=== PATIENT | female | born 1980 | race Caucasian/White ===

== ENCOUNTER 2017-11-11 03:28 | Emergency (ER) | payer OTHER, SELFPAY ==
[2017-11-11 03:35] VITALS: BP 121/94; PULSE 126; RESP 16; TEMP 36.5; O2SAT 95
[2017-11-11 03:40] VITALS: RESP 16
[2017-11-11 03:52] LABS: Bilirubin Negative (Negative); Blood Negative (Negative); Clarity Clear; Glucose Negative (Negative); Ketones Negative (Negative); Leukocyte Esterase Negative (Negative); Nitrite Negative (Negative); Specific Gravity <= 1.005 (1.005-1.025); Urobilinogen 0.2 EU/dL (Up TO 0.2); pH 5.5 (5-8)
[2017-11-11 04:04] LABS: *AMPHETAMINES SCREEN URINE Negative (Negative); *BARBITURATES SCREEN URINE Negative (Negative); *BENZODIAZEPINES SCREEN URINE Negative (Negative); Cannabinoids THC Negative (Negative); Cocaine Screen,Urine Negative (Negative); METHADONE URINE SCREEN Negative (Negative); OPIATES URINE SCREEN Negative (Negative)
[2017-11-11 04:14] LABS: Tricyclic Antidepressants Negative (Negative)
[2017-11-11 04:26] LABS: HCT 45.5 % (36.0-46.0); HGB 15.7 g/dL (12.0-15.5); Mean Corp. HGB Concentration 34.5 g/dL (32.0-36.0); Mean Corpuscular Hemoglobin 31.9 pg (27.0-33.0); Mean Corpuscular Volume 92.5 fL (80-95); Mean Platelet Volume 9.5 fL (8.0-11.0); Platelet Count 271 x1000/uL (130-400); RBC 4.92 m/cumm (4.00-5.20); RBC Distribution Width 13.2 % (11.7-14.6); White Blood Cell Count 11.48 k/cumm (4.4-10.8)
[2017-11-11 04:37] LABS: BUN 4 mg/dL (7-18); CREATININE 0.77 mg/dL (0.55-1.02); Calcium 8.4 mg/dL (8.5-10.1); Chloride 102 mmol/L (98-107); ETHANOL BLOOD 280.8 mg/dL (<3); Glucose 93 mg/dL (70-100); Potassium 3.5 mmol/L (3.5-5.1); Sodium 142 mmol/L (136-145)
--- NOTE | 2017-11-11 04:56 | ED.GENADUL ---
Disposition Clinical Impression: Alcohol intoxication, Anxiety Disposition: [facility] Condition: Good Instructions: Alcohol Intoxication (ED), Anxiety (ED) Additional Instructions: You are still in protective custody until you are sober. However you are medically cleared and released into protective custody to go to the correctional facility to sober up. Referrals: [facility] [Provider Group] Luis Alberto Luu [Primary Care Provider] - Medical Decision Making - Lab Data Laboratory Tests 11/11/17 11/11/17 11/11/17 03:47 03:47 04:15 WBC RBC Hgb Hct MCV MCH MCHC RDW Plt Count MPV Sodium 142 Potassium 3.5 Chloride 102 Carbon Dioxide 26.0 Anion Gap 14.0 H BUN 4 L Creatinine 0.77 Estimated GFR/1.73 m2 >= 60.00 Glucose 93 Calcium 8.4 L Urine Color Straw Urine Clarity Clear Urine pH 5.5 Ur Specific [place] <= 1.005 Urine Protein Negative Urine Ketones Negative Urine Blood Negative Urine Nitrite Negative Urine Bilirubin Negative Urine Urobilinogen 0.2 Ur Leukocyte Esterase Negative Urine Glucose Negative Urine Opiates Screen Negative Urine Methadone Screen Negative Ur Barbiturates Screen Negative Ur Tricyclics Screen Negative Ur Amphetamines Screen Negative U Benzodiazepines Scrn Negative Urine Cocaine Screen Negative Ur THC Screen Negative Ethyl Alcohol 280.8 11/11/17 04:15 WBC 11.48 H RBC 4.92 Hgb 15.7 H Hct 45.5 MCV 92.5 MCH 31.9 MCHC 34.5 RDW 13.2 Plt Count 271 MPV 9.5 Sodium Potassium Chloride Carbon Dioxide Anion Gap BUN Creatinine Estimated GFR/1.73 m2 Glucose Calcium Urine Color Urine Clarity Urine pH Ur Specific [place] Urine Protein Urine Ketones Urine Blood Urine Nitrite Urine Bilirubin Urine Urobilinogen Ur Leukocyte Esterase Urine Glucose Urine Opiates Screen Urine Methadone Screen Ur Barbiturates Screen Ur Tricyclics Screen Ur Amphetamines Screen U Benzodiazepines Scrn Urine Cocaine Screen Ur THC Screen Ethyl Alcohol Results reviewed for labs ordered during visit: Yes - EKG Data -: EKG Interpreted by Me Interpretation: no acute changes, nonspecific ST-T wave changes - Medical Decision Making Patient brought in for medical clearance with alcohol intoxication. She admits to anxiety but denies being suicidal or homicidal. She denies any drug use. She is tachycardic but reports this occurs when she gets anxious. However, with heart rate of 125 at triage, I have elected to place an IV and get a EKG, check basic labs and give fluids prior to clearing. Patient's EKG is sinus tach at 110. There is nonspecific ST changes but nothing acute. CBC and chemistry unremarkable. Alcohol level 281. Urine drug screen negative. Urine test negative. Heart rate down to normal after less than a liter of fluid. Patient ambulatory with relatively clear speech. She can be released into protective custody and taken to the retirement to sober up. History of Present Illness - General Chief complaint: GenMedical Stated complaint: MEDICAL CLEARANCE Time Seen by Provider: 11/11/17 03:56 Source: patient, police Mode of arrival: ambulatory Limitations: no limitations - History of Present Illness Initial comments: Patient is brought in by police for evaluation of intoxication. Patient had been seen staggering down the road. Patient is known to be a binge drinker at times. She was screened by mental health and referred to us because her blood alcohol level was too high. Patient ambulated in on her own. His speech is relatively clear. She is able to provide history including her medications. She denies being suicidal or homicidal. She does admit to anxiety which is why she drinks. She has no physical complaints of other than some palpitations and shortness of breath related to anxiety. - Related Data Citalopram [CeleXA] 40 mg PO DAILY tab-cap 11/20/13 ALPRAZolam [Xanax] 0.5 mg PO PRN PRN 10/01/17 Gabapentin 800 mg PO BID 11/11/17 Allergies Allergy/AdvReac Type Severity Reaction Status Date / Time No Known Allergies Allergy Unverified 11/11/17 03:42 Review of Systems Constitutional: denies: fever Eyes: denies: vision change ENT: denies: congestion Respiratory: shortness of breath. denies: cough Cardiovascular: palpitations. denies: chest pain Gastrointestinal: denies: abdominal pain, nausea, vomiting Musculoskeletal: denies: back pain Neurological: denies: headache, weakness, numbness Psychiatric: anxiety. denies: depression, homicidal thoughts, suicidal thoughts Past Medical History - Past Medical History Medical history: no medical history Surgical history: non-contributory Psychiatric history: anxiety - Social History Smoking status: current everyday smoker Alcohol use: heavy, recent Drug use: none General Exam - General Limitations: no limitations General appearance: alert, in no apparent distress - Head Head exam: Present: atraumatic, normocephalic - Eye Eye exam: Present: PERRL. Absent: scleral icterus - Neck Neck exam: Present: normal inspection - Respiratory Respiratory exam: Present: normal lung sounds bilaterally - Cardiovascular Cardiovascular Exam: Present: normal rhythm, tachycardia, normal heart sounds - Extremities Exam Extremities exam: Present: normal inspection, full ROM - Neurological Exam Neurological exam: Present: alert, oriented X3, CN II-XII intact, normal gait. Absent: motor sensory deficit - Psychiatric Psychiatric exam: Present: anxious. Absent: depressed, homicidal ideation, suicidal ideation - Skin Skin exam: Present: warm, dry, intact Course Vital Signs - 24 hr 11/11/17 11/11/17 03:35 03:40 Temperature 97.7 F Pulse 126 H Respiratory 16 16 Rate Blood Pressure 121/94 Pulse Oximetry 95
[2017-11-11] MEDS: Lactated Ringers 1,000 ML 1000 ML IV (05:09)
[2017-11-11] MEDS: Nicotine 21 MG/24 HR PATCH TD (05:12)
[2017-11-11 05:51] VITALS: PULSE 98; RESP 15; O2SAT 98
== END 2017-11-11 05:54 | disposition home or self-care (01) ==
PROVIDERS: Emergency Provider Emergency Medicine; PCP Specialist/Technologist Athletic Trainer
DX: F10.129 Alcohol abuse with intoxication, unspecified (principal); Y90.8 Blood alcohol level of 240 mg/100 ml or more; F41.9 Anxiety disorder, unspecified; R00.0 Tachycardia, unspecified
CPT/HCPCS: 36415; 80048; 80307; 81025; 85027; 93005; 96360; 99285; 80320; 81003; 93010

== ENCOUNTER 2018-05-04 17:05 | Outpatient (REF) | payer OTHER, SELFPAY ==
[2018-05-04 21:23] LABS: ALT 63 U/L (12-78); AST 34 U/L (15-37); Alkaline Phosphatase 123 U/L (46-116); Anion Gap 11.4 mmol/L (3-11); BUN 8 mg/dL (7-18); Bilirubin, Total 0.3 mg/dL (0.2-1.0); CO2 26.6 mmol/L (21.0-32.0); CREATININE 0.97 mg/dL (0.55-1.02); Calcium 9.4 mg/dL (8.5-10.1); Chloride 101 mmol/L (98-107); Cholesterol 253 mg/dL (50-200); Glucose 93 mg/dL (70-100); HDL Cholesterol 77 mg/dL (40-60); LDL CHOLESTEROL 145 mg/dL (<100); Potassium 4.2 mmol/L (3.5-5.1); Sodium 139 mmol/L (136-145); Triglyceride 99 mg/dL (30-150)
== END 2018-05-04 17:25 ==
LOC: NCHCN 17:05
PROVIDERS: PCP Specialist/Technologist Athletic Trainer; Visit Provider Specialist/Technologist Athletic Trainer
DX: Z00.00 Encounter for general adult medical examination without abnormal findings (principal); Z13.220 Encounter for screening for lipoid disorders; Z13.228 Encounter for screening for other metabolic disorders
CPT/HCPCS: 80053; 80061; 83721

== ENCOUNTER 2018-05-19 00:21 | Outpatient (CLI) | payer OTHER, SELFPAY ==
--- NOTE | 2018-05-19 13:55 | DI.RAD_ITS ---
SYMPTOMS/DIAGNOSIS: CHEST PAIN, R07.9 PA AND LATERAL CHEST: The heart is normal in size. The lungs are clear. The mediastinal structures and pleura appear intact. CONCLUSION: Normal chest.
== END 2018-05-19 00:41 ==
PROVIDERS: PCP Specialist/Technologist Athletic Trainer; Visit Provider Specialist/Technologist Athletic Trainer
DX: R07.9 Chest pain, unspecified (principal)
CPT/HCPCS: 71046

== ENCOUNTER 2018-12-13 15:12 | Outpatient (REF) | payer OTHER, SELFPAY ==
[2018-12-13 22:12] LABS: Abs Immature Grans 0.01 k/cumm (0.0-0.09); Absolute Basophil Count 0.03 k/cumm (0.0-0.2); Absolute Eosinophil Count 0.18 k/cumm (0.0-0.7); Absolute Lymphocyte Count 1.78 k/cumm (1.2-3.4); Absolute Neutrophil Count 4.72 k/cumm (1.2-6.7); Basophils % 0.4; Eosinophils % 2.5; HCT 43.5 % (36.0-46.0); HGB 14.5 g/dL (12.0-15.5); Immature Grans % 0.1; Mean Corp. HGB Concentration 33.3 g/dL (32.0-36.0); Mean Corpuscular Hemoglobin 30.8 pg (27.0-33.0); Mean Corpuscular Volume 92.4 fL (80-95); Mean Platelet Volume 11.1 fL (8.0-11.0); Monocytes % 5.6; Neutrophils % 66.4; Platelet Count 259 x1000/uL (130-400); RBC 4.71 m/cumm (4.00-5.20); White Blood Cell Count 7.12 k/cumm (4.4-10.8)
[2018-12-13 22:34] LABS: ALT 119 U/L (14-59); AST 66 U/L (15-37); Albumin 3.7 g/dL (3.4-5.0); Alkaline Phosphatase 139 U/L (46-116); Anion Gap 9.9 mmol/L (3-11); BUN 8 mg/dL (7-18); Bilirubin, Total 0.3 mg/dL (0.2-1.0); CO2 27.1 mmol/L (21.0-32.0); CREATININE 0.95 mg/dL (0.55-1.02); Chloride 104 mmol/L (98-107); Glucose 83 mg/dL (70-100); Potassium 4.5 mmol/L (3.5-5.1); Sodium 141 mmol/L (136-145); Total Protein 7.2 g/dL (6.4-8.2)
[2018-12-14 05:04] LABS: Vitamin D 25 Total 25.4 ng/ml (30-100)
== END 2018-12-13 15:32 ==
LOC: NCHCN 15:12
PROVIDERS: PCP Specialist/Technologist Athletic Trainer; Visit Provider Nurse Practitioner Family
DX: R53.83 Other fatigue (principal); R19.7 Diarrhea, unspecified
CPT/HCPCS: 80053; 82306; 84443; 85025

== ENCOUNTER 2018-12-19 14:28 | Outpatient (REF) | payer OTHER, SELFPAY ==
[2018-12-20 11:44] LABS: Campylobacter PCR SEE COMMENTS; Salmonella PCR SEE COMMENTS; Shiga Toxin PCR SEE COMMENTS; Shigella/Enteroinvasive Ecoli SEE COMMENTS
== END 2018-12-19 14:48 ==
LOC: NCHCN 14:28
PROVIDERS: PCP Specialist/Technologist Athletic Trainer; Visit Provider Nurse Practitioner Family
DX: R53.83 Other fatigue (principal); R19.7 Diarrhea, unspecified
CPT/HCPCS: 87329; 87505; 82272; 83630; 87177; 87324

== ENCOUNTER 2019-01-09 15:17 | Outpatient (REF) | payer OTHER, SELFPAY ==
[2019-01-09 23:05] LABS: ESR 19 mm/hr (0-20)
[2019-01-09 23:30] LABS: Iron 94 ug/dL (50-175); Total Iron Binding Capacity 256 ug/dL (250-450); Transferrin Sat 37 % (15-50)
[2019-01-09 23:47] LABS: Ferritin 108 ng/mL (8-388)
[2019-01-11 09:37] LABS: Rheumatoid Factor <8 IU/mL (<12.5)
[2019-01-11 10:53] LABS: Hepatitis C Ab w Rflx HCV PCR Negative (NEGAT)
[2019-01-11 10:54] LABS: Cyclic Citrullinated Peptide <2.5 U/mL (<5.0)
[2019-01-11 11:12] LABS: Hepatitis B Surface Ag Negative (NEGAT)
[2019-01-11 13:18] LABS: ANA Interpretation Negative (NEGAT)
[2019-01-12 12:37] LABS: c-ANCA Negative (Negative); p-ANCA Negative (Negative)
== END 2019-01-09 15:37 ==
LOC: NCHCN 15:17
PROVIDERS: PCP Specialist/Technologist Athletic Trainer; Visit Provider Nurse Practitioner Family
DX: R53.83 Other fatigue (principal); R19.7 Diarrhea, unspecified; R15.9 Full incontinence of feces; R74.8 Abnormal levels of other serum enzymes; M25.50 Pain in unspecified joint; Z11.59 Encounter for screening for other viral diseases
CPT/HCPCS: 85652; 86200; 86803; 87340; 82728; 83540; 83550; 86038; 86255; 86431

== ENCOUNTER 2020-01-01 19:26 | Outpatient (REF) | payer OTHER, SELFPAY ==
[2020-01-03 13:53] LABS: Patient Race White; SARS-CoV-2 RNA Undetected (Undetected); SARS-CoV-2 Specimen Source Nasopharynx
== END 2020-01-01 19:46 ==
LOC: NCHCN 19:26
PROVIDERS: PCP Specialist/Technologist Athletic Trainer; Visit Provider Nurse Practitioner Family
DX: R05 Cough (principal)
CPT/HCPCS: U0003

== ENCOUNTER 2020-06-09 19:21 | Outpatient (REF) | payer OTHER, SELFPAY ==
[2020-06-09 18:53] LABS: HCT 44.9 % (36.0-46.0); MCH 30.5 pg (27.0-33.0); MCHC 33.4 % (32.0-36.0); MCV 91.4 fL (80-95); MPV 10.5 fL (8.0-11.0); Platelet Count 312 10^3/uL (130-400); RBC 4.91 10^6/uL (3.93-5.22); RDW 12.5 % (11.7-14.6); RDW-SD 42.3 fL; WBC 6.74 10^3/uL (4.4-10.8)
[2020-06-09 19:21] LABS: Anion Gap 8.8 mmol/L (3-11); BUN 10 mg/dL (7-18); CO2 29.2 mmol/L (21.0-32.0); CREATININE 0.9 mg/dL (0.55-1.02); Calcium 9.2 mg/dL (8.5-10.1); Calculated LDL 144 mg/dL (<100); Chloride 102 mmol/L (98-107); Cholesterol 233 mg/dL (<200); Glucose 88 mg/dL (74-106); HDL Cholesterol 75 mg/dL (40-60); Sodium 140 mmol/L (136-145); Triglyceride 74 mg/dL (<150)
[2020-06-09 19:38] LABS: Vitamin D 25 Total 37.4 ng/ml (30-100)
== END 2020-06-09 19:22 | disposition home or self-care (01) ==
LOC: NCHCN 19:21
PROVIDERS: PCP Specialist/Technologist Athletic Trainer; Visit Provider Nurse Practitioner Family
DX: R63.5 Abnormal weight gain (principal); K58.9 Irritable bowel syndrome, unspecified; Z79.899 Other long term (current) drug therapy
CPT/HCPCS: 80048; 80061; 82306; 85027; 84443

== ENCOUNTER 2020-06-17 15:45 | Outpatient (REF) | payer OTHER, SELFPAY ==
--- NOTE | 2020-06-17 14:30 | PAPFT_PTH ---
PATIENT: Domitila Sauceda LOC: [facility] U#:[id number] AGE/SX: 39/F ROOM: RE06/17/[address]: Tash Chávez NP : 1980 BED: DIS: 06/17/2020 SPEC #: [id number] RECD: 06/17/20 17:29 STATUS: RUTHY REDaisy #: [id number] MORAIMA: 06/17/20 14:[address]: Saira HOPSON,Tash DEPT: [facility] Cytology RECD BY: Yudelka Zambrano ENTERED: 06/17/20 17:29 SP TYPE: PAPFT OTHR DR: Luis Alberto Luu Tissues: 1 - CX/ENDOCX FOR PAP SMEARS Procedures: PAP THIN PREP/UVM Screening HPV DNA PROBE Comments: [id number]
== END 2020-06-17 15:46 | disposition home or self-care (01) ==
LOC: LBN 15:45
PROVIDERS: PCP Specialist/Technologist Athletic Trainer; Visit Provider Nurse Practitioner Women's Health
DX: Z12.4 Encounter for screening for malignant neoplasm of cervix (principal); Z86.001 Personal history of in-situ neoplasm of cervix uteri; Z11.51 Encounter for screening for human papillomavirus (HPV)
CPT/HCPCS: 88142; 87624

== ENCOUNTER 2020-06-23 02:18 | Outpatient (CLI) | payer OTHER, SELFPAY ==
--- NOTE | 2020-06-23 16:24 | DI.MAMMO_ITS ---
EXAM: MG MAMMO SCREENING CLINICAL HISTORY: screening. TECHNIQUE: Bilateral full field digital CC and MLO mammographic images were obtained with 3D tomosyn thesis and utilizing computer aided detection (CAD). COMPARISON: None. This is a baseline mammogram on this 39-year-old patient. FINDINGS: There are no CAD designations. No significant focal findings in the right breast. In the left breast there is a benign-appearing noncalcified nodule located extreme lateral. I suspec t that this is a skin mole. There are no malignant-appearing microcalcification groups in this regio n or elsewhere in either breast. There is no significant architectural distortion nor skin thickening-retraction. IMPRESSION: No radiographic evidence of malignancy in the right breast. Extremely laterally located left breast nodule which I suspect may be a skin mole. Recommend repeat view with skin mole marker in place. BI-RADS Category 0 - Assessment Incomplete: Need additional imaging evaluation Breast Density - Category B - Scattered areas of fibroglandular density Breast density Category C or D implies that the patient has dense breast tissue. Dense breast tissue can make it harder to find cancer on a mammogram. Dense breast tissue is also associated with an incr eased risk of breast cancer. This information about the result of the mammogram report was provided to the patient to raise their awareness. Use this report when you speak with the patient about their risks for breast cancer, which includes their family history. At that time, you may recommend additional screening tests (Ultrasoun d or MRI) as these tests may add significant information. A negative radiographic report should not delay biopsy if a dominant or clinically suspicious mass is present. Up to ten percent of cancers are not identified on mammography. A negative report may reinforce clinical impression. Adenosis and dense breasts may obscure an underlying neoplasm. False positive reports average 6 to 10%. Patient will receive a letter notifying them of these results.
== END 2020-06-23 02:38 ==
PROVIDERS: PCP Nurse Practitioner Family; Visit Provider Nurse Practitioner Women's Health
DX: Z12.31 Encounter for screening mammogram for malignant neoplasm of breast (principal); R92.8 Other abnormal and inconclusive findings on diagnostic imaging of breast
CPT/HCPCS: 77063; 77067

== ENCOUNTER 2020-06-27 03:21 | Outpatient (CLI) | payer OTHER, SELFPAY ==
--- NOTE | 2020-06-27 13:45 | DI.MAMMO_ITS ---
EXAM: MG MAMMO SCREEN CALL BACK UNI CLINICAL HISTORY: F/U MAMMO, LT BREAST NODULE, ? SKIN MOLE TECHNIQUE: Mammograms were interpreted according to the usual protocol including computer analysis w [employer] CAD system, tomosynthesis and C-view imaging. COMPARISON: FINDINGS: Repeat CC and MLO views of the left breast were obtained with marker placed on skin mole on the infer olateral region of the left breast. The repeat views confirm that the nodular radiodensity noted on the recent mammogram of June 23 in fact corresponds to a mole on the skin in this location. No ad ditional significant findings. IMPRESSION: No specific evidence of malignancy at this time. Routine screening examinations are suggested at yea rly intervals in this age group according to the ACR guidelines. BI-RADS Category 1 - Negative Breast Density - Category B - Scattered areas of fibroglandular density
== END 2020-06-27 03:41 ==
PROVIDERS: PCP Nurse Practitioner Family; Visit Provider Nurse Practitioner Women's Health
DX: R92.8 Other abnormal and inconclusive findings on diagnostic imaging of breast (principal)

== ENCOUNTER 2021-09-27 20:37 | Emergency (ER) | payer OTHER, SELFPAY ==
[2021-09-27] VITALS (7 sets, daily range): BP systolic 105–128; BP diastolic 68–83; PULSE 89–110; RESP 17–24; TEMP 36.6; O2SAT 91–96
--- NOTE | 2021-09-27 20:45 | RT.EKG_ITS ---
APPROVED REPORT Exam: Resting ECG Reason for Exam: huffing, tox patient Patient Location: E HR:105 bpm ECG Measurements Heart Rate 105 AXIS DE 158 P 77 QRSd 100 QRS -17 QT 362 T 18 QTc 479 Conclusion Sinus tachycardia...rate> 99 sinus tachycardia, normal axis, normal intervals, non ischemic
--- NOTE | 2021-09-27 20:45 | DI.RAD_ITS ---
Exam(s) XR PORTABLE CHEST AP EXAM: XR PORTABLE CHEST AP CLINICAL HISTORY: huffing dustoff, vomiting blood. TECHNIQUE: 2D digital imaging was performed. COMPARISON: CR XR CHEST 2V PA LATERAL from 05/19/2018 FINDINGS: Single AP portable view. Heart size is upper normal. The mediastinum is not widened. Lungs are clear. No infiltrates nor obvious pleural effusions. IMPRESSION: No acute pulmonary findings on this single AP portable view of the chest. DATA REPOSITORY: RADIATION DOSE DELIVERED: All CT scans at this facility use at least one of these dose optimization techniques: automated exposure control; mA and/or kV adjustment per patient size (includes targeted e xams where dose is matched to clinical indication); or iterative reconstruction.
--- NOTE | 2021-09-27 21:00 | ED.GENADUL_ITS ---
Discharge Plan Disposition Patient Disposition: HOME Condition: Improving Discharge Details Clinical Impression: Huffing, UTI (urinary tract infection), Depression Primary Care Provider: Crystal Clark ED Provider: Nicolas Arciniega Home Meds and New Rx's Prescriptions: New cefpodoxime 100 mg tablet 100 mg PO BID 7 Days Qty: 14 0RF Rx Instructions: must administer with a meal/food No Action escitalopram oxalate 20 mg tablet 20 mg PO DAILY Latuda 20 mg tablet 20 mg PO DAILY Rx Instructions: pt doesnt thinkshe still takes this must administer with food (at least 350 calories) eszopiclone [Lunesta] 1 mg tablet 1 mg PO QHS colestipol 1 gram tablet 1 g PO BID cholecalciferol (vitamin D3) 50 mcg (2,000 unit) capsule 50 mcg PO DAILY Align 4 mg capsule 4 mg PO DAILY folic acid 1 mg tablet 1 mg PO DAILY risperidone 0.5 mg tablet 0.5 tab PO BID Label Comments: TAKE 1 TABLET BY MOUTH TWICE DAILY topiramate 50 mg tablet 50 tab PO 2XD Label Comments: TAKE 2 TABLETS IN THE MORNING AND TAKE 1 TABLET BY MOUTH AT BEDTIME Rx Instructions: said she ran out last week alprazolam 0.5 MG tablet 0.5 mg PO PRN PRN Discharge Instructions Instructions: Urinary Tract Infection in Women (ED) Additional Instructions: Please follow-up with your psychiatrist as scheduled. Please follow-up with outpatient safety plan created by [facility]. Please return to the emergency department for any worsening symptoms such as thoughts of harming yourself or others or any other medical issues. Medical Decision Making 40-year-old female currently undergoing a divorce, presents with increased stress depression and suicidal thoughts, has been helping just off spray for several days now, now experiencing nausea vomiting bringing up emesis with blood streaks, no active vomiting abdomen soft nontender nondistended alert oriented tolerating secretions, tachycardic on arrival no respiratory distress lungs clear bilaterally, alert and oriented. Patient is a slightly withdrawn affect active depression and suicidal thoughts. Consider nausea induced from coughing versus other toxicologic process, consider Brittney-Slade tear versus less likely Boerhaave's given brief limited amount of streaked blood prior to arrival, muscle to consider pulmonary etiology such as pneumonitis versus less likely pneumothorax. Patient endorses feeling safe at home and per her report her children are safe where they are currently. Will need medical clearance toxicologic labs chest x-ray EKG, fluids antiemetics, and then will need psychiatric screening for possible inpatient treatment. 22: 34 patient resting comfortably no acute distress neurologically intact no respiratory symptoms labs largely unremarkable. Called poison control center who agrees with management continue with observation and symptomatic treatment as needed. Patient is clinically sober. Will contact [facility] for initial psychiatric screening. 23: 40 patient resting notably no acute distress. Denies SI or HI at this time. Spoke with [facility] and denied SI or HI to their staff as well. Placement of a safety plan and phone conversation and follow-up psychiatric meeting for this patient. Patient feels comfortable going home. Will be treated for incidental UTI. HPI General Date/Time Provider Initiated Documentation: 09/27/21 20:49 . HPI Narrative: 40-year-old female history of depression, currently going through divorce with her , 2 adult children and one 10-year-old daughter, presents with increased stress, anxiety, suicidal thoughts and self injures behavior, endorses huffing dust off spray in order to feel better however is having suicidal thoughts as well. Endorses vomiting with streaks of blood. History of drinking in the past however is not drank in over 3 years. Has been happening for s everal days at a time. No respiratory distress at this time. Endorses that her juvenile child is with her and her adult children are at home. She feels safe at home no one is hurting her. Related Data Home Medications Medication Instructions Recorded Confirmed alprazolam 0.5 mg tablet 0.5 mg PO PRN PRN 10/01/17 09/27/21 Bifidobacterium infantis 4 mg 4 mg PO DAILY 06/17/20 09/27/21 capsule (Align) cholecalciferol (vitamin D3) 50 50 mcg PO DAILY 06/17/20 09/27/21 mcg (2,000 unit) capsule colestipol 1 gram tablet 1 g PO BID 06/17/20 09/27/21 escitalopram oxalate 20 mg tablet 20 mg PO DAILY 06/17/20 09/27/21 eszopiclone 1 mg tablet (Lunesta) 1 mg PO QHS 06/17/20 09/27/21 folic acid 1 mg tablet 1 mg PO DAILY 06/17/20 09/27/21 lurasidone 20 mg tablet (Latuda) 20 mg PO DAILY 06/17/20 cefpodoxime 100 mg tablet 100 mg PO BID 7 days #14 tabs 09/27/21 risperidone 0.5 mg tablet 0.5 tab PO BID 09/27/21 09/27/21 topiramate 50 mg tablet 50 tab PO 2XD 09/27/21 09/27/21 Previous Rx's Medication Instructions Recorded cefpodoxime 100 mg tablet 100 mg PO BID 7 days #14 tabs 09/27/21 Allergies Allergy/AdvReac Type Severity Reaction Status Date / Time No Known Allergies Allergy Unverified 09/27/21 20:43 General Stated Complaint: OD/Poison DEDE: 2 Review of Systems Narrative: Review of Systems Constitutional: negative Eyes: negative ENT: negative Cardiovascular: negative Respiratory: negative Gastrointestinal: Nausea vomiting : negative Musculoskeletal: negative Skin: negative Neurologic: negative Psych: Depression, SI PFSH All Active Problems (Updated 09/27/21 @ 23:42 by Nicolas Arciniega MD) Huffing (Acute) UTI (urinary tract infection) (Acute) Depression (Chronic) IBS (irritable bowel syndrome) (Chronic) Medical History (Updated 09/27/21 @ 23:42 by Nicolas Arciniega MD) 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) Tx with LEEP Surgical History (Updated 06/17/20 @ 14:39 by Tash Chávez NP) H/O LEEP Social History (Updated 06/17/20 @ 14:41 by Tash Chávez NP) Smoking/Tobacco Use Status: Former Tobacco Use Smoking risk assessment performed?: Yes Alcohol Intake: never Drug use: Never Details: pt is admitted due to huffing cans of dust off Household members: spouse and children Number of Children: 3 Sexually active: Yes Do you think of yourself as: straight/heterosexual Current gender identity: female Do you feel safe at home: No Do you feel safe in your relationship?: Yes Additional Social history: pt is going through a divorce that she does not want Female Reproductive History Menstrual control method: other (partner with vasectomy) History History 6 Para 3 Hx # Term Pregnancies Multiple births Hx # Pregnancies Ectopic pregnancies AB induced Hx Number of Living Children AB spontaneous Exam Narrative Exam Narrative: Physical Examination General: alert, awake, cooperative, resting comfortably, no acute distress HEENT: normocephalic, atraumatic; PERRL, EOM intact, conjunctiva normal; no nasal discharge; moist mucous membranes, oral and pharyngeal mucosa normal, tolerating secretions Neck: supple, trachea midline; full ROM Chest: normal to inspection Respiratory: normal respiratory effort, speaking in full sentences, clear to auscultation, no wheezing, rales or rhonchi Cardiac: Tachycardia, regular rhythm, S1S2 intact, no murmurs rubs or gallops GI: abdomen soft, non-tender, non-distended; no palpable mass or hepatosplen omegaly Skin: no lesions, rashes or trauma appreciated Neuro: AAOx3, normal speech, moving all extremities Psych: Withdrawn affect, depression, suicidal thoughts Course Vital Signs Vital signs: Vital Signs Temperature 36.6 C 09/27/21 20:35 Pulse 105 H 09/27/21 20:35 Respiratory Rate 24 09/27/21 20:35 Blood Pressure 105/82 09/27/21 20:35 Pulse Oximetry 93 09/27/21 20:35 Temperature 36.6 C 09/27/21 20:35 Temperature Source Skin 09/27/21 20:35 Pulse 105 H 09/27/21 20:35 Respiratory Rate 24 09/27/21 20:35 Respiratory Effort Non-Labored 09/27/21 20:52 Blood Pressure 105/82 09/27/21 20:35 Pulse Oximetry 93 09/27/21 20:35 Pain Level 1 09/27/21 20:35
[2021-09-27] MEDS: Famotidine 20 MG/2 ML VIAL IVP (21:06)
[2021-09-27] MEDS: Ondansetron 4 MG/2 ML VIAL IVP ×2 (21:06→23:40)
[2021-09-27] MEDS: Normal Saline 1,000 ML 1000 ML IV (21:06)
[2021-09-27 21:14] LABS: BE (Venous) -5 mmol/L (-2-3); HCO3 (Venous) 20 mmol/L (23-28); O2 Sat (Venous) 95 %; TCO2 (Venous) 18 mmol/L (24-29); pCO2 (Venous) 34 mmHg (41-51); pH (Venous) 7.38 (7.31-7.41); pO2 (Venous) 72 mmHg
[2021-09-27 21:31] LABS: Abs Immature Grans 0.13 10^3/uL (0.0-0.06); Absolute Eosinophil Count 0.02 10^3/uL (0.0-0.7); Absolute Lymphocyte Count 0.72 10^3/uL (1.2-3.4); Basophils % 0.3; Eosinophils % 0.1; HCT 43.7 % (36.0-46.0); HGB 14.8 g/dL (11.2-15.7); Immature Grans % 0.6; Lymphocytes % 3.2; MCH 30.3 pg (27.0-33.0); MCHC 33.9 % (32.0-36.0); MCV 90 fL (80-95); MPV 9.8 fL (8.0-11.0); Monocytes % 5.4; Neutrophils % 90.4; Platelet Count 316 10^3/uL (130-400); RBC 4.88 10^6/uL (3.93-5.22); RDW 13.6 % (11.7-14.6); RDW-SD 44.5 fL; WBC 22.63 10^3/uL (4.4-10.8)
[2021-09-27 21:37] LABS: Absolute Basophil Count 0.07 10^3/uL (0.0-0.2); Absolute Monocyte Count 1.22 10^3/uL (0.1-0.8); Absolute Neutrophil Count 20.46 10^3/uL (1.2-6.7)
[2021-09-27 21:52] LABS: ALT 77 U/L (14-59); AST 28 U/L (15-37); Acetaminophen < 2 ug/mL (10-30); Albumin 3.7 g/dL (3.4-5.0); Alkaline Phosphatase 154 U/L (46-116); Anion Gap 12.9 mmol/L (3-11); BUN 10 mg/dL (7-18); Bilirubin, Total 0.5 mg/dL (0.2-1.0); CO2 23.1 mmol/L (21.0-32.0); Calcium 8.3 mg/dL (8.5-10.1); Chloride 102 mmol/L (98-107); ETHANOL BLOOD 5.3 mg/dL (<10); Glucose 143 mg/dL (74-106); Potassium 3.4 mmol/L (3.5-5.1); Sodium 138 mmol/L (136-145); TSH (W/Ref FT4) 1.72 uIU/mL (0.36-3.74); Total Protein 7.2 g/dL (6.4-8.2); Troponin I < 50 ng/L (<or=60)
[2021-09-27 21:53] LABS: Diff Comment Agrees w/ Instrument; RBC Morphology Normal
[2021-09-27 22:00] LABS: Lipase 36 U/L (73-393)
[2021-09-27 22:27] LABS: Bilirubin Negative (Negative); Blood Trace-intact (Negative); Clarity Clear (Clear); Glucose Negative (Negative); Ketones Trace mg/dL (Negative); Leukocyte Esterase Small (Negative); Nitrite Negative (Negative); Specific Gravity 1.015 (1.005-1.025); Urobilinogen 0.2 EU/dL (Up TO 0.2)
[2021-09-27 22:31] LABS: *AMPHETAMINES SCREEN URINE Negative (Negative); *BARBITURATES SCREEN URINE Negative (Negative); *BENZODIAZEPINES SCREEN URINE Positive (Negative); Cannabinoids THC Positive (Negative); Cocaine Screen,Urine Negative (Negative); METHADONE URINE SCREEN Negative (Negative); OPIATES URINE SCREEN Negative (Negative)
[2021-09-27 22:34] LABS: Tricyclic Antidepressants Negative (Negative)
--- NOTE | 2021-09-27 22:38 | DI.VRAD_ITS ---
PROCEDURE INFORMATION: Exam: XR Chest Exam date and time: 09/27/2021 10:01 PM Age: 40 years old Clinical indication: Patient HX: Huffing dustoff, vomiting blood TECHNIQUE: Imaging protocol: Radiologic exam of the chest. Views: 1 view. COMPARISON: CR XR CHEST 2V PA LATERAL 05/19/2018 1:59 PM FINDINGS: Lungs: The lung benz appear clear. No pulmonary consolidation is seen. Pleural spaces: No pleural effusion or pneumothorax is demonstrated. Heart/Mediastinum: Heart size is normal. Bones/joints: The visualized bony structures appear grossly intact, as seen. IMPRESSION: No active disease is seen in the chest. Dictated and Authenticated by: Ji San MD. Ordering:JOSIE Valenzuela MD
[2021-09-27 22:43] LABS: Bacteria Few HPF (Negative); C & S Indicated? Yes; Crystals Negative HPF (Negative); Epithelial Cells Few HPF (Negative); Mucus Moderate (Negative); Other Cells Rare Renal (Negative); WBC 20-50 HPF (0-5)
[2021-09-27] MEDS: Cefpodoxime 200 MG TAB PO (23:40)
[2021-09-28 00:08] LABS: Source Nasal/Nares
[2021-09-28 00:59] LABS: COVID-19 PCR Negative (Negative)
== END 2021-09-28 00:40 | disposition home or self-care (01) ==
PROVIDERS: Emergency Provider Emergency Medicine; PCP Nurse Practitioner Family
DX: F32.A Depression, unspecified (principal); F18.10 Inhalant abuse, uncomplicated; N39.0 Urinary tract infection, site not specified; Z20.822 Contact with and (suspected) exposure to COVID-19; Z87.891 Personal history of nicotine dependence; R00.0 Tachycardia, unspecified
CPT/HCPCS: 36415; 80053; 80307; 81025; 82805; 83690; 87635; 93005; 96361; 96374; 96375; 96376; 99285; 71045; 80320; 80329; 81003; 81015; 84443; 84484; 85025; 87086; 93010; 99284; J2405

== ENCOUNTER 2021-09-29 18:03 | Emergency (ER) | payer OTHER, SELFPAY ==
[2021-09-29] VITALS (25 sets, daily range): BP systolic 109; BP diastolic 74; PULSE 70–100; RESP 13–27; O2SAT 92–99
--- NOTE | 2021-09-29 18:21 | ED.GENADUL_ITS ---
Discharge Plan Disposition Patient Disposition: STILL A PATIENT Condition: Stable Discharge Details Clinical Impression: Huffing, Depression Primary Care Provider: Crystal Clark ED Provider: Nicolas Arciniega Home Meds and New Rx's Prescriptions: No Action escitalopram oxalate 20 mg tablet 20 mg PO DAILY eszopiclone [Lunesta] 1 mg tablet 1 mg PO QHS colestipol 1 gram tablet 1 g PO BID Align 4 mg capsule 4 mg PO DAILY risperidone 0.5 mg tablet 0.5 tab PO BID Label Comments: TAKE 1 TABLET BY MOUTH TWICE DAILY topiramate 50 mg tablet 50 tab PO 2XD Label Comments: TAKE 2 TABLETS IN THE MORNING AND TAKE 1 TABLET BY MOUTH AT BEDTIME Rx Instructions: said she ran out last week cefpodoxime 100 mg tablet 100 mg PO BID 7 Days Qty: 14 0RF Rx Instructions: must administer with a meal/food alprazolam 0.5 MG tablet 2 mg PO BID PRN Medical Decision Making <Tamy Martinez DO - Last Filed: 09/29/21 20:18> 1900 -- 40yo F w/ a h/o depression and PTSD presents on a warrant for EE for report of huffing for pleasure in addition to attempting to harm herself. Patient was seen here 3 days ago for similar report of huffing and was medically cleared and seen by mental health and cleared for discharge to home. Patient's daughter called [facility] this evening with concern for patient's huffing and self harm and [facility] human services obtained a warrant for an EE for inpatient psychiatric placement. With report of huffing, patient will need to be medically cleared. Heart rate 100, remainder vitals within normal limits. Patient appears drowsy but otherwise nontoxic. There was no report of hematemesis, hemoptysis. Lungs clear bilaterally. Case discussed with poison control who recommends 4-6 hours of observation post last ingestion which reported last use around 1700. 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 The patient has normal oxygen saturation and no complaint of shortness of breath, low suspicion for respiratory complications. Poison control recommends screening labs, EKG and cardiac monitoring. Can provide supplemental O2 and IV fluids and needed. Labs obtained on arrival and note a white blood cell count of 11. Potassium 2.7. Troponin negative. COVID-negative. EKG notes a rate of 79, sinus, incomplete right bundle branch block, no STEMI. 1999 --Case endorsed to Dr. Rg to follow-up on chest x-ray and continue to monitor until end of observation which would be between [id number]. Once patient medically cleared, will have mental health evaluate. Medical Records Medical records reviewed: Yes I reviewed the patient's medical records. <Da Rg MD - Last Filed: 09/29/21 22:30> Lab Data Lab results reviewed: Yes I reviewed the patient's lab results. Labs: Laboratory Results - last 24 hr 09/29/21 09/29/21 09/29/21 18:44 18:45 18:45 WBC 11.63 H RBC 4.83 Hgb 14.9 Hct 42.6 MCV 88 MCH 30.8 MCHC 35.0 D RDW 13.3 Plt Count 344 MPV 9.6 Immature Gran % 0.5 Neutrophils % 82.8 Lymphocytes % 9.1 Monocytes % 5.0 Eosinophils % 2.2 Basophils % 0.4 Nucleated RBC % 0.0 Absolute Neutrophils 9.63 H Absolute Lymphocytes 1.06 L Absolute Monocytes 0.58 Absolute Eosinophils 0.26 Absolute Basophils 0.05 VBG pH VBG pCO2 VBG pO2 VBG HCO3 VBG Total CO2 VBG O2 Saturation VBG Base Excess Sodium 138 Potassium 2.7 L* Chloride 101 Carbon Dioxide 26.5 Anion Gap 10.5 BUN 4 L Creatinine 1.2 H Estimated GFR/1.73 m2 49.27 Glucose 124 H Calcium 9.1 Magnesium 2.4 Total Bilirubin 0.2 AST 26 ALT 59 Alkaline Phosphatase 145 H Troponin I < 50 Total Protein 8.0 Albumin 3.6 Lipase 52 Urine Color Urine Clarity Urine pH Ur Specific [place] Urine Protein Urine Ketones Urine Blood Urine Nitrite Urine Bilirubin Urine Urobilinogen Ur Leukocyte Esterase Urine RBC Urine WBC Ur Epithelial Cells Urine Crystals Urine Bacteria Urine Mucus Ur Culture Indicated? Urine Glucose COVID-19 Source Nasal/Nares SARS-CoV-2 (PCR) Negative 09/29/21 09/29/21 18:45 19:05 WBC RBC Hgb Hct MCV MCH MCHC RDW Plt Count MPV Immature Gran % Neutrophils % Lymphocytes % Monocytes % Eosinophils % Basophils % Nucleated RBC % Absolute Neutrophils Absolute Lymphocytes Absolute Monocytes Absolute Eosinophils Absolute Basophils VBG pH 7.34 VBG pCO2 49 VBG pO2 27 VBG HCO3 26 VBG Total CO2 24 VBG O2 Saturation 50 VBG Base Excess 0 Sodium Potassium Chloride Carbon Dioxide Anion Gap BUN Creatinine Estimated GFR/1.73 m2 Glucose Calcium Magnesium Total Bilirubin AST ALT Alkaline Phosphatase Troponin I Total Protein Albumin Lipase Urine Color Yellow Urine Clarity Clear Urine pH 5.5 Ur Specific [place] <= 1.005 Urine Protein Negative Urine Ketones Negative Urine Blood Trace-lysed H Urine Nitrite Negative Urine Bilirubin Negative Urine Urobilinogen 0.2 Ur Leukocyte Esterase Negative Urine RBC 0-2 Urine WBC 0-2 Ur Epithelial Cells Rare Urine Crystals Negative Urine Bacteria Negative Urine Mucus Negative Ur Culture Indicated? No Urine Glucose Negative COVID-19 Source SARS-CoV-2 (PCR) <Nicolas Arciniega MD - Last Filed: 09/30/21 17:12> 1902 -- 40yo F w/ a h/o depression and PTSD presents on a warrant for EE for report of huffing for pleasure in addition to attempting to harm herself. Patient was seen here 3 days ago for similar report of huffing and was medically cleared and seen by mental health and cleared for discharge to home. Patient's daughter called [facility] this evening with concern for patient's huffing and self harm and [facility] human [employer] obtained a warrant for an EE for inpatient psychiatric placement. With report of huffing, patient will need to be medically cleared. Heart rate 100, remainder vitals within normal limits. Patient appears drowsy but otherwise nontoxic. There was no report of hematemesis, hemoptysis. Lungs clear bilaterally. Case discussed with poison control who recommends 4-6 hours of observation post last ingestion which reported last use around 1700. 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 The patient has normal oxygen saturation and no complaint of shortness of breath, low suspicion for respiratory complications. Poison control recommends screening labs, EKG and cardiac monitoring. Can provide supplemental O2 and IV fluids and needed. Labs obtained on arrival and note a white blood cell count of 11. Potassium 2.7. Troponin negative. COVID-negative. EKG notes a rate of 79, sinus, incomplete right bundle branch block, no STEMI. 1999 --Case endorsed to Dr. Rg to follow-up on chest x-ray and continue to monitor until end of observation which would be between [id number]. Once patient medically cleared, will have mental health evaluate. 09/30 17: 12 patient resting comfortably no acute distress no events during day shift today, patient started on her home meds, awaiting second certification and placement. HPI <Tamy Martinez DO - Last Filed: 09/29/21 20:18> General Mode of arrival: ambulatory . Date/Time Provider Initiated Documentation: 09/29/21 18:04 . Limitations to Documentation: no limitations . Information obtained by: patient . HPI Narrative: Patient is a 40-year-old female with a history of depression and PTSD presents on a warrant for an EE from [facility] [employer] for report of huffing. Patient states she purchased 4 cans of computer cleaning spray which she has been huffing all day today. She states her last use was 5 PM this evening. Patient states she has nothing to live for because she is going through a divorce, her youngest child is transitioning and she has other stressors with her older children. She states she did not chaney yesterday. She states she has had nausea and dizziness since huffing but is unsure of any syncopal episodes. She denies difficulty swallowing or breathing. Related Data Home Medications Medication Instructions Recorded Confirmed alprazolam 0.5 mg tablet 2 mg PO BID PRN 10/01/17 09/30/21 Bifidobacterium infantis 4 mg 4 mg PO DAILY 06/17/20 09/29/21 capsule (Align) colestipol 1 gram tablet 1 g PO BID 06/17/20 09/29/21 escitalopram oxalate 20 mg tablet 20 mg PO DAILY 06/17/20 09/29/21 eszopiclone 1 mg tablet (Lunesta) 1 mg PO QHS 06/17/20 09/29/21 cefpodoxime 100 mg tablet 100 mg PO BID 7 days #14 tabs 09/27/21 09/29/21 risperidone 0.5 mg tablet 0.5 tab PO BID 09/27/21 09/29/21 topiramate 50 mg tablet 50 tab PO 2XD 09/27/21 09/29/21 Previous Rx's Medication Instructions Recorded cefpodoxime 100 mg tablet 100 mg PO BID 7 days #14 tabs 09/27/21 Allergies Allergy/AdvReac Type Severity Reaction Status Date / Time No Known Allergies Allergy Unverified 09/29/21 18:18 General Stated Complaint: PsychEval DEDE: 2 <Nicolas Arciniega MD - Last Filed: 09/30/21 17:12> HPI Narrative: Patient is a 40-year-old female with a history of depression and PTSD presents on a warrant for an EE from [facility] for report of huffing. Patient states she purchased 4 cans of computer cleaning spray which she has been huffing all day today. She states her last use was 5 PM this evening. Patient states she has nothing to live for because she is going through a divorce, her youngest child is transitioning and she has other stressors with her older children. She states she did not chaney yesterday. She states she has had nausea and dizziness since huffing but is unsure of any syncopal episodes. She denies difficulty swallowing or breathing. Review of Systems <Tamy Martinez DO - Last Filed: 09/29/21 20:18> All systems reviewed & are unremarkable except as noted in HPI and below Constitutional Constitutional: Denies chills, Denies excessive sweating, Denies fatigue, Denies fever(s), Denies weakness and Denies weight loss Eyes Eyes: Reports system reviewed and no additional complaints, except as documented and Denies blurry vision ENT Ears, Nose, Mouth, and Throat: Denies vertigo, Denies dizziness, Denies otalgia, Denies nasal congestion, Denies sore throat and Denies throat swelling Cardiovascular Cardiovascular: Denies chest pain, Denies syncope, Denies rapid heart rate and Denies dyspnea Respiratory Respiratory: Denies chest congestion, Denies cough, Denies pain on inspiration and Denies dyspnea Gastrointestinal Gastrointestinal: Denies abdominal pain, Denies diarrhea, Reports nausea and Denies vomiting Genitourinary Genitourinary: Denies hematuria, Denies dysuria and Denies flank pain Musculoskeletal Musculoskeletal: Denies back pain and Denies joint swelling Integumentary/Breasts Skin/Breast: Denies lesions and Denies rash Neurologic Neurologic: Denies behavioral changes, Denies confusion, Denies vertigo, Denies dizziness, Denies syncope, Denies localized weakness and Denies weakness Psychiatric Psychiatric: Denies behavioral changes, Denies confusion and Denies depression Endocrine Endocrine: Denies excessive sweating and Denies fatigue Hematologic/Lymphatic Hematologic/Lymphatic: Denies easy bruising and Denies lymphadenopathy Allergic/Immunologic Allergic/Immunologic: Denies throat swelling PFSH <Tamy Martinez DO - Last Filed: 09/29/21 20:18> All Active Problems (Updated 09/29/21 @ 20:18 by Tamy Martinez DO) Huffing (Acute) UTI (urinary tract infection) (Acute) Depression (Chronic) Huffing (Acute) Depression (Chronic) IBS (irritable bowel syndrome) (Chronic) Medical History (Updated 09/29/21 @ 20:18 by Tamy Martinez DO) 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) Tx with LEEP Surgical History (Updated 06/17/20 @ 14:39 by Tash Chávez NP) H/O LEEP Social History (Updated 06/17/20 @ 14:41 by Tash Chávez NP) Smoking/Tobacco Use Status: Current every day Tobacco Type: cigarettes Smoking risk assessment performed?: Yes Alcohol Intake: never Drug use: Daily Substance use type: inhalants Details: pt is admitted due to huffing cans of dust off Household members: spouse and children Number of Children: 3 Sexually active: Yes Do you think of yourself as: straight/heterosexual Current gender identity: female Do you feel safe at home: No Do you feel safe in your relationship?: Yes Additional Social history: pt is going through a divorce that she does not want Female Reproductive History Menstrual control method: other (partner with vasectomy) History History 6 Para 3 Hx # Term Pregnancies Multiple births Hx # Pregnancies Ectopic pregnancies AB induced Hx Number of Living Children AB spontaneous Exam <Tamy Martinez DO - Last Filed: 09/29/21 20:18> Const General: cooperative and healthy appearing Orientation: alert and awake HENMT Head: normal to inspection Ears: hearing grossly normal bilaterally, external ears normal and TM's normal bilaterally General nose exam: external nose normal Face and sinus: normal facial exam Mouth: oral mucosae normal Teeth and gingiva: dentition normal Throat: posterior oropharynx normal Eyes General: appearance normal, both eyes and all related structures Eyelids: eyelids normal Pupils: PERRL EOM: EOM intact bilaterally Neck Neck: normal visual inspection Lymphatic: no lymphadenopathy noted Chest Chest: normal inspection of the chest Resp Effort & Inspection: normal respiratory effort and able to speak in complete sentences Auscultation: clear to auscultation bilaterally Cardio Rate: regular rate Rhythm: regular rhythm GI Inspection: normal to inspection Palpation: soft, not firm, no guarding, no hepatosplenomegaly, no masses and nontender Auscultation: normal bowel sounds Back/Spine/Pelvis Back: no CVA tenderness Skin General skin exam: no rashes or lesions noted Neuro General: patient alert and patient awake Cognition: normal cognition Speech: speech normal Gait: normal gait Motor: muscle tone normal throughout Sensory Exam: no sensory deficits noted Extrem General: normal to inspection, full ROM and capillary refill normal Psych Appearance: grossly normal Mental Status: mental status grossly normal Speech and Movement: speech and movement normal Affect: normal affect Thought Process: normal Course <Tamy Martinez DO - Last Filed: 09/29/21 20:18> Vital Signs Vital signs: Vital Signs Pulse 100 H 09/29/21 18:12 Respiratory Rate 18 09/29/21 18:12 Blood Pressure 109/74 09/29/21 18:12 Pulse Oximetry 95 09/29/21 18:12 Pulse 100 H 09/29/21 18:12 Respiratory Rate 18 09/29/21 18:12 Blood Pressure 109/74 09/29/21 18:12 Blood Pressure Position Sitting 09/29/21 18:12 Pulse Oximetry 95 09/29/21 18:12 Oxygen Delivery Method Room Air 09/29/21 18:12 Oxygen Flow Rate 0 09/29/21 18:12 Pain Level 0 09/29/21 18:12 Sign Out <Tamy Martinez DO - Last Filed: 09/29/21 20:18> Sign Out Data: Sign Out Comment: EE completed for depression and huffing with intent for self harm. Follow-up on chest x-ray and continue to monitor until end of observation which will be approximately 11 PM. Needs evaluation with mental health once medically cleared. Last updated by Tamy Martinez DO at 09/29/21 20:24 Sign Out Comment: EE, medically clear Last updated by Da Rg MD at 09/30/21 06:08 Sign Out Comment: awaiting second cert and placement; started on home meds, no events today Last updated by Nicolas Arciniega MD at 09/30/21 17:11
[2021-09-29 19:01] LABS: Source Nasal/Nares
[2021-09-29 19:04] LABS: BE (Venous) 0 mmol/L (-2-3); HCO3 (Venous) 26 mmol/L (23-28); O2 Sat (Venous) 50 %; TCO2 (Venous) 24 mmol/L (24-29); pCO2 (Venous) 49 mmHg (41-51); pH (Venous) 7.34 (7.31-7.41); pO2 (Venous) 27 mmHg
[2021-09-29 19:05] LABS: Abs Immature Grans 0.06 10^3/uL (0.0-0.06); Absolute Basophil Count 0.05 10^3/uL (0.0-0.2); Absolute Eosinophil Count 0.26 10^3/uL (0.0-0.7); Absolute Lymphocyte Count 1.06 10^3/uL (1.2-3.4); Absolute Monocyte Count 0.58 10^3/uL (0.1-0.8); Basophils % 0.4; Eosinophils % 2.2; HCT 42.6 % (36.0-46.0); HGB 14.9 g/dL (11.2-15.7); Immature Grans % 0.5; Lymphocytes % 9.1; MCH 30.8 pg (27.0-33.0); MCV 88 fL (80-95); MPV 9.6 fL (8.0-11.0); Neutrophils % 82.8; Platelet Count 344 10^3/uL (130-400); RBC 4.83 10^6/uL (3.93-5.22); RDW 13.3 % (11.7-14.6); RDW-SD 43.2 fL; WBC 11.63 10^3/uL (4.4-10.8)
[2021-09-29 19:08] LABS: Absolute Neutrophil Count 9.63 10^3/uL (1.2-6.7)
[2021-09-29 19:18] LABS: Bilirubin Negative (Negative); Blood Trace-lysed (Negative); Clarity Clear (Clear); Glucose Negative (Negative); Ketones Negative (Negative); Leukocyte Esterase Negative (Negative); Nitrite Negative (Negative); Specific Gravity <= 1.005 (1.005-1.025); Urobilinogen 0.2 EU/dL (Up TO 0.2); pH 5.5 (5-8)
[2021-09-29 19:25] LABS: Bacteria Negative HPF (Negative); C & S Indicated? No; Crystals Negative HPF (Negative); Epithelial Cells Rare HPF (Negative); Mucus Negative (Negative); RBC 0-2 HPF (0-2); WBC 0-2 HPF (0-5)
[2021-09-29 19:26] LABS: ALT 59 U/L (14-59); AST 26 U/L (15-37); Albumin 3.6 g/dL (3.4-5.0); Alkaline Phosphatase 145 U/L (46-116); Anion Gap 10.5 mmol/L (3-11); BUN 4 mg/dL (7-18); Bilirubin, Total 0.2 mg/dL (0.2-1.0); CO2 26.5 mmol/L (21.0-32.0); CREATININE 1.2 mg/dL (0.55-1.02); Calcium 9.1 mg/dL (8.5-10.1); Chloride 101 mmol/L (98-107); Estimated GFR 49.27 (mL/min/1.73m2); Glucose 124 mg/dL (74-106); Lipase 52 U/L (73-393); Magnesium 2.4 mg/dL (1.8-2.4); Sodium 138 mmol/L (136-145); Troponin I < 50 ng/L (<or=60)
[2021-09-29 19:31] LABS: Potassium 2.7 mmol/L (3.5-5.1)
--- NOTE | 2021-09-29 19:45 | RT.EKG_ITS ---
APPROVED REPORT Exam: Resting ECG Reason for Exam: dizziness Patient Location: E HR:79 bpm ECG Measurements Heart Rate 79 AXIS AL 171 P 37 QRSd 117 QRS 4 QT 443 T 21 QTc 508 Conclusion Sinus rhythm...normal P axis, V-rate 60- 99 Incomplete right bundle branch block...QRSd >112, terminal axis(90,270) Low voltage, precordial leads...precordial leads <1.0mV. Sinus. Normal axis. No STEMI. I have reviewed and interpreted ECG and agree with software generated interpretation.
[2021-09-29 19:55] LABS: COVID-19 PCR Negative (Negative)
--- NOTE | 2021-09-29 20:00 | DI.RAD_ITS ---
Exam(s) XR PORTABLE CHEST AP EXAM: XR PORTABLE CHEST AP CLINICAL HISTORY: huffing dust off spray, r/o acute disease TECHNIQUE: 2D digital imaging was performed. COMPARISON: CR,XR XR PORTABLE CHEST AP from 09/27/2021 FINDINGS: LUNGS: Suboptimally inflated but clear. No pleural abnormality seen. HEART: Normal. AORTA: Normal. BONES: Unremarkable for age. Soft tissues: Unremarkable. IMPRESSION: No acute findings. DATA REPOSITORY: RADIATION DOSE DELIVERED:
[2021-09-29] MEDS: POTASSIUM CHLORIDE 20 MEQ/100 ML BAG 50 MEQ IVPB (20:33)
[2021-09-29] MEDS: Normal Saline 1,000 ML 1000 ML IV (20:34)
[2021-09-29] MEDS: Potassium Chloride 20 MEQ TABCR 40 MEQ PO (20:34)
--- NOTE | 2021-09-29 21:49 | DI.VRAD_ITS ---
PROCEDURE INFORMATION: Exam: XR Chest Exam date and time: 09/29/2021 8:52 PM Age: 40 years old Clinical indication: Cough; Patient HX: Huffing dust off spray, R/O acute disease TECHNIQUE: Imaging protocol: Radiologic exam of the chest. Views: 1 view. COMPARISON: XR PORTABLE CHEST AP 09/27/2021 10:01 PM FINDINGS: Tubes, catheters and devices: Monitoring wires noted. Lungs: Unremarkable. No consolidation. Pleural spaces: Unremarkable. No pleural effusion. No pneumothorax. Heart/Mediastinum: Mild cardiomegaly. Bones/joints: Unremarkable. IMPRESSION: No acute cardiopulmonary abnormality. Dictated and Authenticated by: Dameon Santoro MD. Ordering:ZAFAR Morelos MD
--- NOTE | 2021-09-29 22:32 | PDOC.MHCN_ITS ---
Date of service: 09/29/21 Time of Service: 22:32 Mental Health Crisis Note Presenting Issue How did you arrive at the ED and why did you come: Client arrived at [facility] ED on 09/29/21 after a mental health warrant was executed. Client is seen for assessment after being medically cleared. Precipitating Factors Client currently endorsing SI/ denies intent. Client states her plan would be to drive car in the middle of nowhere with a bottle of Sameer, a bunch of pills and huffing. Disposition BEHAVIOR: Client is sitting up in hospital bed dressed in proper paper hospital attire when this telegraphic typewriter mechanic arrives via zoom. Client is cooperative with assessment answering all questions that are being asked of her. EYE CONTACT: Good. MOOD: Depressed/withdrawn/sad AFFECT: Flat affect APPETITE: none SLEEP(trouble falling/staying asleep: Fair Plan Client will remain at [facility] ED on EE status pending 2nd cert. Attenidng physician has filled out exibit b and physician cert and those have been faxed to [facility]. Client will be assessed 2x daily by [facility] until placement can be secured. Signature Clinician's Name/Title: Christina Ruth [facility] Emergency Clinician
[2021-09-29 23:41] LABS: Potassium 3.7 mmol/L (3.5-5.1)
[2021-09-30] VITALS (81 sets, daily range): BP systolic 103–113; BP diastolic 54–87; PULSE 72–111; RESP 9–31; O2SAT 91–98
--- NOTE | 2021-09-30 06:45 | NUR.NOTE ---
Nursing Note: Pt family member dropped off personal phone and wallet.Its in her possession,also Pt states she has a Mental Health appt 09/30 at 10 am
[2021-09-30] MEDS: Levalbuterol 0.63 MG/3 ML UPD VIAL UPD (08:13)
[2021-09-30] MEDS: Dexamethasone 10 MG/ML VIAL IVP (08:13)
--- NOTE | 2021-09-30 10:00 | PDOC.CMSAFED ---
- If Service Date Differs Date of service: 09/30/21 Time of Service: 10:00 Care Management Safety Plan Status: Involuntary - Reason for Wait Reason for Wait: Other (Awaiting 2nd Certification by Psychiatrist) INVOLUNTARY FOR INPATIENT PSYCHIATRIC STABILIZATION. A huddle is done at 9:[address] Arciniega, ED provider, Rebeka, nursing supervisor pressing department, TOMAS Kendall, and VERONICA Oakley, in attendance. Safety plan has been established to meet the needs of the patient, and consideration of the care team, to adhere to patient goals, identify restrictions based on behavioral status, address nutrition, and determine allowed personal belongings, tools for hygiene and personal care. Determine level of activity including ambulation, level of supervision, visitors, and determine privileges based on behaviors and level of engagement by pt. SAFETY PLAN: 1. Will remain on SI/HI precautions. In Paper Clothes 2. Will remain in room under direct supervision of one-on-one staff at all times provided by [employer], CLAUDY, [employer] study abroad advisor. 3. May have paper cups, plates, finger foods as well as a cardboard spoon with which to eat meals. 4. Follow [facility] Management of the Admitted Behavioral Health Patient policy. 5. May shower with supervision at RN discretion. 6. No personal belongings. 7. Visitors: Limited to supportive family members, at RN discretion. 8. Activities: Soft cart items, music tablet, television, and other activities at RN discretion. 9. Bathroom privileges with escort. 10. Phone: May use the cordless hospital phone at RN discretion. Patient may use her cell phone for a telehealth appointment with her therapist, LANG Santana. The cell phone is to be removed from the room and placed with her belongings once the telehealth appointment is over. 11. Due to INVOLUNTARY status, patient is being held at [facility] by the Department of Mental Health ([facility]) until 2nd certification by [facility] Psychiatrist can be performed (within 24 hours). Staff will provide de-escalation support (CPI) as needed. If patient wishes to leave [facility], staff will contact [facility] Crisis Screener ([phone]) and On-Call Route Process Administrator ([phone]) as soon as possible. In the event of elopement, notify [facility] Police ([phone]). Patient is currently involuntarily at [facility]. [facility] Frontline Billing Control Clerk will continue seeking placement. Please contact the Liner Worker Route Process Administrator ([phone]) for any needed changes to Safety Plan. Safety plan has been provided to interdepartmental care team. Patient will be transported by probate clerk at time of discharge.
--- NOTE | 2021-09-30 11:29 | NUR.NOTE ---
Nursing Note: Pt had zoom call with completed. Pt is requesting her best friend to visit and word search/coloring books and prescription medications. Pt continues to endorse SI, denies HI. Per MH her plan that is reported this morning is to jump off a bridge or drive her car off a bridge. Pt cell phone/wallet and phone dictating machine mechanic that was in the room has been removed and placed in patient belonging bag with other property that was secured upon admission last evening. Pt became agitated when cell phone was removed, states this is why I don't come here voluntary you make it worse. Policy was re-inforced with patient and allowed to write down her phone numbers before cell phone was removed. Pt has been medically cleared and has been moved to room 9 with CPSO to continue 1:1 observation. Requested MD to prescribe her home medications, waiting for orders.
[2021-09-30] MEDS: ALPRAZolam 0.5 MG TAB PO ×2 (12:12→21:04)
[2021-09-30] MEDS: Escitalopram 20 MG TAB PO (12:12)
[2021-09-30] MEDS: risperiDONE 0.5 MG TAB PO ×2 (12:13→21:03)
[2021-09-30] MEDS: Topiramate 50 MG TAB PO ×2 (12:14→21:03)
--- NOTE | 2021-09-30 16:57 | PDOC.ERCMPRO ---
- If Service Date Differs Date of service: 09/30/21 Time of Service: 16:57 Care Management Progress Note S/O: Domitila presents in the ED with police on a Warrant for Emergency Examination after being found by her daughter huffing a substance from some type of spray can. Domitila is lying in bed when meets with her today. She reports having lots of stressors in her life and huffing in order to relieve some of the stress. She shares she has had multiple psychiatric hospitalizations in the past and has not found any of them helpful. She endorses suicidal ideation, reports feeling hopeless and not having any reason to live. She currently sees MARYLOU SantanaSW, for therapy and Shantal Sanchez aprn, at [facility], for medication management. A: Domitila is a 40 year old female with an extensive psychiatric history who is at [facility] on involuntary status. P: A Second Certification by Psychiatrist will be performed this evening. If the EE is upheld, Domitila will remain at [facility] on EE status and will be reassessed twice daily by [facility] until a placement is secured for her. will continue to follow. - Status Status: Involuntary - Reason for Wait Reason for Wait: Other (Awaiting 2nd certification by psychiatrist)
--- NOTE | 2021-09-30 20:03 | W.EDPROG ---
Date of service: 09/30/21 Time of Service: 20:03 Medical Decision Making pt had second cert upheld and will remain on EE status pending placement, currently calm and cooperative. Sign Out Sign Out Data: Sign Out Comment: EE completed for depression and huffing with intent for self harm. Follow-up on chest x-ray and continue to monitor until end of observation which will be approximately 11 PM. Needs evaluation with mental health once medically cleared. Last updated by Tamy Martinez DO at 09/29/21 20:24 Sign Out Comment: EE, medically clear Last updated by Da Rg MD at 09/30/21 06:08 Sign Out Comment: awaiting second cert and placement; started on home meds, no events today Last updated by Nicolas Arciniega MD at 09/30/21 17:11 Discharge Plan Disposition Patient Disposition: STILL A PATIENT Condition: Stable Discharge Details Clinical Impression: Huffing, Depression Primary Care Provider: Crystal Clark ED Provider: Dameon Chávez Home Meds and New Rx's Prescriptions: No Action escitalopram oxalate 20 mg tablet 20 mg PO DAILY eszopiclone [Lunesta] 1 mg tablet 1 mg PO QHS colestipol 1 gram tablet 1 g PO BID Align 4 mg capsule 4 mg PO DAILY risperidone 0.5 mg tablet 0.5 tab PO BID Label Comments: TAKE 1 TABLET BY MOUTH TWICE DAILY topiramate 50 mg tablet 50 tab PO 2XD Label Comments: TAKE 2 TABLETS IN THE MORNING AND TAKE 1 TABLET BY MOUTH AT BEDTIME Rx Instructions: said she ran out last week cefpodoxime 100 mg tablet 100 mg PO BID 7 Days Qty: 14 0RF Rx Instructions: must administer with a meal/food alprazolam 0.5 MG tablet 2 mg PO BID PRN
[2021-09-30] MEDS: ALPRAZolam 0.5 MG TAB 2 MG PO (22:04)
[2021-10-01] MEDS: ALPRAZolam 0.5 MG TAB 2 MG PO (08:49)
[2021-10-01] MEDS: Escitalopram 20 MG TAB PO (08:49)
[2021-10-01] MEDS: risperiDONE 0.5 MG TAB PO (08:49)
[2021-10-01] MEDS: Topiramate 50 MG TAB PO (08:50)
[2021-10-01 09:01] VITALS: BP 106/71; PULSE 82; TEMP 37.1; O2SAT 95
--- NOTE | 2021-10-01 09:46 | ED.PROG_ITS ---
Date of service: 10/01/21 Time of Service: 08:00 Medical Decision Making 0800 --please see previous providers notes for initial presentation, exam, plan and course. 0945 --discussed with Christina Ruth from [facility] human --there may be availability for bed placement at [facility], [facility] or [place] this afternoon. 1500 --patient accepted for transfer to [facility]. Accepting physician Dr. Ness Go. No reported events today and pt has been cooperative. Medical Records Medical records reviewed: Yes I reviewed the patient's medical records. Sign Out Sign Out Data: Sign Out Comment: EE completed for depression and huffing with intent for self harm. Follow-up on chest x-ray and continue to monitor until end of observation which will be approximately 11 PM. Needs evaluation with mental health once medically cleared. Last updated by Tamy Martinez DO at 09/29/21 20:24 Sign Out Comment: EE, medically clear Last updated by Da Rg MD at 09/30/21 06:08 Sign Out Comment: awaiting second cert and placement; started on home meds, no events today Last updated by Nicolas Arciniega MD at 09/30/21 17:11 Sign Out Comment: second cert went through, remains involuntary no issues during shift Last updated by Dameon Chávez MD at 09/30/21 22:37 Sign Out Comment: Remains on EE, no overnight issues Last updated by Da Rg MD at 10/01/21 07:41 Discharge Plan Disposition Patient Disposition: [facility] Condition: Stable Discharge Details Clinical Impression: Huffing, Depression ED Provider: Tamy Martinez Home Meds and New Rx's Prescriptions: No Action escitalopram oxalate 20 mg tablet 20 mg PO DAILY eszopiclone [Lunesta] 1 mg tablet 1 mg PO QHS colestipol 1 gram tablet 1 g PO BID Align 4 mg capsule 4 mg PO DAILY risperidone 0.5 mg tablet 0.5 tab PO BID Label Comments: TAKE 1 TABLET BY MOUTH TWICE DAILY topiramate 50 mg tablet 50 tab PO 2XD Label Comments: TAKE 2 TABLETS IN THE MORNING AND TAKE 1 TABLET BY MOUTH AT BEDTIME Rx Instructions: said she ran out last week cefpodoxime 100 mg tablet 100 mg PO BID 7 Days Qty: 14 0RF Rx Instructions: must administer with a meal/food alprazolam 0.5 MG tablet 2 mg PO BID PRN
--- NOTE | 2021-10-01 11:57 | PDOC.MHCN ---
Date of service: 10/01/21 Time of Service: 09:45 Mental Health Crisis Note Presenting Issue How did you arrive at the ED and why did you come: Client presented to [facility] ED on 09/29/21 after a MH warrant was executed. Client is seen today for HP assessment while on EE status. Precipitating Factors Client currently denies SI/HI, intent and plan. Disposition BEHAVIOR: Client presents sitting up in hospital bed dressed in proper paper hospital attire when this underwriter mortgage loan arrives via zoom. Client is cooperative with this underwriter mortgage loan answering all questions that are being asked of her. EYE CONTACT: fair MOOD: depressed/stressed AFFECT: flat APPETITE: poor SLEEP(trouble falling/staying asleep: poor Plan Client will remain at [facility] ED on EE status pending admission to an inpatient facility. Updated clinical notes were faxed to [facility], [facility], [facility], and [facility]. has potential bed availability for client, this underwriter mortgage loan will calll KIEL, HANANE, CV, and RR to confirm they received the updated clinical notes. Signature Clinician's Name/Title: Christina Ruth [facility] Emergency Services.
--- NOTE | 2021-10-01 12:27 | PDOC.CMSAFED ---
- If Service Date Differs Date of service: 10/01/21 Time of Service: 12:27 Care Management Safety Plan Status: Involuntary - Reason for Wait Reason for Wait: Inpatient Admission INVOLUNTARY FOR INPATIENT PSYCHIATRIC STABILIZATION. Safety plan has been established to meet the needs of the patient, and consideration of the care team, to adhere to patient goals, identify restrictions based on behavioral status, address nutrition, and determine allowed personal belongings, tools for hygiene and personal care. Determine level of activity including ambulation, level of supervision, visitors, and determine privileges based on behaviors and level of engagement by pt. SAFETY PLAN: 1. Will remain on SI/HI precautions. In Paper Clothes 2. Will remain in room under direct supervision of one-on-one staff at all times provided by [employer], CLAUDY, DISTRICT COURT JUDGE gauge and instrument inspector. 3. May have paper cups, plates, finger foods as well as a cardboard spoon with which to eat meals. 4. Follow [facility] Management of the Admitted Behavioral Health Patient policy. 5. May shower with supervision at RN discretion. 6. No personal belongings. 7. Visitors: Limited to supportive family members, at RN discretion. 8. Activities: Soft cart items, music tablet, television, and other activities at RN discretion. 9. Bathroom privileges with escort. 10. Phone: May use the cordless hospital phone at RN discretion. Patient may use her cell phone for a telehealth appointment with her therapist, LANG Santana. The cell phone is to be removed from the room and placed with her belongings once the telehealth appointment is over. 11. Due to INVOLUNTARY status, patient is being held at [facility] by the Department of Mental Health ([facility]). A 2nd certification by [facility] Psychiatrist was performed on 09/30/2021 and the involuntary status was upheld. Staff will provide de-escalation support (CPI) as needed. If patient wishes to leave [facility], staff will contact [facility] Crisis Screener ([phone]) and On-Call Horse Trainer ([phone]) as soon as possible. In the event of elopement, notify [facility] Police ([phone]). Patient is currently involuntarily at [facility]. [facility] [employer] will continue seeking placement. Please contact the Firmware Test Engineer Horse Trainer ([phone]) for any needed changes to Safety Plan. Safety plan has been provided to interdepartmental care team. Patient will be transported by [facility] at time of discharge.
--- NOTE | 2021-10-01 14:40 | NUR.NOTE ---
Gave report to [facility] who stated they would have MD. call for MD report and then we would need to contact them to notify them that we have transport.Nursing Note:
--- NOTE | 2021-10-01 15:27 | CMPROGNOTE_ITS ---
- If Service Date Differs Date of service: 10/01/21 Time of Service: 15:27 Care Management Progress Note Domitila is accepted for an involuntary placement at [facility] in [place], [place]. She will follow up with her PCP, community providers, and plan of care as directed upon discharge from [place]. She is transported to [place] via a transport team coordinated by [facility]. - Status Status: Involuntary - Reason for Wait Reason for Wait: Inpatient Admission ([facility])
--- NOTE | 2021-10-01 15:27 | PDOC.ERCMPRO ---
- If Service Date Differs Date of service: 10/01/21 Time of Service: 15:27 Care Management Progress Note Domitila is accepted for an involuntary placement at [facility] in [place], [place]. She will follow up with her PCP, community providers, and plan of care as directed upon discharge from [place]. She is transported to [place] via a transport team coordinated by [facility]. - Status Status: Involuntary - Reason for Wait Reason for Wait: Inpatient Admission ([facility])
--- NOTE | 2021-11-26 11:10 | NUR.NOTE ---
Nursing Note: Accessed pt record to get transfer information.
== END 2021-10-01 15:27 | disposition short-term general hospital (02) ==
PROVIDERS: Emergency Medicine; Emergency Provider Physician Assistant; PCP Nurse Practitioner Family
DX: F32.A Depression, unspecified (principal); T14.91XA Suicide attempt, initial encounter; T65.892A Toxic effect of other specified substances, intentional self-harm, initial encounter; R42 Dizziness and giddiness
CPT/HCPCS: 36415; 80053; 81025; 82805; 83690; 87635; 93005; 96361; 96365; 96366; 96368; 99285; 71045; 81003; 81015; 83735; 84132; 84484; 85025; 93010; J1100; J3480; J7614

== ENCOUNTER 2021-12-29 13:22 | Outpatient (CLI) | payer OTHER, SELFPAY ==
--- NOTE | 2021-12-29 11:00 | DI.RAD_ITS ---
Exam(s) XR SHOULDER RT COMPLETE 2+V EXAM: XR SHOULDER RT COMPLETE 2+V CLINICAL HISTORY: RIGHT SHOULDER PAIN. TECHNIQUE: 2D digital imaging was performed. COMPARISON: No exams were available for comparison FINDINGS: Two views: No evidence of fracture or dislocation or degenerative changes in the glenohumeral and AC joints. No abnormal soft tissue calcifications. The subacromial space is not diminished. No significant osseo us lesions. IMPRESSION: No significant radiographic findings. DATA REPOSITORY: RADIATION DOSE DELIVERED:
== END 2021-12-29 13:23 | disposition home or self-care (01) ==
LOC: DIORS 13:22
PROVIDERS: PCP Nurse Practitioner Family; Referring Provider Nurse Practitioner Family; Visit Provider Student in an Organized Health Care Education/Training Program
DX: M25.511 Pain in right shoulder (principal)
CPT/HCPCS: 73030

== ENCOUNTER 2022-09-02 01:24 | Outpatient (CLI) | payer OTHER, SELFPAY ==
--- NOTE | 2022-09-02 12:39 | DI.MAMMO_ITS ---
Exam(s) MAMMO SCREENING EXAM: MAMMO SCREENING CLINICAL HISTORY: screening, z12.39 TECHNIQUE: Bilateral full field digital CC and MLO mammographic images were obtained with 3D tomosyn thesis and utilizing computer aided detection (CAD). COMPARISON: Available for comparison. FINDINGS: Masses/Architectural Distortion: None seen. Microcalcifications: No suspicious pleomorphic-type are seen. Skin Thickening/Nipple Retraction: None. IMPRESSION: 1. No significant interval change with no specific features of malignancy noted. 2. Unless there is more urgent need, screening mammography is recommended, as per [employer] guidelines. BI-RADS Category 1 - Negative Breast Density - Category B - Scattered areas of fibroglandular density Breast density category C or D implies that the patient has dense breast tissue. Dense breast tissue is very common and is not abnormal but dense breast tissue can make it harder to find cancer on a ma mmogram. Also, dense breast tissue may increase their breast cancer risk. This information about the result of the mammogram report was provided to the patient to raise their awareness. Use this report when you speak with the patient about their risks for breast cancer, which includes their family hist ory. At that time, you may recommend for more screening tests (Ultrasound or MRI) as they might be us eful based on their risk. A negative radiographic report should not delay biopsy if a dominant or clinically suspicious mass is present. Up to ten percent of cancers are not identified on mammography. A negative report may reinforce clinical impression. Adenosis and dense breasts may obscure an underlying neoplasm. False positive reports average 6 to 10%. Patient will receive a letter notifying them of these results.
== END 2022-09-02 01:44 ==
PROVIDERS: PCP Nurse Practitioner Family; Visit Provider Obstetrics & Gynecology
DX: Z12.31 Encounter for screening mammogram for malignant neoplasm of breast (principal)
CPT/HCPCS: 77063; 77067

== ENCOUNTER 2022-11-10 11:31 | Emergency (ER) | payer OTHER, SELFPAY ==
[2022-11-10] VITALS (19 sets, daily range): BP systolic 96–143; BP diastolic 65–106; PULSE 73–110; RESP 7–22; TEMP 36.8; O2SAT 94–99
--- NOTE | 2022-11-10 11:30 | RT.EKG_ITS ---
APPROVED REPORT Exam: Resting ECG Reason for Exam: sob Patient Location: E HR:99 bpm ECG Measurements Heart Rate 99 AXIS [place] 154 P 72 QRSd 100 QRS 57 QT 375 T 43 QTc 483 Conclusion Sinus rhythm...normal P axis, V-rate 60- 99 Probable left atrial enlargement...P >50mS, <-0.10mV V1 Low voltage, precordial leads...precordial leads <1.0mV Normal sinus rhythm at a rate of 99. Normal axis with interventricular conduction delay QRS 100 ms. QTc and KY within normal limits. T wave inversion in V2. T wave inversion V2 similar to prior. Pr ior dated last year. Low voltage similar to prior. No acute injury pattern.
--- NOTE | 2022-11-10 11:45 | DI.RAD_ITS ---
Exam(s) XR CHEST 2V PA LATERAL EXAM: XR CHEST 2V PA LATERAL CLINICAL HISTORY: SOB, Palpitations TECHNIQUE: 2D digital imaging was performed. COMPARISON: CR XR CHEST 2V PA LATERAL from 05/19/2018 CR,XR XR PORTABLE CHEST AP from 09/27/2021 CR,XR XR PORTABLE CHEST AP from 09/29/2021 FINDINGS: HEART: Normal size. Aorta: Not dilated. PULMONARY VASCULATURE: Normal. LUNGS: Clear. PLEURAL SPACE: No pleural effusion or pneumothorax. BONE:Stable upper thoracic compression fracture. IMPRESSION: No acute abnormality. DATA REPOSITORY: RADIATION DOSE DELIVERED:
[2022-11-10] MEDS: Normal Saline Flush 10 ML SYR IVP (11:47)
[2022-11-10 11:48] LABS: Abs Immature Grans 0.03 10^3/uL (0.0-0.06); Absolute Basophil Count 0.04 10^3/uL (0.0-0.2); Absolute Eosinophil Count 0.06 10^3/uL (0.0-0.7); Absolute Lymphocyte Count 1.23 10^3/uL (1.2-3.4); Absolute Monocyte Count 0.51 10^3/uL (0.1-0.8); Absolute Neutrophil Count 7.25 10^3/uL (1.2-6.7); Basophils % 0.4; Eosinophils % 0.7; HCT 45.6 % (36.0-46.0); Immature Grans % 0.3; Lymphocytes % 13.5; MCH 30.1 pg (27.0-33.0); MCHC 35.1 % (32.0-36.0); MCV 86 fL (80-95); MPV 9.8 fL (8.0-11.0); Monocytes % 5.6; Neutrophils % 79.5; Platelet Count 363 10^3/uL (130-400); RBC 5.32 10^6/uL (3.93-5.22); RDW 12.5 % (11.7-14.6); RDW-SD 39.1 fL; WBC 9.12 10^3/uL (4.4-10.8)
--- NOTE | 2022-11-10 11:49 | ED.GENADUL_ITS ---
Discharge Plan Disposition Patient Disposition: Home Condition: Stable Discharge Details Clinical Impression: Anxiety, Palpitations Primary Care Provider: Crystal Clark ED Provider: Marianne Yañez Home Meds and New Rx's Prescriptions: Continued eszopiclone [Lunesta] 1 mg tablet 1 mg PO QHS MARIJUANA PO hydroxyzine HCl 25 mg tablet 25 mg PO QID PRN risperidone [Risperdal] 1 mg tablet 1 mg PO BID Patient Comments: not taking per pt 11/10/22 alprazolam 0.5 MG tablet 2 mg PO BID PRN fluoxetine 40 mg capsule 40 mg PO DAILY Patient Comments: TAKE ONE CAPSULE BY MOUTH EVERY DAY acetylcysteine 600 mg capsule 600 mg PO BID Patient Comments: TAKE ONE CAPSULE BY MOUTH TWICE A DAY DIRECTED Discharge Instructions Instructions: Heart Palpitations (ED), Anxiety (ED) Additional Instructions: At this time your cardiac and pulmonary work-up is within normal limits. No evidence of heart attack, you are very low risk for blood clot, no evidence of pneumonia. You do appear little dehydrated. TSH level was added onto your labs here today. You did have a normal TSH level last year in September please follow-up with these results with your PCP. Follow up with primary care provider in 3-5 days. Return to ED sooner if any worsening or concerns. Increase oral fluids. Stand Alone Forms: Work Release Referrals: Crystal Clark [Primary Care Provider] - 3 days Discharge Data Discharge Date/Time-TO BE ENTERED AT DEPARTURE: 11/10/22 14:46 Medical Decision Making 41-year-old female past medical history of esophagitis, HPV infection, suicidal thoughts depression anxiety irritable bowel syndrome with recent med changes to her Prozac and hydroxyzine will also take Xanax presents with chief complaint of palpitations chest tightness and shortness of breath. She is a smoker. She denies any recent long trips in a car plane, she has no calf pain no swelling negative Homans' sign lungs are clear to auscultation bilaterally she is speaking in full sentences. She does appear anxious upon arrival. She did take a quarter of a tablet of Xanax prior to arrival. Initial cardiac work-up ordered including serial troponins. EKG was reviewed by Dr. Booker ER attending, please see official report, no ST elevation no STEMI. We will order chest x-ray. Differential diagnosis includes but not limited to anxiety,CAD, PNA, PE however heart rate is no longer greater than 100 at rest. According to [facility] she does not qualify for PE. Also with Wells score for PE is she is low risk even with a heart rate that is over 100. Work-up is largely unremarkable, troponin within normal limits, chest x-ray within normal limits. We will plan to discharge patient. Upon reevaluation patient appears much more comfortable, she states that her throat is tight, she also tells me that her feet hurt. Upon discussing her lab results she does mention to me that she just found out that her mom is terminal rectal cancer she has been under a lot of stress lately. I do feel that this is most likely anxiety. Patient does have a history of anxiety and depression. However discussed follow-up care with PCP in 3 to 5 days and strict return instructions she verbalizes understanding. Rapid strep swab obtained and a TSH level added onto her labs. I also did discuss smoking cessation with patient she reports that she is wearing a nicotine patch at this time. This text was generated using [employer] system, please disregard any oddities of phrase or misspellings. Medical Records Medical records reviewed: Yes I reviewed the patient's medical records. Lab Data Lab results reviewed: Yes I reviewed the patient's lab results. Labs: Laboratory Tests Range/Units 11/10/22 11/10/22 11:43 11:43 WBC (4.4-10.8) 10^3/uL 9.12 RBC (3.93-5.22) 10^6/uL 5.32 H Hgb (11.2-15.7) g/dL 16.0 H Hct (36.0-46.0) % 45.6 MCV (80-95) fL 86 MCH (27.0-33.0) pg 30.1 MCHC (32.0-36.0) % 35.1 RDW (11.7-14.6) % 12.5 Plt Count (130-400) 10^3/uL 363 MPV (8.0-11.0) fL 9.8 Immature Gran % 0.3 Neutrophils % 79.5 Lymphocytes % 13.5 Monocytes % 5.6 Eosinophils % 0.7 Basophils % 0.4 Nucleated RBC % (0.0-0.3) % 0.0 Absolute Neutrophils (1.2-6.7) 10^3/uL 7.25 H Absolute Lymphocytes (1.2-3.4) 10^3/uL 1.23 Absolute Monocytes (0.1-0.8) 10^3/uL 0.51 Absolute Eosinophils (0.0-0.7) 10^3/uL 0.06 Absolute Basophils (0.0-0.2) 10^3/uL 0.04 Sodium (136-145) mmol/L 142 Potassium (3.5-5.1) mmol/L 3.5 Chloride (98-107) mmol/L 105 Carbon Dioxide (21.0-32.0) mmol/L 22.8 Anion Gap (3-11) mmol/L 14.2 H BUN (7-18) mg/dL 2 L Creatinine (0.55-1.02) mg/dL 0.9 Est GFR (CKD-EPI 2020) (mL/min/1.73m2) 81.35 Glucose (74-106) mg/dL 155 H Calcium (8.5-10.1) mg/dL 9.2 Magnesium (1.8-2.4) mg/dL 2.1 Total Bilirubin (0.2-1.0) mg/dL 0.3 AST (15-37) U/L 13 L ALT (14-59) U/L 19 Alkaline Phosphatase (46-116) U/L 122 H Troponin I (<or=60) ng/L < 50 Total Protein (6.4-8.2) g/dL 7.9 Albumin (3.4-5.0) g/dL 3.9 HPI General Mode of arrival: ambulatory . Date/Time Provider Initiated Documentation: 11/10/22 11:33 . Limitations to Documentation: no limitations . Information obtained by: patient, family (), RN notes reviewed and old records reviewed . HPI Narrative: 41-year-old female past medical history of esophagitis, HPV infection, suicidal thoughts depression anxiety irritable bowel syndrome with recent med changes to her Prozac and hydroxyzine will also take Xanax presents with chief complaint of palpitations chest tightness and shortness of breath. She is a smoker. She denies any recent long trips in a car plane, she has no calf pain no swelling negative Homans' sign lungs are clear to auscultation bilaterally she is speaking in full sentences. She does appear anxious upon arrival. She did take a quarter of a tablet of Xanax prior to arrival. Related Data Home Medications Medication Instructions Recorded Confirmed alprazolam 0.5 mg tablet 2 mg PO BID PRN 10/01/17 11/10/22 eszopiclone 1 mg tablet (Lunesta) 1 mg PO QHS 06/17/20 11/10/22 hydroxyzine HCl 25 mg tablet 25 mg PO QID PRN 10/27/21 11/10/22 risperidone 1 mg tablet (Risperdal) 1 mg PO BID 10/27/21 12/29/21 MARIJUANA PO 12/29/21 12/29/21 acetylcysteine 600 mg capsule 600 mg PO BID 11/10/22 11/10/22 fluoxetine 40 mg capsule 40 mg PO DAILY 11/10/22 11/10/22 Allergies Allergy/AdvReac Type Severity Reaction Status Date / Time bupropion hcl Allergy Unknown Uncoded 11/10/22 11:47 zolpidem tartrate Allergy Unknown Uncoded 11/10/22 11:47 General Stated Complaint: Palpitatns DEDE: 3 Review of Systems All systems reviewed & are unremarkable except as noted in HPI and below Constitutional Constitutional: Denies chills and Denies fever(s) Cardiovascular Cardiovascular: Reports as per HPI, Reports chest pain, Denies pedal edema, Denies leg edema, Denies radiating jaw, neck or arm pain and Reports dyspnea Respiratory Respiratory: Denies cough, Denies hemoptysis, Reports dyspnea and Denies wheezing Gastrointestinal Gastrointestinal: Denies abdominal pain, Denies diarrhea, Denies nausea and Denies vomiting Psychiatric Psychiatric: Reports as per HPI, Reports anxiety, Reports change in appetite (Reports has not been eating much lately) and Reports depression Allergic/Immunologic Allergic/Immunologic: Denies wheezing PFSH All Active Problems (Updated 11/10/22 @ 13:58 by Marianne Yañez NP) Anxiety (Chronic) Palpitations (Acute) Superior labrum [id number] (SLAP) tear of right shoulder (Acute) Biceps tendinitis of right shoulder (Acute) IBS (irritable bowel syndrome) (Chronic) Medical History 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) Tx with LEEP Elevated liver enzymes Esophagitis History of head injury History of HPV infection Suicidal thoughts Surgical History H/O LEEP Social History Smoking/Tobacco Use Status: Current every day Tobacco Type: cigarettes Smoking risk assessment performed?: Yes Alcohol Intake: never Drug use: Daily Substance use type: inhalants Details: pt is admitted due to huffing cans of dust off Household members: spouse and children Number of Children: 3 Sexually active: Yes Do you think of yourself as: straight/heterosexual Current gender identity: female Do you feel safe at home: No Do you feel safe in your relationship?: Yes Additional Social history: pt is going through a divorce that she does not want Female Reproductive History Menstrual control method: other (partner with vasectomy) History History 6 Para 3 Hx # Term Pregnancies Multiple births Hx # Pregnancies Ectopic pregnancies AB induced Hx Number of Living Children AB spontaneous Exam Narrative Exam Narrative: Constitutional: Alert and oriented x3. Appears stated age. Overweight body habitus. Head: Normocephalic, no trauma. Eyes: Pupils PERRL, Red reflex noted, EOM's intact. Eyelids symmetrical without lesions, discharge, or swelling. ENT: Bilateral TM's WNL, External ear normal to inspection, no mastoid TTP, swelling, or erythema, Nasal turbinates WNL, no nasal discharge. Normal dentition, Posterior pharynx erythemic, no exudate. Chest: RRR, Normal S1, S2, distal pulses intact. She did present mildly tachycardic, however at rest, her heart rate drops down to 96 Resp: Lungs clear to auscultation bilaterally, no wheezes, rales, or rhonchi. Abdomen: Soft, non-distended, Normoactive bowel sounds all 4 quads. Musculoskeletal: Normal gait, 5/5 strength to all four extremities. No calf swelling, redness negative Homans' sign. Skin: No suspicious rashes or lesions. Capillary refill less than 2 sec. Neurologic: Cranial nerves II-XII intact. Alert and oriented x 3. Motor: No deficits noted. Sensory: Intact bilaterally all 4 extremities. Hematologic/Lymphatic: No ecchymosis, no lymphadenopathy. Course Vital Signs Vital signs: Vital Signs Temperature 36.8 C 11/10/22 11:35 Pulse 110 H 11/10/22 11:35 Respiratory Rate 22 11/10/22 11:35 Blood Pressure 143/106 H 11/10/22 11:35 Pulse Oximetry 97 11/10/22 11:35 Temperature 36.8 C 11/10/22 11:35 Temperature Source Skin 11/10/22 11:35 Pulse 110 H 11/10/22 11:35 Respiratory Rate 22 11/10/22 11:35 Respiratory Effort Normal 11/10/22 11:44 Blood Pressure 143/106 H 11/10/22 11:35 Blood Pressure Position Supine 11/10/22 11:35 Pulse Oximetry 97 11/10/22 11:35 Oxygen Delivery Method Room Air 11/10/22 11:35 Oxygen Flow Rate 0 11/10/22 11:35 Lab/Test Results Lab/Test Results: Laboratory Tests Range/Units 11/10/22 11:43 WBC (4.4-10.8) 10^3/uL 9.12 RBC (3.93-5.22) 10^6/uL 5.32 H Hgb (11.2-15.7) g/dL 16.0 H Hct (36.0-46.0) % 45.6 MCV (80-95) fL 86 MCH (27.0-33.0) pg 30.1 MCHC (32.0-36.0) % 35.1 RDW (11.7-14.6) % 12.5 Plt Count (130-400) 10^3/uL 363 MPV (8.0-11.0) fL 9.8 Immature Gran % 0.3 Neutrophils % 79.5 Lymphocytes % 13.5 Monocytes % 5.6 Eosinophils % 0.7 Basophils % 0.4 Nucleated RBC % (0.0-0.3) % 0.0 Absolute Neutrophils (1.2-6.7) 10^3/uL 7.25 H Absolute Lymphocytes (1.2-3.4) 10^3/uL 1.23 Absolute Monocytes (0.1-0.8) 10^3/uL 0.51 Absolute Eosinophils (0.0-0.7) 10^3/uL 0.06 Absolute Basophils (0.0-0.2) 10^3/uL 0.04
[2022-11-10 12:07] LABS: ALT 19 U/L (14-59); AST 13 U/L (15-37); Albumin 3.9 g/dL (3.4-5.0); Alkaline Phosphatase 122 U/L (46-116); Anion Gap 14.2 mmol/L (3-11); BUN 2 mg/dL (7-18); Bilirubin, Total 0.3 mg/dL (0.2-1.0); CO2 22.8 mmol/L (21.0-32.0); CREATININE 0.9 mg/dL (0.55-1.02); Calcium 9.2 mg/dL (8.5-10.1); Chloride 105 mmol/L (98-107); Estimated GFR 81.35 (mL/min/1.73m2); Glucose 155 mg/dL (74-106); Magnesium 2.1 mg/dL (1.8-2.4); Potassium 3.5 mmol/L (3.5-5.1); Sodium 142 mmol/L (136-145); Total Protein 7.9 g/dL (6.4-8.2)
[2022-11-10 12:08] LABS: Troponin I < 50 ng/L (<or=60)
[2022-11-10] MEDS: Normal Saline 1,000 ML 1000 ML IV (13:14)
[2022-11-10 22:44] LABS: TSH (W/Ref FT4) 2.42 uIU/mL (0.36-3.74)
[2022-12-18 12:14] LABS: Lab Add On Test DONE
== END 2022-11-10 14:46 | disposition home or self-care (01) ==
PROVIDERS: Emergency Provider Registered Nurse Emergency; PCP Nurse Practitioner Family
DX: F41.9 Anxiety disorder, unspecified (principal); R00.2 Palpitations; R06.02 Shortness of breath; Z86.59 Personal history of other mental and behavioral disorders; F17.210 Nicotine dependence, cigarettes, uncomplicated; R07.89 Other chest pain
CPT/HCPCS: 80053; 81025; 87880; 93005; 99285; 71046; 83735; 84443; 84484; 85025; 93010; 99284

== ENCOUNTER 2022-12-27 18:19 | Outpatient (REF) | payer OTHER, SELFPAY ==
[2022-12-27 22:29] LABS: Abs Immature Grans 0.06 10^3/uL (0.0-0.06); Absolute Basophil Count 0.06 10^3/uL (0.0-0.2); Absolute Eosinophil Count 0.24 10^3/uL (0.0-0.7); Absolute Lymphocyte Count 2.76 10^3/uL (1.2-3.4); Basophils % 0.5; HCT 44.6 % (36.0-46.0); HGB 14.8 g/dL (11.2-15.7); Immature Grans % 0.5; Lymphocytes % 22.9; MCH 29.8 pg (27.0-33.0); MCHC 33.2 % (32.0-36.0); MCV 90 fL (80-95); MPV 10.7 fL (8.0-11.0); Monocytes % 6.1; Platelet Count 330 10^3/uL (130-400); RBC 4.97 10^6/uL (3.93-5.22); RDW 13.6 % (11.7-14.6); RDW-SD 45.4 fL; WBC 12.04 10^3/uL (4.4-10.8)
[2022-12-27 22:34] LABS: Absolute Monocyte Count 0.73 10^3/uL (0.1-0.8); Absolute Neutrophil Count 8.19 10^3/uL (1.2-6.7)
[2022-12-27 23:35] LABS: D-Dimer 1371 ng/mlFEU (<500)
[2022-12-28 14:20] LABS: ESR (LRH) 37 mm/hr
== END 2022-12-27 18:20 | disposition home or self-care (01) ==
LOC: LBN 18:19
PROVIDERS: PCP Nurse Practitioner Family; Visit Provider Nurse Practitioner Family
DX: M79.89 Other specified soft tissue disorders (principal)
CPT/HCPCS: 85652; 85025; 85379

== ENCOUNTER 2023-06-27 20:17 | Emergency (ER) | payer OTHER, SELFPAY ==
[2023-06-27 20:19] VITALS: BP 129/86; PULSE 116; RESP 16; TEMP 37.1
--- NOTE | 2023-06-27 21:24 | ED.GENADUL_ITS ---
Discharge Plan Disposition Patient Disposition: Home Condition: Good Discharge Details Clinical Impression: Finger pain Primary Care Provider: Crystal Clark ED Provider: Norma Dooley Home Meds and New Rx's Prescriptions: New gabapentin 300 mg capsule 300 mg PO TID Qty: 30 0RF Continued eszopiclone [Lunesta] 1 mg tablet 1 mg PO QHS MARIJUANA PO hydroxyzine HCl 25 mg tablet 25 mg PO QID PRN alprazolam 0.5 MG tablet 2 mg PO BID PRN Rexulti 2 mg tablet 2 mg PO DAILY Rx Instructions: administer on days 5 through 7 for starting therapy Discontinued gabapentin 300 mg capsule Patient Comments: TAKE ONE CAPSULE BY MOUTH AT BEDTIME NEEDED FOR NERVE PAIN. MAY INCREASE TO THREE TIMES A DAY NEEDED FOR NERVE PAIN Discharge Instructions Instructions: Raynaud Disease (ED) Additional Instructions: Gabapentin three times a day was sent to your pharmacy. Avoid triggers for your symptoms- pressure, cold, etc. Continue to not smoke. Follow up with your primary care doctor as scheduled on Tuesday; they may want to start you on medication specific for Raynaud's disease. Return to the emergency department for new or worsening symptoms including uncontrolled pain, deepening ulcer on your fingertip, or if you have any other concerns. Referrals: Crystal Clark [Primary Care Provider] - [facility] General Mode of arrival: ambulatory . Date/Time Provider Initiated Documentation: 06/27/23 20:18 . Limitations to Documentation: no limitations . Information obtained by: patient . HPI Narrative: 42yo F with hx anxiety/depression presenting for pain in the tip of the pointer finger of her right hand. Pain is burning, moderate, and seems to occur with cold or when she is crocheting. The tip of her fingers in the right hand turn white with the cold and then feel numb. 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 Saw her PCP for hand/wrist pain three weeks ago and prescribed gabapentin and meloxicam. Gabapentin seemed to help. Today noticed a small break in the skin at the tip of her right pointer finger. No bleeding. No pain elsewhere. No hand/wrist/RUE trauma. She is otherwise in her usual state of health with no fevers, chills, rash, nausea, chest pain, shortness of breath, numbness/tingling anywhere else, or any other concerns. Related Data Home Medications Medication Instructions Recorded Confirmed alprazolam 0.5 mg tablet 2 mg PO BID PRN 10/01/17 06/27/23 eszopiclone 1 mg tablet (Lunesta) 1 mg PO QHS 06/17/20 06/27/23 hydroxyzine HCl 25 mg tablet 25 mg PO QID PRN 10/27/21 06/27/23 MARIJUANA PO 12/29/21 12/29/21 brexpiprazole 2 mg tablet (Rexulti) 2 mg PO DAILY 06/27/23 06/27/23 gabapentin 300 mg capsule 300 mg PO TID #30 caps 06/27/23 Previous Rx's Medication Instructions Recorded gabapentin 300 mg capsule 300 mg PO TID #30 caps 06/27/23 Allergies Allergy/AdvReac Type Severity Reaction Status Date / Time bupropion hcl Allergy Unknown Uncoded 11/10/22 11:47 zolpidem tartrate Allergy Unknown Uncoded 11/10/22 11:47 General Stated Complaint: GenMedical DEDE: 4 Review of Systems Narrative: see HPI Exam Narrative Exam Narrative: General: Alert, well appearing, well nourished, in no acute distress. Head: Normocephalic, atraumatic Neck: Trachea midline, ?Neck supple. ENT: ?MMM.? No oropharygeal lesions or exudate. Cardiac: ?RRR, no murmurs appreciated Resp: No respiratory distress. CTAB. Abd: ?Soft, non-distended, nontender : ?No suprapubic tenderness. No CVA tenderness. Extremities: ?No deformities.? No peripheral edema. 2+ radial pulses symmetric bilaterally. Diminished sensation to light touch at the distal phalanx of her right pointer finger, otherwise sensation intact throughout both hands. Full ROM and strength throughout all RUE/LUE digits. Small break in skin at tip of right pointer finger, no bleeding. Neurologic: GCS 15. ? Moves all extremities freely against gravity Course Vital Signs Vital signs: Vital Signs Temperature 37.1 C 06/27/23 20:19 Pulse 116 H 06/27/23 20:19 Respiratory Rate 16 06/27/23 20:19 Blood Pressure 129/86 06/27/23 20:19 Temperature 37.1 C 06/27/23 20:19 Temperature Source Tympanic 06/27/23 20:19 Pulse 116 H 06/27/23 20:19 Respiratory Rate 16 06/27/23 20:19 Respiratory Effort Normal 06/27/23 20:35 Blood Pressure 129/86 06/27/23 20:19 Blood Pressure Position Sitting 06/27/23 20:19 Oxygen Delivery Method Room Air 06/27/23 20:19 Oxygen Flow Rate 0 06/27/23 20:19 Pain Level 3 06/27/23 20:19 Medical Decision Making 42yo F with hx anxiety/depression presenting for pain in the tip of the pointer finger of her right hand. Pain is burning, moderate, and seems to occur with cold or when she is crocheting. 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 Saw her PCP for hand/wrist pain three weeks ago and prescribed gabapentin and meloxicam. Gabapentin seemed to help. Today noticed a small break in the skin at the tip of her right pointer finger. Slightly tachycardiac on arrival to 110's after ambulating into triage, vital signs otherwise reassuring. Hr in 80's on my exam. 2+ radial pulses symmetric bilaterally with full ROM and strength throughout all UE digits. . Diminished sensation to light touch at the distal phalanx of her right pointer finger with small break in skin at tip of distal phalanx, otherwise sensation intact throughout both hands. History most consistent with Raynaud's. Exam not concern for arterial occlusion; would not get CT angiography. No oslor nodes or janeway lesions to suggest endocarditis/septic emboli; well appearing, no indication for labs. Advised avoiding triggers for Raynaud's attacks, continued gabapentin at home as she found it helpful. Advised her to followup with PCP for further evaluation and possible formal diagnosis. Would not start CCB here, deferred to PCP. Discharged home; discharge instructions and return precuations were reviewed with patient who verbalized understanding. All questions were answered and she is in full agreement with the plan. 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) Tx with LEEP Elevated liver enzymes Esophagitis History of head injury History of HPV infection Suicidal thoughts Surgical History H/O LEEP Social History Smoking/Tobacco Use Status: Current every day Tobacco Type: cigarettes Smoking risk assessment performed?: Yes Alcohol Intake: never Drug use: Daily Substance use type: inhalants Details: pt is admitted due to huffing cans of dust off Household members: spouse and children Number of Children: 3 Sexually active: Yes Do you think of yourself as: straight/heterosexual Current gender identity: female Do you feel safe at home: No Do you feel safe in your relationship?: Yes Additional Social history: pt is going through a divorce that she does not want Female Reproductive History Menstrual control method: other (partner with vasectomy) History History 6 Para 3 Hx # Term Pregnancies Multiple births Hx # Pregnancies Ectopic pregnancies AB induced Hx Number of Living Children AB spontaneous
== END 2023-06-27 21:37 | disposition home or self-care (01) ==
PROVIDERS: Emergency Provider Student in an Organized Health Care Education/Training Program; PCP Nurse Practitioner Family
DX: M79.644 Pain in right finger(s) (principal); R20.0 Anesthesia of skin; F17.210 Nicotine dependence, cigarettes, uncomplicated
CPT/HCPCS: 99283

== ENCOUNTER → 2023-07-04 02:44 | Outpatient (CLI) | payer OTHER, SELFPAY ==
--- NOTE | 2023-07-04 | DI.RAD_ITS ---
Exam(s) XR CHEST 2V PA LATERAL EXAM: XR CHEST 2V PA LATERAL CLINICAL HISTORY: DYSPNEA,R06.00,CHEST HEAVINESS TECHNIQUE: 2D digital imaging was performed. Two views. COMPARISON: CR XR CHEST 2V PA LATERAL from 11/10/2022 FINDINGS: HEART: Normal size. Aorta: Not dilated. PULMONARY VASCULATURE: Normal. LUNGS: Clear. PLEURAL SPACE: No pleural effusion or pneumothorax. BONE:Unremarkable for age. Soft tissues: Unremarkable. IMPRESSION: No acute abnormality. DATA REPOSITORY: RADIATION DOSE DELIVERED:
== END ==
PROVIDERS: PCP Nurse Practitioner Family; Visit Provider Student in an Organized Health Care Education/Training Program
DX: R06.09 Other forms of dyspnea (principal); Z87.891 Personal history of nicotine dependence
CPT/HCPCS: 71046

== ENCOUNTER 2023-07-04 13:16 | Outpatient (REF) | payer OTHER, SELFPAY ==
[2023-07-04 19:46] LABS: Abs Immature Grans 0.05 10^3/uL (0.0-0.06); Absolute Basophil Count 0.07 10^3/uL (0.0-0.2); Absolute Eosinophil Count 0.06 10^3/uL (0.0-0.7); Absolute Lymphocyte Count 2.38 10^3/uL (1.2-3.4); Absolute Neutrophil Count 8.56 10^3/uL (1.2-6.7); Basophils % 0.6; Eosinophils % 0.5; HCT 42.7 % (36.0-46.0); HGB 14.6 g/dL (11.2-15.7); Immature Grans % 0.4; Lymphocytes % 20.3; MCH 31.3 pg (27.0-33.0); MCHC 34.2 % (32.0-36.0); MCV 91 fL (80-95); MPV 10.9 fL (8.0-11.0); Neutrophils % 73.2; Platelet Count 312 10^3/uL (130-400); RBC 4.67 10^6/uL (3.93-5.22); RDW 12.8 % (11.7-14.6); RDW-SD 43.4 fL
[2023-07-04 19:49] LABS: Absolute Monocyte Count 0.59 10^3/uL (0.1-0.8)
[2023-07-04 20:09] LABS: ALT 35 U/L (14-59); AST 19 U/L (15-37); Alkaline Phosphatase 81 U/L (46-116); Anion Gap 11.1 mmol/L (3-11); BUN 10 mg/dL (7-18); Bilirubin, Total 0.3 mg/dL (0.2-1.0); CO2 28.9 mmol/L (21.0-32.0); CREATININE 0.8 mg/dL (0.55-1.02); Calcium 8.9 mg/dL (8.5-10.1); Calculated LDL 144 mg/dL (<100); Chloride 103 mmol/L (98-107); Cholesterol 214 mg/dL (<200); Estimated GFR 93.12 (mL/min/1.73m2); Glucose 80 mg/dL (74-106); HDL Cholesterol 60 mg/dL (40-60); Potassium 3.9 mmol/L (3.5-5.1); Sodium 143 mmol/L (136-145); TSH 0.72 uIU/Ml (0.36-3.74); Triglyceride 50 mg/dL (<150)
[2023-07-04 20:14] LABS: Hemoglobin A1C 5.4 % (<5.7)
== END 2023-07-04 13:17 | disposition home or self-care (01) ==
LOC: NCHCN 13:16
PROVIDERS: PCP Nurse Practitioner Family; Visit Provider Student in an Organized Health Care Education/Training Program
DX: R06.00 Dyspnea, unspecified (principal); E78.5 Hyperlipidemia, unspecified; Z13.228 Encounter for screening for other metabolic disorders
CPT/HCPCS: 80053; 80061; 83036; 84443; 85025

== ENCOUNTER 2023-09-28 07:40 | Day surgery (SDC) | payer OTHER, SELFPAY ==
[2023-09-28] VITALS (38 sets, daily range): BP systolic 113–152; BP diastolic 51–120; PULSE 65–155; RESP 9–24; TEMP 36.1–36.5; O2SAT 96–100; BMI 26.6
[2023-09-28] MEDS: Lactated Ringers 1,000 ML 80 ML IV ×2 (08:40→12:13)
--- NOTE | 2023-09-28 09:17 | ANES.PREOP_ITS ---
General Info Date of Service Date Performed: 09/28/23 Height: 5 ft Weight: 62 kg Body Mass Index (BMI): 26.6 Surgical Procedure: Operation Date: 09/28/23 09:20 Proposed Procedure Side Surgeon p Colonoscopy/Gastroscopy Luis Alberto Weber MD Meds Allergies and Home Medications Allergies Allergy/AdvReac Type Severity Reaction Status Date / Time bupropion hcl Allergy Unknown manic Uncoded 09/28/23 08:12 zolpidem tartrate Allergy Unknown Unknown Uncoded 09/28/23 08:12 Home Medication Medication Instructions Recorded alprazolam 0.5 mg tablet 2 mg PO BID PRN 10/01/17 MARIJUANA PO 12/29/21 cholecalciferol (vitamin D3) 25 50 mcg PO DAILY 08/12/23 mcg (1,000 unit) tablet folic acid 800 mcg tablet 0.8 mg PO DAILY 08/12/23 vitamin B complex 1 tab PO DAILY 08/12/23 bisacodyl 5 mg tablet,delayed 5 mg PO ONCE #4 tabs 09/15/23 release (Dulcolax (bisacodyl)) clonidine HCl 0.1 mg tablet 0.1 mg PO TID 09/15/23 eszopiclone 1 mg tablet (Lunesta) 3 mg PO QHS 09/15/23 guanfacine 1 mg tablet 1 mg PO QHS 09/15/23 lisdexamfetamine 30 mg capsule 30 mg PO DAILY 09/15/23 (Vyvanse) lisdexamfetamine 40 mg capsule 40 mg PO QAM 09/15/23 polyethylene glycol 3350 17 17 g PO ONCE #238 grams 09/15/23 gram/dose oral powder Current Visit Medications: Current Medications Generic Name Dose Route Start Last Admin Trade Name Freq PRN Reason Stop Dose Admin Ringer's Solution 1,000 mls @ 80 mls/hr 09/28/23 06:00 09/28/23 08:40 IV 10/27/23 23:59 80 mls/hr INFUSION IZZY Administration IV Miscellaneous Supplies 1 each 09/28/23 06:00 Iv Access IV 10/27/23 23:59 DIRECTED IZZY Sodium Chloride 0 ml 09/28/23 06:00 Normal Saline Flush 10 Ml Syr IV 10/27/23 23:59 PRN PRN Sodium Chloride 0 ml 09/28/23 06:00 Normal Saline 10 Ml Vial IJ 10/27/23 23:59 DIRECTED PRN Sterile Water 0 ml 09/28/23 06:00 Water,Injection,Sterile 10 Ml Vial IJ 10/27/23 23:59 DIRECTED PRN PFSH Active Problems Active Problems: Problem Status Onset Code Superior labrum guidaunh-fi-kvfjmzgne (SLAP) tear of right shoulder S43.431A Biceps tendinitis of right shoulder M75.21 IBS (irritable bowel syndrome) K58.9 Medical History Medical History Attention deficit disorder with hyperactivity PTSD (post-traumatic stress disorder) Generalized anxiety disorder Hyperglycemia GERD (gastroesophageal reflux disease) Raynauds disease Major depression, single episode Helminth infection Elevated liver enzymes History of HPV infection Esophagitis Suicidal thoughts History of head injury 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 Surgical History Surgical History History of colonoscopy History of esophagogastroduodenoscopy (EGD) H/O LEEP Tobacco Smoking/Tobacco Use Status: Current every day Tobacco Type: cigarettes Alcohol Alcohol Intake: never Substance Use Substance use: Daily Substance use type: inhalants Details: pt is admitted due to huffing cans of dust off Prental History History 6 Para 3 Hx # Term Pregnancies Multiple births Hx # Pregnancies Ectopic pregnancies AB induced Hx Number of Living Children AB spontaneous Vital Signs and Lab Results Vital Signs Most Recent Vital Signs in EMR: Most Recent Vital Signs Temp Pulse Resp BP Pulse Ox 36.3 C L 87 18 115/78 98 09/28/23 07:45 09/28/23 07:45 09/28/23 07:45 09/28/23 07:45 09/28/23 07:45 Point of Care Results Point of Care Results: POC- Test(urine) Negative 09/28/23 08:39 Lab Results Blood Type / Crossmatch: No Data to Display Complete Blood Count: No Data to Display Complete Metabolic Panel: No Data to Display Liver Function Panel: No Data to Display Coagulation Panel: No Data to Display Cardiac Panel: No Data to Display Arterial Blood Gas: No Data to Display Venous Blood Gas: No Data to Display Pancreas Panel: No Data to Display Thyroid Panel: No Data to Display Infectious Disease: No Data to Display Blood Cultures: No Data to Display Toxicology Panel: No Data to Display Panel: No Data to Display Imaging and Studies Imaging and Studies Study information below may be from another EMR and interpreted by another provider. Please see original notes in EMR for more complete details. EKG Summary: 11/10/22: Exam: Resting ECG Reason for Exam: sob Patient Location: E HR:99 bpm ECG Measurements Heart Rate 99 AXIS PA 154 P 72 QRSd 100 QRS 57 QT 375 T43 QTc 483 Conclusion Sinus rhythm...normal P axis, V-rate 60- 99 Probable left atrial enlargement...P >50mS, <-0.10mV V1 Low voltage, precordial leads...precordial leads <1.0mV Normal sinus rhythm at a rate of 99. Normal axis with interventricular conduction delay QRS 100 ms. QTc and PA within normal limits. T wave inversion in V2. T wave inversion V2 similar to prior. Prior dated last year. Low voltage similar to prior. No acute injury pattern. I have reviewed and I agree with the emergency room physician's ECG i nterpretation. Anesthesia Assessment and Plan Anesthesia History Personal History: No History of Anesthesia Complications and Other Family History: No Family History of Anesthesia Complications Exercise Tolerance Exercise Tolerance: Metabolic Equivalents>4 Pertinent Negatives Pertinent Negatives: No Major Cardiovascular Symptoms or Complaints and No Major Pulmonary Symptoms or Complaints Cardiac & Pulmonary Exam Cardiac Exam: Normal S1/S2 Heart Sounds Pulmonary Exam: Clear Bilateral Breath Sounds Implantable Cardiac Device Does patient have a Pacemaker or an ICD?: No Airway Exam Known Difficult Airway: No Mallampati Class: 1 Mouth Opening: Normal (> 3cm) Thyromental Distance: Greater than 3 cm Neck Range of Motion: Full ROM Neck Circumference: Normal Teeth Condition: Normal Dentition ASA Classification ASA Score: ASA 2 Emergency Case?: No NPO Status NPO Status: NPO Clears >2 hours, Solids >8 hours Status Status: Negative HCG Anesthesia Plan Resuscitation Status: Full Code Anesthesia Technique: General Anesthesia Airway Planned: Natural Airway Monitors Used: Standard Monitors
--- NOTE | 2023-09-28 09:35 | BOWEL_PTH ---
PATIENT: Domitila Sauceda LOC: [facility] U#:[id number] AGE/SX: 42/F ROOM: RE09/28/[address]: Luis Alberto Weber : 1980 BED: DIS: 09/28/2023 SPEC #: [id number] RECD: 09/28/23 12:47 STATUS: [facility] #: [id number] MORAIMA: 09/28/23 09:[address]: Luis Alberto Weber DEPT: Surgical Specimen RECD BY: Yudelka Zambrano ENTERED: 09/28/23 12:55 SP TYPE: Bowel OTHR DR: Nathan Sharif Tissues: 1 - BIOPSY BOWEL 2 - STOMACH BIOPSY 3 - STOMACH BIOPSY 4 - ESOPHAGUS BIOPSY 5 - ESOPHAGUS BIOPSY 6 - BIOPSY BOWEL 7 - BIOPSY BOWEL 8 - BIOPSY BOWEL Procedures: GROSS AND MICRO LEVEL 4 Comments: [id number]
[2023-09-28] MEDS: Ondansetron 4 MG/2 ML VIAL IVP (10:19)
[2023-09-28] MEDS: Normal Saline Flush 10 ML SYR IV (10:19)
--- NOTE | 2023-09-28 10:50 | W.ANESPOSTOP ---
Postoperative Evaluation Date, Time and Location Date Performed: 09/28/23 Time Performed: 10:51 Patient Location: Day Surgery Unit Vital Signs Most Recent Imported Vital Signs: Most Recent Vital Signs Temp Pulse Resp BP Pulse Ox 36.1 C L 111 H 18 122/51 L 98 09/28/23 10:40 09/28/23 10:40 09/28/23 10:40 09/28/23 10:40 09/28/23 10:40 Assessment Mental Status: Awake (Alert & Oriented to Patient Baseline) Airway and Respiratory Function: Patent airway with normal (patient baseline) respiratory exam Cardiovascular Function: Hemodynamically Stable Hydration Status: Adequately Hydrated Nausea & Vomiting: No Nausea or Vomiting Pain: Pt. Denies Any Pain Peripheral Nerve Block: Patient did not receive a nerve block
[2023-09-28] MEDS: Midazolam 2 MG/2 ML VIAL (11:00)
--- NOTE | 2023-09-28 11:03 | W.PM.DSUDISC ---
Date of service: 09/28/23 Time of Service: 11:03 Discharge Plan Disposition Patient Disposition: Home Condition: Good Discharge Details Attending Provider: Luis Alberto Weber Primary Care Provider: Nathan Sharif Home Meds and New Rx's Prescriptions: No Action eszopiclone [Lunesta] 1 mg tablet 3 mg PO QHS MARIJUANA PO clonidine HCl 0.1 mg tablet 0.1 mg PO TID Hold Instructions: Changed by Provider guanfacine 1 mg tablet 1 mg PO QHS lisdexamfetamine 40 mg capsule 40 mg PO QAM Rx Instructions: Pt takes a total of 70mg daily. 40mg in am and 30mg at noon. bisacodyl [Dulcolax (bisacodyl)] 5 mg tablet,delayed release (DR/EC) 5 mg PO ONCE Qty: 4 0RF Rx Instructions: Take per colonoscopy instructions provided by ordering providers office polyethylene glycol 3350 17 gram/dose powder 17 g PO ONCE Qty: 238 0RF Rx Instructions: Take per colonoscopy instructions provided by ordering providers office folic acid 800 mcg tablet 0.8 mg PO DAILY vitamin B complex Tablet 1 tab PO DAILY cholecalciferol (vitamin D3) 25 mcg (1,000 unit) tablet 50 mcg PO DAILY lisdexamfetamine [Vyvanse] 30 mg capsule 30 mg PO DAILY Patient Comments: Pt takes 30 mg at noon. alprazolam 0.5 MG tablet 2 mg PO BID PRN Discharge Instructions Additional Instructions: FINDINGS: On upper endoscopy, some mild inflammation was found in your stomach that is nonspecific. It could be from any number of causes such as spicy foods, ibuprofen, alcohol intake or medications. It can also be from something called bile reflux. You can discuss further with your primary care doctor. There were no ulcers or anything else of concern found. As we discussed, multiple biopsies were taken to rule out microscopic problems. On colonoscopy, the same thing. Everything looked healthy and normal. I took biopsies to rule out microscopic diseases. You do have some hemorrhoid disease as we had discussed and I did do some banding which should help. You should do another colonoscopy in 10 years. Activity:: Activity as Tolerated Diet:: As Tolerated Discharge Orders Discharge Orders: Discharge Order (Routine); Ordered 09/28/23 Ordered By: Luis Alberto Weber
[2023-09-28] MEDS: Droperidol 5 MG/2 ML VIAL 0.625 MG IVP ×2 (11:15→12:09)
--- NOTE | 2023-09-28 11:19 | W.PM.ENDDOP ---
Date of service: 09/28/23 Time of Service: 10:15 Endoscopy Report PROCEDURE DESCRIPTION: PROCEDURES PERFORMED: 1. EGD with biopsies PREOPERATIVE DIAGNOSIS: Chronic diarrhea, abdominal pain, abdominal bloating POSTOPERATIVE DIAGNOSIS: Bile reflux SURGEON: Monika Weber MD INDICATION FOR PROCEDURE: 42-year-old woman has chronic abdominal bloating, loose stools on and off and reportedly IBS. But she has never had a workup. FINDINGS: D2/D3 = normal -multiple biopsies were taken (x 4) to rule out celiac disease D1/bulb = normal - no ulcers or inflammation Pylorus = normal Antrum = normal appearance, no ulcers, cold forceps biopsies were taken to rule out H. pylori routinely. Bile was seen refluxing through the antrum consistent with the clinical diagnosis of bile reflux. Body = normal appearance, biopsies taken with cold forceps technique routinely Fundus = normal, no polyps Cardia = normal Hiatus = no hiatal hernia Distal esophagus = no inflammation, no esophagitis, no Grimes's, no stricture. I took a routine distal esophagus biopsy with cold forceps technique. Mid esophagus = normal Proximal esophagus/hypopharynx/vocal cords = normal SURVEILLANCE-INTERVAL/FOLLOW-UP: Follow-up with PCP Specimens: Yes EBL: Minimal COMPLICATIONS: None Procedure in detail: The patient gave written consent and was in agreement with the indications, the potential risks as well as the benefits of the procedure. The patient was taken to the endoscopy suite and laid on their left side. Anesthesia was given which was tolerated well. We performed a timeout and we are in agreement I started the procedure. A well-lubricated endoscope was gently and carefully advanced down the esophagus, into the stomach the scope was and through the pylorus into the duodenum. The scope was then slowly withdrawn with the above-noted findings/interventions. The patient tolerated the procedure well and was then turned for colonoscopy (see separate procedure note).
--- NOTE | 2023-09-28 11:19 | W.COLOREPORT ---
Date of service: 09/28/23 Time of Service: 10:15 Colonoscopy Report Procedure Description: PROCEDURES PERFORMED: 1. Colonoscopy with cold forceps biopsies 2. hot snare polypectomy x1 PREOPERATIVE DIAGNOSIS: Family history colon cancer, screening, chronic diarrhea POSTOPERATIVE DIAGNOSIS: Chronic diarrhea, colorectal polyps, grade 2 internal hemorrhoids SURGEON: Monika Weber MD INDICATION for procedure: The patient is a 42-year-old woman who has a strong family history of colorectal cancer in both her mother and her father. She has never had a screening colonoscopy. She has chronic loose stools. She has irritated hemorrhoids on and off for years. She is hopeful to get banding. FINDINGS: The terminal ileum looked normal. It took cold forceps biopsies in the TI to rule out inflammatory bowel disease (not suspected). I took random colonic mucosal biopsies to rule out microscopic colitis (not suspected). In the sigmoid colon there were 2 small polyps group together and remove them with cold forceps technique. In the rectum a 3-5 mm sessile adenomatous?looking polyp was removed with hot snare. She has grade 2 internal hemorrhoids present at 2 columns. SURVEILLANCE interval/FOLLOW-UP: 3-5 years depending on path results of the polyp in the rectum. Random biopsies are expected to come back normal. SPECIMENS: yes EBL: Minimal COMPLICATIONS: None QUALITY of prep: Excellent Procedure in detail: The patient gave written consent and was in agreement with the indications, the potential risks as well as the benefits of the procedure. She was turned from upper endoscopy (see separate procedure note) and kept in the same position. Anesthesia was continued and I started the colonoscopy portion of the procedure. Digital rectal and visual examination was performed and grossly within normal limits. A well-lubricated flexible colonoscope was then introduced and passed without any notable difficulty all the way to the cecum identified by the ileocecal valve and the appendiceal orifice. The terminal ileum was deeply intubated and looked normal visually. The scope was then slowly withdrawn with the above-noted findings. The patient tolerated the procedure well and then we performed hemorrhoid banding (see separate procedure note).
[2023-09-28] MEDS: LORazepam 2 MG/ML VIAL 0.5 MG IVP (11:24)
--- NOTE | 2023-09-28 13:12 | W.ANESPOSTOP ---
Postoperative Evaluation Date, Time and Location Date Performed: 09/28/23 Time Performed: 13:12 Patient Location: Day Surgery Unit Vital Signs Most Recent Imported Vital Signs: Most Recent Vital Signs Temp Pulse Resp BP Pulse Ox 36.5 C 80 16 117/78 100 09/28/23 12:40 09/28/23 12:40 09/28/23 12:40 09/28/23 12:40 09/28/23 12:40 Pain Score Most Recent Pain Score: Most Recent Pain Score Pain Level 0 09/28/23 12:40 Assessment Mental Status: Awake (Alert & Oriented to Patient Baseline) Airway and Respiratory Function: Patent airway with normal (patient baseline) respiratory exam Cardiovascular Function: Hemodynamically Stable Hydration Status: Adequately Hydrated Nausea & Vomiting: No Nausea or Vomiting (Medications working well) Pain: Pt. Denies Any Pain Peripheral Nerve Block: Patient did not receive a nerve block
--- NOTE | 2023-09-28 15:30 | NUR.NOTE ---
Nursing Note: Upon patient returning from procedure, uncomfortable and nauseated, and then receiving 4mg IVP ondansetron per order of SUPPLY CHAIN LOGISTICS MANAGER, no resolution with continued nausea and vomiting. 1055 L RYLAN Sanchez in room to assess patient after this RN requested additional anti-emetic. 2mg IVP versed given by SUPPLY CHAIN LOGISTICS MANAGER. 1104 Pt then transferred to PACU for 1:1 care.
--- NOTE | 2023-09-28 22:27 | W.PM.OP ---
Date of service: 09/28/23 Time of Service: 10:30 Operative Note Operative Note Refer to Anesthesia Record Procedure Description: PROCEDURES PERFORMED: 1. Anoscopy 2. Internal hemorrhoid banding x2 PREOPERATIVE DIAGNOSIS: Symptomatic grade 2 internal hemorrhoids POSTOPERATIVE DIAGNOSIS: Same SURGEON: Monika Weber MD INDICATION FOR PROCEDURE: The patient is a 42-year-old woman who just had a colonoscopy and has symptomatic hemorrhoids by report. Grade 2 internal hemorrhoid disease was found. She had requested possible banding be performed. FINDINGS: No significant external hemorrhoid disease, normal anal canal, grade 2 internal hemorrhoids present in the right anterior column in the left lateral column. Banding performed x 2. SURVEILLANCE interval/FOLLOW-UP: As needed SPECIMENS: None EBL: Minimal COMPLICATIONS: None Procedure in detail: the patient had given written consent and was in agreement with the indications, the potential risks as well as the benefits of the procedure. After her colonoscopy, the colonoscope was removed (see separate procedure note) and I started the banding/anoscopy portion of the procedure. A well-lubricated anoscope was gently introduced. The anal canal was carefully inspected and appeared normal. Internal hemorrhoid disease was readily visible at all 3 columns. Banding was performed in usual fashion. The patient tolerated the procedure well and was taken to the PACU in hemodynamically stable condition.
--- NOTE | 2023-10-01 21:42 | W.PM.PROGNOT ---
Date of Service Date of service: 10/01/23 Time of Service: 21:43 Assessment and Plan Assessment and plan (1) History of esophagogastroduodenoscopy (EGD): Status: Chronic Assessment and plan: 42 yo woman had EGD (and colonoscopy) 4 days ago and is still complaining of needing to vomit. Sounds like she is staying hydrated, but I recommended that she go to the ER. 4 days of vomiting after EGD/colonoscopy is highly unusual without any good explanation. I did educational guidance counselor her to STOP making herself throw up. Subjective Subjective Interval history since last seen: Patient called again. Has called every day since endoscopy stating she has to make herself vomit because she feels pressure in her chest. When asked about urinating and swallowing water, she says I can keep down a little bit. Objective Last Vital Signs Temp 97.2 F L 09/28/23 13:15 Pulse 98 H 09/28/23 13:15 Resp 16 09/28/23 13:15 BP 114/84 09/28/23 13:15 Pulse Ox 99 09/28/23 13:15 Time Spent with Patient Time Spent with Patient: <25 minutes Time was spent: other (phone call)
== END 2023-09-28 13:39 | disposition home or self-care (01) ==
PROVIDERS: PCP Student in an Organized Health Care Education/Training Program; Visit Provider Student in an Organized Health Care Education/Training Program
PROC: (CPT 45385; principal; 2023-09-28 09:15)
DX: Z12.11 Encounter for screening for malignant neoplasm of colon (principal); Z80.0 Family history of malignant neoplasm of digestive organs; R19.7 Diarrhea, unspecified; R10.9 Unspecified abdominal pain; R14.0 Abdominal distension (gaseous); E78.70 Disorder of bile acid and cholesterol metabolism, unspecified; K64.1 Second degree hemorrhoids; K63.5 Polyp of colon; D12.8 Benign neoplasm of rectum; Z98.890 Other specified postprocedural states
CPT/HCPCS: 45385; 45380; 45398; 43239; 00123; 81025; 88305; J1790; J2001; J2060; J2250; J2405; J2704

== ENCOUNTER 2023-10-03 12:53 | Emergency (ER) | payer OTHER, SELFPAY ==
[2023-10-03] VITALS (15 sets, daily range): BP systolic 105–115; BP diastolic 75–89; PULSE 97–126; RESP 9–21; TEMP 36.8; O2SAT 95–99
--- NOTE | 2023-10-03 12:45 | RT.EKG_ITS ---
APPROVED REPORT Exam: Resting ECG Reason for Exam: syncope Patient Location: E HR:114 bpm ECG Measurements Heart Rate 114 AXIS FL 139 P 77 QRSd 98 QRS -74 QT 354 T 36 QTc 487 Conclusion Sinus tachycardia...rate> 99 Probable left atrial enlargement...P >50mS, <-0.10mV V1 Markedly posterior QRS axis...late V-lead transition
--- NOTE | 2023-10-03 13:45 | DI.CT_ITS ---
Exam(s) CT ABDOMEN PELVIS WO EXAM: CT ABDOMEN PELVIS WO CLINICAL HISTORY: Recent Colonoscopy, N/V/D. TECHNIQUE: Imaging Protocol: Axial computed tomography images with coronal and sagittal reformatted images were created and reviewed. COMPARISON: CT CHEST FOR PULMONARY EMBOLUS from 10/01/2017 FINDINGS: This is an incomplete examination due to scanner malfunction. The entire pelvis is not included on t his examination. Sagittal coronal reconstructions could not be performed. ABDOMEN: Lung Bases: Scarring or atelectasis is seen in the lung bases. Liver: Normal density. No measurable mass. There is focal fatty infiltration in the left lobe. Gallbladder and biliary tract: No radiodense calculus or biliary ductal dilation. Pancreas: Normal density, no abnormal calcifications or inflammatory process. Spleen: Normal. Kidneys: Normal size, contour and axis.No radiodense stones or obstructive uropathy. No masses seen. Adrenal glands: No mass is seen. Lymph nodes: Within normal limits. Abdominal Aorta: Abdominal portion non-dilated. PELVIS: Bladder:The urinary bladder is not completely included on this examination. The visualized bladder i s unremarkable. Bowel: No obstruction or bowel wall thickening. Appendix is unremarkable. 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 The anal region is not included on this examination. Peritoneal cavity: No ascites, collection or mesenteric inflammatory response. No free air. Reproductive organs: Unremarkable as visualized. Bones: Within normal limits. Soft Tissues: Within normal limits. IMPRESSION: 1. Incomplete examination due to scanner malfunction. 2. No evidence of pneumoperitoneum. 3. No acute abdominal or pelvic process. RADIATION DOSE DELIVERED: 781.94mGy.cm Total DLP DATA REPOSITORY: All CT scans at this facility are submitted to the National Radiology Data Registry (NRDR) Dose Index Registry (DIR) with the [employer] (ACR). RADIATION OPTIMIZATION: All CT scans at this facility use at least one of these dose optimization te chniques: automated exposure control; mA and/or kV adjustment per patient size (includes targeted exa ms where dose is matched to clinical indication); or iterative reconstruction.
[2023-10-03 13:53] LABS: Abs Immature Grans 0.05 10^3/uL (0.0-0.06); Absolute Basophil Count 0.08 10^3/uL (0.0-0.2); Absolute Lymphocyte Count 3.23 10^3/uL (1.2-3.4); Absolute Neutrophil Count 11.38 10^3/uL (1.2-6.7); Basophils % 0.5 %; Eosinophils % 1.5 %; HCT 51.4 % (36.0-46.0); HGB 18.3 g/dL (11.2-15.7); Immature Grans % 0.3 %; Lymphocytes % 19.9 %; MCH 30.2 pg (27.0-33.0); MCHC 35.6 % (32.0-36.0); MCV 85 fL (80-95); MPV 11.2 fL (8.0-11.0); Monocytes % 7.8 %; Platelet Count 444 10^3/uL (130-400); RBC 6.05 10^6/uL (3.93-5.22); RDW 12.2 % (11.7-14.6); RDW-SD 37.7 fL; WBC 16.25 10^3/uL (4.4-10.8)
[2023-10-03 13:54] LABS: Absolute Eosinophil Count 0.24 10^3/uL (0.0-0.7); Absolute Monocyte Count 1.27 10^3/uL (0.1-0.8)
--- NOTE | 2023-10-03 13:55 | ED.GENADUL_ITS ---
Discharge Plan Disposition Patient Disposition: Against Medical Advice Condition: Fair Discharge Details Clinical Impression: Episode of syncope, Nausea & vomiting Primary Care Provider: Nathan Sharif ED Provider: Marianne Yañez Home Meds and New Rx's Prescriptions: No Action eszopiclone [Lunesta] 1 mg tablet 3 mg PO QHS MARIJUANA PO clonidine HCl 0.1 mg tablet 0.1 mg PO TID Hold Instructions: Changed by Provider lisdexamfetamine 40 mg capsule 40 mg PO QAM Rx Instructions: Pt takes a total of 70mg daily. 40mg in am and 30mg at noon. folic acid 800 mcg tablet 0.8 mg PO DAILY vitamin B complex Tablet 1 tab PO DAILY cholecalciferol (vitamin D3) 25 mcg (1,000 unit) tablet 50 mcg PO DAILY lisdexamfetamine [Vyvanse] 30 mg capsule 30 mg PO DAILY Patient Comments: Pt takes 30 mg at noon. hydroxyzine HCl 25 mg tablet Patient Comments: TAKE TWO TABLETS BY MOUTH TWICE A DAY FOR ANXIETY alprazolam 0.5 MG tablet 2 mg PO BID PRN Discharge Instructions Instructions: Fainting, Adult ED Discharge Data Discharge Date/Time-TO BE ENTERED AT DEPARTURE: 10/03/23 15:14 HPI General Mode of arrival: ambulatory . Date/Time Provider Initiated Documentation: 10/03/23 13:26 . Limitations to Documentation: no limitations . Information obtained by: patient, RN notes reviewed and old records reviewed . HPI Narrative: 42-year-old female presents to the ER with nausea vomiting over the last 4 days has colonoscopy on . She reports today after having a verbal al tercation with her and being under stressful situation she reports a syncopal episode. She has been intermittently drinking water and gage gail since the colonoscopy. She denies any abdominal pain. She did take his and next half a tablet just prior to my evaluation. Show he presents here via EMS. She does have a past medical history of ADHD PTSD anxiety disorder hyperglycemia GERD head injury and elevated liver enzymes. She denies any dark stools or blood in her stools. EKG was done upon patient arrival to the department which shows sinus tachycardia, with me just sitting there talking to her heart rate does jump up to 120 upon sitting. Related Data Home Medications Medication Instructions Recorded Confirmed alprazolam 0.5 mg tablet 2 mg PO BID PRN 10/01/17 10/03/23 MARIJUANA PO 12/29/21 09/15/23 cholecalciferol (vitamin D3) 25 50 mcg PO DAILY 08/12/23 10/03/23 mcg (1,000 unit) tablet folic acid 800 mcg tablet 0.8 mg PO DAILY 08/12/23 10/03/23 vitamin B complex 1 tab PO DAILY 08/12/23 10/03/23 clonidine HCl 0.1 mg tablet 0.1 mg PO TID 09/15/23 10/03/23 eszopiclone 1 mg tablet (Lunesta) 3 mg PO QHS 09/15/23 10/03/23 lisdexamfetamine 30 mg capsule 30 mg PO DAILY 09/15/23 10/03/23 (Vyvanse) lisdexamfetamine 40 mg capsule 40 mg PO QAM 09/15/23 10/03/23 hydroxyzine HCl 25 mg tablet mg 10/03/23 Allergies Allergy/AdvReac Type Severity Reaction Status Date / Time bupropion hcl Allergy Unknown manic Uncoded 10/03/23 13:06 zolpidem tartrate Allergy Unknown Unknown Uncoded 10/03/23 13:06 General Stated Complaint: Nausea/Vomit/Diar DEDE: 3 Review of Systems All systems reviewed & are unremarkable except as noted in HPI and below Cardiovascular Cardiovascular: Reports syncope, Reports rapid heart rate and Reports lightheadedness Gastrointestinal Gastrointestinal: Reports as per HPI, Reports nausea and Reports vomiting Neurologic Neurologic: Reports syncope Exam Narrative Exam Narrative: Constitutional: Alert and oriented x3. Appears stated age. Normal body habitus. Upon entrance into the room patient is hunched over with her face on the bed, she does not look At me when entering the room. I did ask her to sit up which she was able to do without difficulty. She is tachycardic with a rate of 116-1 20. Head: Normocephalic, no trauma. Eyes: Pupils PERRL, Red reflex noted, EOM's intact. Eyelids symmetrical without lesions, discharge, or swelling. Chest: Sinus tachycardia, Normal S1, S2, distal pulses intact. Resp: Lungs clear to auscultation bilaterally, no wheezes, rales, or rhonchi. Abdomen: Soft, non-distended, nontender with palpation all 4 quadrants, no palpated masses or guarding, hypo-active bowel sounds all 4 quads. Musculoskeletal: Normal gait, Moves all 4 extremities without difficulty. Skin: No suspicious rashes or lesions. Capillary refill less than 2 sec. Neurologic: Cranial nerves II-XII intact. Alert and oriented x 3. Motor: No deficits noted. Sensory: Intact bilaterally all 4 extremities. Hematologic/Lymphatic: No ecchymosis, no lymphadenopathy. Course Vital Signs Vital signs: Vital Signs Temperature 36.8 C 10/03/23 12:58 Pulse 109 H 10/03/23 12:58 Respiratory Rate 14 10/03/23 12:58 Blood Pressure 115/83 10/03/23 12:58 Pulse Oximetry 95 10/03/23 12:58 Temperature 36.8 C 10/03/23 13:02 Temperature Source Skin 10/03/23 13:02 Pulse 103 H 10/03/23 13:02 Respiratory Rate 18 10/03/23 13:02 Respiratory Effort Normal, Non-Labored 10/03/23 13:02 Blood Pressure 115/83 10/03/23 13:02 Blood Pressure Position Supine 10/03/23 13:02 Pulse Oximetry 95 10/03/23 13:02 Oxygen Delivery Method Room Air 10/03/23 13:02 Oxygen Flow Rate 0 10/03/23 12:58 Medical Decision Making 42-year-old female presents to the ER with a chief complaint of nausea vomiting for the last 4 days after colonoscopy, informed by staff occupational therapist that she is requesting to be discharged. She reports to me that she thinks that this is anxiety however she is tachycardic care upon arrival. I did discuss risks and benefits for leaving AGAINST MEDICAL ADVICE. She is declining lab work at this time and is requesting something for anxiety. She reports to me that she did take half dose of her Xanax that she she is normally prescribed 2 mg of Xanax. She did present via EMS. She states that she thinks that she just got upset and had a syncopal episode. Informed by ED staff that patient is requesting to leave AMA at this time. Patient's who is here in the department spoke with with patient and with myself. Patient is requesting something for her anxiety. Patient is declining lab work at this time or any further workup. Despite my explanations and discussion on risk versus benefits. She is alert and oriented x 4 and able to make her own decisions. She does verbalize that I am unable to rule out any life-threatening condition at this time. Patient requesting to leave AMA. Discussed risks and benefits with patient. Patient verbalizes understanding of situation and the risks of leaving including worsening condition, developing disability, including but not limited to . Discussed results of labs and imaging, if they were performed and recommendations for further treatment and/or observation. The patient verbalizes understanding of the results discussed. Every effort was made to involve family and situation discussed. At this time patient has opted to leave against medical advice. Patient is alert and oriented and has the capacity to make own decisions. Patient is still requesting to leave AGAINST MEDICAL ADVICE. Patient did go have CT abdomen pelvis without contrast. She was given 40 mill equivalents of potassium p.o. Patient signed AMA form. She left prior to completion of her workup. At the time of her departure she does have an elevated white blood cell count 16.25, potassium is critically low at 2.2 sodium within normal limits, initial troponin within normal limits serial troponin pending. CT abdomen pelvis results pending. Informed by patient's RN that she did sign the AMA form. Risks and benefits discussed including up to disability and or . Patient's was involved in decision-making and requested her to stay however patient declined at this time. Patient is encouraged to stay for workup which she declined at this time. Patient left department AGAINST MEDICAL ADVICE. Lab Data Lab results reviewed: Yes I reviewed the patient's lab results. Labs: Laboratory Tests Range/Units 10/03/23 12:40 WBC (4.4-10.8) 10^3/uL 16.25 H RBC (3.93-5.22) 10^6/uL 6.05 H Hgb (11.2-15.7) g/dL 18.3 H Hct (36.0-46.0) % 51.4 H MCV (80-95) fL 85 MCH (27.0-33.0) pg 30.2 MCHC (32.0-36.0) % 35.6 RDW (11.7-14.6) % 12.2 Plt Count (130-400) 10^3/uL 444 H MPV (8.0-11.0) fL 11.2 H Immature Gran % % 0.3 Neutrophils % % 70.0 Lymphocytes % % 19.9 Monocytes % % 7.8 Eosinophils % % 1.5 Basophils % % 0.5 Nucleated RBC % (0.0-0.3) % 0.0 Absolute Neutrophils (1.2-6.7) 10^3/uL 11.38 H Absolute Lymphocytes (1.2-3.4) 10^3/uL 3.23 Absolute Monocytes (0.1-0.8) 10^3/uL 1.27 H Absolute Eosinophils (0.0-0.7) 10^3/uL 0.24 Absolute Basophils (0.0-0.2) 10^3/uL 0.08 RBC Morphology Normal Sodium (136-145) mmol/L 137 Potassium (3.5-5.1) mmol/L 2.2 L* Chloride (98-107) mmol/L 95 L Carbon Dioxide (21.0-32.0) mmol/L 31.4 Anion Gap (3-11) mmol/L 10.6 BUN (7-18) mg/dL 8 Creatinine (0.55-1.02) mg/dL 1.1 H Est GFR (CKD-EPI 2020) (mL/min/1.73m2) 63.54 Glucose (74-106) mg/dL 132 H Calcium (8.5-10.1) mg/dL 9.3 Magnesium (1.8-2.4) mg/dL 2.3 Total Bilirubin (0.2-1.0) mg/dL 0.58 AST (15-37) U/L 26 ALT (14-59) U/L 49 Alkaline Phosphatase (46-116) U/L 100 Troponin I (< or =60) ng/L < 50 Total Protein (6.4-8.2) g/dL 7.9 Albumin (3.4-5.0) g/dL 4.1 Quality:[facility] Health Related Social Needs: No Data to Display PFSH All Active Problems (Updated 10/03/23 @ 14:13 by Marianne Yañez NP) Nausea & vomiting (Acute) Episode of syncope (Chronic) History of esophagogastroduodenoscopy (EGD) (Chronic ~09/2023) Superior labrum [id number] (SLAP) tear of right shoulder (Acute) Biceps tendinitis of right shoulder (Acute) IBS (irritable bowel syndrome) (Chronic) Medical History (Updated 10/03/23 @ 14:13 by Marianne Yañez NP) Attention deficit disorder with hyperactivity PTSD (post-traumatic stress disorder) Generalized anxiety disorder Hyperglycemia GERD (gastroesophageal reflux disease) Raynauds disease Major depression, single episode Helminth infection Elevated liver enzymes History of HPV infection Esophagitis Suicidal thoughts History of head injury 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) Tx with LEEP Surgical History (Updated 10/01/23 @ 21:44 by Luis Alberto Weber MD) History of colonoscopy (~09/2023) H/O LEEP Social History Smoking/Tobacco Use Status: Former Tobacco Use Quit Date: 07/27/23 Smoking risk assessment performed?: Yes Alcohol Intake: never Drug use: Daily Substance use type: inhalants Details: pt is admitted due to huffing cans of dust off Household members: spouse and children Housing: apartment Number of Children: 3 Sexually active: Yes Do you think of yourself as: straight/heterosexual Current gender identity: female Do you feel safe at home: No Do you feel safe in your relationship?: Yes Additional Social history: pt is going through a divorce that she does not want Female Reproductive History Menstrual control method: other (partner with vasectomy) History History 6 Para 3 Hx # Term Pregnancies Multiple births Hx # Pregnancies Ectopic pregnancies AB induced Hx Number of Living Children AB spontaneous
[2023-10-03 14:07] LABS: Diff Comment RBC Morph Reviewed; RBC Morphology Normal
[2023-10-03 14:14] LABS: ALT 49 U/L (14-59); AST 26 U/L (15-37); Albumin 4.1 g/dL (3.4-5.0); Alkaline Phosphatase 100 U/L (46-116); Anion Gap 10.6 mmol/L (3-11); BUN 8 mg/dL (7-18); Bilirubin, Total 0.58 mg/dL (0.2-1.0); CO2 31.4 mmol/L (21.0-32.0); CREATININE 1.1 mg/dL (0.55-1.02); Calcium 9.3 mg/dL (8.5-10.1); Chloride 95 mmol/L (98-107); Estimated GFR 63.54 (mL/min/1.73m2); Glucose 132 mg/dL (74-106); Magnesium 2.3 mg/dL (1.8-2.4); Sodium 137 mmol/L (136-145); Total Protein 7.9 g/dL (6.4-8.2); Troponin I < 50 ng/L (< or =60)
[2023-10-03 14:16] LABS: Potassium 2.2 mmol/L (3.5-5.1)
[2023-10-03] MEDS: Potassium Chloride Liquid 20 MEQ PKT 40 MEQ PO (14:21)
[2023-10-03] MEDS: Ondansetron 4 MG/2 ML VIAL IVP (14:23)
[2023-10-03] MEDS: Normal Saline 1,000 ML 1000 ML IV (14:24)
== END 2023-10-03 15:14 | disposition left against medical advice (07) ==
PROVIDERS: Emergency Provider Registered Nurse Emergency; PCP Family Medicine
DX: R11.2 Nausea with vomiting, unspecified (principal); R55 Syncope and collapse; F41.9 Anxiety disorder, unspecified; I73.00 Raynaud's syndrome without gangrene; Z87.891 Personal history of nicotine dependence; Z53.29 Procedure and treatment not carried out because of patient's decision for other reasons
CPT/HCPCS: 80053; 93005; 96374; 99284; 74176; 83735; 84484; 85025; 93010; J2405

== ENCOUNTER 2023-10-05 16:11 | Observation (INO) | payer OTHER, SELFPAY ==
[2023-10-05 16:14] VITALS: BP 133/86; PULSE 91; RESP 18; TEMP 36.2; O2SAT 96
--- NOTE | 2023-10-05 16:30 | DI.RAD_ITS ---
Exam(s) XR ABDOMEN FLAT UPRIGHT EXAM: 2D digital imaging was performed. CLINICAL HISTORY: vomiting, eval for free air or obstruction. COMPARISON: CT CT ABDOMEN PELVIS WO from 10/03/2023 TECHNIQUE: Supine and upright views of the abdomen was performed. Three images were obtained. FINDINGS: LUNG BASES: Clear. BOWEL GAS PATTERN: There are air-fluid level seen in the abdomen. There is a paucity of air seen in the descending and sigmoid colon. There is mild distension of the cecum and ascending colon. FREE AIR: None. CALCIFICATIONS: No radiopaque calcifications. OSSEOUS STRUCTURES: Normal for age. OTHER FINDINGS: None. IMPRESSION: Air-fluid level seen on the upright views with the paucity of air seen in the distal colon. Ileus ve rsus early obstruction. No free air. DATA REPOSITORY: RADIATION DOSE DELIVERED:
--- NOTE | 2023-10-05 16:39 | W.ED.GENAD ---
Discharge Plan Disposition Patient Disposition: Admit to [facility] Condition: Good Discharge Details Chief Complaint: Abd Prob Clinical Impression: Intestinal obstruction, Dehydration, Acute hypokalemia Primary Care Provider: Nathan Sharif ED Provider: Peter Callaway Home Meds and New Rx's Prescriptions: No Action eszopiclone [Lunesta] 1 mg tablet 3 mg PO QHS MARIJUANA PO clonidine HCl 0.1 mg tablet 0.1 mg PO TID Hold Instructions: Changed by Provider lisdexamfetamine 40 mg capsule 40 mg PO QAM Rx Instructions: Pt takes a total of 70mg daily. 40mg in am and 30mg at noon. folic acid 800 mcg tablet 0.8 mg PO DAILY vitamin B complex Tablet 1 tab PO DAILY cholecalciferol (vitamin D3) 25 mcg (1,000 unit) tablet 50 mcg PO DAILY lisdexamfetamine [Vyvanse] 30 mg capsule 30 mg PO DAILY Patient Comments: Pt takes 30 mg at noon. hydroxyzine HCl 25 mg tablet 25 mg PO BID Patient Comments: TAKE TWO TABLETS BY MOUTH TWICE A DAY FOR ANXIETY alprazolam 0.5 MG tablet 2 mg PO BID PRN HPI General Date/Time Provider Initiated Documentation: 10/05/23 16:14. HPI Narrative: 42-year-old female with a past medical history of GERD, irritable bowel syndrome, ADHD, history of alcohol use in the distant past, PTSD, who presents today for evaluation of nausea and vomiting. Patient does smoke marijuana. She had a screening EGD and colonoscopy on 09/28/2023 which was 1 week ago. Since then she has had irritation in her epigastric region, persistent nausea and vomiting every few hours. She denies any fever or chills. She does admit to occasional dark and green stool. She denies any hematemesis. She states that every time she takes her pills she feels like they get stuck in her esophagus. She was seen for an episode of syncope I did 2 days ago here in the emergency department where she was noted to be hypokalemic. CT scan did not show any evidence of obstruction at that time. She did receive some supplemental potassium. Unfortunately since then she has had persistent abdominal achiness vomiting and has not been feeling well. She did contact a surgery and they recommended that she come to the ER for further assessment. Patient has no other complaints at this time. She does state that her symptoms of the pill irritation and her nausea improved when she gets in a hot bath. No other aggravating or relieving factors otherwise. Related Data Home Medications Medication Instructions Recorded Confirmed alprazolam 0.5 mg tablet 2 mg PO BID PRN 10/01/17 10/05/23 MARIJUANA PO 12/29/21 09/15/23 cholecalciferol (vitamin D3) 25 50 mcg PO DAILY 08/12/23 10/05/23 mcg (1,000 unit) tablet folic acid 800 mcg tablet 0.8 mg PO DAILY 08/12/23 10/05/23 vitamin B complex 1 tab PO DAILY 08/12/23 10/05/23 clonidine HCl 0.1 mg tablet 0.1 mg PO TID 09/15/23 10/05/23 eszopiclone 1 mg tablet (Lunesta) 3 mg PO QHS 09/15/23 10/05/23 lisdexamfetamine 30 mg capsule 30 mg PO DAILY 09/15/23 10/05/23 (Vyvanse) lisdexamfetamine 40 mg capsule 40 mg PO QAM 09/15/23 10/05/23 hydroxyzine HCl 25 mg tablet 25 mg PO BID 10/03/23 10/05/23 Allergies Allergy/AdvReac Type Severity Reaction Status Date / Time bupropion hcl Allergy Unknown manic Uncoded 10/05/23 16:17 zolpidem tartrate Allergy Unknown Unknown Uncoded 10/05/23 16:17 General Stated Complaint: Abd Prob DEDE: 3 Review of Systems All systems reviewed & are unremarkable except as noted in HPI and below Exam Narrative Exam Narrative: 1.Const: Well-nourished, Well-developed, appearing stated age 2.Eyes: PERRL, no conjunctival injection, and symmetrical lids. 3.ENT: Atraumatic external nose and ears. Dry MM. Neck: Symmetric, trachea midline, No thyromegaly. 4.CVS: +S1/S2, No murmurs or gallops. Peripheral pulses 2+ and equal in all extremities. Brisk capillary refill in all extremities. 5.RESP: Unlabored respiratory effort. Clear to auscultation bilaterally. No wheezes rales or rhonchi 6.GI: Soft, Nontender/Nondistended, No hepatosplenomegaly. No guarding or rebound. 7.MSK: Normocephalic/Atraumatic, Extremities w/o deformity or ttp No cyanosis or clubbing, Normal movement of all extremities 8.Skin: Warm, Dry. No rashes or lesions. 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 Sensation grossly intact, no focal neurologic deficits. 10.Psych: (AAO) x3. Appropriate mood and affect Course Vital Signs Vital signs: Vital Signs Temperature 36.2 C L 10/05/23 16:14 Pulse 91 H 10/05/23 16:14 Respiratory Rate 18 10/05/23 16:14 Blood Pressure 133/86 10/05/23 16:14 Pulse Oximetry 96 10/05/23 16:14 Temperature 36.2 C L 10/05/23 16:14 Pulse 91 H 10/05/23 16:14 Respiratory Rate 18 10/05/23 16:14 Blood Pressure 133/86 10/05/23 16:14 Pulse Oximetry 96 10/05/23 16:14 Pain Level 3 10/05/23 16:14 Medical Decision Making 42-year-old female with a past medical history of GERD, irritable bowel syndrome, ADHD, history of alcohol use in the distant past, PTSD, who presents today for evaluation of nausea and vomiting. Patient does smoke marijuana. She had a screening EGD and colonoscopy on 09/28/2023 which was 1 week ago. Since then she has had irritation in her epigastric region, persistent nausea and vomiting every few hours. She denies any fever or chills. She does admit to occasional dark and green stool. She denies any hematemesis. She states that every time she takes her pills she feels like they get stuck in her esophagus. She was seen for an episode of syncope I did 2 days ago here in the emergency department where she was noted to be hypokalemic. CT scan did not show any evidence of obstruction at that time. She did receive some supplemental potassium. Unfortunately since then she has had persistent abdominal achiness vomiting and has not been feeling well. She did contact a surgery and they recommended that she come to the ER for further assessment. Patient has no other complaints at this time. She does state that her symptoms of the pill irritation and her nausea improved when she gets in a hot bath. No other aggravating or relieving factors otherwise. Exam demonstrates stable appearing female, no tachycardia or hypotension. No significant abdominal tenderness. Mild lower abdominal achiness. No guarding or rebound. Differential includes pill esophagitis, new gastric ulcer, less likely obstruction. Dehydration and cyclic vomiting syndrome is certainly on the differential as well. Will evaluate for these etiologies, will give Carafate Bentyl and GI cocktail. Will give antiemetics, rehydrate with a liter of LR, get a plain film x-ray to evaluate for free air or obstruction, monitor closely and reassess. 5:54 PM Patient's laboratory workup has returned, mild white count of 11, potassium is notably low again at 2.6, magnesium level is normal. Lipase normal. X-ray shows evidence of air-fluid level seen in the distal colon concerning for ileus versus obstruction. No free air under the diaphragm, no evidence of perforation. On reassessment patient is feeling slightly better. With the patient's evidence of ileus versus obstruction, and her hypokalemia needing correction, I do feel that admission is indicated. I did contact the surgeon Dr. Sanz. He reviewed the x-ray. He does agree for admission, continued fluids and potassium replacement. He will monitor the patient throughout the night and then in the morning depending on her symptom progression we will determine if repeat imaging including CAT scan may be indicated. Repeat exam does not show an acute surgical abdomen. Patient does feel quite anxious right now and is requesting some of her regular anxiolytic. We will give a small dose of IV Ativan at this time. Patient will be admitted for further management. I contacted the and discussed the case with him and he agrees. I have extensively reviewed the treatment plan with the patient. I have addressed all patient concerns at this time. I have also discussed the plan with the admitting physician and they agree with the current assessment and plan and have agreed to assume responsibility for the patient. All parties demonstrate verbal understanding and agreement with our assessment and plan at this time. The documentation in this chart was dictated using [employer] dictation software. Please excuse any dictation errors. FINDINGS: LUNG BASES: Clear. BOWEL GAS PATTERN: There are air-fluid level seen in the abdomen. There is a paucity of air seen in the descending and sigmoid colon. There is mild distension of the cecum and ascending colon. FREE AIR: None. CALCIFICATIONS: No radiopaque calcifications. OSSEOUS STRUCTURES: Normal for age. OTHER FINDINGS: None. IMPRESSION: Air-fluid level seen on the upright views with the paucity of air seen in the distal colon. Ileus versus early obstruction. No free air. Quality:[facility] Health Related Social Needs: No Data to Display PFSH All Active Problems (Updated 10/05/23 @ 18:07 by Peter Callaway DO) Acute hypokalemia (Acute) Dehydration (Acute) Intestinal obstruction (Acute) Nausea & vomiting (Acute) Episode of syncope (Chronic) History of esophagogastroduodenoscopy (EGD) (Chronic ~09/2023) Superior labrum otmucvrm-mz-agqjyqdni (SLAP) tear of right shoulder (Acute) Biceps tendinitis of right shoulder (Acute) IBS (irritable bowel syndrome) (Chronic) Medical History Attention deficit disorder with hyperactivity PTSD (post-traumatic stress disorder) Generalized anxiety disorder Hyperglycemia GERD (gastroesophageal reflux disease) Raynauds disease Major depression, single episode Helminth infection Elevated liver enzymes History of HPV infection Esophagitis Suicidal thoughts History of head injury 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) Tx with LEEP Surgical History History of colonoscopy (~09/2023) H/O LEEP Social History Smoking/Tobacco Use Status: Former Tobacco Use Quit Date: 07/27/23 Smoking risk assessment performed?: Yes Alcohol Intake: never Drug use: Daily Substance use type: inhalants Details: pt is admitted due to huffing cans of dust off Household members: spouse and children Housing: apartment Number of Children: 3 Sexually active: Yes Do you think of yourself as: straight/heterosexual Current gender identity: female Do you feel safe at home: No Do you feel safe in your relationship?: Yes Additional Social history: pt is going through a divorce that she does not want Female Reproductive History Menstrual control method: other (partner with vasectomy) History History 6 Para 3 Hx # Term Pregnancies Multiple births Hx # Pregnancies Ectopic pregnancies AB induced Hx Number of Living Children AB spontaneous
[2023-10-05] MEDS: Lactated Ringers 1,000 ML 1000 ML IV (17:00)
[2023-10-05] MEDS: Dicyclomine 10 MG CAP PO (17:00)
[2023-10-05] MEDS: Metoclopramide 10 MG/2 ML VIAL IVP (17:01)
[2023-10-05] MEDS: Sucralfate 1 GM TAB PO (17:02)
[2023-10-05 17:11] LABS: Abs Immature Grans 0.03 10^3/uL (0.0-0.06); Absolute Basophil Count 0.06 10^3/uL (0.0-0.2); Absolute Eosinophil Count 0.26 10^3/uL (0.0-0.7); Absolute Lymphocyte Count 2.94 10^3/uL (1.2-3.4); Absolute Monocyte Count 0.87 10^3/uL (0.1-0.8); Basophils % 0.5 %; Eosinophils % 2.4 %; HCT 43.4 % (36.0-46.0); HGB 15.4 g/dL (11.2-15.7); Immature Grans % 0.3 %; Lymphocytes % 26.7 %; MCH 30.9 pg (27.0-33.0); MCHC 35.5 % (32.0-36.0); MCV 87 fL (80-95); MPV 10.1 fL (8.0-11.0); Monocytes % 7.9 %; Neutrophils % 62.2 %; Platelet Count 318 10^3/uL (130-400); RBC 4.98 10^6/uL (3.93-5.22); RDW 12.4 % (11.7-14.6); RDW-SD 39.3 fL; WBC 11.02 10^3/uL (4.4-10.8)
[2023-10-05 17:13] LABS: Absolute Neutrophil Count 6.85 10^3/uL (1.2-6.7)
[2023-10-05 17:14] LABS: Lipase 26 U/L (16-77); Magnesium 2.3 mg/dL (1.8-2.4)
[2023-10-05 17:17] LABS: ALT 43 U/L (14-59); AST 20 U/L (15-37); Albumin 3.6 g/dL (3.4-5.0); Alkaline Phosphatase 90 U/L (46-116); Anion Gap 6.5 mmol/L (3-11); BUN 2 mg/dL (7-18); Bilirubin, Total 0.43 mg/dL (0.2-1.0); CO2 33.5 mmol/L (21.0-32.0); CREATININE 0.8 mg/dL (0.55-1.02); Calcium 8.8 mg/dL (8.5-10.1); Chloride 100 mmol/L (98-107); Estimated GFR 93.12 (mL/min/1.73m2); Glucose 96 mg/dL (74-106); Sodium 140 mmol/L (136-145); Total Protein 6.9 g/dL (6.4-8.2)
[2023-10-05 17:20] LABS: Potassium 2.6 mmol/L (3.5-5.1)
[2023-10-05 17:56] VITALS: PULSE 88
[2023-10-05 17:59] VITALS: BP 107/71; PULSE 80; RESP 18; TEMP 37.1; O2SAT 97
[2023-10-05 18:01] VITALS: BP 104/70; PULSE 89
[2023-10-05] MEDS: POTASSIUM CHLORIDE 20 MEQ/100 ML BAG 50 MEQ IVINF (18:05)
[2023-10-05] MEDS: LORazepam 2 MG/ML VIAL 0.5 MG IVP (18:46)
[2023-10-05 20:06] VITALS: BP 101/76; PULSE 91; RESP 20; TEMP 37.2; O2SAT 99
[2023-10-05] MEDS: cloNIDine 0.1 MG TAB PO (20:13)
[2023-10-05] MEDS: hydrOXYzine HCL 25 MG TAB PO (20:15)
[2023-10-05] MEDS: ALPRAZolam 0.5 MG TAB 2 MG PO (20:16)
[2023-10-05] MEDS: Gastrografin 120 ML BTL PO (21:18)
[2023-10-05 23:17] VITALS: BP 86/60; PULSE 86; RESP 19; TEMP 37; O2SAT 100
--- NOTE | 2023-10-05 23:55 | W.PC.ACHO ---
Registration Status: ADM GHAZALA Primary Language: Preferred Language: Bulgarian ED Information & Data Chief Complaint Abd Prob 10/05/23 16:44 Triage Note pt returning to ED per day 10/05/23 16:14 surgery advise, they advised WBC elevated and need to come back, since colonoscopy has had abd pain, nausea and vomiting. Decreased appetite, can tolerate fluids, having normal BM. 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) (Last Reviewed 10/05/23 @ 16:42 by Peter Callaway DO) History of colonoscopy (~09/2023) H/O LEEP Most Recent Vital Signs Temperature 37.0 C 10/05/23 23:17 Temperature Source Tympanic 10/05/23 23:17 Pulse 86 10/05/23 23:17 Pulse 88 10/05/23 17:56 Respiratory Rate 19 10/05/23 23:17 Respiratory Effort Normal, Non-Labored 10/05/23 23:26 Respiratory Depth Normal 10/05/23 23:26 Respiratory Pattern Normal 10/05/23 23:26 Blood Pressure 86/60 L 10/05/23 23:17 Blood Pressure Mean 79 10/05/23 18:01 Pulse Oximetry 100 10/05/23 23:17 Oxygen Delivery Method Room Air 10/05/23 23:17 Oxygen Flow Rate 0 10/05/23 23:17 Pain Level 0 10/05/23 20:06 Allergies bupropion hcl Allergy (Unknown, Uncoded 10/05/23 16:17) manic zolpidem tartrate Allergy (Unknown, Uncoded 10/05/23 16:17) Unknown Active Medications Generic Name Dose Route Start Last Admin Trade Name Freq PRN Reason Stop Dose Admin Alprazolam 2 mg 10/05/23 19:47 10/05/23 20:16 Alprazolam 0.5 Mg Tab PO 2 mg BID PRN PRN Administration Clonidine 0.1 mg 10/05/23 20:00 10/05/23 20:13 Clonidine 0.1 Mg Tab PO 0.1 mg TID IZZY Administration Enoxaparin Sodium 40 mg 10/05/23 20:00 10/05/23 20:14 Enoxaparin 40 Mg/0.4 Ml Syr SC Not Given Q24H IZZY Hydroxyzine HCl 25 mg 10/05/23 20:00 10/05/23 20:15 Hydroxyzine Hcl 25 Mg Tab PO 25 mg BID IZZY Administration Non-Formulary Medication 3 mg 10/05/23 20:00 10/05/23 22:48 Eszopiclone [Lunesta] PO Not Given HS IZZY Sodium Chloride 0 ml 10/05/23 20:00 10/05/23 20:25 Normal Saline Flush 10 Ml Syr IVP Not Given BID IZZY IV IV Catheter Type [Right Saline Lock Antecubital] IV Catheter Gauge [Right 20 Antecubital] Diet Orders Category Date Time Status Nothing Per Oral [DIET] Nutrition 10/06/23 Breakfast Ordered Diagnostics 10/05/23 Range/Units 16:50 WBC 11.02 H (4.4-10.8) 10^3/uL RBC 4.98 (3.93-5.22) 10^6/uL Hgb 15.4 D (11.2-15.7) g/dL Hct 43.4 (36.0-46.0) % MCV 87 (80-95) fL MCH 30.9 (27.0-33.0) pg MCHC 35.5 (32.0-36.0) % RDW 12.4 (11.7-14.6) % Plt Count 318 (130-400) 10^3/uL MPV 10.1 (8.0-11.0) fL Immature Gran % 0.3 % Neutrophils % 62.2 % Lymphocytes % 26.7 % Monocytes % 7.9 % Eosinophils % 2.4 % Basophils % 0.5 % Nucleated RBC % 0.0 (0.0-0.3) % Absolute Neutrophils 6.85 H (1.2-6.7) 10^3/uL Absolute Lymphocytes 2.94 (1.2-3.4) 10^3/uL Absolute Monocytes 0.87 H (0.1-0.8) 10^3/uL Absolute Eosinophils 0.26 (0.0-0.7) 10^3/uL Absolute Basophils 0.06 (0.0-0.2) 10^3/uL Sodium 140 (136-145) mmol/L Potassium 2.6 L* (3.5-5.1) mmol/L Chloride 100 (98-107) mmol/L Carbon Dioxide 33.5 H (21.0-32.0) mmol/L Anion Gap 6.5 (3-11) mmol/L BUN 2 L (7-18) mg/dL Creatinine 0.8 (0.55-1.02) mg/dL Est GFR (CKD-EPI 2020) 93.12 (mL/min/1.73m2) Glucose 96 (74-106) mg/dL Calcium 8.8 (8.5-10.1) mg/dL Magnesium 2.3 (1.8-2.4) mg/dL Total Bilirubin 0.43 (0.2-1.0) mg/dL AST 20 (15-37) U/L ALT 43 (14-59) U/L Alkaline Phosphatase 90 (46-116) U/L Total Protein 6.9 (6.4-8.2) g/dL Albumin 3.6 (3.4-5.0) g/dL Lipase 26 (16-77) U/L [id number] Documentation POC Urine Test Start: 10/05/23 16:38 Freq: .Urine Test Status: Active Protocol: Activity Type Activity Date Activity User E-sign Co-sign Detail Recorded Client Recorded Date Recorded By Document 10/05/23 17:03 CB [id number] 10/05/23 17:03 CB Intake and Output - 24 Hour Total 10/05/23 16:11 thru 10/05/23 22:17 Intake Total 1110 Balance 1110 Weight 62.14 kg Intake: IV 1110 Other: Stool Size Copious Stool Characteristics Liquid # Voids 1 # Bowel Movements 1 Falls Risk Assessment History of Falls No History 10/05/23 20:06 Contributing Factors No Factors 10/05/23 16:26 Ambulatory Aids Independent 10/05/23 16:26 Tubes/Lines None 10/05/23 16:26 Gait Evaluation No gait disturbance 10/05/23 16:26 Fall Total Score 0 10/05/23 20:06 Level of Risk Standard/Low Risk 10/05/23 20:06 v v v v v v v v v Sending and/or Receiving Nurses: Please use comment section below to note any information pertinent to the patient hand-off not included above. Information / Comments: Patient had EGD/Colonoscopy last Tues; presents tonight with abd pain, nausea, vomiting and decreased appetite. Elevated WBC; imaging shows ileus versus early obstruction. Patient receiving Potassium IV replacement for Potassium level of 2.6. No vomiting while in ED. Patient endorses large bowel movement just prior to report. Patient has 20g IV in right a/c. Last vitals as follow:BP 104/70, pulse 89, RR 18 98% on room air. Denies pain at this time. Report received from: Brian Song RN
[2023-10-06 00:01] VITALS: BP 90/64
[2023-10-06] MEDS: Lactated Ringers 1,000 ML 125 ML IV ×2 (00:18→07:47)
[2023-10-06 06:59] LABS: Abs Immature Grans 0.02 10^3/uL (0.0-0.06); Absolute Basophil Count 0.07 10^3/uL (0.0-0.2); Absolute Eosinophil Count 0.21 10^3/uL (0.0-0.7); Absolute Lymphocyte Count 2.71 10^3/uL (1.2-3.4); Absolute Monocyte Count 0.71 10^3/uL (0.1-0.8); Absolute Neutrophil Count 4.95 10^3/uL (1.2-6.7); Basophils % 0.8 %; Eosinophils % 2.4 %; HGB 12.6 g/dL (11.2-15.7); Immature Grans % 0.2 %; Lymphocytes % 31.3 %; MCH 30.7 pg (27.0-33.0); MCV 88 fL (80-95); MPV 10.1 fL (8.0-11.0); Monocytes % 8.2 %; Neutrophils % 57.1 %; Platelet Count 252 10^3/uL (130-400); RBC 4.11 10^6/uL (3.93-5.22); RDW 12.4 % (11.7-14.6); RDW-SD 40.1 fL; WBC 8.67 10^3/uL (4.4-10.8)
[2023-10-06 07:19] LABS: ALT 34 U/L (14-59); AST 17 U/L (15-37); Albumin 2.8 g/dL (3.4-5.0); Alkaline Phosphatase 74 U/L (46-116); Anion Gap 5.7 mmol/L (3-11); BUN 1 mg/dL (7-18); Bilirubin, Total 0.37 mg/dL (0.2-1.0); CO2 31.3 mmol/L (21.0-32.0); CREATININE 0.7 mg/dL (0.55-1.02); Calcium 8.1 mg/dL (8.5-10.1); Chloride 107 mmol/L (98-107); Glucose 84 mg/dL (74-106); Sodium 144 mmol/L (136-145); Total Protein 5.4 g/dL (6.4-8.2)
[2023-10-06 07:34] LABS: Potassium 2.9 mmol/L (3.5-5.1)
[2023-10-06] MEDS: Vitamins B Comp w/C TAB 1 TAB PO (07:46)
[2023-10-06] MEDS: Cholecalciferol (Vitamin D3) 1,000 UNIT TAB 1000 UNITS PO (07:46)
[2023-10-06] MEDS: hydrOXYzine HCL 25 MG TAB PO (07:46)
[2023-10-06] MEDS: Folic Acid 1 MG TAB PO (07:47)
[2023-10-06] MEDS: cloNIDine 0.1 MG TAB PO ×2 (07:47→13:36)
[2023-10-06] MEDS: Normal Saline Flush 10 ML SYR IVP (07:48)
[2023-10-06 08:09] VITALS: BP 110/75; PULSE 89; RESP 16; TEMP 36.3; O2SAT 97
[2023-10-06] MEDS: Lisdexamphetamine 40 MG CAP PO (08:16)
--- NOTE | 2023-10-06 09:00 | DI.RAD_ITS ---
Exam(s) XR ABDOMEN FLAT UPRIGHT EXAM: 2D digital imaging was performed. CLINICAL HISTORY: follow up SBO. COMPARISON: CT CT ABDOMEN PELVIS WO from 10/03/2023 CR XR ABDOMEN FLAT UPRIGHT from 10/05/2023 TECHNIQUE: Supine and upright views of the abdomen were performed. FINDINGS: BOWEL GAS PATTERN: Contrast material noted within colon. The colon is not abnormally distended. Sma ll bowel loops are nondistended. No free air. CALCIFICATIONS: No urinary tract calcifications. Kidneys partially obscured by contrast material in the colon. OSSEOUS STRUCTURES: Normal for age. IMPRESSION: 1. Nonobstructive bowel gas pattern. 2. No radiopaque calculi. 3. No free air. DATA REPOSITORY: RADIATION DOSE DELIVERED:
[2023-10-06] MEDS: POTASSIUM CHLORIDE 20 MEQ/100 ML BAG 25 MEQ IVINF (09:39)
[2023-10-06] MEDS: POTASSIUM CHLORIDE 20 MEQ, POTASSIUM CHLORIDE 10 MEQ 30 MEQ PO (10:20)
--- NOTE | 2023-10-06 12:00 | PHA.REVIEW2 ---
Pharmacy Admission Review Admission Clinical Review Admission Pharmacy Review: bupropion hcl Allergy (Unknown, Uncoded 10/05/23 16:17) manic zolpidem tartrate Allergy (Unknown, Uncoded 10/05/23 16:17) Unknown Resuscitation Status Full Code Height 5 ft Weight 62.14 kg Pharmacy Admission Review Renal Dosing Renal Dosing: BUN 1 mg/dL (7-18) L 10/06/23 06:06 Creatinine 0.7 mg/dL (0.55-1.02) 10/06/23 06:06 Medications needing adjustments: Reviewed (CrCl 84.44 mL/min) List of meds needing interventions: Current medications are okay Anticoagulation Anticoagulation: Hgb 12.6 g/dL (11.2-15.7) D 10/06/23 06:06 Hct 36.0 % (36.0-46.0) 10/06/23 06:06 Plt Count 252 10^3/uL (130-400) 10/06/23 06:06 Creatinine 0.7 mg/dL (0.55-1.02) 10/06/23 06:06 DVT Prophylaxis: Reviewed (Hgb decreased from 15.4 to 12.6) Medications: Enoxaparin (40mg daily) Relevant Labs Relevant Labs: Sodium 144 mmol/L (136-145) 10/06/23 06:06 Potassium 2.9 mmol/L (3.5-5.1) L* 10/06/23 06:06 Chloride 107 mmol/L (98-107) 10/06/23 06:06 Magnesium 2.3 mg/dL (1.8-2.4) 10/05/23 16:50 Electrolytes, C-Reactive P, ESR: Reviewed (K 2.9 - repleting, WBC decreased from 11.02 to 8.67) Cardiac Review BP, HR, EF%: Reviewed (BP and HR WNL) QTc Review QTc: Reviewed (487 from 10/03/23) IV to PO Switch IV Medications: Reviewed (Ondansetron and acetaminophen) Home Meds Home Med List reviewed: Intervened Relevent Home Meds Not ordered & why?: Updated home med list Current Meds Current Medication Order Review: Intervened Comments: Lunesta was verified as Non-formulary order. Changed to Lunesta 3mg tablet (formulary). Changed Vyvanse 30mg order from 829 to 1200 based on home med list (taken in the afternoon, 40mg taken in the morning)
--- NOTE | 2023-10-06 14:05 | INITIAL_ITS ---
Date of service: 10/06/23 Time of Service: 14:05 Care Management Initial Assmt Initial Assessment Reason for Hospitalization: bowel obstruction Functional Status/Living Situation Patient Presentation: Domitila was sitting up in bed when CM met with her. She was pleasant and engaged well in conversation. She stated that she recently had an EGD and colonscopy; she presented with nauseau and vomiting for several days since these procedures. Domitila discussed the manor stressors in her life currently; she reported that she was recently diagnosed with ADHD, her was recently diagnosed with autism, and their son identifies as LGBTQ, and has had difficulty staying in school. She reports frustration surrounding working with the school to ensure her child's safety, which she fears for due to his previous suicide attempt. She describes how she is a strong advocate for her child, but it has been tiring, and she is looking for some support. She feels they would benefit from having a caregiver/visiting housekeeper once a week to help with the house work, and also provide her some time to run errands, as she does not feel safe leaving her son alone for long periods of time. CM discussed local caregiver organizations, such as [employer], [employer] and [facility]. CM also discussed Katie for resource coordination. Per report, Domitila was able to tolerate a regular diet, and will be discharged today. CM will continue to follow. Town of Residence: [facility] Resides with: Child and Spouse Significant Other/Family: Out of area (Older son and daughter) Natural Supports: Spouse, Ye Employment Status: Disabled Instrumental Activities of Daily Living (ADLs): Independent Activities/Hobbies/SocialSupport: Recently graduated with a degree is criminal justice Medications Medication Management: No Issues/Barriers identified Advance Directives Advance Directives: Do you have an Advance Directive: N 10/24/13 19:10 AD On File at [facility]: N 10/24/13 19:10 Date Asked 10/05/23 10/05/23 16:26 AD Date Reviewed COLST On File at [facility] COLST Date Scanned Code Status Resuscitation Status Full Code Insurance Coverage/Financial Issues Insurance: [employer] ACO Member: No Care Team Visit Care Team Role Provider Type Nathan Sharif Primary Care Provider NON-[facility] STAFF PHYSICIAN Peter Callaway DO Emergency Provider [facility] STAFF PHYSICIAN Alvarez Sanz MD Admit Provider MD TRACY STAFF PHYSICIAN Attending Provider Discharge Potential Discharge Needs: PCP F/U Appt Anticipated Barriers to Discharge: None Identified Patient/Family Education Needs: Review discharge instructions, discuss Ask Me Three Transportation: Private vehicle Plan: Anticipate Domitila will return home once medically cleared, likely this a fternoon. She will be driven home via private vehicle by her . She will follow up with her PCP and discharge plan of care. CM will continue to follow. PFSH All Active Problems (Updated 10/05/23 @ 19:39 by JENNIFER HERNANDEZ) Acute hypokalemia (Acute) Dehydration (Acute) Intestinal obstruction (Acute) Nausea & vomiting (Acute) Episode of syncope (Chronic) History of esophagogastroduodenoscopy (EGD) (Chronic ~09/2023) Superior labrum [id number] (SLAP) tear of right shoulder (Acute) Biceps tendinitis of right shoulder (Acute) IBS (irritable bowel syndrome) (Chronic) Medical History Attention deficit disorder with hyperactivity PTSD (post-traumatic stress disorder) Generalized anxiety disorder Hyperglycemia GERD (gastroesophageal reflux disease) Raynauds disease Major depression, single episode Helminth infection Elevated liver enzymes History of HPV infection Esophagitis Suicidal thoughts History of head injury 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) Tx with LEEP Surgical History History of colonoscopy (~09/2023) H/O LEEP Social History Smoking/Tobacco Use Status: Former Tobacco Use Quit Date: 07/27/23 Smoking risk assessment performed?: Yes Alcohol Intake: never Drug use: Daily Substance use type: inhalants Details: pt is admitted due to huffing cans of dust off Household members: spouse and children Housing: apartment Number of Children: 3 Sexually active: Yes Do you think of yourself as: straight/heterosexual Current gender identity: female Do you feel safe at home: No Do you feel safe in your relationship?: Yes Additional Social history: pt is going through a divorce that she does not want Female Reproductive History Menstrual control method: other (partner with vasectomy) History History 6 Para 3 Hx # Term Pregnancies Multiple births Hx # Pregnancies Ectopic pregnancies AB induced Hx Number of Living Children AB spontaneous SDOH(Care Management) Screening Will the Patient Participate in the Screening?: Declined to provide
--- NOTE | 2023-10-06 15:02 | HPE_ITS ---
Date of service: 10/06/23 Time of Service: 15:02 Assessment and Plan Assessment and plan (1) Acute hypokalemia: Status: Acute Assessment and plan: Seems most likely secondary to nausea and vomiting. Resuscitated with intravenous fluids and replete potassium. Gastrografin challenge to assess bowel obstruction History of Present Illness History of Present Illness Chief Complaint: Vomiting Narrative: Domitila is 42 years old. She underwent EGD and colonoscopy last week. Postoperative course was complicated by frequent nausea with episodes of vomiting. She was seen in the emergency department, and was found to have a leukocytosis she left the emergency department AGAINST MEDICAL ADVICE. Contact was made yesterday in routine follow-up, and she was advised to return to the ER because of the workup for the leukocytosis and to reassess her nausea and vomiting. Upon returning to the emergency department, labs were repeated, and her white blood cell count was noted to be downtrending. However, she did undergo a KUB that suggested the possibility of a partial bowel obstruction. She was treated with a GI cocktail, and resuscitated with some intravenous fluids because of some hypokalemia. she was admitted to the hospital for observation. Review of Systems Constitutional Constitutional: Denies body ache(s) and Denies fever(s) Eyes Eyes: Reports system reviewed and no additional complaints, except as documented ENT Ears, Nose, Mouth, and Throat: Reports system reviewed and no additional complaints, except as documented Cardiovascular Cardiovascular: Denies chest pain and Denies dyspnea Respiratory Respiratory: Denies chest congestion, Denies cough and Denies dyspnea Gastrointestinal Gastrointestinal: Reports abdominal pain, Reports nausea and Denies vomiting Musculoskeletal Musculoskeletal: Reports system reviewed and no additional complaints, except as documented Neurologic Neurologic: Reports system reviewed and no additional complaints, except as documented Psychiatric Psychiatric: Reports anxiety and Reports panic attacks Hematologic/Lymphatic Hematologic/Lymphatic: Denies easy bleeding and Denies easy bruising PFSH All Active Problems Acute hypokalemia (Acute) Dehydration (Acute) Intestinal obstruction (Acute) Nausea & vomiting (Acute) Episode of syncope (Chronic) History of esophagogastroduodenoscopy (EGD) (Chronic ~09/2023) Superior labrum [id number] (SLAP) tear of right shoulder (Acute) Biceps tendinitis of right shoulder (Acute) IBS (irritable bowel syndrome) (Chronic) Medical History Attention deficit disorder with hyperactivity PTSD (post-traumatic stress disorder) Generalized anxiety disorder Hyperglycemia GERD (gastroesophageal reflux disease) Raynauds disease Major depression, single episode Helminth infection Elevated liver enzymes History of HPV infection Esophagitis Suicidal thoughts History of head injury 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) Tx with LEEP Surgical History History of colonoscopy (~09/2023) H/O LEEP Social History Smoking/Tobacco Use Status: Former Tobacco Use Quit Date: 07/27/23 Smoking risk assessment performed?: Yes Alcohol Intake: never Drug use: Daily Substance use type: inhalants Details: pt is admitted due to huffing cans of dust off Household members: spouse and children Housing: apartment Number of Children: 3 Sexually active: Yes Do you think of yourself as: straight/heterosexual Current gender identity: female Do you feel safe at home: No Do you feel safe in your relationship?: Yes Additional Social history: pt is going through a divorce that she does not want Female Reproductive History Menstrual control method: other (partner with vasectomy) History History 2 6 Para 3 Hx # Term Pregnancies Multiple births Hx # Pregnancies Ectopic pregnancies AB induced Hx Number of Living Children AB spontaneous Meds Allergies and Home Medications Allergies Allergy/AdvReac Type Severity Reaction Status Date / Time bupropion hcl Allergy Unknown manic Uncoded 10/05/23 16:17 zolpidem tartrate Allergy Unknown Unknown Uncoded 10/05/23 16:17 Home Medications ?Medication ?Instructions ?Recorded ?Confirmed ?Type MARIJUANA PO 12/29/21 09/15/23 History cholecalciferol (vitamin D3) 25 50 mcg PO DAILY 08/12/23 10/05/23 History mcg (1,000 unit) tablet folic acid 800 mcg tablet 0.8 mg PO DAILY 08/12/23 10/05/23 History vitamin B complex 1 tab PO DAILY 08/12/23 10/05/23 History clonidine HCl 0.1 mg tablet 0.1 mg PO TID 09/15/23 10/05/23 History lisdexamfetamine 30 mg capsule 30 mg PO DAILY 09/15/23 10/05/23 History (Vyvlucila) lisdexamfetamine 40 mg capsule 40 mg PO QAM 09/15/23 10/05/23 History hydroxyzine HCl 25 mg tablet 25 mg PO BID 10/03/23 10/05/23 History alprazolam 2 mg tablet 2 mg PO BID PRN 10/06/23 10/06/23 History eszopiclone 3 mg tablet 3 mg PO HS 10/06/23 10/06/23 History Exam Const General: cooperative and comfortable Nutritional Appearance: average body habitus Orientation: alert, awake and oriented x3 HENMT Head: normal to inspection GI Inspection: normal to inspection and non-distended Palpation: soft Psych Mood: anxious mood Affect: anxious affect Attitude: cooperative Thought Process: normal Thought Content: normal Results Imaging Abdominal x-ray: report reviewed and image reviewed Labs 10/06/23 06:06 10/06/23 06:06 Labs: Laboratory Results - last 24 hr 10/05/23 10/06/23 16:50 06:06 WBC 11.02 H 8.67 RBC 4.98 4.11 Hgb 15.4 D 12.6 D Hct 43.4 36.0 MCV 87 88 MCH 30.9 30.7 MCHC 35.5 35.0 RDW 12.4 12.4 Plt Count 318 252 MPV 10.1 10.1 Immature Gran % 0.3 0.2 Neutrophils % 62.2 57.1 Lymphocytes % 26.7 31.3 Monocytes % 7.9 8.2 Eosinophils % 2.4 2.4 Basophils % 0.5 0.8 Nucleated RBC % 0.0 0.0 Absolute Neutrophils 6.85 H 4.95 Absolute Lymphocytes 2.94 2.71 Absolute Monocytes 0.87 H 0.71 Absolute Eosinophils 0.26 0.21 Absolute Basophils 0.06 0.07 Sodium 140 144 Potassium 2.6 L* 2.9 L* Chloride 100 107 Carbon Dioxide 33.5 H 31.3 Anion Gap 6.5 5.7 BUN 2 L 1 L Creatinine 0.8 0.7 Est GFR (CKD-EPI 2020) 93.12 109.30 Glucose 96 84 Calcium 8.8 8.1 L Magnesium 2.3 Total Bilirubin 0.43 0.37 AST 20 17 ALT 43 34 Alkaline Phosphatase 90 74 Total Protein 6.9 5.4 L Albumin 3.6 2.8 L Lipase 26 Last Vital Signs Temp 97.3 F L 10/06/23 08:09 Pulse 89 10/06/23 08:09 Resp 16 10/06/23 08:09 BP 110/75 10/06/23 08:09 Pulse Ox 97 10/06/23 08:09 Time Spent Time spent with Patient: <40 minutes Time was spent: preparing to see the patient(eg.review tests), ordering medications,tests, procedures, indepentently interpreting results, counseling the patient and care coordination
--- NOTE | 2023-10-06 15:15 | W.PM.DS.N ---
Date of service: 10/06/23 Time of Service: 15:16 DS: Diagnosis Discharge Diagnosis (1) Acute hypokalemia: Status: Acute Asessment and Plan: Discharge home with outpatient follow-up Discharge Plan Disposition Patient Disposition: Home Condition: Good Discharge Details Reason For Visit: bowel obstruction Admit Date/Time: 10/05/23 18:09 Admit Provider: Alvarez Sanz Attending Provider: Alvarez Sanz Primary Care Provider: Nathan Sharif Hospital Course Hospital Course: Domitila is 42 years old. She returned to the ER after leaving AGAINST MEDICAL ADVICE with an incomplete workup of leukocytosis associated with nausea and vomiting. At the time of the return, her white blood cell count was returning towards normal, and it seems like most of her symptoms were improving. She did undergo an obstruction series that raise the possibility of partial bowel obstruction. She was started on intravenous fluids, admitted overnight, and underwent a Gastrografin challenge. She had a large bowel movement, and x-ray the next day demonstrated passage of contrast into the colon with no appreciable abnormalities. She was able to tolerate regular food with no symptoms, was discharged home. Home Meds and New Rx's Prescriptions: Continued MARIJUANA PO clonidine HCl 0.1 mg tablet 0.1 mg PO TID lisdexamfetamine 40 mg capsule 40 mg PO QAM Rx Instructions: Pt takes a total of 70mg daily. 40mg in am and 30mg at noon. folic acid 800 mcg tablet 0.8 mg PO DAILY vitamin B complex Tablet 1 tab PO DAILY cholecalciferol (vitamin D3) 25 mcg (1,000 unit) tablet 50 mcg PO DAILY lisdexamfetamine [Vyvanse] 30 mg capsule 30 mg PO DAILY Patient Comments: Pt takes 30 mg at noon. hydroxyzine HCl 25 mg tablet 25 mg PO BID Patient Comments: TAKE TWO TABLETS BY MOUTH TWICE A DAY FOR ANXIETY alprazolam 2 mg tablet 2 mg PO BID PRN Patient Comments: TAKE ONE TABLET BY MOUTH TWICE A DAY eszopiclone 3 mg tablet 3 mg PO HS Patient Comments: TAKE ONE TABLET BY MOUTH IMMEDIATELY BEFORE BEDTIME Discharge Instructions Additional Instructions: Domitila, it was nice meeting you in the hospital, and I hope you start to feel better soon. As I mentioned, I will have the office reach out to you tomorrow to schedule a follow-up appointment. Activity:: Activity as Tolerated Equipment/Supplies:: No Equipment Needed Diet:: As Tolerated DS: Summary Time Spent with Patient providing and/or coordinating discharge services: Less than 30 minutes Status at Discharge Functional status at discharge: independent ambulation Overall status at discharge: patient is back to baseline Mental Status: mental status grossly normal Speech and Movement: speech and movement normal Mood: congruent mood Affect: normal affect Quality:SDOH Health Related Social Needs: No Data to Display Exam GI Other: Abdomen soft, nontender, nondistended. Psych Mental Status: mental status grossly normal Speech and Movement: speech and movement normal Mood: congruent mood Affect: normal affect DS: Data Vitals/I&O Vitals and I&O: Vital Signs Temperature 97.3 F L 10/06/23 08:09 Temperature Source Temporal Artery Scan 10/06/23 08:09 Pulse 89 10/06/23 08:09 Pulse Rhythm Regular 10/06/23 08:00 Pulse 88 10/05/23 17:56 Respiratory Rate 16 10/06/23 08:09 Respiratory Effort Normal, Non-Labored 10/06/23 08:00 Respiratory Depth Normal 10/06/23 08:00 Respiratory Pattern Normal 10/06/23 08:00 Blood Pressure 110/75 10/06/23 08:09 Blood Pressure Mean 79 10/05/23 18:01 Pulse Oximetry 97 10/06/23 08:09 Oxygen Delivery Method Room Air 10/06/23 08:09 Oxygen Flow Rate 0 10/06/23 08:09 Pain Level 0 10/06/23 08:09 Intake & Output 10/05/23 10/06/23 10/06/23 23:59 11:59 23:59 Intake Total 1110 / 1110 1185.417 / 1525.417 340 / 1525.417 Balance 1110 / 1110 1185.417 / 1525.417 340 / 1525.417 Weight 136 lb 15.924 oz Intake: IV 1110 / 1110 945.417 / 1045.417 100 / 1045.417 Oral 240 / 480 240 / 480 Other: Comment Voiding independently in toilet. Stool Size Copious Moderate Stool Characteristics Liquid Liquid Brown Green # Voids 1 # Bowel Movements 1 Data Completed and Pending Labs on day of discharge: Labs from last 24 hours 10/06/23 10/05/23 06:06 16:50 WBC 8.67 11.02 H RBC 4.11 4.98 Hgb 12.6 D 15.4 D Hct 36.0 43.4 MCV 88 87 MCH 30.7 30.9 MCHC 35.0 35.5 RDW 12.4 12.4 Plt Count 252 318 MPV 10.1 10.1 Immature Gran % 0.2 0.3 Neutrophils % 57.1 62.2 Lymphocytes % 31.3 26.7 Monocytes % 8.2 7.9 Eosinophils % 2.4 2.4 Basophils % 0.8 0.5 Nucleated RBC % 0.0 0.0 Absolute Neutrophils 4.95 6.85 H Absolute Lymphocytes 2.71 2.94 Absolute Monocytes 0.71 0.87 H Absolute Eosinophils 0.21 0.26 Absolute Basophils 0.07 0.06 Sodium 144 140 Potassium 2.9 L* 2.6 L* Chloride 107 100 Carbon Dioxide 31.3 33.5 H Anion Gap 5.7 6.5 BUN 1 L 2 L Creatinine 0.7 0.8 Est GFR (CKD-EPI 2020) 109.30 93.12 Glucose 84 96 Calcium 8.1 L 8.8 Magnesium 2.3 Total Bilirubin 0.37 0.43 AST 17 20 ALT 34 43 Alkaline Phosphatase 74 90 Total Protein 5.4 L 6.9 Albumin 2.8 L 3.6 Lipase 26 PFSH All Active Problems Acute hypokalemia (Acute) Dehydration (Acute) Intestinal obstruction (Acute) Nausea & vomiting (Acute) Episode of syncope (Chronic) History of esophagogastroduodenoscopy (EGD) (Chronic ~09/2023) Superior labrum ifawecnq-oe-ponyezqut (SLAP) tear of right shoulder (Acute) Biceps tendinitis of right shoulder (Acute) IBS (irritable bowel syndrome) (Chronic) Medical History Attention deficit disorder with hyperactivity PTSD (post-traumatic stress disorder) Generalized anxiety disorder Hyperglycemia GERD (gastroesophageal reflux disease) Raynauds disease Major depression, single episode Helminth infection Elevated liver enzymes History of HPV infection Esophagitis Suicidal thoughts History of head injury 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) Tx with LEEP Surgical History History of colonoscopy (~09/2023) H/O LEEP Social History Smoking/Tobacco Use Status: Former Tobacco Use Quit Date: 07/27/23 Smoking risk assessment performed?: Yes Alcohol Intake: never Drug use: Daily Substance use type: inhalants Details: pt is admitted due to huffing cans of dust off Household members: spouse and children Housing: apartment Number of Children: 3 Sexually active: Yes Do you think of yourself as: straight/heterosexual Current gender identity: female Do you feel safe at home: No Do you feel safe in your relationship?: Yes Additional Social history: pt is going through a divorce that she does not want Female Reproductive History Menstrual control method: other (partner with vasectomy) History History 6 Para 3 Hx # Term Pregnancies Multiple births Hx # Pregnancies Ectopic pregnancies AB induced Hx Number of Living Children AB spontaneous Time Spent with Patient Time Spent with Patient: <45 minutes Time was spent: preparing to see the patient(eg.review tests), indepentently interpreting results, counseling the patient and care coordination
[2023-10-06] MEDS: ALPRAZolam 0.5 MG TAB 2 MG PO (15:39)
--- NOTE | 2023-10-06 15:40 | PDOC.CMDIS ---
Date of service: 10/06/23 Time of Service: 15:40 LACE Index Scoring Tool Questions: Length of Stay (in days): 1 Was the patient admitted via the E.D.?: Yes E.D. Visits: 2 Answers: Total Score: 6 Risk of Readmission: Low Risk Care Management Discharge Plan Reason for Hospitalization: bowel obstruction Discharge Plan: Domitila will return home with no new services. She will be driven home via private vehicle by her spouse. She will follow up with her PCP and discharge plan of care. She is happy to be going home. Patient/Family Education Needs: Review discharge instructions and limitations, discussion of self care needs including ask me three. SDOH Health Related Social Needs: No Data to Display
[2023-10-06 15:45] VITALS: BP 97/70; PULSE 89; RESP 18; O2SAT 97
--- NOTE | 2023-10-07 09:30 | CHAPLAIN ---
I visited with Domitila yesterday, she was sitting up in bed, and shared several of the stressful things she is dealing with currently, and she said challenges keep arriving. She was recently diagnosed with ADHD, and her is autistic. Their son identifies as LGTBQA and has struggled in school. Domitila had worked hard to be an advocate for him but questions and abilities and success with this. An older daughter, who just had a baby, doesn't speak to Domitila, but Domitila said she understands and believes that her daughter is strong, doing well and is a good mother. Domitila's older son is in the [place], and currently on a mission. Domitila sees a counselor twice a week. She was teary telling me about all the's dealing with. She uses pieces of different religions to create her own daily spiritual rituals. She is in recovery and relies on what she's learned from that community as well. Domitila said she had been offering prayers to a powerful Chinese goddess, but with all that's happened, she feels she needs to switch. I let her Coin Dealer know about all that Domitila is dealing with. She visited Domitila later and Domitila was discharged later in the day.
== END 2023-10-06 15:45 | disposition home or self-care (01) ==
LOC: ER 18:07 → MS 19:38
PROVIDERS: Admitting Provider Surgery; Emergency Provider Student in an Organized Health Care Education/Training Program; PCP Family Medicine; Visit Provider Surgery
DX: E87.6 Hypokalemia (principal); R11.2 Nausea with vomiting, unspecified; E86.0 Dehydration; K58.9 Irritable bowel syndrome, unspecified; F41.1 Generalized anxiety disorder; F43.10 Post-traumatic stress disorder, unspecified; R73.9 Hyperglycemia, unspecified; K21.9 Gastro-esophageal reflux disease without esophagitis; I73.00 Raynaud's syndrome without gangrene; Z87.891 Personal history of nicotine dependence; F12.90 Cannabis use, unspecified, uncomplicated
CPT/HCPCS: 36415; 80053; 81025; 83690; 96361; 96374; 96375; 99285; 74019; 83735; 85025; G0378; J2060; J2765; J3480; J3490

== ENCOUNTER 2023-10-08 09:39 | Emergency (ER) | payer OTHER, SELFPAY ==
[2023-10-08 09:37] VITALS: BP 129/77; PULSE 85; RESP 16; TEMP 37.1; O2SAT 97
--- NOTE | 2023-10-08 09:40 | ED.GENADUL_ITS ---
Discharge Plan Disposition Patient Disposition: Home Discharge Details Clinical Impression: Acute periumbilical pain Primary Care Provider: Stevie Sharif ED Provider: Burak Booker Home Meds and New Rx's Prescriptions: New famotidine 40 mg tablet 40 mg PO DAILY Qty: 30 0RF Continued MARIJUANA PO clonidine HCl 0.1 mg tablet 0.1 mg PO TID lisdexamfetamine 40 mg capsule 40 mg PO QAM Rx Instructions: Pt takes a total of 70mg daily. 40mg in am and 30mg at noon. folic acid 800 mcg tablet 0.8 mg PO DAILY vitamin B complex Tablet 1 tab PO DAILY cholecalciferol (vitamin D3) 25 mcg (1,000 unit) tablet 50 mcg PO DAILY lisdexamfetamine [Vyvanse] 30 mg capsule 30 mg PO DAILY Patient Comments: Pt takes 30 mg at noon. hydroxyzine HCl 25 mg tablet 25 mg PO BID Patient Comments: TAKE TWO TABLETS BY MOUTH TWICE A DAY FOR ANXIETY alprazolam 2 mg tablet 2 mg PO BID PRN Patient Comments: TAKE ONE TABLET BY MOUTH TWICE A DAY eszopiclone 3 mg tablet 3 mg PO HS Patient Comments: TAKE ONE TABLET BY MOUTH IMMEDIATELY BEFORE BEDTIME Discharge Instructions Instructions: Abdominal pain Additional Instructions: Imaging in the emergency department for your abdominal pain. Your CAT scan s howed no sign of any blockages or any infections. In the event that there is a component of acid reflux causing her symptoms a prescription has been sent to your pharmacy. Please return to the emergency department if you develop vomiting that does not stop fevers or any blood in your stool. HPI General Date/Time Provider Initiated Documentation: 10/08/23 09:40 . HPI Narrative: [facility] This is an overall well-appearing normothermic and not tachycardic 42-year-old female with abdominal pain 10 days status post EGD and colonoscopy with nausea vomiting concerning for intra-abdominal injury for which patient will undergo CT abdomen pelvis. Of note patient did have a CT scan performed 5 days ago however it was incomplete secondary to scanner malfunction. No fevers hypotension nor tachycardia to suggest sepsis so I did not order lactate blood cultures nor treat empirically with broad-spectrum antibiotics. No dysuria nor frequency so doubt UTI. No pain out of proportion to suggest necrotizing soft tissue infection. No rash to abdomen to suggest zoster. No crepitance nor elyssa st pain so doubt esophageal rupture. No right lower quadrant tenderness to suggest appendicitis. Patient did with bowel movement yesterday and has had no surgeries to her abdomen so my suspicion is low for small bowel obstruction. No left lower quadrant tenderness to suggest diverticulitis. No hypotension or syncope to suggest AAA. No right lower quadrant tenderness to suggest appendicitis. Patient does not have an elevated BMI and so my suspicion for pancreatitis is low so I did not order a lipase. Will reassess following labs and fluid. 10 AM CBC lacks anemia thrombocytopenia and leukocytosis. 10:20 AM Very mild hypokalemia with a serum potassium of 3.1 mmol/L. Improved compared to prior. No acute LFT abnormalities. No MOOK. Negative ethanol level. Negative hCG. 10:[address] abdomen pelvis showing no acute abnormality. Patient does have a small fat- containing umbilical hernia. She had no cholelithiasis. Will reassess patient. 4:30 PM Late charting due to patient care. On reassessment patient has not been vomiting. She received famotidine and additional droperidol. She had improved pain. We discussed ED return for intractable vomiting nausea or any skin change s overlying her hernia. She understood her return indications and was discharged with an empiric trial of expectant outpatient management. Chronic conditions affecting the care of the patient: Inflammatory bowel syndrome History obtained from an outside historian: Paramedics External record review: N/A Medications: IV fluids acetaminophen Social determinants of health affecting disposition: N/A Management discussed with: N/A Treatment/interventions considered: N/A Response to therapies provided: Improved symptoms in the ED HPI This is a 42-year-old female with a history of inflammatory bowel disease arriving to the emergency department via EMS in the setting of periumbilical abdominal pain which began this morning. Patient is 10 days status post EGD and colonoscopy. She was hospitalized by the surgical service 3 days ago. She reports that she was feeling well yesterday but noticed abdominal pain that began overnight. She last had a bowel movement yesterday. She does not have an y surgeries to her abdomen. She has not noticed any blood in her stools. She vomited several times this morning. She has been n.p.o. since midnight. Denies fevers chills chest pain and shortness of breath. Exam General: Uncomfortable appearing-appearing in no acute distress speaking in complete sentences. Head: Normocephalic, atraumatic. Eye: Extraocular eye movements intact. No conjunctival injection. No scleral icterus. Ear, nose, mouth, throat: Grossly normal inspection. Normal voice, handling secretions normally. Neck: Trachea midline. Cardiovascular: Well-perfused distal extremities. Regular rate and rhythm Respiratory: Nonlabored respiration. Clear lungs bilaterally Gastrointestinal: Nondistended abdomen. Soft. Minimal periumbilical tenderness. No rebound. No guarding. No skin changes overlying umbilicus. Musculoskeletal: No edema. Moving all 4 extremities spontaneously. Skin: Normal for age and race, grossly normal temperature and turgor. No acute rash. Neurologic: Alert and appropriate, no apparent acute deficits. Psychiatric: Mood and manner are appropriate. Grooming and personal hygiene are appropriate. Related Data Home Medications ?Medication ?Instructions ?Recorded ?Confirmed MARIJUANA PO 12/29/21 09/15/23 cholecalciferol (vitamin D3) 25 50 mcg PO DAILY 08/12/23 10/05/23 mcg (1,000 unit) tablet folic acid 800 mcg tablet 0.8 mg PO DAILY 08/12/23 10/05/23 vitamin B complex 1 tab PO DAILY 08/12/23 10/05/23 clonidine HCl 0.1 mg tablet 0.1 mg PO TID 09/15/23 10/05/23 lisdexamfetamine 30 mg capsule 30 mg PO DAILY 09/15/23 10/05/23 (Vyvanse) lisdexamfetamine 40 mg capsule 40 mg PO QAM 09/15/23 10/05/23 hydroxyzine HCl 25 mg tablet 25 mg PO BID 10/03/23 10/05/23 alprazolam 2 mg tablet 2 mg PO BID PRN 10/06/23 10/06/23 eszopiclone 3 mg tablet 3 mg PO HS 10/06/23 10/06/23 famotidine 40 mg tablet 40 mg PO DAILY #30 tabs 10/08/23 Previous Rx's ?Medication ?Instructions ?Recorded famotidine 40 mg tablet 40 mg PO DAILY #30 tabs 10/08/23 Allergies Allergy/AdvReac Type Severity Reaction Status Date / Time bupropion hcl Allergy Unknown manic Uncoded 10/05/23 16:17 zolpidem tartrate Allergy Unknown Unknown Uncoded 10/05/23 16:17 General Stated Complaint: Nausea/Vomit/Diar DEDE: 3 Course Vital Signs Vital signs: Vital Signs Temperature 37.1 C 10/08/23 09:37 Pulse 85 10/08/23 09:37 Respiratory Rate 16 10/08/23 09:37 Blood Pressure 129/77 10/08/23 09:37 Pulse Oximetry 97 10/08/23 09:37 Temperature 37.1 C 10/08/23 09:37 Temperature Source Tympanic 10/08/23 09:37 Pulse 85 10/08/23 09:37 Respiratory Rate 16 10/08/23 09:37 Blood Pressure 129/77 10/08/23 09:37 Blood Pressure Position Sitting 10/08/23 09:37 Pulse Oximetry 97 10/08/23 09:37 Oxygen Delivery Method Room Air 10/08/23 09:37 Oxygen Flow Rate 0 10/08/23 09:37 Pain Level 3 10/08/23 09:37 Medical Decision Making Quality:SDOH Health Related Social Needs: No Data to Display PFSH All Active Problems (Updated 10/08/23 @ 11:23 by Burak Booker MD) Acute periumbilical pain (Acute) Dehydration (Acute) Intestinal obstruction (Acute) Nausea & vomiting (Acute) Episode of syncope (Chronic) History of esophagogastroduodenoscopy (EGD) (Chronic ~09/2023) Superior labrum wfmybvoa-ii-rnxkgghlp (SLAP) tear of right shoulder (Acute) Biceps tendinitis of right shoulder (Acute) IBS (irritable bowel syndrome) (Chronic) Medical History Attention deficit disorder with hyperactivity PTSD (post-traumatic stress disorder) Generalized anxiety disorder Hyperglycemia GERD (gastroesophageal reflux disease) Raynauds disease Major depression, single episode Helminth infection Elevated liver enzymes History of HPV infection Esophagitis Suicidal thoughts History of head injury 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) Tx with LEEP Surgical History History of colonoscopy (~09/2023) H/O LEEP Social History Smoking/Tobacco Use Status: Former Tobacco Use Quit Date: 07/27/23 Smoking risk assessment performed?: Yes Alcohol Intake: never Drug use: Daily Substance use type: inhalants Household members: spouse and children Housing: apartment Number of Children: 3 Sexually active: Yes Do you think of yourself as: straight/heterosexual Current gender identity: female Do you feel safe at home: No Do you feel safe in your relationship?: Yes Female Reproductive History Menstrual control method: other (partner with vasectomy) History History 6 Para 3 Hx # Term Pregnancies Multiple births Hx # Pregnancies Ectopic pregnancies AB induced Hx Number of Living Children AB spontaneous
--- OUTSIDE RECORDS SUMMARY | 2023-10-08 09:45 | XMS_ITS | Encounter Summary ---
Author Organization [facility] Address [address] [place] [address] Care Team Providers Care Fuel Dock Attendant Name Role Phone Unknown, Provider Primary Care Provider Encounter Details Date Type Department Care Team (Late st Contact Info) Description 09/07/2010 Results Only [facility] [phone] Erica Paige MD [address] [place] [address] Social History Tobacco Use Types Packs/Day Years Used Date Smoking Tobacco: Never Assessed Sex and Gender Information Value Date Recorded Sex Assigned at Not on file Gender Identity Not on file Sexual Orientation Not on file documented as of this encounter Plan of Treatment Not on file documented as of this encounter Procedures Procedure Name Priority Date/Time Associated Diagnosis Comments PAP TEST- RESULT ONLY Routine 09/07/2010 0:00 EDT documented in this encounter Results * PAP TEST- RESULT ONLY (09/07/2010 0:00 EDT) Pathology Report: CYTOPATHOLOGY REPORT ? Reports generated via electronic interface contain original data; ? however they are lacking the format of the original report. ? Caution should be taken when reading/interpreti ng unformatted reports. ? Name: ? STEFFEN, DOMITILA ? Accession #: ? [id number] ? : ? 1980 (Age: 29) ??F ?Collect Date: ? 09/07/2010 ? Location: ? [facility] ? Receive Date: ? 09/08/2010 ? Provider: ?ERICA PAIGE MD ? Copy to: ? Specimen/Source: ?Pap Test, Cervix/Endocervix, ThinPrep Imaging System ? with manual evaluation ? Last Menstrual Period: ? 05/09/11 ? Hormonal/Contracep tive Status: ? Oral contraceptives ? Previous Gynecologic Pathology: ? LSIL: 09/01 & 10/05 ? FRANCOIS I: 09/01 & 11/04 ? ASC-US: 09/04, 06/06 & 02/07 ? HPV: + 09/04, 06/06 & 02/07 ? SPECIMEN ADEQUACY ? Satisfactory for Evaluation ? - transformation zone component present ? GENERAL CATEGORIZATION ? Negative for Intraepithelial Lesion or Malignancy ? Document reviewed and electronically signed by: ? Tracey Nahed, CT(ASCP) ? Report Date: ??09/14/2010 13:15 ? End of Report ? [facility] 09/07/2010 09/08/2010 Erica Paige MD PATHOLOGY ORDERABLES [facility] [address] [place] [address] documented in this encounter Visit Diagnoses Not on filedocumented in this encounter Care Teams Fuel Dock Attendant Relationship Specialty Start Date End Date Unknown, Provider, PCP - General 01/29/09 documented as of this encounter
--- OUTSIDE RECORDS SUMMARY | 2023-10-08 09:45 | XMS_ITS | Encounter Summary ---
Author Organization [facility] Address [address] [place] [address] Care Team Providers Care Electronic Tech Name Role Phone Unknown, Provider Primary Care Provider [phone] Encounter Details Date Type Department Care Team (Late st Contact Info) Description 02/25/2014 Results Only [facility] [place] [phone] Erica Paige MD [address] [place] [address] Social History Tobacco Use Types Packs/Day Years [...] Diagnosis Comments PAP TEST- RESULT ONLY Routine 02/25/2014 0:00 EST documented in this encounter Results * PAP TEST- RESULT ONLY (02/25/2014 0:00 EST) Pathology Report: CYTOPATHOLOGY REPORT Reports generated via electronic interface contain original data; however they are lacking the format of the original report. Caution should be taken when reading/interpreti ng unformatted reports. Name: ? DOMITILA GARCIA ? Accession #: ? [id number] ? : ? 1980 (Age: 33) ??F ?Collect Date: ? 02/25/2014 ? Location: ? [facility] ? Receive Date: ? 02/26/2014 ? Provider: ERICA PAIGE MD Copy to: [facility] ? Final Report SPECIMEN ADEQUACY ? Satisfactory for Evaluation - transformation zone component present GENERAL CATEGORIZATION ? Negative for Intraepithelial Lesion or Malignancy ?? Previous Gynecologic Pathology: FRANCOIS III Treatment History: LEEP: S/P Other: Additional clinical information: margins last pap 2011 neg/neg Specimen/Source: ??Pap Test, Cervix/Endocervix, ThinPrep Imaging System with manual evaluation Document reviewed and electronically signed by: ? Yvonne Torres, CT(ASCP)(IAC) ? Report ??Date: 02/27/2014 16:54 HPV with Pap Test ? Date Ordered: ? 02/27/2014 ? Status: ?? Signed Out ?Date Complete: ? 03/01/2014 ? By: ??System Interface ? Date Reported: ? 03/01/2014 ? Interpretation RESULT: Negative for HPV. No E6 or E7 mRNA is detected from HPV types 16,18,31,33,35, 39,45,51,52,56,58, 59,66, and 68 by agricultural inspector mediated amplification. Comments Document reviewed and electronically signed by: ? System Interface ? Report date: 03/01/2014 By the signature above, the attending physician certifies that he/she has personally conducted a gross and/or microscopic examination of the described specimens and rendered or confirmed the above diagnosis. End of Report [facility] 02/25/2014 02/26/2014 Erica Paige MD PATHOLOGY ORDERABLES [facility] [address] [place] [address] documented in this encounter Visit Diagnoses Not on filedocumented in this encounter Care Teams Electronic Tech Relationship Specialty Start Date End Date Unknown, Provider, PCP - General 01/29/09 documented as of this encounter
--- OUTSIDE RECORDS SUMMARY | 2023-10-08 09:45 | XMS_ITS | Encounter Summary ---
Author Organization [facility] Address [address] [place] [address] Care Team Providers Care Shuttler Car Name Role Phone Unknown, Provider Primary Care Provider [phone] Encounter Details Date Type Department Care Team (Late st Contact Info) Description 08/23/2002 Results Only [facility] - Maple conversion [address] [place] [address] Nancy Moore CNM [facility] [place], [place] [id number] Social History Tobacco Use Types Packs/Day Years Used Date Smoking Tobacco: Never Assessed Sex and Gender Information Value Date Recorded Sex Assigned at Not on file Gender Identity Not on file Sexual Orientation Not on file documented as of this encounter Plan of Treatment Not on file documented as of this encounter Procedures Procedure Name Priority Date/Time Associated Diagnosis Comments CYTOPATHOLOGY Routine 08/23/2002 0:00 EDT documented in this encounter Results * CYTOPATHOLOGY (08/23/2002 0:00 EDT) Pathology Report: CYTOPATHOLOGY REPORT Reports generated via electronic interface contain original data; however they are lacking the format of the original report. Caution should be taken when reading/interpreti ng unformatted reports. Name: ? DOMITILA BOURNE ? Accession #: ? [id number] : ? 1980 (Age: 21) ??F ?Collect Date: ? 08/23/2002 Location: ? [facility] ? Receive Date: ? 08/27/2002 Provider: ?NANCY MOORE CNM Copy to: ? Specimen/Source: ?ThinPrep Pap Test, Cervix Last Menstrual Period: ? 07/06/02 Menstrual/Pregnanc y Status: ? SPECIMEN ADEQUACY ? Satisfactory for Evaluation - transformation zone component present - scant squamous epithelial component secondary to excessive blood GENERAL CATEGORIZATION ? Negative for Intraepithelial Lesion or Malignancy ? Document reviewed and electronically signed by: ? Joann Black, SCT(ASCP) ? Report Date: ??08/28/2002 14:14 End of Report [facility] 08/23/2002 08/27/2002 Nancy Moore CNM PATHOLOGY ORDERABLES Performing Organization Address City/State/[facility] Co de Phone Number [facility] [address] [place] [address] documented in this encounter Visit Diagnoses Not on filedocumented in this encounter Care Teams Shuttler Car Relationship Specialty Start Date End Date Unknown, Provider, PCP - General 01/29/09 documented as of this encounter
--- OUTSIDE RECORDS SUMMARY | 2023-10-08 09:45 | XMS_ITS | Encounter Summary ---
Author Organization [facility] Address [address] [place] [address] Care Team Providers Care Program Support Specialist Name Role Phone Unknown, Provider Primary Care Provider [phone] Encounter Details Date Type Department Care Team (Late st Contact Info) Description 06/18/2020 Lab Requisition [facility] Pathology & Laboratory Medicine - [address] [address] Tash Chávez, TALENT ENGINEER [address] [place] [address] Encounter for other general examination Social History Tobacco Use Types Packs/Day Years Used Date Smoking Tobacco: Never Assessed Interpersonal Safety Answer Date Record ed Physically Hurt Never 10/28/2019 Verbally Threaten Not on file 10/28/2019 Sex and Gender Information Value Date Recorded Sex Assigned at Not on file Gender Identity Not on file Sexual Orientation Not on file documented as of this encounter Plan of Treatment Not on file documented as of this encounter Procedures Procedure Name Priority Date/Time Associated Diagnosis Comments PAP TEST Today 06/17/2020 14:30 EDT Encounter for other general examination HPV DNA DETECTION WITH GENOTYPING, PCR Today 06/17/2020 14:30 EDT Encounter for other general examination documented in this encounter Results * HUMAN PAPILLOMAVIRUS (HPV) DETECTION-HIGH RISK TYPES (06/17/2020 14:30 EDT) HPV other High Risk types, PCR Negative Negative 06/26/2020 15:22 [facility] Comment:No E6 or E7 mRNA is detected from HPV types 16,18,31,33,35,39,45,51,52,56,58,59,66, and 68 by neonatal specialist mediated amplification. Papanicolaou smear specimen (specimen) CERVIX UTERI STRUCTURE / Unknown 06/17/2020 14:30 EDT 06/25/2020 14:43 EDT Tash Chávez APRN MICROBIOLOGY - GE NERAL ORDERABLES [facility] [address] [place] [address] * PAP TEST (06/17/2020 14:30 EDT) Specimens A. Cervix and/or Endocervix , ThinPrep Imaging System with Manual Evaluation 06/26/2020 15:22 [facility] Specimen Adequacy Satisfactory for Evaluation - transformation zone component present 06/26/2020 15:22 [facility] General Categorization Negative for intraepithelial lesion or malignancy 06/26/2020 15:22 [facility] Descriptive Diagnosis Shift in serenity present suggestive of bacterial vaginosis. 06/26/2020 15:22 [facility] Attestation . 06/26/2020 15:22 [facility] at 1522 Clinical History See below 06/27/19 15:22 [facility] HPV The result for the Human Papillomavirus (HPV) Detection-High Risk Types is Negative. No E6 or E7 mRNA is detected from HPV types 16,18,31,33,35,39 ,45,51,52,56,58,5 9,66, and 68 by neonatal specialist mediated amplification.Princess ting was performed on specimen [id number] and was resulted on 06/26/2020 1514 EDT by LYUBOV, LAB INSTRUMENT RESULTS IN 06/26/2020 15:22 T [facility] Performing Lab [facility] 06/26/2020 15:22 EDT [facility] Scanned Images 06/26/2020 15:22 EDT [facility] Papanicolaou smear specimen (specimen) CERVIX UTERI STRUCTURE / Unknown 06/17/2020 14:30 EDT 06/18/2020 13:17 EDT Tash A Saira TALENT ENGINEER PATHOLOGY ORDERAB LES [facility] [address] [place] [address] documented in this encounter Visit Diagnoses Diagnosis Encounter for other general examination documented in this encounter Care Teams Program Support Specialist Relationship Specialty Start Date End Date Unknown, Provider, PCP - General 01/29/09 documented as of this encounter
--- OUTSIDE RECORDS SUMMARY | 2023-10-08 09:45 | XMS_ITS | Encounter Summary ---
Author Organization [facility] Address [address] [place] [address] Care Team Providers Care Sleeve Baster Name Role Phone Unknown, Provider Primary Care Provider [phone] Encounter Details Date Type Department Care Team (Late st Contact Info) Description 12/16/2011 Results Only [facility] Laboratory Services - [facility] ([facility]) [address] [place], [place] [address] Nancy Moore CN[address] [id number] Social History Tobacco Use Types Packs/Day Years [...] Diagnosis Comments PAP TEST- RESULT ONLY Routine 12/16/2011 0:00 EDT documented in this encounter Results * PAP TEST- RESULT ONLY (12/16/2011 0:00 EDT) Pathology Report: CYTOPATHOLOGY REPORT Reports generated via electronic interface contain original data; however they are lacking the format of the original report. Caution should be taken when reading/interpreti ng unformatted reports. Name: ? DOMITILA GARCIA ? Accession #: ? [id number] : ? 1980 (Age: 31) ??F ?Collect Date: ? 12/16/2011 Location: ? [facility] ? Receive Date: ? 12/20/2011 Provider: ?NANCY MOORE CNM Copy to: ?ROGERIO VEE ? Specimen/Source: ?Pap Test, Cervix/Endocervix, ThinPrep Imaging System with manual evaluation Last Menstrual Period: ? 01/25/11 Previous Gynecologic Pathology: ? LSIL: 11/26, 12/30, 12/02 FRANCOIS I: 11/26, 01/29 FRANCOIS II: 02/01 ASC-US: 11/29, 08/31, 05/04 HPV: + 11/29, 08/31, 05/04 Treatment History: ? Colposcopy: 02/25, 01/29, 03/01 without biopsy Miscellaneous treatment: biopsy 02/25, 01/29 Cervical biopsy: 02/01 Other: ? Additional clinical information: 02/25 no dysplasia, 2002 pap negative, 07/03 F/up [facility], 09/05 pap negative ? SPECIMEN ADEQUACY ? Satisfactory for Evaluation - transformation zone component present GENERAL CATEGORIZATION ? Negative for Intraepithelial Lesion or Malignancy ? Document reviewed and electronically signed by: ? ADAIR Parrish(ASCP) ? Report Date: ??12/30/2011 14:35 End of Report [facility] 12/16/2011 12/20/2011 Nancy MCKEONM PATHOLOGY ORDERABLES [facility] [address] [place] [address] documented in this encounter Visit Diagnoses Not on filedocumented in this encounter Care Teams Sleeve Baster Relationship Specialty Start Date End Date Unknown, Provider, PCP - General 01/29/09 documented as of this encounter
--- OUTSIDE RECORDS SUMMARY | 2023-10-08 09:45 | XMS_ITS | Encounter Summary ---
Author Organization [facility] Address [address] [place] [address] Care Team Providers Care Billing Customer Service Representative Name Role Phone Unknown, Provider Primary Care Provider [phone] Encounter Details Date Type Department Care Team (Late st Contact Info) Description 12/09/2003 Results Only [facility] - Maple conversion [address] [place] [address] Chiqui Ro, MARK ANTHONY Social History Tobacco Use Types Packs/Day Years Used Date Smoking Tobacco: Never Assessed Sex and Gender Information Value Date Recorded Sex Assigned at Not on file Gender Identity Not on file Sexual Orientation Not on file documented as of this encounter Plan of Treatment Not on file documented as of this encounter Procedures Procedure Name Priority Date/Time Associated Diagnosis Comments HPV DETECTION, HIGH RISK TYPES Routine 12/09/2003 9:23 EDT CYTOPATHOLOGY Routine 12/09/2003 0:00 EDT documented in this encounter Results * HUMAN PAPILLOMA VIRUS DNA TEST (12/09/2003 9:23 EDT) Specimen Description Cervix, ThinPrep vial [facility] Result Positive for one or more of HPV types 16,18,31,33,35 ,39,45,51,52,5 6,58,59, or 68. These high/intermedi ate risk HPV types are associated with dysplasia and some cervical cancers. [facility] Report Status Final [id number] [facility] 12/09/2003 9:23 EDT 12/24/2003 9:23 EDT Chiqui Ro NP MICROBIOLOGY - GENER AL ORDERABLES [facility] [address] [place] [address] * CYTOPATHOLOGY (12/09/2003 0:00 EDT) Pathology Report: CYTOPATHOLOGY REPORT Reports generated via electronic interface contain original data; however they are lacking the format of the original report. Caution should be taken when reading/interpreti ng unformatted reports. Name: ? DOMITILA BOURNE ? Accession #: ? [id number] : ? 1980 (Age: 23) ??F ?Collect Date: ? 12/09/2003 Location: ? [facility] ? Receive Date: ? 12/11/2003 Provider: ?CHIQUI RO TRAY DELIVERY AIDE Copy to: ? Specimen/Source: ?ThinPrep Pap Test, Cervix/Endocervix Last Menstrual Period: ? 11/25/2003 Hormonal/Contracep tive Status: ? Oral contraceptives Previous Gynecologic Pathology: ? LSIL: 11/26 Yes: 03/06/01 sq metaplasia w/ reactive epithelial changes Treatment History: ? Cervical biopsy: 03/06/01 sq metaplasia w/ reactive epithelial changes ? SPECIMEN ADEQUACY ? Satisfactory for Evaluation - transformation zone component present GENERAL CATEGORIZATION ? Epithelial Cell Abnormality INTERPRETATION ? Squamous Cell Abnormality - Atypical squamous cells, undetermined significance. EDUCATIONAL NOTES/RECOMMENDATI ONS ? COUNTS INCLUDE 234 BEDS AT THE [facility] recommends following the 2001 Consensus Guidelines for the Management of Women with Cervical Cytological Abnormalities (NANDO,2002;287:212 0-9). Management algorithms have been distributed by COUNTS INCLUDE 234 BEDS AT THE [facility] and are available online at www.[email or web address]. ? Document reviewed and electronically signed by: ? LANIE MAGALLANES MD [facility] ? Report Date: ??12/19/2003 12:55 End of Report [facility] 12/09/2003 12/11/2003 Chiqui Ro NP PATHOLOGY ORDERABLES [facility] [address] [place] [address] documented in this encounter Visit Diagnoses Not on filedocumented in this encounter Care Teams Billing Customer Service Representative Relationship Specialty Start Date End Date Unknown, Provider, PCP - General 01/29/09 documented as of this encounter
--- OUTSIDE RECORDS SUMMARY | 2023-10-08 09:45 | XMS_ITS | Encounter Summary ---
Author Organization [facility] Address [address] [place] [address] Care Team Providers Care Hydrotreater Operator Name Role Phone Unknown, Provider Primary Care Provider [phone] Encounter Details Date Type Department Care Team (Late st Contact Info) Description 09/23/2005 Results Only [facility] - Maple conversion [address] [place] [address] Luisa Gutierrez, [facility] [address] [place] [phone] Social History Tobacco Use Types Packs/Day Years Used Date Smoking Tobacco: Never Assessed Sex and Gender Information Value Date Recorded Sex Assigned at Not on file Gender Identity Not on file Sexual Orientation Not on file documented as of this encounter Plan of Treatment Not on file documented as of this encounter Procedures Procedure Name Priority Date/Time Associated Diagnosis Comments CYTOPATHOLOGY Routine 09/23/2005 0:00 EDT documented in this encounter Results * CYTOPATHOLOGY (09/23/2005 0:00 EDT) Pathology Report: CYTOPATHOLOGY REPORT Reports generated via electronic interface contain original data; however they are lacking the format of the original report. Caution should be taken when reading/interpreti ng unformatted reports. Name: ? DOMITILA BOURNE ? Accession #: ? [id number] : ? 1980 (Age: 24) ??F ?Collect Date: ? 09/23/2005 Location: ? [facility] ? Receive Date: ? 09/24/2005 Provider: ?LUISA GUTIERREZ MUSHROOM SPAWN MAKER Copy to: ? Specimen/Source: ?ThinPrep Pap Test, Cervix/Endocervix, processed on [email or web address] ThinPrep Imaging System, with manual evaluation Last Menstrual Period: ? 09/11/05 Hormonal/Contracep tive Status: ? Yes: Nuva Ring Previous Gynecologic Pathology: ? LSIL: 11/26, 01/29, 12/30 ASC-US: 11/29 HPV: 11/29 Treatment History: ? Cervical biopsy: 02/25 Epitheilal changes Colposcopy: 01/29 and 03/01 L grade lesion ant. lip of cx. ??Probable FRANCOIS I did not bx. Other: ? HPVDX - HPV testing requested regardless of diagnosis on current ThinPrep Pap test. ? SPECIMEN ADEQUACY ? Satisfactory for Evaluation - transformation zone component present GENERAL CATEGORIZATION ? Epithelial Cell Abnormality INTERPRETATION ? Squamous Cell Abnormality - Atypical squamous cells, undetermined significance. EDUCATIONAL NOTES/RECOMMENDATI ONS ? [facility] recommends following the 2001 Consensus Guidelines for the Management of Women with Cervical Cytological Abnormalities (NANDO,2002;287:212 0-9). Management algorithms have been distributed by [facility] and are available online at www.[email or web address]. ? Document reviewed and electronically signed by: ? MARSHA COOLEY MD ? Report Date: ??10/05/2005 14:11 End of Report [facility] 09/23/2005 09/24/2005 Luisa Gutierrez MUSHROOM SPAWN MAKER PATHOLOGY ORDERABLES [facility] [address] [place] [address] documented in this encounter Visit Diagnoses Not on filedocumented in this encounter Care Teams Hydrotreater Operator Relationship Specialty Start Date End Date Unknown, Provider, PCP - General 01/29/09 documented as of this encounter
--- OUTSIDE RECORDS SUMMARY | 2023-10-08 09:45 | XMS_ITS | Encounter Summary ---
Author Organization [facility] Address [address] [place] [address] Care Team Providers Care Human Resources Generalist Name Role Phone Unknown, Provider Primary Care Provider [phone] Encounter Details Date Type Department Care Team (Late st Contact Info) Description 04/28/2006 Results Only [facility] - Maple conversion [address] [place] [address] Luisa Gutierrez, [facility] [address] [place] [phone] Social History Tobacco Use Types Packs/Day [...] Comments HPV DETECTION, HIGH RISK TYPES Routine 04/28/2006 14:50 EST CYTOPATHOLOGY Routine 04/28/2006 0:00 EST documented in this encounter Results * HUMAN PAPILLOMA VIRUS DNA TEST (04/28/2006 14:50 EST) Specimen Description Cervix, ThinPrep vial [facility] Result Positive for one or more of HPV types 16,18,31,33,35 ,39,45,51,52,5 6,58,59, or 68. These high/intermedi ate risk HPV types are associated with dysplasia and some cervical cancers. [facility] Report Status Final [id number] [facility] 04/28/2006 14:5 0 EST 05/09/2006 14:18 EST Luisa Gutierrez AIR INTELLIGENCE OFFICER MICROBIOLOGY - GENER AL ORDERABLES [facility] [address] [place] [address] * CYTOPATHOLOGY (04/28/2006 0:00 EST) Pathology Report: CYTOPATHOLOGY REPORT Reports generated via electronic interface contain original data; however they are lacking the format of the original report. Caution should be taken when reading/interpreti ng unformatted reports. Name: ? DOMITILA BOURNE ? Accession #: ? [id number] : ? 1980 (Age: 25) ??F ?Collect Date: ? 04/28/2006 Location: ? [facility] ? Receive Date: ? 05/02/2006 Provider: ?LUISA GUTIERREZ AIR INTELLIGENCE OFFICER Copy to: ? Specimen/Source: ?ThinPrep Pap Test, Cervix/Endocervix, processed on [employer] ThinPrep Imaging System, with manual evaluation Last Menstrual Period: ? 04/04/06 Hormonal/Contracep tive Status: ? Oral contraceptives Previous Gynecologic Pathology: ? LSIL: 11/26, 12/30 FRANCOIS I: 11/26, 01/29 ASC-US: 11/29 and 08/31 HPV: 11/29, 08/31 Treatment History: ? Colposcopy: 02/25 bx no dysplasia, 01/29 FRANCOIS I, ??03/01 No bx. Other: ? HPVA - HPV testing requested if ASC-US on the current ThinPrep Pap test. ? SPECIMEN ADEQUACY ? Satisfactory for Evaluation - transformation zone component present GENERAL CATEGORIZATION ? Epithelial Cell Abnormality INTERPRETATION ? Squamous Cell Abnormality - Atypical squamous cells, undetermined significance (ASC-US). EDUCATIONAL NOTES/RECOMMENDATI ONS ? [facility] recommends following the 2001 Consensus Guidelines for the Management of Women with Cervical Cytological Abnormalities (NANDO,2002;287:212 0-9). Management algorithms have been distributed by [facility] and are available online at www.ASCCP.org. ? Document reviewed and electronically signed by: ? LANIE MAGALLANES MD [facility] ? Report Date: ??05/06/2006 18:02 End of Report [facility] 04/28/2006 05/02/2006 Luisa Gutierrez AIR INTELLIGENCE OFFICER PATHOLOGY ORDERABLES Performing Organization Address City/State/[facility] Co de Phone Number [facility] [address] [place] [address] documented in this encounter Visit Diagnoses Not on filedocumented in this encounter Care Teams Human Resources Generalist Relationship Specialty Start Date End Date Unknown, Provider, PCP - General 01/29/09 documented as of this encounter
--- OUTSIDE RECORDS SUMMARY | 2023-10-08 09:45 | XMS_ITS | Encounter Summary ---
Author Organization [facility] Address [address] [place] [address] Care Team Providers Care Machine Builder Name Role Phone Unknown, Provider Primary Care Provider [phone] Encounter Details Date Type Department Care Team (Late st Contact Info) Description 12/08/2006 Results Only [facility] - Maple conversion [address] [place] [address] Luisa Gutierrez, [facility] [address] [place] [phone] Social History Tobacco Use Types Packs/Day Years Used Date Smoking Tobacco: Never Assessed Sex and Gender Information Value Date Recorded Sex Assigned at Not on file Gender Identity Not on file Sexual Orientation Not on file documented as of this encounter Plan of Treatment Not on file documented as of this encounter Procedures Procedure Name Priority Date/Time Associated Diagnosis Comments CYTOPATHOLOGY Routine 12/08/2006 0:00 EDT documented in this encounter Results * CYTOPATHOLOGY (12/08/2006 0:00 EDT) Pathology Report: CYTOPATHOLOGY REPORT Reports generated via electronic interface contain original data; however they are lacking the format of the original report. Caution should be taken when reading/interpreti ng unformatted reports. Name: ? DOMITILA BOURNE ? Accession #: ? [id number] : ? 1980 (Age: 26) ??F ?Collect Date: ? 12/08/2006 Location: ? [facility] ? Receive Date: ? 12/09/2006 Provider: ?LUISA GUTIERREZ SOFTWARE SUPPORT TECHNICIAN Copy to: ? Specimen/Source: ?ThinPrep Pap Test, Cervix/Endocervix, processed on [employer] ThinPrep Imaging System, with manual evaluation Last Menstrual Period: ? 11/14/06 Previous Gynecologic Pathology: ? LSIL: 11/26 and 12/30 FRANCOIS I: 11/26, 01/29 ASC-US: 11/29, 08/31, 05/04 HPV: 11/29, 08/31 and 05/04 Treatment History: ? Colposcopy: 02/25 no dysplasia, 01/29 FRANCOIS I, 03/01 no bx Other: ? Additional clinical information: pap 07/28 normal HPVA - HPV testing requested if ASC-US on the current ThinPrep Pap test. ? SPECIMEN ADEQUACY ? Satisfactory for Evaluation - transformation zone component present GENERAL CATEGORIZATION ? Epithelial Cell Abnormality INTERPRETATION ? Squamous Cell Abnormality - Low grade squamous intraepithelial lesion (LSIL). EDUCATIONAL NOTES/RECOMMENDATI ONS ? [facility] recommends following the 2001 Consensus Guidelines for the Management of Women with Cervical Cytological Abnormalities (NANDO,2002;287:212 0-9). Management algorithms have been distributed by [facility] and are available online at www.ASCCP.org. ? Document reviewed and electronically signed by: ? Tracey Santillan MD ? Report Date: ??12/19/2006 08:49 End of Report [facility] 12/08/2006 12/09/2006 Luisa Gutierrez SOFTWARE SUPPORT TECHNICIAN PATHOLOGY ORDERABLES [facility] [address] [place] [address] documented in this encounter Visit Diagnoses Not on filedocumented in this encounter Care Teams Machine Builder Relationship Specialty Start Date End Date Unknown, Provider, PCP - General 01/29/09 documented as of this encounter
--- OUTSIDE RECORDS SUMMARY | 2023-10-08 09:45 | XMS_ITS | Encounter Summary ---
Author Organization [facility] Address [address] [place] [address] Care Team Providers Care Dividend Clerk Name Role Phone Unavailable Primary Care Provider Unavailmalachi e Encounter Details Date Type Department Care Team (Latest Contact Info) Description 12/09/2003 15:41 EDT Hospital Encounter [facility] - Other [address] [place] [address] Luisa Gutierrez, [facility] [address] [place] [address] Discharge Disposition: Auto Discharge Social History Tobacco Use Types Packs/Day Years Used Date Smoking Tobacco: Never Assessed Sex and Gender Information Value Date Recorded Sex Assigned at Not on file Gender Identity Not on file Sexual Orientation Not on file documented as of this encounter Discharge Disposition Disposition Code Departure Means Destination Auto Discharge documented in this encounter Plan of Treatment Not on file documented as of this encounter Visit Diagnoses Not on filedocumented in this encounter
--- OUTSIDE RECORDS SUMMARY | 2023-10-08 09:45 | XMS_ITS | Encounter Summary ---
Author Organization [facility] Address [address] [place] [address] Care Team Providers Care Senior Sharepoint Architect Name Role Phone Unknown, Provider Primary Care Provider [phone] Encounter Details Date Type Department Care Team (Latest Contact Info) Description 05/07/2019 Lab Requisition [facility] Pathology & Laboratory Medicine - [facility] [address] [place] [address] Roberto Escobar MD [address] [address] Full incontinence of feces; Other fecal abnormalities; Alcohol abuse, uncomplicated Social History Tobacco Use Types Packs/Day Years Used Date Smoking Tobacco: Never Assessed Sex and Gender Information Value Date Recorded Sex Assigned at Not on file Gender Identity Not on file Sexual Orientation Not on file documented as of this encounter Plan of Treatment Not on file documented as of this encounter Procedures Procedure Name Priority Date/Time Associated Diagnosis Comments SURGICAL PATHOLOGY Today 05/07/2019 8: 00 EST Full incontinence of feces Other fecal abnormalities Alcohol abuse, uncomplicated documented in this encounter Results * SURGICAL PATHOLOGY (05/07/2019 8:00 EST) Final Diagnosis A. STOMACH, PRE-PYLORIC, BIOPSY: - Gastric antral mucosa with mild reactive (chemical) gastropathy. - Negative for Helicobacter pylori microorganisms on H&E stained sections. B. DUODENUM, BIOPSY: - Duodenal mucosa with no significant diagnostic abnormality. C. COLON, BIOPSY: - Colonic mucosa with no significant diagnostic abnormality. 05/08/2019 14:50 EST [facility] at 1450 Clinical History Patient with reflux esophagitis Diffuse gastritis vs. Gastropathy Duodenum atrophy change Biopsies of duodenum and stomach taken 05/08/2019 14:50 [facility] Attestation By the signature below, the attending physician certifies that they have 1) personally conducted a gross and/or microscopic examination of the described specimen(s), and/or personally interpreted the results of laboratory testing of the described specimen(s), and 2) personally rendered or confirmed the above diagnosis. 05/08/2019 14:50 [facility] at 1450 Gross Description A. Received in formalin labelled with proper patient identification (initials D, M) and pre pyloric bx are 4 light soria biopsies ranging in size from 0.3 x 0.1 x 0.1 cm up to 0.5 x 0.3 x 0.1 cm. Submitted intact in A1. B. Received in formalin labelled with proper patient identification (initials D, M) and duodenum bx are 5 light soria biopsies ranging in size from 0.2 x 0.2 x 0.1 cm up to 0.6 x 0.2 x 0.1 cm. Submitted intact in B1-B2. C. Received in formalin labelled with proper patient identification (initials D, M) and mittal colon bx are 8 light soria biopsies ranging in size from 0.2 x 0.2 x 0.1 cm up to 0.9 x 0.1 x 0.1 cm submitted intact in C1-C3. Velvet Louis 05/08/2019 07:59 05/08/2019 14:50 [facility] Scanned Images 05/08/2019 14:50 [facility] Tissue ENTIRE COLON / Unknown 05/07/2019 8:00 EST 05/07/2019 22:11 EST Tissue specimen (specimen) STRUCTURE OF SMALL INTESTINE / Unknown 05/07/2019 8:00 EST 05/07/2019 22:11 EST Tissue specimen (specimen) COLON STRUCTURE / Unknown 05/07/2019 8:00 EST 05/07/2019 22:11 EST Roberto Escobar MD PATHOLOGY ORDERABLES [facility] [address] [phone] documented in this encounter Visit Diagnoses Diagnosis Full incontinence of feces Other fecal abnormalities Alcohol abuse, uncomplicated documented in this encounter Care Teams Senior Sharepoint Architect Relationship Specialty Start Date End Date Unknown, Provider, PCP - General 01/29/09 documented as of this encounter
--- OUTSIDE RECORDS SUMMARY | 2023-10-08 09:45 | XMS_ITS | Encounter Summary ---
Author Organization [facility] Address [address] [place] [address] Care Team Providers Care Motion Picture Critic Name Role Phone Unknown, Provider Primary Care Provider [phone] Encounter Details Date Type Department Care Team (Late st Contact Info) Description 02/08/2007 Results Only [facility] - Maple conversion [address] [place] [address] Isa Bullock MD [address] [place] [address] [place] [address] Social History Tobacco Use Types Packs/Day Years Used Date Smoking Tobacco: Never Assessed Sex and Gender Information Value Date Recorded Sex Assigned at Not on file Gender Identity Not on file Sexual Orientation Not on file documented as of this encounter Plan of Treatment Not on file documented as of this encounter Procedures Procedure Name Priority Date/Time Associated Diagnosis Comments SURGICAL PATHOLOGY Routine 02/08/2007 0:00 EST documented in this encounter Results * SURGICAL PATHOLOGY (02/08/2007 0:00 EST) Pathology Report: SURGICAL PATHOLOGY REPORT Reports generated via electronic interface contain original data; however they are lacking the format of the original report. Caution should be taken when reading/interpreting unformatted reports. Name: ? DOMITILA BOURNE ? Accession #: ? [id number] ? : ? 1980 (Age: 26) ??F ? Collect Date: ? 02/08/2007 ? Location: ? [facility] ? Receive Date: ? 02/09/2007 ? Provider: ISA BULLOCK MD Copy to: ROGERIO VEE ? Final Pathologic Diagnosis: ? Cervix, 2:00, biopsy: ? 1. 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 ?- High grade squamous intraepithelial lesion involves endocervical glands. Comment: ? This case was reviewed and discussed at the intradepartmental consultation conference for the presence of high-grade squamous intraepithelial lesion. (Dr. Delcid)/[facility] Document reviewed and electronically signed by: Adenike Shirley MD Report ??Date: 02/13/2007 19:07 By the signature above, the attending physician certifies that he/she has personally conducted a gross and/or microscopic examination of the described specimens and rendered or confirmed the above diagnosis. Specimen(s) Received: ? Cx bx 2:00 Clinical History: ? LSIL [id number] Gross Description: ? Received in formalin labelled Giancarlo and cx 2:00 is a 0.6 x 0.3 x 0.2 cm portion of white-soria glistening mucosa. ??Submitted intact in one cassette. (Apoolnia Pena/lgk End of Report [facility] 02/08/2007 02/09/2007 9:4 6 EST Isa Bullock MD PATHOLOGY ORDERABLES [facility] [address] [place] [address] documented in this encounter Visit Diagnoses Not on filedocumented in this encounter Care Teams Motion Picture Critic Relationship Specialty Start Date End Date Unknown, Provider, PCP - General 01/29/09 documented as of this encounter
--- OUTSIDE RECORDS SUMMARY | 2023-10-08 09:45 | XMS_ITS | Encounter Summary ---
Author Organization [facility] Address [address] [place] [address] Care Team Providers Care Feed Mixer Name Role Phone Unavailable Primary Care Provider Unavailabl e Encounter Details Date Type Department Care Team (Latest Contact Info) Description 09/23/2005 13:44 EDT Hospital Encounter [facility] - Other [address] [place] [address] Luisa Gutierrez, [facility] [address] [place] [address] Discharge Disposition: Auto Discharge Social [...] Date/Time Associated Diagnosis Comments SURGICAL PATHOLOGY Routine 01/24/2009 0:00 EDT HPV DETECTION, HIGH RISK TYPES Routine 09/23/2005 8:30 EDT documented in this encounter Results * SURGICAL PATHOLOGY (01/24/2009 0:00 EDT) Pathology Report: SURGICAL PATHOLOGY REPORT ? Reports generated via electronic interface contain original data; ? however they are lacking the format of the original report. ? Caution should be taken when reading/interpreting unformatted reports. ? Name: ? STEFFEN, DOMITILA ? Accession #: ? [id number] ? : ? 1980 (Age: 28) ??F ? Collect Date: ? 01/24/2009 ? Location: ? [facility] ? Receive Date: ? 01/27/2009 ? Provider: IVAN JULES MD ? Copy to: FELICITAS S LABARTHE MD ? Final Pathologic Diagnosis: ? Mucosa of lip, lower, biopsy: ? - Verruca vulgaris. ? Microscopic Description: ? The stratum corneum is thickened by compact orthohyperkeratosis with tiers of parakeratosis and foci of hemorrhage. ??The epidermis is hyperplastic with ? papillomatosis and acanthosis. ??The acanthotic rete ridges have an ? inward-bending configuration. ??The superficial keratinocytes have perinuclear ?? vacuoles. ??The granular layer is accentuated. ??(Dr. Simpson)/[facility] ? Document reviewed and electronically signed by: ? Zaira Simpson MD ? Report ??Date: 01/29/2009 14:10 ? By the signature above, the attending physician certifies that he/she has ? personally conducted a gross and/or microscopic examination of the described ? specimens and rendered or confirmed the above diagnosis. ? Specimen(s) Received: ? Lower lip lesion ? Clinical History: ? Lower lip lesion Hx HPV (cervical) ; smoking ? Gross Description: ? Received in formalin labelled Steffen, Domitila and lower lip lesion is a shave biopsy of a 0.3 x 0.2 x 0.1 cm longoria-white papule. ??The specimen is ? submitted intact in a single cassette. (Madina Chatman)/mpl ? End of Report ? [facility] 01/24/2009 01/27/2009 20: 06 EST Ivan Jules MD PATHOLOGY ORDERABLES [facility] [address] [place] [address] * HUMAN PAPILLOMA VIRUS DNA TEST (09/23/2005 8:30 EDT) Specimen Description Cervix, ThinPrep vial [facility] Result Positive for one or more of HPV types 16,18,31,33,35 ,39,45,51,52,5 6,58,59, or 68. These high/intermedi ate risk HPV types are associated with dysplasia and some cervical cancers. [facility] Report Status Final [id number] [facility] 09/23/2005 8:30 EDT 10/06/2005 8:30 EDT Luisa Gutierrez THROUGH OPERATOR MICROBIOLOGY - GENER AL ORDERABLES [facility] [address] [place] [address] documented in this encounter Visit Diagnoses Not on filedocumented in this encounter
--- OUTSIDE RECORDS SUMMARY | 2023-10-08 09:45 | XMS_ITS | Encounter Summary ---
Author Organization [facility] Address [address] [place] [address] Care Team Providers Care Quality Control Tech Name Role Phone Unknown, Provider Primary Care Provider [phone] Encounter Details Date Type Department Care Team (Late st Contact Info) Description 01/28/2004 Results Only [facility] - Maple conversion [address] [place] [address] Isa Bullock MD [address] [place] [address] [place] [address] Social History Tobacco Use Types Packs/Day Years Used Date Smoking Tobacco: Never Assessed Sex and Gender Information Value Date Recorded Sex Assigned at Not on file Gender Identity Not on file Sexual Orientation Not on file documented as of this encounter Plan of Treatment Not on file documented as of this encounter Procedures Procedure Name Priority Date/Time Associated Diagnosis Comments SURGICAL PATHOLOGY Routine 01/28/2004 0:00 EST documented in this encounter Results * SURGICAL PATHOLOGY (01/28/2004 0:00 EST) Pathology Report: SURGICAL PATHOLOGY REPORT Reports generated via electronic interface contain original data; however they are lacking the format of the original report. Caution should be taken when reading/interpretin g unformatted reports. Name: ? DOMITILA BOURNE ? Accession #: ? [id number] ? : ? 1980 (Age: 23) ??F ? Collect Date: ? 01/28/2004 ? Location: ? [facility] ? Receive Date: ? 01/30/2004 ? Provider: ISA BULLOCK MD Copy to: ? Final Pathologic Diagnosis: ? Cervix, biopsy: - ??Low grade squamous intraepithelial lesion (FRANCOIS I). ??See comment. Comment: ? Additional immunoperoxidase studies have been performed on deeper levels with antibodies directed against p16 (E6H4, Dako) and Mib-1 (Ki-67, Biogenex). The staining pattern supports the above diagnosis. ?? This case was reviewed at intradepartmental consultation conference. ??(Dr. Mohr)/[facility] Document reviewed and electronically signed by: Flako Mohr MD Report ??Date: 02/04/2004 17:11 By the signature above, the attending physician certifies that he/she has personally conducted a gross and/or microscopic examination of the described specimens and rendered or confirmed the above diagnosis. Specimen(s) Received: ? Cx biopsy Clinical History: ? ASCUS (+) HPV Gross Description: ? Received in formalin labelled Giancarlo and cervix is an irregular 0.8 x 0.3 x 0.2 cm white-pink, glistening portion of mucosa which is inked, bisected, and submitted in its entirety in one cassette. ??(Apolonia Sigala)/[facility] End of Report [facility] 01/28/2004 01/30/2004 9:1 6 EST Isa Bullock MD PATHOLOGY ORDERABLES [facility] [address] [place] [address] documented in this encounter Visit Diagnoses Not on filedocumented in this encounter Care Teams Quality Control Tech Relationship Specialty Start Date End Date Unknown, Provider, PCP - General 01/29/09 documented as of this encounter
--- OUTSIDE RECORDS SUMMARY | 2023-10-08 09:45 | XMS_ITS | Referral Summary ---
Author Organization [facility] Address [address] [place] [address] Care Team Providers Care Resaw Carriage Operator Name Role Phone Unknown, Provider Primary Care Provider [phone] Encounters Date Type Department Care Team Description 09/28/2023 Lab Requisition [facility] Pathology & Laboratory Medicine - [facility] [address] [place] [address] Luis Alberto Weber MD Encounter for other general examination from Last 3 Months Social History Tobacco Use Types Packs/Day Years Used Date Smoking Tobacco: Never Assessed Interpersonal Safety Answer Date Record ed Physically Hurt Never 10/28/2019 Verbally Threaten Not on file 10/28/2019 Sex and Gender Information Value Date Recorded Sex Assigned at Not on file Gender Identity Not on file Sexual Orientation Not on file Plan of Treatment Not on file Procedures Procedure Name Priority Date/Time Associated Diagnosis Comments SURGICAL PATHOLOGY Today 09/28/2023 9: 35 EDT Encounter for other general examination from Last 3 Months Results * SURGICAL PATHOLOGY (09/28/2023 9:35 EDT) Note to Patient The following pathology results have been interpreted by your pathologist and may be available to you before your health provider has had the opportunity to review them. Please allow time for your provider to receive these results and explore management options, if applicable. 10/02/2023 16:14 EDT [facility] Final Diagnosis A. DUODENUM, BIOPSY: - Small intestinal mucosa with no significant diagnostic abnormalities. B. STOMACH, ANTRUM, BIOPSY: - Antral mucosa with reactive (chemical) gastropathy. - Negative for Helicobacter pylori on H&E stained sections. C. STOMACH, BODY, BIOPSY: - Gastric fundic mucosa with no significant diagnostic abnormalities. - Negative for Helicobacter pylori on H&E stained sections. D. ESOPHAGUS, DISTAL, BIOPSY: - Squamous mucosa with mild reactive changes. E. ILEUM, TERMINAL, BIOPSY: - Small intestinal mucosa with no significant diagnostic abnormalities. F. COLON, RANDOM, BIOPSY: - Colonic mucosa with no significant diagnostic abnormalities. G. COLON, SIGMOID, POLYPS, BIOPSY: - Hyperplastic polyp(s). H. RECTUM, POLYP, BIOPSY: - Tubular adenoma. 10/02/2023 16:14 [facility] Attestation By the signature below, the attending physician certifies that they have 1) personally conducted a gross and/or microscopic examination of the described specimen(s), and/or personally interpreted the results of laboratory testing of the described specimen(s), and 2) personally rendered or confirmed the above diagnosis. 10/02/2023 16:14 [facility] at 1614 Clinical History Screening colonoscopy, diverticulosis; diagnostic EGD, bile refluxs (post op), gastropathy; 10/02/2023 16:14 [facility] Gross Description A. Received in formalin labelled with proper patient identification (initials D, M) and duodenum bx are 3 soria focally brown speckled tissue fragments (0.2 x 0.2 x 0.1 cm to 0.6 x 0.2 x 0.1 cm). Entirely submitted in A1. B. Received in formalin labelled with proper patient identification (initials D, M) and antrum bx are 2 pale-soria tissue fragments (0.3 x 0.2 x 0.1 cm and 0.5 x 0.2 x 0.1 cm). Entirely submitted in B1. C. Received in formalin labelled with proper patient identification (initials D, M) and body bx is a single pale soria focally soria tissue fragment (0.5 x 0.2 x 0.1 cm). Entirely submitted in C1. D. Received in formalin labelled with proper patient identification (initials D, M) and distal esophagus bx are 2 translucent white and brown tissue fragments (0.2 x 0.2 x 0.1 cm and 0.3 x 0.1 x 0.1 cm). Entirely submitted in D1. E. Received in formalin labelled with proper patient identification (initials D, M) and terminal ileum is a single soria and brown tissue fragment (0.6 x 0.3 x 0.1 cm). Entirely submitted in E1. F. Received in formalin labelled with proper patient identification (initials D, M) and random bx's are 2 soria tissue fragments (0.1 x 0.1 x 0.1 cm and 0.6 x 0.2 x 0.1 cm). Entirely submitted in F1. G. Received in formalin labelled with proper patient identification (initials D, M) and sigmoid polyps are two soria brown tissue fragments (0.5 x 0.5 x 0.1 cm and 0.8 x 0.2 x 0.1 cm). Entirely submitted in G1. H. Received in formalin labelled with proper patient identification (initials D, M) and rectal polyp is a single soria to brown tissue fragment (0.4 x 0.3 x 0.3 cm). Entirely submitted in H1. Itzel Lino 09/30/2023 7:52 10/02/2023 16:14 T [facility] Performing Lab [facility] 10/02/2023 16:14 T [facility] Scanned Images 10/02/2023 16:14 T [facility] Tissue SPECIMEN FROM RECTUM / Unknown 09/28/2023 9:35 EDT 09/28/2023 18:09 EDT Tissue specimen (specimen) STOMACH STRUCTURE / Unknown 09/28/2023 9:35 EDT 09/28/2023 18:09 EDT Tissue specimen (specimen) STOMACH STRUCTURE / Unknown 09/28/2023 9:35 EDT 09/28/2023 18:09 EDT Tissue specimen (specimen) ESOPHAGEAL STRUCTURE / Unknown 09/28/2023 9:35 EDT 09/28/2023 18:09 EDT Tissue specimen (specimen) STRUCTURE OF SMALL INTESTINE / Unknown 09/28/2023 9:35 EDT 09/28/2023 18:09 EDT Tissue specimen (specimen) COLON STRUCTURE / Unknown 09/28/2023 9:35 EDT 09/28/2023 18:09 EDT Tissue specimen (specimen) SIGMOID COLON STRUCTURE / Unknown 09/28/2023 9:35 EDT 09/28/2023 18:09 EDT Tissue specimen (specimen) SPECIMEN FROM RECTUM / Unknown 09/28/2023 9:35 EDT 09/28/2023 18:09 EDT Luis Alberto Weber MD PATHOLOGY ORDERABLES [facility] [address] [place] [address] from Last 3 Months Care Teams Resaw Carriage Operator Relationship Specialty Start Date End Date Unknown, Provider, PCP - General 01/29/09
--- OUTSIDE RECORDS SUMMARY | 2023-10-08 09:45 | XMS_ITS | Encounter Summary ---
Author Organization [facility] Address [address] [place] [address] Care Team Providers Care Renal Nurse Name Role Phone Unknown, Provider Primary Care Provider [phone] Encounter Details Date Type Department Care Team (Late st Contact Info) Description 09/28/2023 Lab Requisition [facility] Pathology & Laboratory Medicine - [facility] [address] [place] [address] Luis Alberto Weber MD [address] [place] [phone] Encounter for other general examination Social History [...] 35 EDT Encounter for other general examination documented in this encounter Results * SURGICAL PATHOLOGY (09/28/2023 9:35 EDT) Note to Patient The following pathology results have been interpreted by your pathologist and may be available to you before your health provider has had the opportunity to review them. Please allow time for your provider to receive these results and explore management options, if applicable. 10[facility]02[facility]2023 16[facility] Final Diagnosis A. DUODENUM, BIOPSY: [...] POLYP, BIOPSY: - Tubular adenoma. 10/02/2023 16:14 [facility] Attestation By the signature below, the attending physician certifies that they have 1) personally conducted a gross and/or microscopic examination of the described specimen(s), and/or personally interpreted the results of laboratory testing of the described specimen(s), and 2) personally rendered or confirmed the above diagnosis. 10/02/2023 16:14 [facility] at 1614 Clinical History Screening colonoscopy, diverticulosis; diagnostic EGD, bile refluxs (post op), gastropathy; 10/02/2023 16:14 [facility] Gross Description A. Received [...] H1. Itzel Lino 09/30/2023 7:52 10/02/2023 16:14 [facility] Performing Lab [facility] 10/02/2023 16:14 [facility] Scanned Images 10/02/2023 16:14 [facility] Tissue SPECIMEN FROM RECTUM [...] EDT Luis Alberto Weber MD PATHOLOGY ORDERABLES [facility] [address] [place] [address] documented in this encounter Visit Diagnoses Diagnosis Encounter for other general examination documented in this encounter Care Teams Renal Nurse Relationship Specialty Start Date End Date Unknown, Provider, PCP - General 01/29/09 documented as of this encounter
--- OUTSIDE RECORDS SUMMARY | 2023-10-08 09:45 | XMS_ITS | Clinical Summary ---
Author Organization [facility] Address [address] [place] [address] Care Team Providers Care Hydroelectric Systems Technician Name Role Phone Unknown, Provider Primary Care Provider Encounters Date Type Department Care Team Description 09/28/2023 Lab Requisition [facility] Pathology & Laboratory Medicine - [facility] [address] [place] [address] Luis Alberto Weber MD Encounter for other [...] Orientation Not on file Plan of Treatment Health Maintenance Due Date Last Done Comments Hepatitis C Screen 1980 Hepatitis B Vaccine (1 of 3 - 19+ 3-dose series) 12/01 COVID-19 Vaccine (2022- season) 2022 Procedures Procedure Name Priority Date/Time Associated Diagnosis [...] explore management options, if applicable. 10/02/2023 16:14 [facility] Final Diagnosis A. DUODENUM, [...] POLYP, BIOPSY: - Tubular adenoma. 10/02/2023 16:14 [facility] Attestation By the signature below, the attending physician certifies that they have 1) personally conducted a gross and/or microscopic examination of the described specimen(s), and/or personally interpreted the results of laboratory testing of the described specimen(s), and 2) personally rendered or confirmed the above diagnosis. 10/02/2023 16:14 [facility] at 1614 Clinical History Screening colonoscopy, diverticulosis; diagnostic EGD, bile refluxs (post op), gastropathy; 10/02/2023 16:14 [facility] Gross Description A. Received [...] H1. Itzel Lino 09/30/2023 7:52 10/02/2023 16:14 [facility] Performing Lab [facility] 10/02/2023 16:14 [facility] Scanned Images 10/02/2023 16:14 [facility] Tissue SPECIMEN FROM RECTUM [...] EDT Luis Alberto Weber MD PATHOLOGY ORDERABLES [facility] [address] [place] [address] from Last 3 Months Care Teams Hydroelectric Systems Technician Relationship Specialty Start Date End Date Unknown, ProviderMD PCP - General 01/29/09
--- OUTSIDE RECORDS SUMMARY | 2023-10-08 09:45 | XMS_ITS | Encounter Summary ---
Author Organization [facility] Address [address] [place] [address] Care Team Providers Care Pin Drafter Operator Name Role Phone Unknown, Provider Primary Care Provider [phone] Encounter Details Date Type Department Care Team (Late st Contact Info) Description 01/04/2005 Results Only [facility] - Maple conversion [address] [place] [address] Luisa Gutierrez, [facility] [address] [place] [phone] Social History Tobacco Use Types Packs/Day Years Used Date Smoking Tobacco: Never Assessed Sex and Gender Information Value Date Recorded Sex Assigned at Not on file Gender Identity Not on file Sexual Orientation Not on file documented as of this encounter Plan of Treatment Not on file documented as of this encounter Procedures Procedure Name Priority Date/Time Associated Diagnosis Comments CYTOPATHOLOGY Routine 01/04/2005 0:00 EDT documented in this encounter Results * CYTOPATHOLOGY (01/04/2005 0:00 EDT) Pathology Report: CYTOPATHOLOGY REPORT Reports generated via electronic interface contain original data; however they are lacking the format of the original report. Caution should be taken when reading/interpreti ng unformatted reports. Name: ? DOMITILA BOURNE ? Accession #: ? [id number] : ? 1980 (Age: 24) ??F ?Collect Date: ? 01/04/2005 Location: ? [facility] ? Receive Date: ? 01/06/2005 Provider: ?LUISA GUTIERREZ LOADING DOCK HAND Copy to: ? Specimen/Source: ?ThinPrep Pap Test, Cervix/Endocervix, processed on [employer] ThinPrep Imaging System, with manual evaluation Last Menstrual Period: ? 12/24/04 Previous Gynecologic Pathology: ? LSIL: 11/26, 01/29 ASC-US: 11/29 HPV: Positive Yes: Sq. metaplasia 02/25 Treatment History: ? Cervical biopsy: With reactive epithileal changes Colposcopy: BX 01/29 Other: ? HPVA - HPV testing requested if ASC-US on the current ThinPrep Pap test. ? SPECIMEN ADEQUACY ? Satisfactory for Evaluation - transformation zone component present GENERAL CATEGORIZATION ? Epithelial Cell Abnormality INTERPRETATION ? Squamous Cell Abnormality - Low grade squamous intraepithelial lesion (LSIL). EDUCATIONAL NOTES/RECOMMENDATI ONS ? [facility] recommends following the 2001 Consensus Guidelines for the Management of Women with Cervical Cytological Abnormalities (NANDO,2002;287:212 0-9). Management algorithms have been distributed by [facility] and are available online at www.ASCCP.org. ? Document reviewed and electronically signed by: ? LANIE MAGALLANES MD [facility] ? Report Date: ??01/14/2005 12:38 End of Report [facility] 01/04/2005 01/06/2005 Luisa Gutierrez LOADING DOCK HAND PATHOLOGY ORDERABLES [facility] [address] [place] [address] documented in this encounter Visit Diagnoses Not on filedocumented in this encounter Care Teams Pin Drafter Operator Relationship Specialty Start Date End Date Unknown, Provider, PCP - General 01/29/09 documented as of this encounter
[2023-10-08 09:56] LABS: Abs Immature Grans 0.04 10^3/uL (0.0-0.06); Absolute Basophil Count 0.04 10^3/uL (0.0-0.2); Absolute Eosinophil Count 0.18 10^3/uL (0.0-0.7); Absolute Lymphocyte Count 1.72 10^3/uL (1.2-3.4); Absolute Neutrophil Count 7.39 10^3/uL (1.2-6.7); Basophils % 0.4 %; Eosinophils % 1.8 %; HCT 38.5 % (36.0-46.0); HGB 13.3 g/dL (11.2-15.7); Immature Grans % 0.4 %; Lymphocytes % 17.3 %; MCH 30.5 pg (27.0-33.0); MCHC 34.5 % (32.0-36.0); MCV 88 fL (80-95); MPV 9.8 fL (8.0-11.0); Neutrophils % 74.1 %; Platelet Count 264 10^3/uL (130-400); RBC 4.36 10^6/uL (3.93-5.22); RDW 12.6 % (11.7-14.6); RDW-SD 41.2 fL; WBC 9.97 10^3/uL (4.4-10.8)
[2023-10-08] MEDS: Normal Saline 1,000 ML 1000 ML IV (10:06)
[2023-10-08 10:09] LABS: ALT 33 U/L (14-59); AST 17 U/L (15-37); Albumin 3.2 g/dL (3.4-5.0); Alkaline Phosphatase 87 U/L (46-116); Anion Gap 9.6 mmol/L (3-11); BUN 6 mg/dL (7-18); Bilirubin, Total 0.45 mg/dL (0.2-1.0); CO2 26.4 mmol/L (21.0-32.0); CREATININE 0.9 mg/dL (0.55-1.02); Calcium 8.3 mg/dL (8.5-10.1); Chloride 108 mmol/L (98-107); Estimated GFR 80.84 (mL/min/1.73m2); Glucose 88 mg/dL (74-106); Potassium 3.1 mmol/L (3.5-5.1); Sodium 144 mmol/L (136-145); Total Protein 6.2 g/dL (6.4-8.2)
[2023-10-08 10:11] LABS: ETHANOL BLOOD < 3.0 mg/dL (<10); HCG Qual (Serum) Negative
[2023-10-08] MEDS: Omnipaque 350 MG/ML 100 ML BTL IJ (10:24)
[2023-10-08] MEDS: Normal Saline - Diluent 50 ML VIAL IJ (10:25)
--- NOTE | 2023-10-08 10:25 | DI.CT_ITS ---
Exam(s) CT ABDOMEN PELVIS W EXAM: CT ABDOMEN PELVIS W CLINICAL HISTORY: Abdominal pain. TECHNIQUE: Imaging Protocol: Axial computed tomography images with coronal and sagittal reformatted images were created and reviewed CONTRAST MATERIAL: Intravenous: Omnipaque 350 Contrast volume:100 ml Oral: no COMPARISON: CT CT ABDOMEN PELVIS WO from 10/03/2023 FINDINGS: ABDOMEN and PELVIS: Lung Bases: No acute findings. Liver: Normal density. No suspicious mass. Gallbladder and biliary tract: No radiodense calculus. No biliary dilation. Pancreas: Normal density. No abnormal calcifications or inflammatory process. No evidence of mass. Spleen: Normal. Kidneys: Normal size, contour and axis. No radiodense stones. No obstructive uropathy. No suspicious masses seen. Adrenal glands: No masses seen. Vasculature: Abdominal aorta non-dilated. Soft tissues: Unremarkable. Bladder: No gross wall thickening. No calculi.No focal mass. Bowel: No obstruction. No bowel wall thickening. Appendix normal. Peritoneal cavity: Trace fluid, physiologic. No focal collection. No mesenteric inflammatory respons e. Bones: Unremarkable for age. Reproductive organs: Unremarkable. Lymph nodes: No pathologically enlarged lymph nodes. IMPRESSION:: No acute abnormality in the abdomen or pelvis. RADIATION DOSE DELIVERED: Total DLP DATA REPOSITORY: All CT scans at this facility are submitted to the National Radiology Data Registry (NRDR) Dose Index Registry (DIR) with the [employer] (ACR). RADIATION OPTIMIZATION: All CT scans at this facility use at least one of these dose optimization te chniques: automated exposure control; mA and/or kV adjustment per patient size (includes targeted exa ms where dose is matched to clinical indication); or iterative reconstruction.
--- NOTE | 2023-10-08 10:41 | DI.VRAD_ITS ---
PROCEDURE INFORMATION: Exam: CT Abdomen And Pelvis With Contrast Exam date and time: 10/08/2023 10:22 AM Age: 42 years old Clinical indication: Abdominal pain; Other: Abdomen pain TECHNIQUE: Imaging protocol: Computed tomography of the abdomen and pelvis with contrast. Contrast material: OMNIPAQUE; Contrast volume: 100 ml; Contrast route: INTRAVENOUS (IV); COMPARISON: CT ABDOMEN PELVIS WO 10/03/2023 2:39 PM FINDINGS: The visualized portions of the lung bases are clear. Liver: Focal fatty infiltration of the liver near the falciform ligament. No mass. Gallbladder and biliary ducts: Distended gallbladder. No calcified stones. No ductal dilation. Pancreas: Normal. No ductal dilation. Spleen: Normal. No splenomegaly. Adrenal glands: Normal. No mass. Kidneys and ureters: Normal. No hydronephrosis. Stomach and bowel: Unremarkable. No obstruction. No mucosal thickening. Appendix: A normal appendix is identified. Intraperitoneal space: There is trace free fluid in the pelvis. Vasculature: Unremarkable. No abdominal aortic aneurysm. Lymph nodes: Unremarkable. No enlarged lymph nodes. Urinary bladder: Unremarkable as visualized. Reproductive: Unremarkable as visualized. Bones/joints: Unremarkable. No acute fracture. Soft tissues: There is a small fat-containing umbilical hernia. IMPRESSION: No acute abnormality. Additional findings as described. Dictated and Authenticated by: Nevaeh Orellana MD. Ordering:MARITZA Sumner MD
[2023-10-08] MEDS: ACETAMINOPHEN 1,000 MG/100 ML BTL 400 MG IVPB (10:43)
[2023-10-08] MEDS: Famotidine 20 MG/2 ML VIAL 40 MG IVP (11:12)
[2023-10-08] MEDS: Ketorolac 15 MG/ML VIAL IVP (11:13)
[2023-10-08 11:48] VITALS: PULSE 70; TEMP 37; O2SAT 99
[2023-10-08] MEDS: Droperidol 5 MG/2 ML VIAL 1.25 MG IVP (12:12)
== END 2023-10-08 12:43 | disposition home or self-care (01) ==
PROVIDERS: Emergency Provider Emergency Medicine; PCP Student in an Organized Health Care Education/Training Program
DX: R10.33 Periumbilical pain (principal); R11.2 Nausea with vomiting, unspecified; R19.7 Diarrhea, unspecified; Z87.19 Personal history of other diseases of the digestive system; Z98.890 Other specified postprocedural states
CPT/HCPCS: 36415; 80053; 96374; 96375; 99285; 74177; 80320; 84703; 85025; 99283; J0131; J1790; J1885; J3490

== ENCOUNTER 2023-10-10 15:40 | Observation (INO) | payer OTHER, SELFPAY ==
[2023-10-10] VITALS (54 sets, daily range): BP systolic 50–123; BP diastolic 17–81; PULSE 92–154; RESP 4–34; TEMP 36.6–37.1; O2SAT 93–99
--- OUTSIDE RECORDS SUMMARY | 2023-10-10 15:51 | XMS_ITS | Encounter Summary ---
Author Organization [facility] Address [address] [place] [address] Care Team Providers Care Inside Sales Coordinator Name Role Phone Unknown, Provider Primary Care Provider [phone] Encounter Details Date Type Department Care Team (Late st Contact Info) Description 01/28/2004 Results Only [facility] - Maple conversion [address] [place] [address] Isa Bullock MD [address] [place] [address] [place] [address] Social History Tobacco Use Types Packs/Day Years [...] ? DOMITILA BOURNE ? Accession #: ? [id number] ? : ? 1980 (Age: 23) ??F [...] was reviewed at intradepartmental consultation conference. ??(Dr. Mohr)/[facility] Document reviewed and electronically signed by: Flako [...] in its entirety in one cassette. ??(Apolonia Sigala)/[facility] End of Report SARAH GERARD 01/28/2004 01/30/2004 9:1 6 EST Isa Bullock MD PATHOLOGY ORDERABLES [facility] [address] [place] [address] documented in this encounter Visit Diagnoses Not on filedocumented in this encounter Care Teams Inside Sales Coordinator Relationship Specialty Start Date End Date Unknown, Provider, PCP - General 01/29/09 documented as of this encounter
--- OUTSIDE RECORDS SUMMARY | 2023-10-10 15:51 | XMS_ITS | Encounter Summary ---
Author Organization [facility] Address [address] [place] [address] Care Team Providers Care Nfl Player Name Role Phone Unknown, Provider Primary Care Provider [phone] Encounter Details Date Type Department Care Team (Late st Contact Info) Description 12/09/2003 Results Only [facility] - Maple conversion [address] [place] [address] Chiqui Ro, MARK ANTHONY Social History Tobacco [...] cancers. [facility] Report Status Final [id number] [facility] 12/09/2003 9:23 EDT 12/24/2003 9:23 EDT Chiqui Ro NP MICROBIOLOGY - GENER AL ORDERABLES [facility] [address] [place] [address] * CYTOPATHOLOGY (12/09/2003 0:00 EDT) Pathology Report: CYTOPATHOLOGY REPORT Reports generated via electronic interface contain original data; however they are lacking the format of the original report. Caution should be taken when reading/interpreti ng unformatted reports. Name: ? DOMITILA BOURNE ? Accession #: ? [id number] : ? 1980 (Age: 23) ??F ?Collect Date: ? 12/09/2003 Location: ? [facility] ? Receive Date: ? 12/11/2003 Provider: ?CHIQUI RO GEOSPATIAL SYSTEMS INTEGRATOR Copy to: ? Specimen/Source: ?ThinPrep Pap Test, [...] cells, undetermined significance. EDUCATIONAL NOTES/RECOMMENDATI ONS ? [facility] recommends following the 2001 Consensus Guidelines for the Management of Women with Cervical Cytological Abnormalities (NANDO,2002;287:212 0-9). Management algorithms have been distributed by [facility] and are available online at www.[email or web address]. ? Document reviewed and electronically signed by: ? LANIE MAGALLANES MD [facility] ? Report Date: ??12/19/2003 12:55 End of Report [facility] 12/09/2003 12/11/2003 Chiqui Ro NP PATHOLOGY ORDERABLES [facility] [address] [place] [address] documented in this encounter Visit Diagnoses Not on filedocumented in this encounter Care Teams Nfl Player Relationship Specialty Start Date End Date Unknown, Provider, PCP - General 01/29/09 documented as of this encounter
--- OUTSIDE RECORDS SUMMARY | 2023-10-10 15:51 | XMS_ITS | Encounter Summary ---
Author Organization [facility] Address [address] [place] [address] Care Team Providers Care Hat Block Bench Hand Name Role Phone Unknown, Provider Primary Care Provider Encounter Details Date Type Department Care Team (Late st Contact Info) Description 09/07/2010 Results Only [facility] [phone] Erica Paige MD [address] [place] [address] Social History Tobacco Use Types Packs/Day Years [...] ? STEFFEN, DOMITILA ? Accession #: ? [id number] ? : ? 1980 (Age: 29) ??F [...] MD PATHOLOGY ORDERABLES [facility] [address] [place] [address] documented in this encounter Visit Diagnoses Not on filedocumented in this encounter Care Teams Hat Block Bench Hand Relationship Specialty Start Date End Date Unknown, Provider, PCP - General 01/29/09 documented as of this encounter
--- OUTSIDE RECORDS SUMMARY | 2023-10-10 15:51 | XMS_ITS | Encounter Summary ---
Author Organization [facility] Address [address] [place] [address] Care Team Providers Care Auto Clutch Specialist Name Role Phone Unknown, Provider Primary Care Provider [phone] Encounter Details Date Type Department Care Team (Late st Contact Info) Description 04/28/2006 Results Only [facility] - Maple conversion [address] [place] [address] Luisa Gutierrez, [facility] [address] [place] [phone] Social History Tobacco Use Types Packs/Day [...] cancers. [facility] Report Status Final [id number] [facility] 04/28/2006 14:5 0 EST 05/09/2006 14:18 EST Luisa Gutierrez PROMOTIONAL ADVERTISING ASSISTANT MICROBIOLOGY - GENER AL ORDERABLES [facility] [address] [place] [address] * CYTOPATHOLOGY (04/28/2006 0:00 EST) Pathology Report: CYTOPATHOLOGY REPORT Reports generated via electronic interface contain original data; however they are lacking the format of the original report. Caution should be taken when reading/interpreti ng unformatted reports. Name: ? DOMITILA BOURNE ? Accession #: ? [id number] : ? 1980 (Age: 25) ??F ?Collect Date: ? 04/28/2006 Location: ? [facility] ? Receive Date: ? 05/02/2006 Provider: ?LUISA GUTIERREZ PROMOTIONAL ADVERTISING ASSISTANT Copy to: ? Specimen/Source: ?ThinPrep Pap Test, Cervix/Endocervix, processed on [employer] ThinPrep Imaging System, with manual evaluation Last [...] undetermined significance (ASC-US). EDUCATIONAL NOTES/RECOMMENDATI ONS ? [facility] recommends following the 2001 Consensus Guidelines for the Management of Women with Cervical Cytological Abnormalities (NANDO,2002;287:212 0-9). Management algorithms have been distributed by [facility] and are available online at www.ASCCP.org. ? Document reviewed and electronically signed by: ? LANIE MAGALLANES MD [facility] ? Report Date: ??05/06/2006 18:02 End of Report SAR[facility] 04/28/2006 05/02/2006 Luisa Gutierrez PROMOTIONAL ADVERTISING ASSISTANT PATHOLOGY ORDERABLES Performing Organization Address City/State/[facility] Co de Phone Number [facility] [address] [place] [address] documented in this encounter Visit Diagnoses Not on filedocumented in this encounter Care Teams Auto Clutch Specialist Relationship Specialty Start Date End Date Unknown, Provider, PCP - General 01/29/09 documented as of this encounter
--- OUTSIDE RECORDS SUMMARY | 2023-10-10 15:51 | XMS_ITS | Encounter Summary ---
Author Organization [facility] Address [address] [place] [address] Care Team Providers Care Criminal Court Judge Name Role Phone Unknown, Provider Primary Care Provider [phone] Encounter Details Date Type Department Care Team (Latest Contact Info) Description 05/07/2019 Lab Requisition [facility] Pathology & Laboratory Medicine - [facility] [address] [place] [address] Roberto Escobar MD [address] [phone] Full incontinence of feces; Other [...] no significant diagnostic abnormality. 05/08/2019 14:50 EST [facility] at 1450 Clinical History Patient with reflux esophagitis Diffuse gastritis vs. Gastropathy Duodenum atrophy change Biopsies of duodenum and stomach taken 05/08/2019 14:50 [facility] Attestation By the signature below, the attending physician certifies that they have 1) personally conducted a gross and/or microscopic examination of the described specimen(s), and/or personally interpreted the results of laboratory testing of the described specimen(s), and 2) personally rendered or confirmed the above diagnosis. 05/08/2019 14:50 [facility] at 1450 Gross Description A. [...] C1-C3. Velvet Louis 05/08/2019 07:59 05/08/2019 14:50 [facility] Scanned Images 05/08/2019 14:50 [facility] Tissue ENTIRE COLON / Unknown 05/07/2019 8:00 EST 05/07/2019 22:11 EST Tissue specimen (specimen) STRUCTURE OF SMALL INTESTINE / Unknown 05/07/2019 8:00 EST 05/07/2019 22:11 EST Tissue specimen (specimen) COLON STRUCTURE / Unknown 05/07/2019 8:00 EST 05/07/2019 22:11 EST Roberto Escobar MD PATHOLOGY ORDERABLES [facility] [address] [place] [phone] documented in this encounter Visit Diagnoses Diagnosis Full incontinence of feces Other fecal abnormalities Alcohol abuse, uncomplicated documented in this encounter Care Teams Criminal Court Judge Relationship Specialty Start Date End Date Unknown, Provider, PCP - General 01/29/09 documented as of this encounter
--- OUTSIDE RECORDS SUMMARY | 2023-10-10 15:51 | XMS_ITS | Encounter Summary ---
Author Organization [facility] Address [address] [place] [address] Care Team Providers Care Heating Technician Name Role Phone Unknown, Provider Primary Care Provider [phone] Encounter Details Date Type Department Care Team (Late st Contact Info) Description 02/25/2014 Results Only [facility] [phone] Erica Paige MD [address] [place] [address] Social History Tobacco Use Types Packs/Day Years [...] ? DOMITILA GARCIA ? Accession #: ? [id number] ? : ? 1980 (Age: 33) ??F [...] types 16,18,31,33,35, 39,45,51,52,56,58, 59,66, and 68 by corporate director mediated amplification. Comments Document reviewed and electronically signed by: ? System Interface ? Report date: 03/01/2014 By the signature above, the attending physician certifies that he/she has personally conducted a gross and/or microscopic examination of the described specimens and rendered or confirmed the above diagnosis. End of Report [facility] 02/25/2014 02/26/2014 Erica Paige MD PATHOLOGY ORDERABLES [facility] [address] [place] [address] documented in this encounter Visit Diagnoses Not on filedocumented in this encounter Care Teams Heating Technician Relationship Specialty Start Date End Date Unknown, Provider, PCP - General 01/29/09 documented as of this encounter
--- OUTSIDE RECORDS SUMMARY | 2023-10-10 15:51 | XMS_ITS | Encounter Summary ---
Author Organization [facility] Address [address] [place] [address] Care Team Providers Care Rehabilitation Services Counselor Name Role Phone Unknown, Provider Primary Care Provider [phone] Encounter Details Date Type Department Care Team (Late st Contact Info) Description 09/23/2005 Results Only [facility] - Maple conversion [address] [place] [address] Luisa Gutierrez, [facility] [address] [place] [phone] Social History Tobacco Use Types Packs/Day [...] ? DOMITILA BOURNE ? Accession #: ? [id number] : ? 1980 (Age: 24) ??F ?Collect Date: ? 09/23/2005 Location: ? [facility] ? Receive Date: ? 09/24/2005 Provider: ?LUISA GUTIERREZ CONSTRUCTION DIRECTOR Copy to: ? Specimen/Source: ?ThinPrep Pap Test, Cervix/Endocervix, processed on [employer] ThinPrep Imaging System, with manual evaluation Last [...] cells, undetermined significance. EDUCATIONAL NOTES/RECOMMENDATI ONS ? [facility] recommends following the 2001 Consensus Guidelines for the Management of Women with Cervical Cytological Abnormalities (NANDO,2002;287:212 0-9). Management algorithms have been distributed by [facility] and are available online at www.ASCCP.org. ? Document reviewed and electronically signed by: ? MARSHA COOLEY MD ? Report Date: ??10/05/2005 14:11 End of Report [facility] 09/23/2005 09/24/2005 Luisa Gutierrez CONSTRUCTION DIRECTOR PATHOLOGY ORDERABLES [facility] [address] [place] [address] documented in this encounter Visit Diagnoses Not on filedocumented in this encounter Care Teams Rehabilitation Services Counselor Relationship Specialty Start Date End Date Unknown, Provider, PCP - General 01/29/09 documented as of this encounter
--- OUTSIDE RECORDS SUMMARY | 2023-10-10 15:51 | XMS_ITS | Encounter Summary ---
Author Organization [facility] Address [address] [place] [address] Care Team Providers Care Roll Handler Name Role Phone Unknown, Provider Primary Care Provider [phone] Encounter Details Date Type Department Care Team (Late st Contact Info) Description 09/28/2023 Lab Requisition [facility] Pathology & Laboratory Medicine - [facility] [address] [place] [address] Luis Alberto Weber MD [address] [place] [phone] Encounter for other general examination Social History [...] explore management options, if applicable. 10/02[facility]2023 16[facility] Final Diagnosis A. DUODENUM, [...] POLYP, BIOPSY: - Tubular adenoma. 10/02/2023 16:14 [facility] Attestation By the signature below, the attending physician certifies that they have 1) personally conducted a gross and/or microscopic examination of the described specimen(s), and/or personally interpreted the results of laboratory testing of the described specimen(s), and 2) personally rendered or confirmed the above diagnosis. 10/02/2023 16:14 [facility] at 1614 Clinical History Screening colonoscopy, diverticulosis; diagnostic EGD, bile refluxs (post op), gastropathy; 10/02/2023 16:14 [facility] Gross Description A. Received [...] H1. Itzel Lino 09/30/2023 7:52 10/02/2023 16:14 [facility] Performing Lab [facility] 10/02/2023 16:14 [facility] Scanned Images 10/02/2023 16:14 [facility] Tissue SPECIMEN FROM RECTUM [...] EDT Luis Alberto Weber MD PATHOLOGY ORDERABLES [facility] [address] [place] [address] documented in this encounter Visit Diagnoses Diagnosis Encounter for other general examination documented in this encounter Care Teams Roll Handler Relationship Specialty Start Date End Date Unknown, Provider, PCP - General 01/29/09 documented as of this encounter
--- OUTSIDE RECORDS SUMMARY | 2023-10-10 15:51 | XMS_ITS | Clinical Summary ---
Author Organization [facility] Address [address] [place] [address] Care Team Providers Care Materials Research Engineer Name Role Phone Unknown, Provider Primary Care Provider Encounters Date Type Department Care Team Description 09/28/2023 Lab Requisition [facility] Pathology & Laboratory Medicine - [facility] [address] [place] [address] Luis Alberto Weber MD Encounter for other [...] explore management options, if applicable. 10/02/2023 16:14 [facility] Final Diagnosis A. DUODENUM, [...] POLYP, BIOPSY: - Tubular adenoma. 10/02/2023 16:14 [facility] Attestation By the signature below, the attending physician certifies that they have 1) personally conducted a gross and/or microscopic examination of the described specimen(s), and/or personally interpreted the results of laboratory testing of the described specimen(s), and 2) personally rendered or confirmed the above diagnosis. 10/02/2023 16:14 [facility] at 1614 Clinical History Screening colonoscopy, diverticulosis; diagnostic EGD, bile refluxs (post op), gastropathy; 10/02/2023 16:14 [facility] Gross Description A. Received [...] H1. Itzel Lino 09/30/2023 7:52 10/02/2023 16:14 [facility] Performing Lab [facility] 10/02/2023 16:14 [facility] Scanned Images 10/02/2023 16:14 [facility] Tissue SPECIMEN FROM RECTUM [...] EDT Luis Alberto Weber MD PATHOLOGY ORDERABLES [facility] [address] [place] [address] from Last 3 Months Care Teams Materials Research Engineer Relationship Specialty Start Date End Date Unknown, ProviderMD PCP - General 01/29/09
--- OUTSIDE RECORDS SUMMARY | 2023-10-10 15:51 | XMS_ITS | Encounter Summary ---
Author Organization [facility] Address [address] [place] [address] Care Team Providers Care Laboratory Sampler Name Role Phone Unknown, Provider Primary Care Provider [phone] Encounter Details Date Type Department Care Team (Late st Contact Info) Description 12/08/2006 Results Only [facility] - Maple conversion [address] [place] [address] Luisa Gutierrez, [facility] [address] [place] [id number] Social History Tobacco Use Types Packs/Day [...] ? DOMITILA BOURNE ? Accession #: ? [id number] : ? 1980 (Age: 26) ??F ?Collect Date: ? 12/08/2006 Location: ? [facility] ? Receive Date: ? 12/09/2006 Provider: ?LUISA GUTIERREZ NEW CAR DRIVER Copy to: ? Specimen/Source: ?ThinPrep Pap Test, Cervix/Endocervix, processed on [employer] ThinPrep Imaging System, with manual evaluation Last [...] intraepithelial lesion (LSIL). EDUCATIONAL NOTES/RECOMMENDATI ONS ? [facility] recommends following the 2001 Consensus Guidelines for the Management of Women with Cervical Cytological Abnormalities (NANDO,2002;287:212 0-9). Management algorithms have been distributed by [facility] and are available online at www.[email or web address]. ? Document reviewed and electronically signed by: ? Tracey Santillan MD ? Report Date: ??12/19/2006 08:49 End of Report [facility] 12/08/2006 12/09/2006 Luisa Gutierrez NEW CAR DRIVER PATHOLOGY ORDERABLES [facility] [address] [place] [address] documented in this encounter Visit Diagnoses Not on filedocumented in this encounter Care Teams Laboratory Sampler Relationship Specialty Start Date End Date Unknown, Provider, PCP - General 01/29/09 documented as of this encounter
--- OUTSIDE RECORDS SUMMARY | 2023-10-10 15:51 | XMS_ITS | Encounter Summary ---
Author Organization [facility] Address [address] [place] [address] Care Team Providers Care Floral Decorator Name Role Phone Unknown, Provider Primary Care Provider [phone] Encounter Details Date Type Department Care Team (Late st Contact Info) Description 02/08/2007 Results Only [facility] - Maple conversion [address] [place] [address] Isa Bullokc MD [address] [place] [address] [place] [address] Social History Tobacco Use Types Packs/Day Years [...] ? DOMITILA BOURNE ? Accession #: ? [id number] ? : ? 1980 (Age: 26) ??F [...] presence of high-grade squamous intraepithelial lesion. (Dr. Delcid)/[facility] Document reviewed and electronically signed by: Adenike Shirley MD Report ??Date: 02/13/2007 19:07 By the signature above, the attending physician certifies that he/she has personally conducted a gross and/or microscopic examination of the described specimens and rendered or confirmed the above diagnosis. Specimen(s) Received: ? Cx bx 2:00 Clinical History: ? LSIL [id number] Gross Description: ? Received in formalin labelled Giancarlo and cx 2:00 is a 0.6 x 0.3 x 0.2 cm portion of white-soria glistening mucosa. ??Submitted intact in one cassette. (Apolonia Pena/lgk End of Report [facility] 02/08/2007 02/09/2007 9:4 6 EST Isa Bullock MD PATHOLOGY ORDERABLES [facility] [address] [place] [address] documented in this encounter Visit Diagnoses Not on filedocumented in this encounter Care Teams Floral Decorator Relationship Specialty Start Date End Date Unknown, Provider, PCP - General 01/29/09 documented as of this encounter
--- OUTSIDE RECORDS SUMMARY | 2023-10-10 15:51 | XMS_ITS | Encounter Summary ---
Author Organization [facility] Address [address] [place] [address] Care Team Providers Care Shaker Out Name Role Phone Unknown, Provider Primary Care Provider [phone] Encounter Details Date Type Department Care Team (Late st Contact Info) Description 08/23/2002 Results Only [facility] - Maple conversion [address] [place] [address] Nancy Moore CNM [facility] [place], [place] [id number] Social History Tobacco Use Types Packs/Day Years [...] ? DOMITILA BOURNE ? Accession #: ? [id number] : ? 1980 (Age: 21) ??F ?Collect [...] Moore CNM PATHOLOGY ORDERABLES Performing Organization Address City/State/[facility] Co de Phone Number [facility] [address] [place] [address] documented in this encounter Visit Diagnoses Not on filedocumented in this encounter Care Teams Shaker Out Relationship Specialty Start Date End Date Unknown, Provider, PCP - General 01/29/09 documented as of this encounter
--- OUTSIDE RECORDS SUMMARY | 2023-10-10 15:51 | XMS_ITS | Encounter Summary ---
Author Organization [facility] Address [address] [place] [address] Care Team Providers Care It Network Engineer Name Role Phone Unknown, Provider Primary Care Provider [phone] Encounter Details Date Type Department Care Team (Late st Contact Info) Description 01/04/2005 Results Only [facility] - Maple conversion [address] [place] [address] Luisa Gutierrez, [facility] [address] [place] [phone] Social History Tobacco Use Types Packs/Day [...] ? DOMITILA BOURNE ? Accession #: ? [id number] : ? 1980 (Age: 24) ??F ?Collect Date: ? 01/04/2005 Location: ? [facility] ? Receive Date: ? 01/06/2005 Provider: ?LUISA GUTIERREZ STITCH RUBBER Copy to: ? Specimen/Source: ?ThinPrep Pap Test, Cervix/Endocervix, processed on [employer] ThinPrep Imaging System, with manual evaluation Last [...] intraepithelial lesion (LSIL). EDUCATIONAL NOTES/RECOMMENDATI ONS ? [facility] recommends following the 2001 Consensus Guidelines for the Management of Women with Cervical Cytological Abnormalities (NANDO,2002;287:212 0-9). Management algorithms have been distributed by [facility] and are available online at www.[email or web address]. ? Document reviewed and electronically signed by: ? LANIE MAGALLANES MD [facility] ? Report Date: ??01/14/2005 12:38 End of Report [facility] 01/04/2005 01/06/2005 Luisa Gutierrez STITCH RUBBER PATHOLOGY ORDERABLES [facility] [address] [place] [address] documented in this encounter Visit Diagnoses Not on filedocumented in this encounter Care Teams It Network Engineer Relationship Specialty Start Date End Date Unknown, Provider, PCP - General 01/29/09 documented as of this encounter
--- OUTSIDE RECORDS SUMMARY | 2023-10-10 15:51 | XMS_ITS | Encounter Summary ---
Author Organization [facility] Address [address] [place] [address] Care Team Providers Care Safe And Vault Mechanic Name Role Phone Unknown, Provider Primary Care Provider [phone] Encounter Details Date Type Department Care Team (Late st Contact Info) Description 12/16/2011 Results Only [facility] Laboratory Services - [facility] ([facility]) [address] [place], [place] [id number] Nancy Moore [address] [id number] Social History Tobacco Use Types Packs/Day Years [...] ? DOMITILA GARCIA ? Accession #: ? [id number] : ? 1980 (Age: 31) ??F ?Collect [...] no dysplasia, 2002 pap negative, 07/03 F/up [facility], 09/05 pap negative ? SPECIMEN ADEQUACY ? Satisfactory for Evaluation - transformation zone component present GENERAL CATEGORIZATION ? Negative for Intraepithelial Lesion or Malignancy ? Document reviewed and electronically signed by: ? ADAIR Parrish(ASCP) ? Report Date: ??12/30/2011 14:35 End of Report [facility] 12/16/2011 12/20/2011 Nancy MCKEONM PATHOLOGY ORDERABLES [facility] [address] [place] [address] documented in this encounter Visit Diagnoses Not on filedocumented in this encounter Care Teams Safe And Vault Mechanic Relationship Specialty Start Date End Date Unknown, Provider, PCP - General 01/29/09 documented as of this encounter
--- OUTSIDE RECORDS SUMMARY | 2023-10-10 15:51 | XMS_ITS | Encounter Summary ---
Author Organization [facility] Address [address] [place] [address] Care Team Providers Care Handle Sewer Name Role Phone Unavailable Primary Care Provider Unavailabl e Encounter Details Date Type Department Care Team (Latest Contact Info) Description 09/23/2005 13:44 EDT Hospital Encounter [facility] - Other [address] [place] [address] Luisa Gutierrez, [facility] [address] [place] [address] Discharge Disposition: Auto Discharge Social [...] ? STEFFEN, DOMITILA ? Accession #: ? [id number] ? : ? 1980 (Age: 28) ??F ? Collect Date: ? 01/24/2009 ? Location: ? [facility] ? Receive Date: ? 01/27/2009 ? Provider: IVAN JLUES MD ? Copy to: [facility] [...] EST Ivan Jules MD PATHOLOGY ORDERABLES [facility] [address] [place] [address] * HUMAN PAPILLOMA VIRUS DNA TEST (09/23/2005 8:30 EDT) Specimen Description Cervix, ThinPrep vial [facility] Result Positive for one or more of HPV types 16,18,31,33,35 ,39,45,51,52,5 6,58,59, or 68. These high/intermedi ate risk HPV types are associated with dysplasia and some cervical cancers. [facility] Report Status Final [id number] [facility] 09/23/2005 8:30 EDT 10/06/2005 8:30 EDT Luisa Gutierrez HOUSEPERSON MICROBIOLOGY - GENER AL ORDERABLES [facility] [address] [place] [address] documented in this encounter Visit Diagnoses Not on filedocumented in this encounter
--- OUTSIDE RECORDS SUMMARY | 2023-10-10 15:51 | XMS_ITS | Encounter Summary ---
Author Organization [facility] Address [address] [place] [address] Care Team Providers Care Watermelon Harvesting Supervisor Name Role Phone Unavailable Primary Care Provider Unavailmalachi e Encounter Details Date Type Department Care Team (Latest Contact Info) Description 12/09/2003 15:41 EDT Hospital Encounter [facility] - Other [address] [place] [address] Luisa Gutierrez, [facility] [address] [facility] [place] [address] Discharge Disposition: Auto Discharge Social [...]
--- OUTSIDE RECORDS SUMMARY | 2023-10-10 15:51 | XMS_ITS | Encounter Summary ---
Author Organization [facility] Address [address] [place] [address] Care Team Providers Care Farm Agent Name Role Phone Unknown, Provider Primary Care Provider [phone] Encounter Details Date Type Department Care Team (Late st Contact Info) Description 06/18/[address] [facility] Pathology & Laboratory Medicine - [address] [address] Tash Chávez, ROUTE SALES MANAGER [address] [place] [address] Encounter for other general examination [...] Risk types, PCR Negative Negative 06/26/2020 15:22 [facility] Comment:No E6 or E7 mRNA is detected from HPV types 16,18,31,33,35,39,45,51,52,56,58,59,66, and 68 by tool keeper mediated amplification. Papanicolaou smear specimen (specimen) CERVIX UTERI STRUCTURE / Unknown 06/17/2020 14:30 EDT 06/25/2020 14:43 EDT Tash Chávez APRN MICROBIOLOGY - GE NERAL ORDERABLES [facility] [address] [place] [address] * PAP TEST (06/17/2020 14:30 EDT) Specimens A. Cervix and/or Endocervix , ThinPrep Imaging System with Manual Evaluation 06/26/2020 15:22 [facility] Specimen Adequacy Satisfactory for Evaluation - transformation zone component present 06/26/2020 15:22 [facility] General Categorization Negative for intraepithelial lesion or malignancy 06/26/2020 15:22 [facility] Descriptive Diagnosis Shift in serenity present suggestive of bacterial vaginosis. 06/26/2020 15:22 [facility] Attestation . 06/26/2020 15:22 [facility] at 1522 Clinical History See below 06/27/19 15:22 [facility] HPV The result for the Human Papillomavirus (HPV) Detection-High Risk Types is Negative. No E6 or E7 mRNA is detected from HPV types 16,18,31,33,35,39 ,45,51,52,56,58,5 9,66, and 68 by tool keeper mediated amplification.Princess ting was performed on specimen [id number] and was resulted on 06/26/2020 1514 EDT by LYUBOV, LAB INSTRUMENT RESULTS IN 06/26/2020 15:22 T [facility] Performing Lab [facility] 06/26/2020 15:22 EDT [facility] Scanned Images 06/26/2020 15:22 EDT [facility] Papanicolaou smear specimen (specimen) CERVIX UTERI STRUCTURE / Unknown 06/17/2020 14:30 EDT 06/18/2020 13:17 EDT Tash A Saira ROUTE SALES MANAGER PATHOLOGY ORDERAB LES [facility] [address] [place] [address] documented in this encounter Visit Diagnoses Diagnosis Encounter for other general examination documented in this encounter Care Teams Farm Agent Relationship Specialty Start Date End Date Unknown, Provider, PCP - General 01/29/09 documented as of this encounter
--- OUTSIDE RECORDS SUMMARY | 2023-10-10 15:51 | XMS_ITS | Referral Summary ---
Author Organization [facility] Address [address] [place] [address] Care Team Providers Care Painter Plate Name Role Phone Unknown, Provider Primary Care Provider [phone] Encounters Date Type Department Care Team Description 09/28/2023 Lab Requisition [facility] Pathology & Laboratory Medicine - [facility] [address] [place] [address] Luis Alberto Weber MD Encounter for other [...] management options, if applicable. 10/02/2023 16:14 EDT [facility] Final Diagnosis A. DUODENUM, BIOPSY: [...] M) and terminal ileum is a single sorai and brown tissue fragment (0.6 x 0.3 [...] Itzel Lino 09/30/2023 7:52 10/02/2023 16:14 T [facility] Performing Lab [facility] 10/02/2023 16:14 T [facility] Scanned Images 10/02/2023 16:14 T [facility] Tissue SPECIMEN FROM RECTUM / [...] EDT Luis Alberto Weber MD PATHOLOGY ORDERABLES [facility] [address] [place] [address] from Last 3 Months Care Teams Painter Plate Relationship Specialty Start Date End Date Unknown, Provider, PCP - General 01/29/09
[2023-10-10] MEDS: Normal Saline 1,000 ML 1000 ML IV (17:13)
--- NOTE | 2023-10-10 17:15 | DI.CT_ITS ---
Exam(s) CT ABDOMEN PELVIS W EXAM: CT ABDOMEN PELVIS W CLINICAL HISTORY: abd pain nausea vomiting, recent endo/colonoscopy. TECHNIQUE: Imaging Protocol: Axial computed tomography images with coronal and sagittal reformatted images were created and reviewed CONTRAST MATERIAL: Intravenous: Omnipaque 350 Contrast volume:100 ml Oral: / no COMPARISON: CT CT ABDOMEN PELVIS W from 10/08/2023 FINDINGS: ABDOMEN and PELVIS: Lung Bases: No acute findings. Liver: Normal density. No suspicious mass. Gallbladder and biliary tract: No radiodense calculus. No biliary dilation. Pancreas: Normal density. No abnormal calcifications or inflammatory process. No evidence of mass. Spleen: Normal. Kidneys: Normal size, contour and axis. No radiodense stones. No obstructive uropathy. No suspicious masses seen. Adrenal glands: No masses seen. Vasculature: Abdominal aorta non-dilated. Soft tissues: Unremarkable. Bladder: No gross wall thickening. No calculi.No focal mass. Bowel: No obstruction. No bowel wall thickening. Appendix normal. Peritoneal cavity: No ascites. No focal collection. No mesenteric inflammatory response. Bones: Unremarkable for age. Reproductive organs: Unremarkable. Lymph nodes: No pathologically enlarged lymph nodes. IMPRESSION:: No acute abnormality in the abdomen or pelvis. RADIATION DOSE DELIVERED: Total DLP DATA REPOSITORY: All CT scans at this facility are submitted to the National Radiology Data Registry (NRDR) Dose Index Registry (DIR) with the [employer] (ACR). RADIATION OPTIMIZATION: All CT scans at this facility use at least one of these dose optimization te chniques: automated exposure control; mA and/or kV adjustment per patient size (includes targeted exa ms where dose is matched to clinical indication); or iterative reconstruction.
--- NOTE | 2023-10-10 17:15 | RT.EKG_ITS ---
APPROVED REPORT Exam: Resting ECG Reason for Exam: Tachycardia Patient Location: E HR:93 bpm ECG Measurements Heart Rate 93 AXIS AL 158 P 75 QRSd 103 QRS -28 QT 386 T 45 QTc 481 Conclusion Sinus rhythm...normal P axis, V-rate 60- 99 sinus rhythm, normal axis, normal intervals, non ischemic
[2023-10-10 17:18] LABS: Abs Immature Grans 0.07 10^3/uL (0.0-0.06); Absolute Basophil Count 0.06 10^3/uL (0.0-0.2); Absolute Eosinophil Count 0.11 10^3/uL (0.0-0.7); Absolute Lymphocyte Count 3.03 10^3/uL (1.2-3.4); Absolute Monocyte Count 1.38 10^3/uL (0.1-0.8); Basophils % 0.4 %; Eosinophils % 0.7 %; HCT 46.7 % (36.0-46.0); HGB 16.9 g/dL (11.2-15.7); Immature Grans % 0.4 %; Lymphocytes % 19.1 %; MCH 30.5 pg (27.0-33.0); MCHC 36.2 % (32.0-36.0); MCV 84 fL (80-95); MPV 9.9 fL (8.0-11.0); Monocytes % 8.7 %; Neutrophils % 70.7 %; Platelet Count 403 10^3/uL (130-400); RBC 5.55 10^6/uL (3.93-5.22); RDW 12.3 % (11.7-14.6); RDW-SD 37.8 fL; WBC 15.85 10^3/uL (4.4-10.8)
[2023-10-10 17:22] LABS: BE (Venous) 2 mmol/L (-2-3); HCO3 (Venous) 26 mmol/L (23-28); O2 Sat (Venous) 91 %; TCO2 (Venous) 27 mmol/L (24-29); pCO2 (Venous) 37 mmHg (41-51); pH (Venous) 7.46 (7.31-7.41); pO2 (Venous) 57 mmHg
[2023-10-10 17:23] LABS: Absolute Neutrophil Count 11.21 10^3/uL (1.2-6.7)
[2023-10-10 17:26] LABS: INR 1.1 (0.9-1.1); PTT Activated 25.6 sec (23.6-32.8); Prothrombin Time 10.8 sec (9.1-11.1)
--- NOTE | 2023-10-10 17:31 | ED.GENADUL_ITS ---
Discharge Plan Disposition Patient Disposition: Admit to [facility] Condition: Stable Discharge Details Chief Complaint: Abd Prob Clinical Impression: Acute dehydration, Nausea & vomiting Primary Care Provider: Stevie Sharif ED Provider: Nicolas Arciniega Home Meds and New Rx's Prescriptions: No Action MARIJUANA PO clonidine HCl 0.1 mg tablet 0.1 mg PO TID lisdexamfetamine 40 mg capsule 40 mg PO QAM Rx Instructions: Pt takes a total of 70mg daily. 40mg in am and 30mg at noon. folic acid 800 mcg tablet 0.8 mg PO DAILY vitamin B complex Tablet 1 tab PO DAILY cholecalciferol (vitamin D3) 25 mcg (1,000 unit) tablet 50 mcg PO DAILY lisdexamfetamine [Vyvanse] 30 mg capsule 30 mg PO DAILY Patient Comments: Pt takes 30 mg at noon. hydroxyzine HCl 25 mg tablet 25 mg PO BID Patient Comments: TAKE TWO TABLETS BY MOUTH TWICE A DAY FOR ANXIETY alprazolam 2 mg tablet 2 mg PO BID PRN Patient Comments: TAKE ONE TABLET BY MOUTH TWICE A DAY eszopiclone 3 mg tablet 3 mg PO HS Patient Comments: TAKE ONE TABLET BY MOUTH IMMEDIATELY BEFORE BEDTIME famotidine 40 mg tablet 40 mg PO DAILY Qty: 30 0RF HPI General Date/Time Provider Initiated Documentation: 10/10/23 15:57 . HPI Narrative: 42-year-old female presents with recurrent nausea vomiting abdominal discomfort decreased p.o. intake over the last couple of days, multiple recent ER visits with improvement after meds and fluids and largely unremarkable workup, presents with recurrent nausea and vomiting decreased p.o. intake, does endorse history of heavy marijuana use; evidence of fat containing umbilical hernia on most recent CT, no evidence of incarceration or strangulation; patient denies history of abdominal surgery in the past; patient endorses recent unremarkable en doscopy and colonoscopy earlier this month without complication Related Data Home Medications ?Medication ?Instructions ?Recorded ?Confirmed MARIJUANA PO 12/29/21 09/15/23 cholecalciferol (vitamin D3) 25 50 mcg PO DAILY 08/12/23 10/10/23 mcg (1,000 unit) tablet folic acid 800 mcg tablet 0.8 mg PO DAILY 08/12/23 10/10/23 vitamin B complex 1 tab PO DAILY 08/12/23 10/10/23 clonidine HCl 0.1 mg tablet 0.1 mg PO TID 09/15/23 10/10/23 lisdexamfetamine 30 mg capsule 30 mg PO DAILY 09/15/23 10/10/23 (Vyvanse) lisdexamfetamine 40 mg capsule 40 mg PO QAM 09/15/23 10/10/23 hydroxyzine HCl 25 mg tablet 25 mg PO BID 10/03/23 10/10/23 alprazolam 2 mg tablet 2 mg PO BID PRN 10/06/23 10/10/23 eszopiclone 3 mg tablet 3 mg PO HS 10/06/23 10/10/23 famotidine 40 mg tablet 40 mg PO DAILY #30 tabs 10/08/23 10/10/23 Previous Rx's ?Medication ?Instructions ?Recorded famotidine 40 mg tablet 40 mg PO DAILY #30 tabs 10/08/23 Allergies Allergy/AdvReac Type Severity Reaction Status Date / Time bupropion hcl Allergy Unknown manic Uncoded 10/05/23 16:17 zolpidem tartrate Allergy Unknown Unknown Uncoded 10/05/23 16:17 General Stated Complaint: Abd Prob DEDE: 2 Course Vital Signs Vital signs: Vital Signs Temperature 36.6 C 10/10/23 16:00 Pulse 133 H 10/10/23 16:00 Respiratory Rate 14 10/10/23 16:00 Blood Pressure 108/78 10/10/23 16:00 Pulse Oximetry 98 10/10/23 16:00 Temperature 36.6 C 10/10/23 16:00 Temperature Source Skin 10/10/23 16:00 Pulse 133 H 10/10/23 16:00 Respiratory Rate 14 10/10/23 16:00 Blood Pressure 108/78 10/10/23 16:00 Blood Pressure Position Sitting 10/10/23 16:00 Pulse Oximetry 98 10/10/23 16:00 Oxygen Delivery Method Room Air 10/10/23 16:00 Oxygen Flow Rate 0 10/10/23 16:00 Pain Level 4 10/10/23 16:00 Lab/Test Results Lab/Test Results: Laboratory Tests Range/Units 10/10/23 17:06 WBC (4.4-10.8) 10^3/uL 15.85 H RBC (3.93-5.22) 10^6/uL 5.55 H Hgb (11.2-15.7) g/dL 16.9 H D Hct (36.0-46.0) % 46.7 H MCV (80-95) fL 84 D MCH (27.0-33.0) pg 30.5 MCHC (32.0-36.0) % 36.2 H RDW (11.7-14.6) % 12.3 Plt Count (130-400) 10^3/uL 403 H D MPV (8.0-11.0) fL 9.9 Immature Gran % % 0.4 Neutrophils % % 70.7 Lymphocytes % % 19.1 Monocytes % % 8.7 Eosinophils % % 0.7 Basophils % % 0.4 Nucleated RBC % (0.0-0.3) % 0.0 Absolute Neutrophils (1.2-6.7) 10^3/uL 11.21 H Absolute Lymphocytes (1.2-3.4) 10^3/uL 3.03 Absolute Monocytes (0.1-0.8) 10^3/uL 1.38 H Absolute Eosinophils (0.0-0.7) 10^3/uL 0.11 Absolute Basophils (0.0-0.2) 10^3/uL 0.06 PT (9.1-11.1) sec 10.8 INR (0.9-1.1) 1.1 APTT (23.6-32.8) sec 25.6 VBG pH (7.31-7.41) 7.46 H VBG pCO2 (41-51) mmHg 37 L VBG pO2 mmHg 57 VBG HCO3 (23-28) mmol/L 26 VBG Total CO2 (24-29) mmol/L 27 VBG O2 Saturation % 91 VBG Base Excess (-2-3) mmol/L 2 Medical Decision Making 42-year-old female presents with recurrent nausea vomiting abdominal discomfort decreased p.o. intake over the last couple of days, multiple recent ER visits with improvement after meds and fluids and largely unremarkable workup, presents with recurrent nausea and vomiting decreased p.o. intake, does endorse history of heavy marijuana use; evidence of fat containing umbilical hernia on most recent CT, no evidence of incarceration or strangulation; patient denies history of abdominal surgery in the past; patient endorses recent unremarkable endoscopy and colonoscopy earlier this month without complication Initially patient was tachycardic to the 130s, upon being moved to a room heart rate down in the 90s, no active vomiting, abdomen soft nontender nondistended, no appreciable periumbilical hernia no skin changes induration erythema or pain on examination, nontender nondistended nonperitoneal, hemodynamically stable with normal blood pressure afebrile nontoxic, discussed my goal to assess electrolytes and for any signs of infection we also discussed patient's multiple CT scans over the last couple of weeks and how I would ideally like to limit radiation exposure however patient is noted to have an increase in her white count since her last visit, must consider evolving intra-abdominal infection such as cholecystitis or appendicitis versus colitis although high clinical suspicion for cannabinoid hyperemesis with component of early dehydration. Patient had improved symptomatology after droperidol during last visit. Will readminister droperidol here in department, crystalloid fluid administration close reassessment of symptoms. Given worsening symptoms and evolving white count will reimage patient 21: [address] unremarkable. Urine negative. Consider dehydration in the setting of cannabinoid hyperemesis will admit for hydration and nausea control Quality:SDOH Health Related Social Needs: No Data to Display PFSH All Active Problems (Updated 10/10/23 @ 21:29 by Nicolas Arciniega MD) Acute dehydration (Acute) Acute periumbilical pain (Acute) Dehydration (Acute) Intestinal obstruction (Acute) Nausea & vomiting (Acute) Episode of syncope (Chronic) History of esophagogastroduodenoscopy (EGD) (Chronic ~09/2023) Superior labrum [id number] (SLAP) tear of right shoulder (Acute) Biceps tendinitis of right shoulder (Acute) IBS (irritable bowel syndrome) (Chronic) Medical History Attention deficit disorder with hyperactivity PTSD (post-traumatic stress disorder) Generalized anxiety disorder Hyperglycemia GERD (gastroesophageal reflux disease) Raynauds disease Major depression, single episode Helminth infection Elevated liver enzymes History of HPV infection Esophagitis Suicidal thoughts History of head injury 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) Tx with LEEP Surgical History History of colonoscopy (~09/2023) H/O LEEP Social History Smoking/Tobacco Use Status: Former Tobacco Use Quit Date: 07/27/23 Smoking risk assessment performed?: Yes Alcohol Intake: never Drug use: Daily Substance use type: inhalants Household members: spouse and children Housing: apartment Number of Children: 3 Sexually active: Yes Do you think of yourself as: straight/heterosexual Current gender identity: female Do you feel safe at home: No Do you feel safe in your relationship?: Yes Female Reproductive History Menstrual control method: other (partner with vasectomy) History History 6 Para 3 Hx # Term Pregnancies Multiple births Hx # Pregnancies Ectopic pregnancies AB induced Hx Number of Living Children AB spontaneous
[2023-10-10] MEDS: Droperidol 5 MG/2 ML VIAL 1.25 MG IVP ×2 (17:32→17:35)
[2023-10-10 17:45] LABS: ALT 38 U/L (14-59); AST 16 U/L (15-37); Albumin 4.2 g/dL (3.4-5.0); Alkaline Phosphatase 105 U/L (46-116); Anion Gap 10.3 mmol/L (3-11); BUN 3 mg/dL (7-18); Bilirubin, Total 0.58 mg/dL (0.2-1.0); CO2 28.7 mmol/L (21.0-32.0); Calcium 9.6 mg/dL (8.5-10.1); Chloride 99 mmol/L (98-107); Creatine Kinase 75 U/L (26-192); Estimated GFR 71.24 (mL/min/1.73m2); Glucose 112 mg/dL (74-106); Lipase 13 U/L (16-77); Magnesium 2.4 mg/dL (1.8-2.4); Sodium 138 mmol/L (136-145); TSH (W/Ref FT4) 1.74 uIU/mL (0.36-3.74); Total Protein 8.2 g/dL (6.4-8.2)
[2023-10-10 17:47] LABS: ETHANOL BLOOD < 3.0 mg/dL (<10); Potassium 2.4 mmol/L (3.5-5.1)
[2023-10-10] MEDS: Normal Saline - Diluent 50 ML VIAL IJ (17:58)
[2023-10-10] MEDS: Omnipaque 350 MG/ML 100 ML BTL 85 ML IJ (17:59)
--- NOTE | 2023-10-10 18:18 | DI.RAD_ITS ---
Exam(s) XR CHEST 2V PA LATERAL EXAM: XR CHEST 2V PA LATERAL CLINICAL HISTORY: abd pain tachycardoia TECHNIQUE: 2D digital imaging was performed. Two views. COMPARISON: CR XR CHEST 2V PA LATERAL from 07/04/2023 FINDINGS: HEART: Normal size. Aorta: Not dilated. PULMONARY VASCULATURE: Normal. MEDIASTINUM: Unremarkable. LUNGS: Clear. PLEURAL SPACE: No pleural effusion or pneumothorax. BONE:Unremarkable for age. SOFT TISSUES: Unremarkable. IMPRESSION: No acute abnormality. DATA REPOSITORY: RADIATION DOSE DELIVERED:
[2023-10-10 18:41] LABS: Bilirubin Negative (Negative); Blood Negative (Negative); Clarity Clear (Clear); Glucose Negative (Negative); Ketones Negative (Negative); Leukocyte Esterase Negative (Negative); Nitrite Negative (Negative); Urobilinogen 0.2 mg/dL (Up to 0.2); pH 6.5 (5-8)
[2023-10-10 18:56] LABS: *AMPHETAMINES SCREEN URINE Negative (Negative); *BARBITURATES SCREEN URINE Negative (Negative); *BENZODIAZEPINES SCREEN URINE Positive (Negative); Cannabinoids THC Positive (Negative); Cocaine Screen,Urine Negative (Negative); METHADONE URINE SCREEN Negative (Negative); OPIATES URINE SCREEN Negative (Negative)
[2023-10-10 18:57] LABS: Tricyclic Antidepressants Negative (Negative)
[2023-10-10] MEDS: POTASSIUM CHLORIDE 10 MEQ/100 ML BAG 100 MEQ IVINF (18:59)
[2023-10-10] MEDS: Dextrose 50%-Water 25 GM/50 ML SYR IVP (18:59)
--- NOTE | 2023-10-10 22:05 | W.PM.HP.N ---
Date of service: 10/10/23 Time of Service: 22:06 Assessment and Plan Assessment and plan (1) Cannabis hyperemesis syndrome concurrent with and due to cannabis abuse: Start date: 10/10/23 Status: Acute Assessment and plan: This is a 42-year-old lady with recent increase use of cannabis and increased stress with weight loss. 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 Her 11-year-old child also has increased problems recently with suicide attempt. She is has a supportive . She presents with recurrent emesis and not able to keep fluids down along with hypokalemia which is recurrent recently. She has stopped high-dose edible marijuana Gummies and hot showers have helped at home though she persists with nausea and fluid loss. She is slowly improving but presents with hypokalemia and was continued with fluid loss and not able to keep fluids down. She felt that she was becoming dehydrated. Her creatinine is normal but she does have tachycardia and low blood pressure. She will be IV hydrated overnight with repletion of potassium. Procardia was given one-time in the ED which was helpful with her nausea and this cannot be continued. EKG will be obtained as a baseline. If she has recurrent emesis we may try Reglan with Zofran being ineffective. Low-dose Tylenol may be helpful as well but all of these can cause QT prolongation. Patient is a full code. (2) Acute dehydration: Start date: 10/10/23 Status: Acute Assessment and plan: IV hydration with follow-up lab in the morning. Advance to clear fluid diet as tolerated. (3) Hypokalemia: Start date: 10/10/23 Status: Acute Assessment and plan: Recurrent recently with hyperemesis associate with increased cannabis use. Continue IV repletion and switch to oral repletion or return home if needed. She is not on chronic diuretics but this has been GI loss. (4) PTSD (post-traumatic stress disorder): Assessment and plan: Continue counseling and follow-up with psychiatry adjusting medical therapy. (5) Generalized anxiety disorder: Assessment and plan: Patient is on Xanax will be given at 2 mg for tonight for sleep with the patient usually on Lunesta. Continue 0.5 mg twice a day as needed. At home she is prescribed up to 2 mg twice daily as needed. Her Vyvanse will be continued for now and she is on no mood stabilizers. 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 She does have a history of ADHD and PTSD with mood disorder recently being off mood stabilizers while on Vyvanse with twice a day dosing which has helped with her concentration in school. This also has caused some weight loss. She has had persistent emesis difficulty eating since her colonoscopy prep and was hospitalized just over a week ago for IV hydration and repletion of electrolytes. She presents today with tachycardia and appeared dehydrated clinically though her creatinine was normal with a low potassium which has been recurrent now with a level at 2.4 receiving potassium repletion in the ED. Droperidol did help her nausea with Reglan IV continued as needed and baseline EKG to be obtained. Patient will continue IV hydration overnight with control of nausea and hopefully will return home on clear liquids in the morning. She is stopping the use of marijuana at home. Her does grow marijuana and as stated, she has been taking edibles with 400 mg daily now off the edibles. Showers have been helpful at home. Patient has good insight and prognosis is good for change. She is a full code. Review of Systems Narrative: 13 point review of systems otherwise unrevealing or stable. PFSH All Active Problems (Updated 10/10/23 @ 22:08 by Yakov Melton) Hypokalemia (Acute) Cannabis hyperemesis syndrome concurrent with and due to cannabis abuse (Acute) Acute dehydration (Acute) Acute periumbilical pain (Acute) Dehydration (Acute) Intestinal obstruction (Acute) Nausea & vomiting (Acute) Episode of syncope (Chronic) History of esophagogastroduodenoscopy (EGD) (Chronic ~09/2023) Superior labrum njynvasd-[id number]-[id number] (SLAP) tear of right shoulder (Acute) Biceps tendinitis of right shoulder (Acute) IBS (irritable bowel syndrome) (Chronic) Medical History Attention deficit disorder with hyperactivity PTSD (post-traumatic stress disorder) Generalized anxiety disorder Hyperglycemia GERD (gastroesophageal reflux disease) Raynauds disease Major depression, single episode Helminth infection Elevated liver enzymes History of HPV infection Esophagitis Suicidal thoughts History of head injury 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) Tx with LEEP Surgical History History of colonoscopy (~09/2023) H/O LEEP Social History Smoking/Tobacco Use Status: Former Tobacco Use Quit Date: 07/27/23 Smoking risk assessment performed?: Yes Alcohol Intake: never Drug use: Daily Substance use type: inhalants Household members: spouse and children Housing: apartment Number of Children: 3 Sexually active: Yes Do you think of yourself as: straight/heterosexual Current gender identity: female Do you feel safe at home: No Do you feel safe in your relationship?: Yes Female Reproductive History Menstrual control method: other (partner with vasectomy) History History 6 Para 3 Hx # Term Pregnancies Multiple births Hx # Pregnancies Ectopic pregnancies AB induced Hx Number of Living Children AB spontaneous Meds Allergies and Home Medications Allergies Allergy/AdvReac Type Severity Reaction Status Date / Time bupropion hcl Allergy Unknown manic Uncoded 10/05/23 16:17 zolpidem tartrate Allergy Unknown Unknown Uncoded 10/05/23 16:17 Home Medications ?Medication ?Instructions ?Recorded ?Confirmed ?Type MARIJUANA PO 12/29/21 09/15/23 History cholecalciferol (vitamin D3) 25 50 mcg PO DAILY 08/12/23 10/10/23 History mcg (1,000 unit) tablet folic acid 800 mcg tablet 0.8 mg PO DAILY 08/12/23 10/10/23 History vitamin B complex 1 tab PO DAILY 08/12/23 10/10/23 History clonidine HCl 0.1 mg tablet 0.1 mg PO TID 09/15/23 10/10/23 History lisdexamfetamine 30 mg capsule 30 mg PO DAILY 09/15/23 10/10/23 History (Vyvanse) lisdexamfetamine 40 mg capsule 40 mg PO QAM 09/15/23 10/10/23 History hydroxyzine HCl 25 mg tablet 25 mg PO BID 10/03/23 10/10/23 History alprazolam 2 mg tablet 2 mg PO BID PRN 10/06/23 10/10/23 History eszopiclone 3 mg tablet 3 mg PO HS 10/06/23 10/10/23 History famotidine 40 mg tablet 40 mg PO DAILY #30 tabs 10/08/23 10/10/23 Rx Exam Narrative Exam Narrative: General: Patient appears appropriate for age, flattened affect with good eye contact. She is alert and oriented x 3 and in no acute distress. HEENT: Normocephalic, eyes with pupils equal and reactive to light symmetrically, extraocular movement intact and sclera anicteric. Oropharynx with slightly dry mucosa and poor dentition. Neck: Supple without JVD. Back: Stooped posture without CVA tenderness. Lungs: Good aeration with clear vesicular breath sounds diffusely and no focalizing rales or rhonchi. No expiratory wheeze. Nor I:E ratio. Breast: Exam deferred. Heart: Regular rate and rhythm with no murmur or gallop patient. Abdomen: Obese contour, soft and nontender to palpation with no palpable hepatosplenomegaly. Bowel sounds positive all quadrants. Genitalia/rectal: Exam deferred. Extremities: Without clubbing, cyanosis or pitting edema. Peripheral pulses intact. Skin: Normal color, warm and dry. Neuro: Cranial nerves II through XII gross intact, no focalizing motor deficits. No tremor. Psych: Flattened affect with depressed mood. Speech is slightly pressured. No abnormal thought processes. Remote and recent memory intact. Results Imaging Imaging Studies: EXAM: CT ABDOMEN PELVIS W CLINICAL HISTORY: abd pain nausea vomiting, recent endo/colonoscopy. TECHNIQUE: Imaging Protocol: Axial computed tomography images with coronal and sagittal reformatted images were created and reviewed CONTRAST MATERIAL: Intravenous: Omnipaque 350 Contrast volume:100 ml Oral: / no COMPARISON: CT CT ABDOMEN PELVIS W from 10/08/2023 FINDINGS: ABDOMEN and PELVIS: Lung Bases: No acute findings. Liver: Normal density. No suspicious mass. Gallbladder and biliary tract: No radiodense calculus. No biliary dilation. Pancreas: Normal density. No abnormal calcifications or inflammatory process. No evidence of mass. Spleen: Normal. Kidneys: Normal size, contour and axis. No radiodense stones. No obstructive uropathy. No suspicious masses seen. Adrenal glands: No masses seen. Vasculature: Abdominal aorta non-dilated. Soft tissues: Unremarkable. Bladder: No gross wall thickening. No calculi.No focal mass. Bowel: No obstruction. No bowel wall thickening. Appendix normal. Peritoneal cavity: No ascites. No focal collection. No mesenteric inflammatory response. Bones: Unremarkable for age. Reproductive organs: Unremarkable. Lymph nodes: No pathologically enlarged lymph nodes. IMPRESSION:: No acute abnormality in the abdomen or pelvis. EXAM: XR CHEST 2V PA LATERAL CLINICAL HISTORY: abd pain tachycardoia TECHNIQUE: 2D digital imaging was performed. Two views. COMPARISON: CR XR CHEST 2V PA LATERAL from 07/04/2023 FINDINGS: HEART: Normal size. Aorta: Not dilated. PULMONARY VASCULATURE: Normal. MEDIASTINUM: Unremarkable. LUNGS: Clear. PLEURAL SPACE: No pleural effusion or pneumothorax. BONE:Unremarkable for age. SOFT TISSUES: Unremarkable. IMPRESSION: No acute abnormality. Labs 10/10/23 17:06 10/10/23 17:06 Labs: Laboratory Results - last 24 hr 10/10/23 10/10/23 17:06 18:20 WBC 15.85 H RBC 5.55 H Hgb 16.9 H D Hct 46.7 H MCV 84 D MCH 30.5 MCHC 36.2 H RDW 12.3 Plt Count 403 H D MPV 9.9 Immature Gran % 0.4 Neutrophils % 70.7 Lymphocytes % 19.1 Monocytes % 8.7 Eosinophils % 0.7 Basophils % 0.4 Nucleated RBC % 0.0 Absolute Neutrophils 11.21 H Absolute Lymphocytes 3.03 Absolute Monocytes 1.38 H Absolute Eosinophils 0.11 Absolute Basophils 0.06 PT 10.8 INR 1.1 APTT 25.6 VBG pH 7.46 H VBG pCO2 37 L VBG pO2 57 VBG HCO3 26 VBG Total CO2 27 VBG O2 Saturation 91 VBG Base Excess 2 Sodium 138 Potassium 2.4 L* Chloride 99 Carbon Dioxide 28.7 Anion Gap 10.3 BUN 3 L Creatinine 1.0 Est GFR (CKD-EPI 2020) 71.24 Glucose 112 H Calcium 9.6 Magnesium 2.4 Total Bilirubin 0.58 AST 16 ALT 38 Alkaline Phosphatase 105 Creatine Kinase 75 Total Protein 8.2 Albumin 4.2 Lipase 13 L TSH 1.74 Urine Color Yellow Urine Clarity Clear Urine pH 6.5 Ur Specific [place] 1.010 Urine Protein Negative Urine Ketones Negative Urine Blood Negative Urine Nitrite Negative Urine Bilirubin Negative Urine Urobilinogen 0.2 Ur Leukocyte Esterase Negative Urine Glucose Negative Urine Opiates Screen Negative Urine Methadone Screen Negative Ur Barbiturates Screen Negative Ur Tricyclics Screen Negative Ur Amphetamines Screen Negative U Benzodiazepines Scrn Positive A Urine Cocaine Screen Negative Ur THC Screen Positive A Ethyl Alcohol < 3.0 Last Vital Signs Temp 36.6 C 10/10/23 19:36 Pulse 108 H 10/10/23 21:46 Resp 20 10/10/23 22:00 BP 92/61 L 10/10/23 21:46 Pulse Ox 94 10/10/23 22:00 Time Spent Time spent with Patient: >75 minutes Time was spent: preparing to see the patient(eg.review tests), obtaining and/or reviewing separately otained hiistory, ordering medications,tests, procedures, indepentently interpreting results and counseling the patient
--- OUTSIDE RECORDS SUMMARY | 2023-10-10 22:43 | XMS_ITS | Referral Summary ---
Author Organization [facility] Address [address] [place] [address] Care Team Providers Care Track Liner Operator Name Role Phone Unknown, Provider Primary Care Provider [phone] Encounters Date Type Department Care Team Description 09/28/[address] [facility] Pathology & Laboratory Medicine - [facility] [address] [place] [address] Luis Alberto Weber MD Encounter for other [...] management options, if applicable. 10/02/2023 16:14 EDT [facility] Final Diagnosis A. DUODENUM, [...] POLYP, BIOPSY: - Tubular adenoma. 10/02/2023 16:14 [facility] Attestation By the signature below, the attending physician certifies that they have 1) personally conducted a gross and/or microscopic examination of the described specimen(s), and/or personally interpreted the results of laboratory testing of the described specimen(s), and 2) personally rendered or confirmed the above diagnosis. 10/02/2023 16:14 [facility] at 1614 Clinical History Screening colonoscopy, diverticulosis; diagnostic EGD, bile refluxs (post op), gastropathy; 10/02/2023 16:14 [facility] Gross Description A. Received [...] Itzel Lino 09/30/2023 7:52 10/02/2023 16:14 T [facility] Performing Lab [facility] 10/02/2023 16:14 T [facility] Scanned Images 10/02/2023 16:14 T [facility] Tissue SPECIMEN FROM RECTUM [...] EDT Luis Alberto Weber MD PATHOLOGY ORDERABLES [facility] [address] [place] [address] from Last 3 Months Care Teams Track Liner Operator Relationship Specialty Start Date End Date Unknown, Provider, PCP - General 01/29/09
--- OUTSIDE RECORDS SUMMARY | 2023-10-10 22:43 | XMS_ITS | Encounter Summary ---
Author Organization [facility] Address [address] [place] [address] Care Team Providers Care Product Manager Financial Services Name Role Phone Unknown, Provider Primary Care Provider [phone] Encounter Details Date Type Department Care Team (Late st Contact Info) Description 04/28/2006 Results Only [facility] - Maple conversion [address] [place] [address] Luisa Gutierrez, [facility] [address] [place] [phone] Social History Tobacco Use Types Packs/Day [...] cancers. [facility] Report Status Final [id number] [facility] 04/28/2006 14:5 0 EST 05/09/2006 14:18 EST Luisa Gutierrez PLANTING MACHINE CREWMAN MICROBIOLOGY - GENER AL ORDERABLES [facility] [address] [place] [address] * CYTOPATHOLOGY (04/28/2006 0:00 EST) Pathology Report: CYTOPATHOLOGY REPORT Reports generated via electronic interface contain original data; however they are lacking the format of the original report. Caution should be taken when reading/interpreti ng unformatted reports. Name: ? DOMITILA BOURNE ? Accession #: ? [id number] : ? 1980 (Age: 25) ??F ?Collect Date: ? 04/28/2006 Location: ? [facility] ? Receive Date: ? 05/02/2006 Provider: ?LUISA GUTIERREZ PLANTING MACHINE CREWMAN Copy to: ? Specimen/Source: ?ThinPrep Pap Test, Cervix/Endocervix, processed on [employer] ThinPrep Imaging System, with manual evaluation [...] undetermined significance (ASC-US). EDUCATIONAL NOTES/RECOMMENDATI ONS ? [facility] recommends following the 2001 Consensus Guidelines for the Management of Women with Cervical Cytological Abnormalities (NANDO,2002;287:212 0-9). Management algorithms have been distributed by [facility] and are available online at www.ASCCP.org. ? Document reviewed and electronically signed by: ? LANIE MAGALLANES MD [facility] ? Report Date: ??05/06/2006 18:02 End of Report [facility] 04/28/2006 05/02/2006 Luisa Gutierrez PLANTING MACHINE CREWMAN PATHOLOGY ORDERABLES Performing Organization Address City/State/[facility] Co de Phone Number [facility] [address] [place] [address] documented in this encounter Visit Diagnoses Not on filedocumented in this encounter Care Teams Product Manager Financial Services Relationship Specialty Start Date End Date Unknown, Provider, PCP - General 01/29/09 documented as of this encounter
--- OUTSIDE RECORDS SUMMARY | 2023-10-10 22:43 | XMS_ITS | Encounter Summary ---
Author Organization [facility] Address [address] [place] [address] Care Team Providers Care Under Cutter Name Role Phone Unknown, Provider Primary Care Provider [phone] Encounter Details Date Type Department Care Team (Late st Contact Info) Description 08/23/2002 Results Only [facility] - Maple conversion [address] [place] [address] Nancy Moore CNM [facility] [place], [place] [id number] Social History Tobacco Use Types Packs/Day Years [...] ? DOMITILA BOURNE ? Accession #: ? [id number] : ? 1980 (Age: 21) ??F ?Collect [...] Moore CNM PATHOLOGY ORDERABLES Performing Organization Address City/State/[facility] Co de Phone Number [facility] [address] [place] [address] documented in this encounter Visit Diagnoses Not on filedocumented in this encounter Care Teams Under Cutter Relationship Specialty Start Date End Date Unknown, Provider, PCP - General 01/29/09 documented as of this encounter
--- OUTSIDE RECORDS SUMMARY | 2023-10-10 22:43 | XMS_ITS | Encounter Summary ---
Author Organization [facility] Address [address] [place] [address] Care Team Providers Care Form Setter Metal Road Forms Name Role Phone Unknown, Provider Primary Care Provider [phone] Encounter Details Date Type Department Care Team (Latest Contact Info) Description 05/07/2019 Lab Requisition [facility] Pathology & Laboratory Medicine - [facility] [address] [place] [address] Roberto Escobar MD [address] [phone] Full incontinence of feces; Other [...] no significant diagnostic abnormality. 05/08/2019 14:50 EST [facility] at 1450 Clinical History Patient with reflux esophagitis Diffuse gastritis vs. Gastropathy Duodenum atrophy change Biopsies of duodenum and stomach taken 05/08/2019 14:50 [facility] Attestation By the signature below, the attending physician certifies that they have 1) personally conducted a gross and/or microscopic examination of the described specimen(s), and/or personally interpreted the results of laboratory testing of the described specimen(s), and 2) personally rendered or confirmed the above diagnosis. 05/08/2019 14:50 [facility] at 1450 Gross Description A. [...] C1-C3. Velvet Louis 05/08/2019 07:59 05/08/2019 14:50 [facility] Scanned Images 05/08/2019 14:50 [facility] Tissue ENTIRE COLON / Unknown 05/07/2019 8:00 EST 05/07/2019 22:11 EST Tissue specimen (specimen) STRUCTURE OF SMALL INTESTINE / Unknown 05/07/2019 8:00 EST 05/07/2019 22:11 EST Tissue specimen (specimen) COLON STRUCTURE / Unknown 05/07/2019 8:00 EST 05/07/2019 22:11 EST Roberto Escobar MD PATHOLOGY ORDERABLES [facility] [address] [place] [id number] documented in this encounter Visit Diagnoses Diagnosis Full incontinence of feces Other fecal abnormalities Alcohol abuse, uncomplicated documented in this encounter Care Teams Form Setter Metal Road Forms Relationship Specialty Start Date End Date Unknown, Provider, PCP - General 01/29/09 documented as of this encounter
--- OUTSIDE RECORDS SUMMARY | 2023-10-10 22:43 | XMS_ITS | Encounter Summary ---
Author Organization [facility] Address [address] [place] [address] Care Team Providers Care Packing Machine Pilot Can Router Name Role Phone Unavailable Primary Care Provider Unavailabl e Encounter Details Date Type Department Care Team (Latest Contact Info) Description 09/23/2005 13:44 EDT Hospital Encounter [facility] - Other [address] [place] [address] Luisa Gutierrez, [facility] [address] [place] [address] Discharge Disposition: Auto Discharge Social [...] ? STEFFEN, DOMITILA ? Accession #: ? [id number] ? : ? 1980 (Age: 28) ??F [...] 06 EST Ivan Jules MD PATHOLOGY ORDERABLES [facility] [address] [place] [address] * HUMAN PAPILLOMA VIRUS DNA TEST (09/23/2005 8:30 EDT) Specimen Description Cervix, ThinPrep vial [facility] Result Positive for one or more of HPV types 16,18,31,33,35 ,39,45,51,52,5 6,58,59, or 68. These high/intermedi ate risk HPV types are associated with dysplasia and some cervical cancers. [facility] Report Status Final [id number] [facility] 09/23/2005 8:30 EDT 10/06/2005 8:30 EDT Luisa Gutierrez CARDIOLOGY TECH MICROBIOLOGY - GENER AL ORDERABLES [facility] [address] [place] [address] documented in this encounter Visit Diagnoses Not on filedocumented in this encounter
--- OUTSIDE RECORDS SUMMARY | 2023-10-10 22:43 | XMS_ITS | Encounter Summary ---
Author Organization [facility] Address [address] [place] [address] Care Team Providers Care Journeyman Electrician Pv Installer Name Role Phone Unknown, Provider Primary Care Provider [phone] Encounter Details Date Type Department Care Team (Late st Contact Info) Description 12/08/2006 Results Only [facility] - Maple conversion [address] [place] [address] Luisa Gutierrez, [facility] [address] [place] [phone] Social History Tobacco Use Types Packs/Day [...] ? DOMITILA BOURNE ? Accession #: ? [id number] : ? 1980 (Age: 26) ??F ?Collect Date: ? 12/08/2006 Location: ? [facility] ? Receive Date: ? 12/09/2006 Provider: ?LUISA GUTIERREZ VOICE DATA COMMUNICATIONS ENGINEER Copy to: ? Specimen/Source: ?ThinPrep Pap Test, Cervix/Endocervix, processed on [employer] ThinPrep Imaging System, with manual evaluation [...] intraepithelial lesion (LSIL). EDUCATIONAL NOTES/RECOMMENDATI ONS ? [facility] recommends following the 2001 Consensus Guidelines for the Management of Women with Cervical Cytological Abnormalities (NANDO,2002;287:212 0-9). Management algorithms have been distributed by [facility] and are available online at www.ASCCP.org. ? Document reviewed and electronically signed by: ? Tracey Santillan MD ? Report Date: ??12/19/2006 08:49 End of Report [facility] 12/08/2006 12/09/2006 Luisa Gutierrez VOICE DATA COMMUNICATIONS ENGINEER PATHOLOGY ORDERABLES [facility] [address] [place] [address] documented in this encounter Visit Diagnoses Not on filedocumented in this encounter Care Teams Journeyman Electrician Pv Installer Relationship Specialty Start Date End Date Unknown, Provider, PCP - General 01/29/09 documented as of this encounter
--- OUTSIDE RECORDS SUMMARY | 2023-10-10 22:43 | XMS_ITS | Encounter Summary ---
Author Organization [facility] Address [address] [place] [address] Care Team Providers Care Resident Director Name Role Phone Unknown, Provider Primary Care Provider [phone] Encounter Details Date Type Department Care Team (Late st Contact Info) Description 02/08/2007 Results Only [facility] - Maple conversion [address] [place] [address] Isa Bullock MD [address] [place] [address] [place] [address] Social History Tobacco Use Types Packs/Day Years [...] ? DOMITILA BOURNE ? Accession #: ? [id number] ? : ? 1980 (Age: 26) ??F [...] presence of high-grade squamous intraepithelial lesion. (Dr. Delcid)/[facility] Document reviewed and electronically signed by: Adenike Shirley MD Report ??Date: 02/13/2007 19:07 By the signature above, the attending physician certifies that he/she has personally conducted a gross and/or microscopic examination of the described specimens and rendered or confirmed the above diagnosis. Specimen(s) Received: ? Cx bx 2:00 Clinical History: ? LSIL [id number] Gross Description: ? Received in formalin labelled Giancarlo and cx 2:00 is a 0.6 x 0.3 x 0.2 cm portion of white-soria glistening mucosa. ??Submitted intact in one cassette. (Apolonia Pena/lgk End of Report [facility] 02/08/2007 02/09/2007 9:4 6 EST Isa Bullock MD PATHOLOGY ORDERABLES [facility] [address] [place] [address] documented in this encounter Visit Diagnoses Not on filedocumented in this encounter Care Teams Resident Director Relationship Specialty Start Date End Date Unknown, Provider, PCP - General 01/29/09 documented as of this encounter
--- OUTSIDE RECORDS SUMMARY | 2023-10-10 22:43 | XMS_ITS | Encounter Summary ---
Author Organization [facility] Address [address] [place] [address] Care Team Providers Care Fixed Income Manager Name Role Phone Unknown, Provider Primary Care Provider [phone] Encounter Details Date Type Department Care Team (Late st Contact Info) Description 01/28/2004 Results Only [facility] - Maple conversion [address] [place] [address] Isa Bullock MD [address] [place] [address] [place] [address] Social History Tobacco Use Types Packs/Day Years [...] ? DOMITILA BOURNE ? Accession #: ? [id number] ? : ? 1980 (Age: 23) ??F [...] was reviewed at intradepartmental consultation conference. ??(Dr. Mohr)/[facility] Document reviewed and electronically signed [...] in its entirety in one cassette. ??(Apolonia Sigala)/[facility] End of Report [facility] 01/28/2004 01/30/2004 9:1 6 EST Isa Bullock MD PATHOLOGY ORDERABLES [facility] [address] [place] [address] documented in this encounter Visit Diagnoses Not on filedocumented in this encounter Care Teams Fixed Income Manager Relationship Specialty Start Date End Date Unknown, Provider, PCP - General 01/29/09 documented as of this encounter
--- OUTSIDE RECORDS SUMMARY | 2023-10-10 22:43 | XMS_ITS | Encounter Summary ---
Author Organization [facility] Address [address] [place] [address] Care Team Providers Care Linux Architect Name Role Phone Unknown, Provider Primary Care Provider [phone] Encounter Details Date Type Department Care Team (Late st Contact Info) Description 12/09/2003 Results Only [facility] - Maple conversion [address] [place] [address] Chiqui Ro, MARK ANTHONY Social History Tobacco [...] cancers. [facility] Report Status Final [id number] [facility] 12/09/2003 9:23 EDT 12/24/2003 9:23 EDT Chiqui Ro NP MICROBIOLOGY - GENER AL ORDERABLES [facility] [address] [place] [address] * CYTOPATHOLOGY (12/09/2003 0:00 EDT) Pathology Report: CYTOPATHOLOGY REPORT Reports generated via electronic interface contain original data; however they are lacking the format of the original report. Caution should be taken when reading/interpreti ng unformatted reports. Name: ? DOMITILA BOURNE ? Accession #: ? [id number] : ? 1980 (Age: 23) ??F ?Collect Date: ? 12/09/2003 Location: ? [facility] ? Receive Date: ? 12/11/2003 Provider: ?CHIQUI RO COMPUTER SYSTEMS MANAGER Copy to: ? Specimen/Source: ?ThinPrep Pap Test, [...] cells, undetermined significance. EDUCATIONAL NOTES/RECOMMENDATI ONS ? [facility] recommends following the 2001 Consensus Guidelines for the Management of Women with Cervical Cytological Abnormalities (NANDO,2002;287:212 0-9). Management algorithms have been distributed by [facility] and are available online at www.ASCCP.org. ? Document reviewed and electronically signed by: ? LANIE MAGALLANES MD [facility] ? Report Date: ??12/19/2003 12:55 End of Report [facility] 12/09/2003 12/11/2003 Chiqui Ro NP PATHOLOGY ORDERABLES [facility] [address] [place] [address] documented in this encounter Visit Diagnoses Not on filedocumented in this encounter Care Teams Linux Architect Relationship Specialty Start Date End Date Unknown, Provider, PCP - General 01/29/09 documented as of this encounter
--- OUTSIDE RECORDS SUMMARY | 2023-10-10 22:43 | XMS_ITS | Encounter Summary ---
Author Organization [facility] Address [address] [place] [address] Care Team Providers Care Mechanical Supervisor Name Role Phone Unavailable Primary Care Provider Unavailmalachi e Encounter Details Date Type Department Care Team (Latest Contact Info) Description 12/09/2003 15:41 EDT Hospital Encounter [facility] - Other [address] [place] [address] Luisa Gutierrez, [facility] [address] [place] [address] Discharge Disposition: Auto Discharge Social [...]
--- OUTSIDE RECORDS SUMMARY | 2023-10-10 22:43 | XMS_ITS | Encounter Summary ---
Author Organization [facility] Address [address] [place] [address] Care Team Providers Care Tableau Lead Name Role Phone Unknown, Provider Primary Care Provider [phone] Encounter Details Date Type Department Care Team (Late st Contact Info) Description 09/23/2005 Results Only [facility] - Maple conversion [address] [place] [address] Luisa Gutierrez, [facility] [address] [place] [phone] Social History Tobacco Use Types Packs/Day [...] ? DOMITILA BOURNE ? Accession #: ? [id number] : ? 1980 (Age: 24) ??F ?Collect Date: ? 09/23/2005 Location: ? [facility] ? Receive Date: ? 09/24/2005 Provider: ?LUISA GUTIERREZ HEAD ATHLETIC TRAINER/STRENGTH COACH Copy to: ? Specimen/Source: ?ThinPrep Pap Test, Cervix/Endocervix, processed on [employer] ThinPrep Imaging System, with manual evaluation Last [...] [facility] 09/23/2005 09/24/2005 Luisa Gutierrez HEAD ATHLETIC TRAINER/STRENGTH COACH PATHOLOGY ORDERABLES [facility] [address] [place] [address] documented in this encounter Visit Diagnoses Not on filedocumented in this encounter Care Teams Tableau Lead Relationship Specialty Start Date End Date Unknown, Provider, PCP - General 01/29/09 documented as of this encounter
--- OUTSIDE RECORDS SUMMARY | 2023-10-10 22:43 | XMS_ITS | Clinical Summary ---
Author Organization [facility] Address [address] [place] [address] Care Team Providers Care Dean Of Faculty Name Role Phone Unknown, Provider Primary Care Provider Encounters Date Type Department Care Team Description 09/28/2023 Lab Requisition [facility] Pathology & Laboratory Medicine - [facility] [address] [place] [address] Luis Alberto Weber MD Encounter for other [...] explore management options, if applicable. 10/02/2023 16:14 [facility] Final Diagnosis A. DUODENUM, BIOPSY: [...] POLYP, BIOPSY: - Tubular adenoma. 10/02/2023 16:14 [facility] Attestation By the signature below, the attending physician certifies that they have 1) personally conducted a gross and/or microscopic examination of the described specimen(s), and/or personally interpreted the results of laboratory testing of the described specimen(s), and 2) personally rendered or confirmed the above diagnosis. 10/02/2023 16:14 [facility] at 1614 Clinical History Screening colonoscopy, diverticulosis; diagnostic EGD, bile refluxs (post op), gastropathy; 10/02/2023 16:14 [facility] Gross Description A. Received in [...] H1. Itzel Lino 09/30/2023 7:52 10/02/2023 16:14 [facility] Performing Lab [facility] 10/02/2023 16:14 [facility] Scanned Images 10/02/2023 16:14 [facility] Tissue SPECIMEN FROM RECTUM / [...] EDT Luis Alberto Weber MD PATHOLOGY ORDERABLES [facility] [address] [place] [address] from Last 3 Months Care Teams Dean Of Faculty Relationship Specialty Start Date End Date Unknown, ProviderMD PCP - General 01/29/09
--- OUTSIDE RECORDS SUMMARY | 2023-10-10 22:43 | XMS_ITS | Encounter Summary ---
Author Organization [facility] Address [address] [place] [address] Care Team Providers Care Float Phlebotomist Name Role Phone Unknown, Provider Primary Care Provider Encounter Details Date Type Department Care Team (Late st Contact Info) Description 09/07/2010 Results Only [facility] [phone] Erica Paige MD [address] [place] [address] Social History Tobacco Use Types Packs/Day Years [...] ? STEFFEN, DOMITILA ? Accession #: ? [id number] ? : ? 1980 (Age: 29) ??F [...] MD PATHOLOGY ORDERABLES [facility] [address] [place] [address] documented in this encounter Visit Diagnoses Not on filedocumented in this encounter Care Teams Float Phlebotomist Relationship Specialty Start Date End Date Unknown, Provider, PCP - General 01/29/09 documented as of this encounter
--- OUTSIDE RECORDS SUMMARY | 2023-10-10 22:43 | XMS_ITS | Encounter Summary ---
Author Organization [facility] Address [address] [place] [address] Care Team Providers Care Transfusion Aide Name Role Phone Unknown, Provider Primary Care Provider [phone] Encounter Details Date Type Department Care Team (Late st Contact Info) Description 09/28/2023 Lab Requisition [facility] Pathology & Laboratory Medicine - [facility] [address] [place] [address] Luis Alberto Weber MD [address] [place] [phone] Encounter for other general examination Social History [...] explore management options, if applicable. [facility] Final Diagnosis A. DUODENUM, BIOPSY: [...] POLYP, BIOPSY: - Tubular adenoma. 10/02/2023 16:14 [facility] Attestation By the signature below, the attending physician certifies that they have 1) personally conducted a gross and/or microscopic examination of the described specimen(s), and/or personally interpreted the results of laboratory testing of the described specimen(s), and 2) personally rendered or confirmed the above diagnosis. 10/02/2023 16:14 [facility] at 1614 Clinical History Screening colonoscopy, diverticulosis; diagnostic EGD, bile refluxs (post op), gastropathy; 10/02/2023 16:14 [facility] Gross Description A. Received in [...] H1. Itzel Lino 09/30/2023 7:52 10/02/2023 16:14 [facility] Performing Lab [facility] 10/02/2023 16:14 [facility] Scanned Images 10/02/2023 16:14 [facility] Tissue SPECIMEN FROM RECTUM / [...] EDT Luis Alberto Weber MD PATHOLOGY ORDERABLES [facility] [address] [place] [address] documented in this encounter Visit Diagnoses Diagnosis Encounter for other general examination documented in this encounter Care Teams Transfusion Aide Relationship Specialty Start Date End Date Unknown, Provider, PCP - General 01/29/09 documented as of this encounter
--- OUTSIDE RECORDS SUMMARY | 2023-10-10 22:43 | XMS_ITS | Encounter Summary ---
Author Organization [facility] Address [address] [place] [address] Care Team Providers Care Business Services Assistant Name Role Phone Unknown, Provider Primary Care Provider [phone] Encounter Details Date Type Department Care Team (Late st Contact Info) Description 02/25/2014 Results Only [facility] [phone] Erica Paige MD [address] [place] [address] Social History Tobacco Use Types Packs/Day Years [...] ? DOMITILA GARCIA ? Accession #: ? [id number] ? : ? 1980 (Age: 33) ??F [...] types 16,18,31,33,35, 39,45,51,52,56,58, 59,66, and 68 by route contractor mediated amplification. Comments Document reviewed and electronically signed by: ? System Interface ? Report date: 03/01/2014 By the signature above, the attending physician certifies that he/she has personally conducted a gross and/or microscopic examination of the described specimens and rendered or confirmed the above diagnosis. End of Report [facility] 02/25/2014 02/26/2014 Erica Paige MD PATHOLOGY ORDERABLES [facility] [address] [place] [address] documented in this encounter Visit Diagnoses Not on filedocumented in this encounter Care Teams Business Services Assistant Relationship Specialty Start Date End Date Unknown, Provider, PCP - General 01/29/09 documented as of this encounter
--- OUTSIDE RECORDS SUMMARY | 2023-10-10 22:43 | XMS_ITS | Encounter Summary ---
Author Organization [facility] Address [address] [place] [address] Care Team Providers Care Dog Sitter Name Role Phone Unknown, Provider Primary Care Provider [phone] Encounter Details Date Type Department Care Team (Late st Contact Info) Description 01/04/2005 Results Only [facility] - Maple conversion [address] [place] [address] Luisa Gutierrez, [facility] [address] [place] [id number] Social History Tobacco Use Types Packs/Day [...] ? DOMITILA BOURNE ? Accession #: ? [id number] : ? 1980 (Age: 24) ??F ?Collect Date: ? 01/04/2005 Location: ? [facility] ? Receive Date: ? 01/06/2005 Provider: ?LUISA GUTIERREZ MATH AND SCIENCE DIVISION CHAIR Copy to: ? Specimen/Source: ?ThinPrep Pap Test, Cervix/Endocervix, processed on [employer] ThinPrep Imaging System, with manual evaluation [...] (LSIL). EDUCATIONAL NOTES/RECOMMENDATI ONS ? [facility] recommends following the 2001 Consensus Guidelines for the Management of Women with Cervical Cytological Abnormalities (NANDO,2002;287:212 0-9). Management algorithms have been distributed by [facility] and are available online at www.ASCCP.org. ? Document reviewed and electronically signed by: ? LANIE MAGALLANES MD [facility] ? Report Date: ??01/14/2005 12:38 End of Report SARAH GERRAD 01/04/2005 01/06/2005 Luisa Gutierrez MATH AND SCIENCE DIVISION CHAIR PATHOLOGY ORDERABLES SARAH GERARD [address] [place] [address] documented in this encounter Visit Diagnoses Not on filedocumented in this encounter Care Teams Dog Sitter Relationship Specialty Start Date End Date Unknown, Provider, PCP - General 01/29/09 documented as of this encounter
--- OUTSIDE RECORDS SUMMARY | 2023-10-10 22:43 | XMS_ITS | Encounter Summary ---
Author Organization [facility] Address [address] [place] [address] Care Team Providers Care Jury Consultant Name Role Phone Unknown, Provider Primary Care Provider [phone] Encounter Details Date Type Department Care Team (Late st Contact Info) Description 12/16/2011 Results Only [facility] Laboratory Services - [facility] [place] [place] [address] [place], [place] [id number] Nancy Moore [address] [id number] Social History Tobacco Use Types Packs/Day Years [...] ? DOMITILA GARCIA ? Accession #: ? [id number] : ? 1980 (Age: 31) ??F ?Collect [...] no dysplasia, 2002 pap negative, 07/03 [place] [facility] [place] ? SPECIMEN ADEQUACY ? Satisfactory for Evaluation - transformation zone component present GENERAL CATEGORIZATION ? Negative for Intraepithelial Lesion or Malignancy ? Document reviewed and electronically signed by: ? ADAIR Parrish(ASCP) ? Report Date: ??12/30/2011 14:35 End of Report SARAH GERARD 12/16/2011 12/20/2011 Nancy MCKEONM PATHOLOGY ORDERABLES SARAH GERARD [address] [place] [address] documented in this encounter Visit Diagnoses Not on filedocumented in this encounter Care Teams Jury Consultant Relationship Specialty Start Date End Date Unknown, Provider, PCP - General 01/29/09 documented as of this encounter
--- OUTSIDE RECORDS SUMMARY | 2023-10-10 22:43 | XMS_ITS | Encounter Summary ---
Author Organization [facility] Address [address] [place] [address] Care Team Providers Care Cna Name Role Phone Unknown, Provider Primary Care Provider [phone] Encounter Details Date Type Department Care Team (Late st Contact Info) Description 06/18/2020 Lab Requisition [facility] Pathology & Laboratory Medicine - [address] [address] Tash Chávez, ENVIRONMENTAL LABORATORY TECHNICIAN [address] [place] [address] Encounter for other general examination [...] Risk types, PCR Negative Negative 06/26/2020 15:22 [facility] Comment:No E6 or E7 mRNA is detected from HPV types 16,18,31,33,35,39,45,51,52,56,58,59,66, and 68 by upholstery estimator mediated amplification. Papanicolaou smear specimen (specimen) CERVIX UTERI STRUCTURE / Unknown 06/17/2020 14:30 EDT 06/25/2020 14:43 EDT Tash Chávez APRN MICROBIOLOGY - GE NERAL ORDERABLES [facility] [address] [place] [address] * PAP TEST (06/17/2020 14:30 EDT) Specimens A. Cervix and/or Endocervix , ThinPrep Imaging System with Manual Evaluation 06/26/2020 15:22 [facility] Specimen Adequacy Satisfactory for Evaluation - transformation zone component present 06/26/2020 15:22 [facility] General Categorization Negative for intraepithelial lesion or malignancy 06/26/2020 15:22 [facility] Descriptive Diagnosis Shift in serenity present suggestive of bacterial vaginosis. 06/26/2020 15:22 [facility] Attestation . 06/26/2020 15:22 [facility] at 1522 Clinical History See below 06/27/19 15:22 [facility] HPV The result for the Human Papillomavirus (HPV) Detection-High Risk Types is Negative. No E6 or E7 mRNA is detected from HPV types 16,18,31,33,35,39 ,45,51,52,56,58,5 9,66, and 68 by upholstery estimator mediated amplification.Princess ting was performed on specimen [id number] and was resulted on 06/26/2020 1514 EDT by LYUBOV, LAB INSTRUMENT RESULTS IN 06/26/2020 15:22 T [facility] Performing Lab [facility] 06/26/2020 15:22 EDT [facility] Scanned Images 06/26/2020 15:22 EDT [facility] Papanicolaou smear specimen (specimen) CERVIX UTERI STRUCTURE / Unknown 06/17/2020 14:30 EDT 06/18/2020 13:17 EDT Tash A Saira ENVIRONMENTAL LABORATORY TECHNICIAN PATHOLOGY ORDERAB LES [facility] [address] [place] [address] documented in this encounter Visit Diagnoses Diagnosis Encounter for other general examination documented in this encounter Care Teams Cna Relationship Specialty Start Date End Date Unknown, Provider, PCP - General 01/29/09 documented as of this encounter
--- NOTE | 2023-10-10 23:30 | RT.EKG_ITS ---
APPROVED REPORT Exam: Resting ECG Reason for Exam: Risk QT prolongation with use of droperidol Patient Location: I HR:99 bpm ECG Measurements Heart Rate 99 AXIS MI 144 P 26 QRSd 100 QRS -14 QT 375 T 34 QTc 482 Conclusion Sinus rhythm...normal P axis, V-rate 50- 99 Normal Electrocardiogram
[2023-10-11] MEDS: Lactated Ringers 1,000 ML 125 ML IV (00:06)
[2023-10-11] MEDS: Metoclopramide 10 MG/2 ML VIAL IVP ×3 (00:27→17:50)
[2023-10-11] MEDS: ALPRAZolam 0.5 MG TAB 2 MG PO ×3 (01:05→20:40)
[2023-10-11] MEDS: cloNIDine 0.1 MG TAB PO ×4 (01:05→20:41)
--- NOTE | 2023-10-11 01:53 | W.PC.ACHO ---
Registration Status: Primary Language: Preferred Language: ED Information & Data Chief Complaint Abd Prob 10/10/23 19:36 Chief Complaint Abd Prob 10/10/23 17:37 Triage Note Pt arrives to ED c/o N/V/D 10/10/23 16:00 and abd pain. Pt seen recently for the same issues . Pt was intaking a substantial amount of THC prior to her colonoscopy/ endoscopy on 09/28/23. 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) (Last Reviewed 10/10/23 @ 22:06 by Yakov Melton) History of colonoscopy (~09/2023) H/O LEEP Most Recent Vital Signs Temperature 37.1 C 10/10/23 22:46 Temperature Source Tympanic 10/10/23 22:46 Pulse 112 H 10/10/23 22:46 Pulse 102 H 10/10/23 22:31 Respiratory Rate 18 10/10/23 22:46 Respiratory Effort Normal, Non-Labored 10/10/23 22:46 Respiratory Depth Normal 10/10/23 22:46 Respiratory Pattern Normal 10/10/23 22:46 Blood Pressure 106/78 10/10/23 22:46 Blood Pressure Mean 77 10/10/23 22:31 Blood Pressure Position Sitting 10/10/23 19:36 Pulse Oximetry 97 10/10/23 22:46 Oxygen Delivery Method Room Air 10/10/23 22:46 Oxygen Flow Rate 0 10/10/23 22:46 Pain Level 0 10/10/23 22:46 Allergies bupropion hcl Allergy (Unknown, Uncoded 10/05/23 16:17) manic zolpidem tartrate Allergy (Unknown, Uncoded 10/05/23 16:17) Unknown Active Medications Generic Name Dose Route Start Last Admin Trade Name Freq PRN Reason Stop Dose Admin Clonidine 0.1 mg 10/11/23 00:00 10/11/23 01:05 Clonidine 0.1 Mg Tab PO 0.1 mg TID IZZY Administration Ringer's Solution 1,000 mls @ 125 mls/hr 10/10/23 22:15 10/11/23 00:06 IV 125 mls/hr INFUSION IZZY Administration Iohexol 85 ml 10/10/23 18:00 10/10/23 17:59 Omnipaque 350 Mg/Ml 100 Ml Btl IJ 11/09/23 23:59 85 ml DIRECTED IZZY Administration Metoclopramide HCl 10 mg 10/10/23 23:52 10/11/23 00:27 Metoclopramide 10 Mg/2 Ml Vial IVP 10 mg Q6H PRN PRN Administration Sodium Chloride 50 ml 10/10/23 18:00 10/10/23 17:58 Normal Saline - Diluent 50 Ml Vial IJ 50 ml .FOR DI USE IZZY Administration IV IV Catheter Type [Right Saline Lock Antecubital] IV Catheter Gauge [Right 20 Antecubital] Diet Orders Category Date Time Status Regular/Normal [DIET] Nutrition 10/11/23 Breakfast Active Diagnostics 10/11/23 10/10/23 10/10/23 Range/Units 05:35 18:20 17:06 WBC Pending 15.85 H (4.4-10.8) 10^3/uL RBC Pending 5.55 H (3.93-5.22) 10^6/uL Hgb Pending 16.9 H D (11.2-15.7) g/dL Hct Pending 46.7 H (36.0-46.0) % MCV Pending 84 D (80-95) fL MCH Pending 30.5 (27.0-33.0) pg MCHC Pending 36.2 H (32.0-36.0) % RDW Pending 12.3 (11.7-14.6) % Plt Count Pending 403 H D (130-400) 10^3/uL MPV Pending 9.9 (8.0-11.0) fL Immature Gran % 0.4 % Neutrophils % 70.7 % Lymphocytes % 19.1 % Monocytes % 8.7 % Eosinophils % 0.7 % Basophils % 0.4 % Nucleated RBC % 0.0 (0.0-0.3) % Absolute Neutrophils 11.21 H (1.2-6.7) 10^3/uL Absolute Lymphocytes 3.03 (1.2-3.4) 10^3/uL Absolute Monocytes 1.38 H (0.1-0.8) 10^3/uL Absolute Eosinophils 0.11 (0.0-0.7) 10^3/uL Absolute Basophils 0.06 (0.0-0.2) 10^3/uL PT 10.8 (9.1-11.1) sec INR 1.1 (0.9-1.1) APTT 25.6 (23.6-32.8) sec VBG pH 7.46 H (7.31-7.41) VBG pCO2 37 L (41-51) mmHg VBG pO2 57 mmHg VBG HCO3 26 (23-28) mmol/L VBG Total CO2 27 (24-29) mmol/L VBG O2 Saturation 91 % VBG Base Excess 2 (-2-3) mmol/L Sodium Pending 138 (136-145) mmol/L Potassium Pending 2.4 L* (3.5-5.1) mmol/L Chloride Pending 99 (98-107) mmol/L Carbon Dioxide Pending 28.7 (21.0-32.0) mmol/L Anion Gap Pending 10.3 (3-11) mmol/L BUN Pending 3 L (7-18) mg/dL Creatinine Pending 1.0 (0.55-1.02) mg/dL Est GFR (CKD-EPI 2020) Pending 71.24 (mL/min/1.73m2) Glucose Pending 112 H (74-106) mg/dL Calcium Pending 9.6 (8.5-10.1) mg/dL Magnesium Pending 2.4 (1.8-2.4) mg/dL Total Bilirubin Pending 0.58 (0.2-1.0) mg/dL AST Pending 16 (15-37) U/L ALT Pending 38 (14-59) U/L Alkaline Phosphatase Pending 105 (46-116) U/L Creatine Kinase 75 (26-192) U/L Total Protein Pending 8.2 (6.4-8.2) g/dL Albumin Pending 4.2 (3.4-5.0) g/dL Lipase 13 L (16-77) U/L TSH 1.74 (0.36-3.74) uIU/mL Urine Color Yellow (Yellow) Urine Clarity Clear (Clear) Urine pH 6.5 (5-8) Ur Specific [place] 1.010 (1.005-1.025) Urine Protein Negative (Neg-Trace) mg/dL Urine Ketones Negative (Negative) mg/dL Urine Blood Negative (Negative) Urine Nitrite Negative (Negative) Urine Bilirubin Negative (Negative) Urine Urobilinogen 0.2 (Up to 0.2) mg/dL Ur Leukocyte Esterase Negative (Negative) Urine Glucose Negative (Negative) mg/dL Urine Opiates Screen Negative (Negative) Urine Methadone Screen Negative (Negative) Ur Barbiturates Screen Negative (Negative) Ur Tricyclics Screen Negative (Negative) Ur Amphetamines Screen Negative (Negative) U Benzodiazepines Scrn Positive A (Negative) Urine Cocaine Screen Negative (Negative) Ur THC Screen Positive A (Negative) Ethyl Alcohol < 3.0 (<10) mg/dL Gtavz-hz-Zute Documentation Fingerstick Glucose Start: 10/10/23 16:55 Freq: .Stat Status: Active Protocol: Activity Type Activity Date Activity User E-sign Co-sign Detail Recorded Client Recorded Date Recorded By Document 10/10/23 18:31 BKG DAEMON(3) [id number] 10/10/23 18:32 BKG DAEMON(4) POC Urine Test Start: 10/10/23 19:41 Freq: .Urine Test Status: Active Protocol: Activity Type Activity Date Activity User E-sign Co-sign Detail Recorded Client Recorded Date Recorded By Document 10/10/23 20:07 N.JL [id number] 10/10/23 20:07 N.DOWP Intake and Output - 24 Hour Total 10/10/23 15:40 thru 10/10/23 22:46 Intake Total 1110 Balance 1110 Weight 59.42 kg Intake: IV 1110 Other: Urine Appearance Clear Falls Risk Assessment History of Falls No History 10/10/23 22:46 Contributing Factors No Factors 10/10/23 22:46 Ambulatory Aids Independent 10/10/23 22:46 Tubes/Lines W/no contributing factors 10/10/23 22:46 Gait Evaluation No gait disturbance 10/10/23 22:46 Cognition No cognitive impairment 10/10/23 22:46 Fall Total Score 10 10/10/23 22:46 Level of Risk Standard/Low Risk 10/10/23 22:46 Problems (Last Reviewed 10/10/23 @ 22:06 by Yakov Melton) Hypokalemia (Acute) Cannabis hyperemesis syndrome concurrent with and due to cannabis abuse (Acute) Acute dehydration (Acute) Nausea & vomiting (Acute) v v v v v v v v v Sending and/or Receiving Nurses: Please use comment section below to note any information pertinent to the patient hand-off not included above. Information / Comments: Patient presents to ED with intractable vomiting, dehydration, hypokalemia. IV potassium replacement in the ED. Alert and oriented, independent. Plan for rehydration, symptom control, recheck labs in the morning Report received from: Joés Miguel Yañez RN
[2023-10-11] MEDS: ALPRAZolam 0.5 MG TAB PO (04:47)
[2023-10-11 07:15] LABS: HCT 38.8 % (36.0-46.0); HGB 13.9 g/dL (11.2-15.7); MCH 30.5 pg (27.0-33.0); MCHC 35.8 % (32.0-36.0); MCV 85 fL (80-95); Platelet Count 340 10^3/uL (130-400); RBC 4.55 10^6/uL (3.93-5.22); RDW 12.8 % (11.7-14.6); RDW-SD 39.3 fL; WBC 11.79 10^3/uL (4.4-10.8)
[2023-10-11 07:40] LABS: ALT 28 U/L (14-59); AST 13 U/L (15-37); Albumin 3.1 g/dL (3.4-5.0); Alkaline Phosphatase 85 U/L (46-116); Anion Gap 6.8 mmol/L (3-11); BUN 0 mg/dL (7-18); Bilirubin, Total 0.44 mg/dL (0.2-1.0); CO2 30.2 mmol/L (21.0-32.0); CREATININE 0.9 mg/dL (0.55-1.02); Calcium 8.6 mg/dL (8.5-10.1); Chloride 107 mmol/L (98-107); Estimated GFR 80.84 (mL/min/1.73m2); Glucose 96 mg/dL (74-106); Magnesium 2.2 mg/dL (1.8-2.4); Sodium 144 mmol/L (136-145); Total Protein 6.3 g/dL (6.4-8.2)
[2023-10-11 07:41] VITALS: BP 90/72; PULSE 61; RESP 18; TEMP 36.5; O2SAT 95
[2023-10-11 07:47] LABS: Potassium 2.8 mmol/L (3.5-5.1)
[2023-10-11] MEDS: Cholecalciferol (Vitamin D3) 1,000 UNIT TAB 2000 UNITS PO (08:10)
[2023-10-11] MEDS: Famotidine 20 MG TAB 40 MG PO (08:11)
[2023-10-11] MEDS: Lisdexamphetamine 40 MG CAP PO (08:14)
--- NOTE | 2023-10-11 08:54 | PDOC.CMIN ---
Date of service: 10/11/23 Time of Service: 08:54 Care Management Initial Assmt Initial Assessment Reason for Hospitalization: cannabis-associated hyperemesis Functional Status/Living Situation Patient Presentation: Domitila was visiting with family when CM met with her. She was not inclined to have an extended conversation at that time. CM offered to return tomorrow. Clinically Domitila has improved. She was able to tolerate her lunch and has not vomited. Town of Residence: [facility] Resides with: Spouse (Ye) Significant Other/Family: [facility] Employment Status: Disabled Instrumental Activities of Daily Living (ADLs): Independent Medications Medication Management: No Issues/Barriers identified Advance Directives Advance Directives: Do you have an Advance Directive: N 10/24/13 19:10 AD On File at [facility]: N 10/24/13 19:10 Date Asked 10/11/23 10/11/23 12:59 AD Date Reviewed COLST On File at [facility] COLST Date Scanned Code Status Resuscitation Status Full Code Portal Pt does not currently have a portal and education provided: No Insurance Coverage/Financial Issues Insurance: [facility] Care Team Visit Care Team Role Provider Type Stevie Sharif Primary Care Provider [facility] STAFF PHYSICIAN Nicolas Arciniega MD Emergency Provider [facility] STAFF PHYSICIAN Yakov Melton Admit Provider [facility] STAFF PHYSICIAN Attending Provider Discharge Potential Discharge Needs: PCP F/U Appt Anticipated Barriers to Discharge: None Identified Patient/Family Education Needs: Review discharge instructions, discuss Ask Me Three Transportation: Private vehicle Plan: Anticipate Domitila will be discharged home with no new services. She will follow up with her PCP and transport with family. [facility] follow[facility] All Active Problems (Updated 10/12/23 @ 11:21 by Ngoc Lynn APRN) Discharge planning issues (Acute) On deep vein thrombosis (DVT) prophylaxis (Acute) Chronic disease under co-management (Acute) Hypokalemia (Acute) Cannabis hyperemesis syndrome concurrent with and due to cannabis abuse (Acute) Acute dehydration (Acute) Acute periumbilical pain (Acute) Dehydration (Acute) Intestinal obstruction (Acute) Nausea & vomiting (Acute) Episode of syncope (Chronic) History of esophagogastroduodenoscopy (EGD) (Chronic ~09/2023) Superior labrum unjnsilm-af-mnmkhjuqv (SLAP) tear of right shoulder (Acute) Biceps tendinitis of right shoulder (Acute) IBS (irritable bowel syndrome) (Chronic) Medical History Attention deficit disorder with hyperactivity PTSD (post-traumatic stress disorder) Generalized anxiety disorder Hyperglycemia GERD (gastroesophageal reflux disease) Raynauds disease Major depression, single episode Helminth infection Elevated liver enzymes History of HPV infection Esophagitis Suicidal thoughts History of head injury 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) Tx with LEEP Surgical History History of colonoscopy (~09/2023) H/O LEEP Social History Smoking/Tobacco Use Status: Former Tobacco Use Quit Date: 07/27/23 Smoking risk assessment performed?: Yes Alcohol Intake: never Drug use: Daily Substance use type: inhalants Household members: spouse and children Housing: apartment Number of Children: 3 Sexually active: Yes Do you think of yourself as: straight/heterosexual Current gender identity: female Do you feel safe at home: No Do you feel safe in your relationship?: Yes Female Reproductive History Menstrual control method: other (partner with vasectomy) History History 6 Para 3 Hx # Term Pregnancies Multiple births Hx # Pregnancies Ectopic pregnancies AB induced Hx Number of Living Children AB spontaneous SDOH(Care Management) Screening Will the Patient Participate in the Screening?: Declined to provide
--- NOTE | 2023-10-11 09:42 | W.PM.PROGNOT ---
Date of Service Date of service: 10/11/23 Time of Service: 09:42 Assessment and Plan Assessment and plan (1) Cannabis hyperemesis syndrome concurrent with and due to cannabis abuse: Start date: 10/10/23 Status: Acute Assessment and plan: nausea this AM continue adjusted antiemitics and increased xanax scheduled doses and PRN Nausea resolved in PM ; tolerating oral intake of liquid and solid food (2) Acute dehydration: Start date: 10/10/23 Status: Acute Assessment and plan: IV hydration:continue at decreased rates (3) Hypokalemia: Start date: 10/10/23 Status: Acute Assessment and plan: Recurrent recently with hyperemesis associate with increased cannabis use. K 2.8, replete unable to take oral d/t emesis this AM , mag 2.2 K level this PM (4) PTSD (post-traumatic stress disorder): Assessment and plan: Continue counseling and follow-up with psychiatry adjusting medical therapy. Patient completed remote session with her prescriber for opt management (5) Generalized anxiety disorder: Assessment and plan: Continue Xanax will be given at 2 mg BID plus 0.5 mg TID PRN On Lunesta at HS; ordered . Will be continued PRN Vyvanse Not on mood stabilizers. (6) Chronic disease under co-management: Status: Acute Assessment and plan: Patient reported her home medicine regimen to o Gillian Cazares Home meds updated (7) On deep vein thrombosis (DVT) prophylaxis: Status: Acute Assessment and plan: On Lovenox SC (8) Discharge planning issues: Status: Acute Assessment and plan: D/c home when medically clear Resumption of opt psych f/u Discussed with Dr. Mahmood Subjective Subjective Patient reports: feels better (this PM ), tolerating liquids well, tolerating a regular diet, voiding w/o difficulty, bowel movement, diarrhea and nausea (this AM ); denies blood in stool, vomiting, shortness of breath or fever Exam Narrative Exam Narrative: Constitutional The patient is well groomed without acute distress HENMT: Facial structures with normal appearance Neuro:alert and oriented to self, person, place time and situation. No neurological focal deficit Resp: Clear lung bilaterally Cardio: regular rhythm, S1, S2, no murmur, capillary refill<3 sec., bilateral radial and dorsalis pedis pulses are positive GI: Abdomen is not distended, soft and non tender, bowel sounds are present : Negative Costovertebral angle tenderness Integumentary: No skin lesions or rash Extremities: strength 5/5 to bilateral lower and upper extremities Psych: RASS 0, congruent mood and normal affect. Objective Last Vital Signs Temp 36.5 C 10/11/23 07:41 Pulse 61 10/11/23 07:41 Resp 18 10/11/23 07:41 BP 90/72 L 10/11/23 07:41 Pulse Ox 95 10/11/23 07:41 Laboratory Results - last 24 hr 10/10/23 10/10/23 10/11/23 17:06 18:20 06:50 WBC 15.85 H 11.79 H RBC 5.55 H 4.55 Hgb 16.9 H D 13.9 D Hct 46.7 H 38.8 MCV 84 D 85 MCH 30.5 30.5 MCHC 36.2 H 35.8 RDW 12.3 12.8 Plt Count 403 H D 340 MPV 9.9 10.0 Immature Gran % 0.4 Neutrophils % 70.7 Lymphocytes % 19.1 Monocytes % 8.7 Eosinophils % 0.7 Basophils % 0.4 Nucleated RBC % 0.0 Absolute Neutrophils 11.21 H Absolute Lymphocytes 3.03 Absolute Monocytes 1.38 H Absolute Eosinophils 0.11 Absolute Basophils 0.06 PT 10.8 INR 1.1 APTT 25.6 VBG pH 7.46 H VBG pCO2 37 L VBG pO2 57 VBG HCO3 26 VBG Total CO2 27 VBG O2 Saturation 91 VBG Base Excess 2 Sodium 138 144 Potassium 2.4 L* 2.8 L* Chloride 99 107 Carbon Dioxide 28.7 30.2 Anion Gap 10.3 6.8 BUN 3 L 0 L Creatinine 1.0 0.9 Est GFR (CKD-EPI 2020) 71.24 80.84 Glucose 112 H 96 Calcium 9.6 8.6 Magnesium 2.4 2.2 Total Bilirubin 0.58 0.44 AST 16 13 L ALT 38 28 Alkaline Phosphatase 105 85 Creatine Kinase 75 Total Protein 8.2 6.3 L Albumin 4.2 3.1 L Lipase 13 L TSH 1.74 Urine Color Yellow Urine Clarity Clear Urine pH 6.5 Ur Specific [place] 1.010 Urine Protein Negative Urine Ketones Negative Urine Blood Negative Urine Nitrite Negative Urine Bilirubin Negative Urine Urobilinogen 0.2 Ur Leukocyte Esterase Negative Urine Glucose Negative Urine Opiates Screen Negative Urine Methadone Screen Negative Ur Barbiturates Screen Negative Ur Tricyclics Screen Negative Ur Amphetamines Screen Negative U Benzodiazepines Scrn Positive A Urine Cocaine Screen Negative Ur THC Screen Positive A Ethyl Alcohol < 3.0 Time Spent with Patient Time Spent with Patient: >50 minutes Time was spent: preparing to see the patient(eg.review tests), obtaining and/or reviewing separately otained hiistory, ordering medications,tests, procedures, referring, communicating with other health hemodialysis patient care specialist, indepentently interpreting results, counseling the patient and care coordination
[2023-10-11] MEDS: Prochlorperazine 10 MG/2 ML VIAL 5 MG IVP (10:27)
[2023-10-11] MEDS: Enoxaparin 40 MG/0.4 ML SYR SC (10:29)
[2023-10-11 11:02] VITALS: BP 94/72; PULSE 96; RESP 18; TEMP 37.1; O2SAT 97
--- NOTE | 2023-10-11 11:44 | PHA.REVIEW2 ---
Pharmacy Admission Review Admission Clinical Review Admission Pharmacy Review: Discharge planning issues (Acute) On deep vein thrombosis (DVT) prophylaxis (Acute) Chronic disease under co-management (Acute) Hypokalemia (Acute) Cannabis hyperemesis syndrome concurrent with and due to cannabis abuse (Acute) Acute dehydration (Acute) Nausea & vomiting (Acute) bupropion hcl Allergy (Unknown, Uncoded 10/05/23 16:17) manic zolpidem tartrate Allergy (Unknown, Uncoded 10/05/23 16:17) Unknown Resuscitation Status Full Code Height 5 ft Weight 59.42 kg Pharmacy Admission Review Renal Dosing Renal Dosing: BUN 0 mg/dL (7-18) L 10/11/23 06:50 Creatinine 0.9 mg/dL (0.55-1.02) 10/11/23 06:50 Medications needing adjustments: Reviewed (CrCl 64.3 mL/min) List of meds needing interventions: Current medications are okay Anticoagulation Anticoagulation: Hgb 13.9 g/dL (11.2-15.7) D 10/11/23 06:50 Hct 38.8 % (36.0-46.0) 10/11/23 06:50 Plt Count 340 10^3/uL (130-400) 10/11/23 06:50 INR 1.1 (0.9-1.1) 10/10/23 17:06 Creatinine 0.9 mg/dL (0.55-1.02) 10/11/23 06:50 DVT Prophylaxis: Reviewed Medications: Enoxaparin (40mg daily) Relevant Labs Relevant Labs: Sodium 144 mmol/L (136-145) 10/11/23 06:50 Potassium 2.8 mmol/L (3.5-5.1) L* 10/11/23 06:50 Chloride 107 mmol/L (98-107) 10/11/23 06:50 Magnesium 2.2 mg/dL (1.8-2.4) 10/11/23 06:50 Electrolytes, C-Reactive P, ESR: Reviewed (K increased from 2.4 to 2.8 with repeat pending - infusion given today, WBC decreased from 15 to 11, Hgb decreased from 16.9 to 13.9) Cardiac Review Cardiac Review: Blood Pressure 94/72 1102 Blood Pressure 90/72 0741 BP, HR, EF%: Reviewed (BP 94/72 and HR 96 - HR has been elevated consistently throughout this admission ) QTc Review QTc: Reviewed (482 from 10/10/23 - provider aware of elevated QTc) IV to PO Switch IV Medications: Reviewed (metoclopramide, potassium and prochlorperazine) Home Meds Home Med List reviewed: Intervened Relevent Home Meds Not ordered & why?: Ronak - reached out to provider who stated they will put the order in Changed folic acid 800mcg (non-formulary) to 1mg daily and changed vitamin B complex (non-formulary) to vitamin B complex with C Current Meds Current Medication Order Review: Intervened Comments: Added IV admission order set Reached out to provider as patients home med hydroxyzine was put in as pamoate instead of HCl. Provider will change order
[2023-10-11] MEDS: POTASSIUM CHLORIDE 20 MEQ/100 ML BAG 50 MEQ IVINF ×2 (11:55→15:39)
[2023-10-11] MEDS: Normal Saline Flush 10 ML SYR IVP ×2 (11:56→17:50)
[2023-10-11 15:03] VITALS: BP 92/68; PULSE 97; RESP 17; TEMP 37.2; O2SAT 98
[2023-10-11] MEDS: Potassium Chloride 20 MEQ TABCR PO ×2 (17:13→20:44)
--- NOTE | 2023-10-11 17:16 | CHAPLAIN ---
Domitila and I remembered each other from when she was here last week. 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 She's been looking for supports in the community. She said her is very supportive. Domitila said she's here because she was taking a lot of gummies and now is dealing with withdrawal from marijuana. She's read up on it, she said and it's not clear how long the effects could last Domitila is looking forward to getting her son to a camp for transgendered and questioning kids next week but is frustrated that she's not home to help him get what he needs for the camp.
--- NOTE | 2023-10-11 17:19 | CHAPLAIN ---
Domitila said when she after being in the ED she was given pill for medicine to keep her from continuing to throw up, so to help her focus on keeping the pill down, she looked for inspiration from her grandmother who felt very connected to [place]. She said staff here were very helpful and supportive last night. I will continue to visit.
[2023-10-11 19:20] VITALS: BP 93/65; PULSE 89; RESP 18; TEMP 37; O2SAT 97
--- NOTE | 2023-10-11 19:24 | NUR.NOTE ---
Nursing Note: Pt insisted that nursing take the new IV in her left fa out as it is tingling and feels like bugs crawling around under my skin. Will start another IV to continue LR at 75ml/hr.
[2023-10-11] MEDS: hydrOXYzine HCL 25 MG TAB PO (20:43)
[2023-10-11] MEDS: Eszopiclone 3 MG TAB PO (20:43)
[2023-10-11] MEDS: Lactated Ringers 1,000 ML 75 ML IV (20:55)
[2023-10-11 20:59] LABS: Potassium 3.7 mmol/L (3.5-5.1)
[2023-10-11 23:50] VITALS: BP 85/58; PULSE 68; RESP 18; TEMP 36.8; O2SAT 98
[2023-10-12] MEDS: Metoclopramide 10 MG/2 ML VIAL IVP (01:47)
[2023-10-12] MEDS: Normal Saline Flush 10 ML SYR IVP ×3 (01:50→08:03)
[2023-10-12] MEDS: ALPRAZolam 0.5 MG TAB PO (03:19)
[2023-10-12] MEDS: Prochlorperazine 10 MG/2 ML VIAL 5 MG IVP ×2 (03:29→08:02)
[2023-10-12 03:50] VITALS: BP 84/57; PULSE 78; RESP 18; TEMP 36.8; O2SAT 98
[2023-10-12 07:18] VITALS: BP 95/62; PULSE 87; RESP 24; TEMP 36.4; O2SAT 97
[2023-10-12] MEDS: ALPRAZolam 0.5 MG TAB 2 MG PO (08:00)
[2023-10-12] MEDS: Lisdexamphetamine 40 MG CAP PO (08:01)
[2023-10-12] MEDS: cloNIDine 0.1 MG TAB PO (08:01)
[2023-10-12] MEDS: hydrOXYzine HCL 25 MG TAB PO (08:01)
[2023-10-12] MEDS: Cholecalciferol (Vitamin D3) 1,000 UNIT TAB 2000 UNITS PO (08:01)
[2023-10-12] MEDS: Potassium Chloride 20 MEQ TABCR PO (08:01)
[2023-10-12] MEDS: Famotidine 20 MG TAB 40 MG PO (08:01)
[2023-10-12] MEDS: Lactated Ringers 1,000 ML 75 ML IV (08:02)
[2023-10-12] MEDS: Folic Acid 1 MG TAB PO (08:02)
[2023-10-12] MEDS: Vitamins B Comp w/C TAB 1 TAB PO (10:26)
--- NOTE | 2023-10-12 10:50 | DSE_ITS ---
Date of service: 10/12/23 Time of Service: 10:51 DS: Diagnosis Discharge Diagnosis (1) Cannabis hyperemesis syndrome concurrent with and due to cannabis abuse: Status: Acute (2) Acute dehydration: Status: Acute (3) Hypokalemia: Status: Acute (4) PTSD (post-traumatic stress disorder): (5) Generalized anxiety disorder: (6) Chronic disease under co-management: Status: Acute Discharge Plan Disposition Patient Disposition: Home Condition: Improving Discharge Details Reason For Visit: Hyperemesis Cannabis,Dehydration,Hypokalemia Admit Date/Time: 10/10/23 22:09 Admit Provider: Yakov Melton Attending Provider: Yakov Melton Primary Care Provider: Stevie Sharif Hospital Course Hospital Course: This 42 years old female patient with a past medical history significant for ed ible cannabis products use , recent EGD and colonoscopy without acute findings, partially completed abdominal CT done 5 days prior to presentation, IBS, depression, followed in mental health for anxiety and recent familial stresses presented to the ED at [facility] on 10/10/2023 with complaints of abdominal pain, nausea, vomiting. The patient had a previous visit on 10/08/2023 with similar presentation and concerns for intra-abdominal injury and the completion of abdominal and pelvic CT revealed no acute abnormality findings except for a small fat-containing umbilical hernia without incarceration or strangulation. Remarkable findings in the ED included a WBC of 15.85, H&H of 16.9 & 46.7 and other CBC results pointing to hemoconcentration. Chemistry showed hypokalemia at 2.4. Repeated CT of the abdomen due to elevated white count to rule out intra-abdominal infection was negative for acute findings. In the ED the patient received droperidol and crystalloid fluid. The hospitalist was c onsulted and the patient admitted to the medical surgical floor for evaluation and management of intractable nausea and vomiting in the setting of cannabinoid hyperemesis. During the stay, received intravenous fluid and hypokalemia was treated with supplementation and resolved. The patient was treated with antiemetic and her home xanax and hydroxyzine doses were adjusted as per pharmacy records filling records and patient's statements. The patient received her home medicines for her chronic conditions. The patient reported having a remote consultation with her psychiatry/mental health provider on 10/11/2023 for the provider changed the dosing on some of her medicine. The patient was counseled on discharge to follow with the prescriptions that her psychiatric/mental health provider updat ed. Patient will be discharged home on short courses of as needed Compazine for nausea vomiting and as needed Reglan as the patient had mention inducing vomiting by inserting a finger in her mouth when feeling full. The patient will have to repeat the BMP with critical to be sent to her primary care provider. The patient will need to follow-up with her primary care provider within 7 days of discharge. She also mentioned that she had a gastroenterology follow-up and is encouraged to go to the appointment. Discussed with Dr. Mahmood. Home Meds and New Rx's Prescriptions: New metoclopramide HCl [Reglan] 5 mg tablet 5 mg PO QAC PRNQty: 6 0RF Rx Instructions: administer 30 minutes before meals prochlorperazine maleate [Compazine] 5 mg tablet 5 mg PO TID PRNQty: 10 0RF Continued clonidine HCl 0.1 mg tablet 0.1 mg PO TID lisdexamfetamine 40 mg capsule 40 mg PO QAM Rx Instructions: Pt takes a total of 70mg daily. 40mg in am and 30mg at noon. folic acid 800 mcg tablet 0.8 mg PO DAILY vitamin B complex Tablet 1 tab PO DAILY cholecalciferol (vitamin D3) 25 mcg (1,000 unit) tablet 50 mcg PO DAILY lisdexamfetamine [Vyvanse] 30 mg capsule 30 mg PO DAILY Patient Comments: Pt takes 30 mg at noon. hydroxyzine HCl 25 mg tablet 25 mg PO BID Patient Comments: TAKE TWO TABLETS BY MOUTH TWICE A DAY FOR ANXIETY alprazolam 2 mg tablet 2 mg PO BID PRN Patient Comments: TAKE ONE TABLET BY MOUTH TWICE A DAY eszopiclone 3 mg tablet 3 mg PO HS Patient Comments: TAKE ONE TABLET BY MOUTH IMMEDIATELY BEFORE BEDTIME famotidine 40 mg tablet 40 mg PO DAILY Qty: 30 0RF Discharge Instructions Referrals: Stevie Sharif [Primary Care Provider] - 11/02/23 11:30 am Activity:: Activity as Tolerated Equipment/Supplies:: No Equipment Needed Diet:: As Tolerated Discharge Orders Discharge Orders: Discharge Order (Routine); Ordered 10/12/23 Ordered By: Ngoc Lynn Other Ambulatory Orders: Basic Metabolic Panel (Routine) Timeframe: 20231014 Facility: [facility] - Location: Laboratory Outpatient - [facility] Ordered By: Ngoc Lynn DS: Summary Time Spent with Patient providing and/or coordinating discharge services: Greater than 30 minutes Status at Discharge Functional status at discharge: independent ambulation Overall status at discharge: patient is progressing back to baseline Mental Status: mental status grossly normal Speech and Movement: speech and movement normal Mood: congruent mood Affect: normal affect Quality:SDOH Health Related Social Needs: No Data to Display Exam Narrative Exam Narrative: Constitutional The patient is well groomed without acute distress HENMT: Facial structures with normal appearance Neuro:alert and oriented X4 Resp: Clear lung bilaterally Cardio: regular rhythm, S1, S2, no murmur, positive radial and pedal pulses bilaterally GI: Abdomen is not distended, soft and non tender, bowel sounds are present Psych: RASS 0, congruent mood and normal to anxious affect. Psych Mental Status: mental status grossly normal Speech and Movement: speech and movement normal Mood: congruent mood Affect: normal affect DS: Data Vitals/I&O Vitals and I&O: Vital Signs Temperature 36.4 C L 10/12/23 07:18 Temperature Source Tympanic 10/12/23 07:18 Pulse 87 10/12/23 07:18 Pulse Rhythm Regular 10/11/23 21:17 Pulse 102 H 10/10/23 22:31 Respiratory Rate 24 10/12/23 07:18 Respiratory Effort Normal, Non-Labored 10/11/23 21:17 Respiratory Depth Normal 10/11/23 21:17 Respiratory Pattern Normal 10/11/23 21:17 Blood Pressure 95/62 L 10/12/23 07:18 Blood Pressure Mean 77 10/10/23 22:31 Blood Pressure Position Sitting 10/10/23 19:36 Pulse Oximetry 97 10/12/23 07:18 Oxygen Delivery Method Room Air 10/12/23 07:18 Oxygen Flow Rate 0 10/12/23 07:18 Pain Level 0 10/12/23 07:18 Comment RN present in room 10/12/23 03:50 Intake & Output 10/11/23 10/11/23 10/12/23 11:59 23:59 11:59 Intake Total 1200 / 2191.667 991.667 / 2191.667 833.75 / 833.75 Balance 1200 / 2191.667 991.667 / 2191.667 833.75 / 833.75 Intake: IV 1000 / 1191.667 191.667 / 1191.667 833.75 / 833.75 Oral 200 / 1000 800 / 1000 Other: Urine Color Yellow Yellow Urine Appearance Clear Clear Comment pt reports voiding x3 times tonight. Stool Size Small Moderate Stool Characteristics Soft Soft Liquid Liquid Green Green Voiding Methods Toilet Toilet Data Completed and Pending Labs on day of discharge: Labs from last 24 hours 10/11/23 20:41 Potassium 3.7 PFSH All Active Problems (Updated 10/12/23 @ 11:21 by Ngoc Lynn APRN) Discharge planning issues (Acute) On deep vein thrombosis (DVT) prophylaxis (Acute) Chronic disease under co-management (Acute) Hypokalemia (Acute) Cannabis hyperemesis syndrome concurrent with and due to cannabis abuse (Acute) Acute dehydration (Acute) Acute periumbilical pain (Acute) Dehydration (Acute) Intestinal obstruction (Acute) Nausea & vomiting (Acute) Episode of syncope (Chronic) History of esophagogastroduodenoscopy (EGD) (Chronic ~09/2023) Superior labrum mjyrvpar-dw-tcgpbcmge (SLAP) tear of right shoulder (Acute) Biceps tendinitis of right shoulder (Acute) IBS (irritable bowel syndrome) (Chronic) Medical History Attention deficit disorder with hyperactivity PTSD (post-traumatic stress disorder) Generalized anxiety disorder Hyperglycemia GERD (gastroesophageal reflux disease) Raynauds disease Major depression, single episode Helminth infection Elevated liver enzymes History of HPV infection Esophagitis Suicidal thoughts History of head injury 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) Tx with LEEP Surgical History History of colonoscopy (~09/2023) H/O LEEP Social History Smoking/Tobacco Use Status: Former Tobacco Use Quit Date: 07/27/23 Smoking risk assessment performed?: Yes Alcohol Intake: never Drug use: Daily Substance use type: inhalants Household members: spouse and children Housing: apartment Number of Children: 3 Sexually active: Yes Do you think of yourself as: straight/heterosexual Current gender identity: female Do you feel safe at home: No Do you feel safe in your relationship?: Yes Female Reproductive History Menstrual control method: other (partner with vasectomy) History History 6 Para 3 Hx # Term Pregnancies Multiple births Hx # Pregnancies Ectopic pregnancies AB induced Hx Number of Living Children AB spontaneous Time Spent with Patient Time Spent with Patient: 70-84 minutes4 Time was spent: preparing to see the patient(eg.review tests), obtaining and/or reviewing separately otained hiistory, ordering medications,tests, procedures, referring, communicating with other health career services manager, indepentently interpreting results, counseling the patient and care coordination
[2023-10-12 11:00] VITALS: BP 94/64; PULSE 94; RESP 18; TEMP 37; O2SAT 99
--- NOTE | 2023-10-12 12:45 | NUR.NOTE ---
Nursing Note: Accessed chart to reconcile EKG [employer] orders with the EKG's that are in [facility].
--- NOTE | 2023-10-12 14:10 | CMDISCH_ITS ---
Date of service: 10/12/23 Time of Service: 14:10 LACE Index Scoring Tool Questions: Length of Stay (in days): 2 Was the patient admitted via the E.D.?: Yes E.D. Visits: 5 Answers: Total Score: 9 Risk of Readmission: Low Risk Care Management Discharge Plan Reason for Hospitalization: hyperemesis Discharge Plan: Domitila will be discharged home with no new services. She will follow up with her PCP and transport with family. CM will follow. Patient/Family Education Needs: Review discharge instructions, discuss Ask Me Three [facility] Health Related Social Needs: No Data to Display
--- NOTE | 2023-10-12 14:16 | PDOC.CMIN ---
Care Management Initial Assmt Advance Directives Advance Directives: Do you have an Advance Directive: N 10/24/13 19:10 AD On File at [facility]: N 10/24/13 19:10 Date Asked 10/11/23 10/11/23 12:59 AD Date Reviewed COLST On File at [facility] COLST Date Scanned Care Team Visit Care Team Role Provider Type Stevie Sharif Primary Care Provider [facility] STAFF PHYSICIAN Nicolas Arciniega MD Emergency Provider [facility] STAFF PHYSICIAN Yakov Melton Admit Provider [facility] STAFF PHYSICIAN Attending Provider [facility] All Active Problems (Updated 10/12/23 @ 11:21 by Ngoc Lynn APRN) Discharge planning issues (Acute) On deep vein thrombosis (DVT) prophylaxis (Acute) Chronic disease under co-management (Acute) Hypokalemia (Acute) Cannabis hyperemesis syndrome concurrent with and due to cannabis abuse (Acute) Acute dehydration (Acute) Acute periumbilical pain (Acute) Dehydration (Acute) Intestinal obstruction (Acute) Nausea & vomiting (Acute) Episode of syncope (Chronic) History of esophagogastroduodenoscopy (EGD) (Chronic ~09/2023) Superior labrum dwpwfvud-ia-dzoyeyucw (SLAP) tear of right shoulder (Acute) Biceps tendinitis of right shoulder (Acute) IBS (irritable bowel syndrome) (Chronic) Medical History Attention deficit disorder with hyperactivity PTSD (post-traumatic stress disorder) Generalized anxiety disorder Hyperglycemia GERD (gastroesophageal reflux disease) Raynauds disease Major depression, single episode Helminth infection Elevated liver enzymes History of HPV infection Esophagitis Suicidal thoughts History of head injury 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) Tx with LEEP Surgical History History of colonoscopy (~09/2023) H/O LEEP Social History Smoking/Tobacco Use Status: Former Tobacco Use Quit Date: 07/27/23 Smoking risk assessment performed?: Yes Alcohol Intake: never Drug use: Daily Substance use type: inhalants Household members: spouse and children Housing: apartment Number of Children: 3 Sexually active: Yes Do you think of yourself as: straight/heterosexual Current gender identity: female Do you feel safe at home: No Do you feel safe in your relationship?: Yes Female Reproductive History Menstrual control method: other (partner with vasectomy) History History 6 Para 3 Hx # Term Pregnancies Multiple births Hx # Pregnancies Ectopic pregnancies AB induced Hx Number of Living Children AB spontaneous Readmission Within the Past 30 Days Yes or No: Yes Date of First Admission Date of 1st Admission: 10/05/23 Date of this Admission Date of Admission: 10/10/23 This admission was: Through ED Speicalist Appointments Have you seen any other specialist since your 1st Admission?: Yes Date you saw the Specialist: 10/11/23 - remote Specialist Seen: psychiatrist Assessment for Readmission Summary of readmission circumstances, based upon interviews: patient has had 4 admissions/ED visits so far this month for nausea and vomiting and dehydration felt to be secondary to cannabis use. She continues to use edible marijuana gummies. SDOH(Care Management) Screening Will the Patient Participate in the Screening?: Declined to provide
== END 2023-10-12 12:58 | disposition home or self-care (01) ==
LOC: ER 21:29 → MS 22:42
PROVIDERS: Nurse Practitioner Acute Care; Admitting Provider Family Medicine; Emergency Provider Emergency Medicine; PCP Student in an Organized Health Care Education/Training Program; Visit Provider Family Medicine
DX: E86.0 Dehydration (principal); F12.10 Cannabis abuse, uncomplicated; E87.6 Hypokalemia; R11.2 Nausea with vomiting, unspecified; F43.10 Post-traumatic stress disorder, unspecified; F41.1 Generalized anxiety disorder; Z79.899 Other long term (current) drug therapy; F90.9 Attention-deficit hyperactivity disorder, unspecified type; I73.00 Raynaud's syndrome without gangrene; F32.9 Major depressive disorder, single episode, unspecified; K21.9 Gastro-esophageal reflux disease without esophagitis; R73.9 Hyperglycemia, unspecified; K58.9 Irritable bowel syndrome, unspecified; Z87.891 Personal history of nicotine dependence
CPT/HCPCS: 00123; 36415; 36416; 80053; 80307; 81025; 82550; 82805; 82962; 83690; 85027; 93005; 96361; 96365; 96366; 96375; 99285; J1650; 71046; 74177; 80320; 81003; 83735; 84132; 84443; 85025; 85610; 85730; 93010; 99223; 99233; 99239; G0378; J0780; J1790; J2765; J3480; J3490

== ENCOUNTER 2023-10-17 23:09 | Emergency (ER) | payer OTHER, SELFPAY ==
[2023-10-17 23:13] VITALS: BP 92/70; PULSE 120; RESP 14; TEMP 36.4; O2SAT 97
--- OUTSIDE RECORDS SUMMARY | 2023-10-17 23:15 | XMS_ITS | Encounter Summary ---
Author Organization [facility] Address [address] [place] [address] Care Team Providers Care Ambulance Driver Paramedic Name Role Phone Unknown, Provider Primary Care Provider Encounter Details Date Type Department Care Team (Late st Contact Info) Description 09/07/2010 Results Only [facility] [phone] Erica Paige MD [address] [place] [address] Social History Tobacco Use Types Packs/Day Years [...] ? STEFFEN, DOMITILA ? Accession #: ? [id number] ? : ? 1980 (Age: 29) ??F [...] ORDERABLES [facility] [address] [place] [address] documented in this encounter Visit Diagnoses Not on filedocumented in this encounter Care Teams Ambulance Driver Paramedic Relationship Specialty Start Date End Date Unknown, Provider, PCP - General 01/29/09 documented as of this encounter
--- OUTSIDE RECORDS SUMMARY | 2023-10-17 23:15 | XMS_ITS | Referral Summary ---
Author Organization [facility] Address [address] [place] [address] Care Team Providers Care Underlay Stitcher Name Role Phone Unknown, Provider Primary Care Provider [phone] Encounters Date Type Department Care Team Description 09/28/2023 Lab Requisition [facility] Pathology & Laboratory Medicine - [facility] [address] [place] [address] Luis Alberto Weber MD Encounter for other [...] management options, if applicable. 10/02/2023 16:14 EDT [facility] Final Diagnosis A. DUODENUM, [...] POLYP, BIOPSY: - Tubular adenoma. 10/02/2023 16:14 [facility] Attestation By the signature below, the attending physician certifies that they have 1) personally conducted a gross and/or microscopic examination of the described specimen(s), and/or personally interpreted the results of laboratory testing of the described specimen(s), and 2) personally rendered or confirmed the above diagnosis. 10/02/2023 16:14 [facility] at 1614 Clinical History Screening colonoscopy, diverticulosis; diagnostic EGD, bile refluxs (post op), gastropathy; 10/02/2023 16:14 [facility] Gross Description A. [...] Itzel Lino 09/30/2023 7:52 10/02/2023 16:14 T [facility] Performing Lab [facility] 10/02/2023 16:14 T [facility] Scanned Images 10/02/2023 16:14 T [facility] Tissue SPECIMEN FROM RECTUM [...] EDT Luis Alberto Weber MD PATHOLOGY ORDERABLES [facility] [address] [place] [address] from Last 3 Months Care Teams Underlay Stitcher Relationship Specialty Start Date End Date Unknown, Provider, PCP - General 01/29/09
--- OUTSIDE RECORDS SUMMARY | 2023-10-17 23:15 | XMS_ITS | Encounter Summary ---
Author Organization [facility] Address [address] [place] [address] Care Team Providers Care Transit Proof Machine Operator Name Role Phone Unknown, Provider Primary Care Provider [phone] Encounter Details Date Type Department Care Team (Late st Contact Info) Description 06/18/2020 Lab Requisition [facility] Pathology & Laboratory Medicine - [address] [address] Tash Chávez, SLURRY CONTROL TENDER [address] [place] [address] Encounter for other general examination [...] Risk types, PCR Negative Negative 06/26/2020 15:22 [facility] Comment:No E6 or E7 mRNA is detected from HPV types 16,18,31,33,35,39,45,51,52,56,58,59,66, and 68 by putaway driver mediated amplification. Papanicolaou smear specimen (specimen) CERVIX UTERI STRUCTURE / Unknown 06/17/2020 14:30 EDT 06/25/2020 14:43 EDT Tash Chávez APRN MICROBIOLOGY - GE NERAL ORDERABLES [facility] [address] [place] [address] * PAP TEST (06/17/2020 14:30 EDT) Specimens A. Cervix and/or Endocervix , ThinPrep Imaging System with Manual Evaluation 06/26/2020 15:22 [facility] Specimen Adequacy Satisfactory for Evaluation - transformation zone component present 06/26/2020 15:22 [facility] General Categorization Negative for intraepithelial lesion or malignancy 06/26/2020 15:22 [facility] Descriptive Diagnosis Shift in serenity present suggestive of bacterial vaginosis. 06/26/2020 15:22 [facility] Attestation . 06/26/2020 15:22 [facility] at 1522 Clinical History See below 06/27/19 15:22 [facility] HPV The result for the Human Papillomavirus (HPV) Detection-High Risk Types is Negative. No E6 or E7 mRNA is detected from HPV types 16,18,31,33,35,39 ,45,51,52,56,58,5 9,66, and 68 by putaway driver mediated amplification.Princess ting was performed on specimen [id number] and was resulted on 06/26/2020 1514 EDT by LYUBOV, LAB INSTRUMENT RESULTS IN 06/26/2020 15:22 T [facility] Performing Lab [facility] 06/26/2020 15:22 EDT [facility] Scanned Images 06/26/2020 15:22 EDT [facility] Papanicolaou smear specimen (specimen) CERVIX UTERI STRUCTURE / Unknown 06/17/2020 14:30 EDT 06/18/2020 13:17 EDT Tash A Saira SLURRY CONTROL TENDER PATHOLOGY ORDERAB LES [facility] [address] [place] [address] documented in this encounter Visit Diagnoses Diagnosis Encounter for other general examination documented in this encounter Care Teams Transit Proof Machine Operator Relationship Specialty Start Date End Date Unknown, Provider, PCP - General 01/29/09 documented as of this encounter
--- OUTSIDE RECORDS SUMMARY | 2023-10-17 23:15 | XMS_ITS | Encounter Summary ---
Author Organization [facility] Address [address] [place] [address] Care Team Providers Care Control Panel Assembler Name Role Phone Unknown, Provider Primary Care Provider [phone] Encounter Details Date Type Department Care Team (Late st Contact Info) Description 12/08/2006 Results Only [facility] - [facility] [address] [place] [address] Luisa Gutierrez, [facility] [address] [place] [id number] Social History Tobacco Use Types Packs/Day [...] ? DOMITILA BOURNE ? Accession #: ? [id number] : ? 1980 (Age: 26) ??F ?Collect Date: ? 12/08/2006 Location: ? [facility] ? Receive Date: ? 12/09/2006 Provider: ?LUISA GUTIERREZ SUPERVISOR COOLER SERVICE Copy to: ? Specimen/Source: ?ThinPrep Pap Test, Cervix/Endocervix, processed on [employer] ThinPrep Imaging System, with manual evaluation Last [...] intraepithelial lesion (LSIL). EDUCATIONAL NOTES/RECOMMENDATI ONS ? [facility] recommends following the 2001 Consensus Guidelines for the Management of Women with Cervical Cytological Abnormalities (NANDO,2002;287:212 0-9). Management algorithms have been distributed by [facility] and are available online at [email or web address]. ? Document reviewed and electronically signed by: ? Tracey Santillan MD ? Report Date: ??12/19/2006 08:49 End of Report [facility] 12/08/2006 12/09/2006 Luisa Gutierrez SUPERVISOR COOLER SERVICE PATHOLOGY ORDERABLES [facility] [address] [place] [address] documented in this encounter Visit Diagnoses Not on filedocumented in this encounter Care Teams Control Panel Assembler Relationship Specialty Start Date End Date Unknown, Provider, PCP - General 01/29/09 documented as of this encounter
--- OUTSIDE RECORDS SUMMARY | 2023-10-17 23:15 | XMS_ITS | Encounter Summary ---
Author Organization [facility] Address [address] [place] [address] Care Team Providers Care Building Architect Name Role Phone Unknown, Provider Primary Care Provider [phone] Encounter Details Date Type Department Care Team (Late st Contact Info) Description 12/09/2003 Results Only [facility] - [facility] [address] [place] [address] Chiqui Ro, MARK ANTHONY Social History Tobacco [...] cancers. [facility] Report Status Final [id number] [facility] 12/09/2003 9:23 EDT 12/24/2003 9:23 EDT hCiqui Ro NP MICROBIOLOGY - GENER AL ORDERABLES [facility] [address] [place] [address] * CYTOPATHOLOGY (12/09/2003 0:00 EDT) Pathology Report: CYTOPATHOLOGY REPORT Reports generated via electronic interface contain original data; however they are lacking the format of the original report. Caution should be taken when reading/interpreti ng unformatted reports. Name: ? DOMITILA BOURNE ? Accession #: ? [id number] : ? 1980 (Age: 23) ??F ?Collect Date: ? 12/09/2003 Location: ? [facility] ? Receive Date: ? 12/11/2003 Provider: ?CHIQUI RO ECHOCARDIOGRAPH TECHNICIAN Copy to: ? Specimen/Source: ?ThinPrep Pap [...] cells, undetermined significance. EDUCATIONAL NOTES/RECOMMENDATI ONS ? [facility] recommends following the 2001 Consensus Guidelines for the Management of Women with Cervical Cytological Abnormalities (NANDO,2002;287:212 0-9). Management algorithms have been distributed by [facility] and are available online at [email or web address]. ? Document reviewed and electronically signed by: ? LANIE MAGALLANES MD [facility] ? Report Date: ??12/19/2003 12:55 End of Report [facility] 12/09/2003 12/11/2003 Chiqui Ro NP PATHOLOGY ORDERABLES [facility] [address] [place] [address] documented in this encounter Visit Diagnoses Not on filedocumented in this encounter Care Teams Building Architect Relationship Specialty Start Date End Date Unknown, Provider, PCP - General 01/29/09 documented as of this encounter
--- OUTSIDE RECORDS SUMMARY | 2023-10-17 23:15 | XMS_ITS | Data Portability ---
Author Organization [facility] Address [address] [place] [address] Care Team Providers Care Weight Inspector Name Role Phone GLEN PARRISH Primary Care Provider BREANNE GRAY Behavioral Health Assessment No assessment recorded. Plan of Treatment Reminders Order Date Submit Date Provider Last Modified By Organization Details Last Modified Time Details Appointments Follow Up 2023 11:30A M Guy Sharif Not available Not available Not available Follow Up 30 2023 09:30A M Guy Sharif Not available Not available Not available Lab TSH, serum or plasma - Right AC 1 tiger 1 lav 2023 024 [email or web address] (Registration ), [address] [place] [address] [place], [address], 07/12/2023 11:27:47 lipid panel, serum - Right AC 1 tiger 1 lav 2023 024 [email or web address] [facility] (Registration ), [address] [place] [address] [place], [address], 07/12/2023 11:27:46 CBC w/ auto diff - Right AC 1 tiger 1 lav 2023 024 [email or web address] [facility] (Registration ), [address] [place] [address] [place], [address], 07/05/2023 08:42:32 CMP, serum or plasma - Right AC 1 tiger 1 lav 2023 024 [email or web address] [facility] (Registration ), [address] [place] [address] [place], [address], 07/05/2023 08:42:32 HbA1c (hemoglob in A1c), blood - Right AC 1 tiger 1 lav 2023 024 [email or web address] [facility] (Registration ), [address] [place] [address] [place], [address], 07/12/2023 11:27:46 Referral None recorded. Procedures colonosco py screening (PROC) - Pt. 42-F, hx. of IBS, family history of colon cancer in her father and rectal cancer in her mother, had clear colonosco py in 2019. She would like to have follow up this year as she continues to have difficult y with IBS. No blood in stool per patient, pencil thin stools, melana. 2023 024 [facility] General Surgery, [address] [place] [address] Dr [facility] [place], [address], 10/05/2023 10:20:21 Surgeries None recorded. Imaging XR, chest, 2 view - Pt.-F-hx of 20-pack year smoking suresh 35 year period and recently quit again, w/perceiv ed heaviness of chest and dyspnea. No recent trauma or event that seemingly could've provoked injury to lung or recent infection to suggest pulmonary effects. 2023 024 [facility] (Radiology), [address] [place] [address] [place], [address], 07/14/2023 09:54:47 Medication Orders meloxicam 15 mg tablet 2023 024 [facility], [address] [place], [address], 06/30/2023 11:09:04 gabapenti n 300 mg capsule 2023 024 [facility], [address] [place] [address], [id number], 05/16/2023 12:42:27 meloxicam 15 mg tablet 2023 024 [facility], [address] [place] [address], [id number], 06/30/2023 11:09:04 gabapenti n 300 mg capsule 2023 024 [facility], [address] [place] [address], [address], 05/23/2023 14:21:32 triamcino lone acetonide 0.1 % topical cream 2023 024 [facility], [address] [place] [address], [id number], 06/21/2023 11:02:43 Patient TargetsNo targets recorded. Patient Instructions Encounter Date Encounter Id Patient Instructions Last Modified By Organization Details Last Modified Time 05/23/2023 [id number] Dequervain's tendonitis education Not available 05/23/2023 14:20:21 Domitila: continu e with meloxicam and gabapentin for your hand for the next 4-6 weeks- then taper off gabapentin (decrease to gabapentin twice a day for 3 days then decrease to one tablet a day for 3 days then stop) if your pain does not resolve or if it gets worse- call [facility] and I will order an ortho referral Not available 05/23/2023 14:23:06 06/30/2023 [id number] For inflammation type response, ibuprofen is okay with food, 400-600, three times daily. Consider diet modification of avoiding any added sugar and also I recommend avoiding white flour and choosing whole grain carb sources. - For your finger, avoid prolonged exposure to cold. Some of this may be driven by your Vyvanse. If it becomes more frequent, you may want to consider a medication reduciont in dosage or trial a different stimulant medicaiton for your ADD. [email or web address] Not available 06/30/2023 12:41:36 Reason for Referral None Reported. Results Created Date Observation Date Name Description Value Unit Range Abnormal Flag LastModifiedBy Organization Detail LastModifiedTime 07/04/19 24 07/04/2023 COMPL ETE BLOOD COUNT W/DIF F WBC 11.70 10_3/ uL 4.4-10 .8 high Not Available [address] [place], [address] 07/04/2023 19:50:47 07/04/19 24 07/04/2023 COMPL ETE BLOOD COUNT W/DIF F RBC 4.67 10_6/ uL 3.93-5 .22 normal Not Available [address] [place], [address] 07/04/2023 19:50:47 07/04/19 24 07/04/2023 COMPL ETE BLOOD COUNT W/DIF F HGB 14.6 g/dL 11.2-1 5.7 normal Not Available [address] [place], [address] 07/04/2023 19:50:47 07/04/19 24 07/04/2023 COMPL ETE BLOOD COUNT W/DIF F HCT 42.7 % 36.0-4 6.0 normal Not Available [address] [place], [address] 07/04/2023 19:50:47 07/04/19 24 07/04/2023 COMPL ETE BLOOD COUNT W/DIF F MCV 91 fL 80-95 normal Not Available [address] [place], [address] 07/04/2023 19:50:47 07/04/19 24 07/04/2023 COMPL ETE BLOOD COUNT W/DIF F MCH 31.3 pg 27.0-3 3.0 normal Not Available [address] [place], [address] 07/04/2023 19:50:47 07/04/19 24 07/04/2023 COMPL ETE BLOOD COUNT W/DIF F MCHC 34.2 % 32.0-3 6.0 normal Not Available [address] [place], [address] 07/04/2023 19:50:47 07/04/19 24 07/04/2023 COMPL ETE BLOOD COUNT W/DIF F RDW 12.8 % 11.7-1 4.6 normal Not Available [address] [place], [address] 07/04/2023 19:50:47 07/04/19 24 07/04/2023 COMPL ETE BLOOD COUNT W/DIF F platelet count 312 10_3/ uL 130-40 0 normal Not Available [address] [place], [address] 07/04/2023 19:50:47 07/04/19 24 07/04/2023 COMPL ETE BLOOD COUNT W/DIF F MPV 10.9 fL 8.0-11 .0 normal Not Available [address] [place], [address] 07/04/2023 19:50:47 07/04/19 24 07/04/2023 COMPL ETE BLOOD COUNT W/DIF F neutrophils % 73.2 Not Available [address] [place], [address] 07/04/2023 19:50:47 07/04/19 24 07/04/2023 COMPL ETE BLOOD COUNT W/DIF F lymphocytes % 20.3 Not Available [address] [place], [address] 07/04/2023 19:50:47 07/04/19 24 07/04/2023 COMPL ETE BLOOD COUNT W/DIF F monocytes % 5.0 Not Available [address] [place], [address] 07/04/2023 19:50:47 07/04/19 24 07/04/2023 COMPL ETE BLOOD COUNT W/DIF F eosinophils % 0.5 Not Available [address] [place], [address] 07/04/2023 19:50:47 07/04/19 24 07/04/2023 COMPL ETE BLOOD COUNT W/DIF F basophils % 0.6 Not Available [address] [place], [address] 07/04/2023 19:50:47 07/04/19 24 07/04/2023 COMPL ETE BLOOD COUNT W/DIF F immature grans % 0.4 Not Available [address] [place], [address] 07/04/2023 19:50:47 07/04/19 24 07/04/2023 COMPL ETE BLOOD COUNT W/DIF F nucleated RBC 0.0 % 0.0-0. 3 normal Not Available [address] [place], [address] 07/04/2023 19:50:47 07/04/19 24 07/04/2023 COMPL ETE BLOOD COUNT W/DIF F absolute neutrophil count 8.56 10_3/ uL 1.2-6. 7 high Not Available [address] [place], [address] 07/04/2023 19:50:47 07/04/19 24 07/04/2023 COMPL ETE BLOOD COUNT W/DIF F absolute lymphocyte count 2.38 10_3/ uL 1.2-3. 4 normal Not Available [address] [place], [address] 07/04/2023 19:50:47 07/04/19 24 07/04/2023 COMPL ETE BLOOD COUNT W/DIF F absolute monocyte count 0.59 10_3/ uL 0.1-0. 8 normal Not Available [address] [place], [address] 07/04/2023 19:50:47 07/04/19 24 07/04/2023 COMPL ETE BLOOD COUNT W/DIF F absolute eosinophil count 0.06 10_3/ uL 0.0-0. 7 normal Not Available [address] [place], [address] 07/04/2023 19:50:47 07/04/19 24 07/04/2023 COMPL ETE BLOOD COUNT W/DIF F absolute basophil count 0.07 10_3/ uL 0.0-0. 2 normal Not Available [address] [place], [address] 07/04/2023 19:50:47 07/04/19 24 07/04/2023 COMPR EHENS JOANA METAB OLIC PANEL calcium 8.9 mg/dL 8.5-10 .1 normal Not Available [address] [place], [address] 07/04/2023 20:12:53 07/04/19 24 07/04/2023 COMPR EHENS JOANA METAB OLIC PANEL glucose 80 mg/dL 74-106 normal Not Available [address] [place], [address] 07/04/2023 20:12:53 07/04/19 24 07/04/2023 COMPR EHENS JOANA METAB OLIC PANEL BUN 10 mg/dL 7-18 normal Not Available [address] [place], [address] 07/04/2023 20:12:53 07/04/19 24 07/04/2023 COMPR EHENS JOANA METAB OLIC PANEL creatinine 0.8 mg/dL 0.55-1 .02 normal Not Available [address] [place], [address] 07/04/2023 20:12:53 07/04/19 24 07/04/2023 COMPR EHENS JOANA METAB OLIC PANEL estimated GFR 93.12 mL/min /1.73m 2 Not Available [address] [place], [address] 07/04/2023 20:12:53 07/04/19 24 07/04/2023 COMPR EHENS JOANA METAB OLIC PANEL total protein 7.0 g/dL 6.4-8. 2 normal Not Available [address] [place], [address] 07/04/2023 20:12:53 07/04/19 24 07/04/2023 COMPR EHENS JOANA METAB OLIC PANEL albumin 4.0 g/dL 3.4-5. 0 normal Not Available [address] [place], [address] 07/04/2023 20:12:53 07/04/19 24 07/04/2023 COMPR EHENS JOANA METAB OLIC PANEL bilirubin, total 0.3 mg/dL 0.2-1. 0 normal Not Available [address] [place], [address] 07/04/2023 20:12:53 07/04/19 24 07/04/2023 COMPR EHENS JOANA METAB OLIC PANEL alk phos 81 U/L 46-116 normal Not Available [address] [place], [address] 07/04/2023 20:12:53 07/04/19 24 07/04/2023 COMPR EHENS JOANA METAB OLIC PANEL sodium 143 mmol/ L 136-14 5 normal Not Available [address] [place], [address] 07/04/2023 20:12:53 07/04/19 24 07/04/2023 COMPR EHENS JOANA METAB OLIC PANEL potassium 3.9 mmol/ L 3.5-5. 1 normal Not Available [address] [place], [address] 07/04/2023 20:12:53 07/04/19 24 07/04/2023 COMPR EHENS JOANA METAB OLIC PANEL chloride 103 mmol/ L 98-107 normal Not Available [address] [place], [address] 07/04/2023 20:12:53 07/04/19 24 07/04/2023 COMPR EHENS JOANA METAB OLIC PANEL CO2 28.9 mmol/ L 21.0-3 2.0 normal Not Available [address] [place], [address] 07/04/2023 20:12:53 07/04/19 24 07/04/2023 COMPR EHENS JOANA METAB OLIC PANEL anion gap 11.1 mmol/ L 3-11 high Not Available [address] [place], [address] 07/04/2023 20:12:53 07/04/19 24 07/04/2023 COMPR EHENS JOANA METAB OLIC PANEL AST 19 U/L 15-37 normal Not Available [address] [place], [address] 07/04/2023 20:12:53 07/04/19 24 07/04/2023 COMPR EHENS JOANA METAB OLIC PANEL ALT 35 U/L 14-59 normal Not Available [facility] [address] [place], [address] 07/04/2023 20:12:53 07/04/19 24 07/04/2023 LIPID 2 cholesterol 214 mg/dL <200 high Not Available [address] [place], [address] 07/04/2023 20:12:53 07/04/19 24 07/04/2023 LIPID 2 triglyceride 50 mg/dL <150 Not Available [address] [place], [address] 07/04/2023 20:12:53 07/04/19 24 07/04/2023 LIPID 2 HDL cholesterol 60 mg/dL 40-60 Not Available Miriam [address] [place], [address] 07/04/2023 20:12:53 07/04/19 24 07/04/2023 LIPID 2 calculated LDL 144 mg/dL <100 high Not Available [address] [place], [address] 07/04/2023 20:12:53 07/04/19 24 07/04/2023 TSH TSH 0.72 uIU/m L 0.36-3 .74 normal Not Available [address] [place], [address] 07/04/2023 20:12:54 07/04/19 24 07/04/2023 HEMOG LOBIN A1C hemoglobin A1C 5.4 % <5.7 Not Available [address] [place], [address] 07/04/2023 20:19:51 10/08/19 24 10/08/2023 COMPL ETE BLOOD COUNT W/DIF F WBC 9.97 10_3/ uL 4.4-10 .8 normal Not Available [address] [place], [address] 10/08/2023 09:58:17 10/08/19 24 10/08/2023 COMPL ETE BLOOD COUNT W/DIF F RBC 4.36 10_6/ uL 3.93-5 .22 normal Not Available [address] [place], [address] 10/08/2023 09:58:17 10/08/19 24 10/08/2023 COMPL ETE BLOOD COUNT W/DIF F HGB 13.3 g/dL 11.2-1 5.7 normal Not Available [address] [place], [address] 10/08/2023 09:58:17 10/08/19 24 10/08/2023 COMPL ETE BLOOD COUNT W/DIF F HCT 38.5 % 36.0-4 6.0 normal Not Available [address] [place], [address] 10/08/2023 09:58:17 10/08/19 24 10/08/2023 COMPL ETE BLOOD COUNT W/DIF F MCV 88 fL 80-95 normal Not Available [address] [place], [address] 10/08/2023 09:58:17 10/08/19 24 10/08/2023 COMPL ETE BLOOD COUNT W/DIF F MCH 30.5 pg 27.0-3 3.0 normal Not Available [address] [place], [address] 10/08/2023 09:58:17 10/08/19 24 10/08/2023 COMPL ETE BLOOD COUNT W/DIF F MCHC 34.5 % 32.0-3 6.0 normal Not Available [address] [place], [address] 10/08/2023 09:58:17 10/08/19 24 10/08/2023 COMPL ETE BLOOD COUNT W/DIF F RDW 12.6 % 11.7-1 4.6 normal Not Available [address] [place], [address] 10/08/2023 09:58:17 10/08/19 24 10/08/2023 COMPL ETE BLOOD COUNT W/DIF F platelet count 264 10_3/ uL 130-40 0 normal Not Available [address] [place], [address] 10/08/2023 09:58:17 10/08/19 24 10/08/2023 COMPL ETE BLOOD COUNT W/DIF F MPV 9.8 fL 8.0-11 .0 normal Not Available [address] [place], [address] 10/08/2023 09:58:17 10/08/19 24 10/08/2023 COMPL ETE BLOOD COUNT W/DIF F neutrophils % 74.1 % Not Available [address] [place], [address] 10/08/2023 09:58:17 10/08/19 24 10/08/2023 COMPL ETE BLOOD COUNT W/DIF F lymphocytes % 17.3 % Not Available [address] [place], [address] 10/08/2023 09:58:17 10/08/19 24 10/08/2023 COMPL ETE BLOOD COUNT W/DIF F monocytes % 6.0 % Not Available [address] [place] [facility] [place], [address] 10/08/2023 09:58:17 10/08/19 24 10/08/2023 COMPL ETE BLOOD COUNT W/DIF F eosinophils % 1.8 % Not Available [address] [place], [address] 10/08/2023 09:58:17 10/08/19 24 10/08/2023 COMPL ETE BLOOD COUNT W/DIF F basophils % 0.4 % Not Available [address] [place], [address] 10/08/2023 09:58:17 10/08/19 24 10/08/2023 COMPL ETE BLOOD COUNT W/DIF F immature grans % 0.4 % Not Available [address] [facility] [place], [address] 10/08/2023 09:58:17 10/08/19 24 10/08/2023 COMPL ETE BLOOD COUNT W/DIF F nucleated RBC 0.0 % 0.0-0. 3 normal Not Available [address] [place], [address] 10/08/2023 09:58:17 10/08/19 24 10/08/2023 COMPL ETE BLOOD COUNT W/DIF F absolute neutrophil count 7.39 10_3/ uL 1.2-6. 7 high Not Available [address] [place], [address] 10/08/2023 09:58:17 10/08/19 24 10/08/2023 COMPL ETE BLOOD COUNT W/DIF F absolute lymphocyte count 1.72 10_3/ uL 1.2-3. 4 normal Not Available [address] [place], [address] 10/08/2023 09:58:17 10/08/19 24 10/08/2023 COMPL ETE BLOOD COUNT W/DIF F absolute monocyte count 0.60 10_3/ uL 0.1-0. 8 normal Not Available [address] [place], [address] 10/08/2023 09:58:17 10/08/19 24 10/08/2023 COMPL ETE BLOOD COUNT W/DIF F absolute eosinophil count 0.18 10_3/ uL 0.0-0. 7 normal Not Available [address] [place], [address] 10/08/2023 09:58:17 10/08/19 24 10/08/2023 COMPL ETE BLOOD COUNT W/DIF F absolute basophil count 0.04 10_3/ uL 0.0-0. 2 normal Not Available [address] [place], [address] 10/08/2023 09:58:17 10/08/19 24 10/08/2023 HCG QUAL (SERU M) HCG qual (serum) Negati ve Not Available [address] [place], [address] 10/08/2023 10:15:17 10/08/19 24 10/08/2023 COMPR EHENS JOANA METAB OLIC PANEL calcium 8.3 mg/dL 8.5-10 .1 low Not Available [address] [place], [address] 10/08/2023 10:15:19 10/08/19 24 10/08/2023 COMPR EHENS JOANA METAB OLIC PANEL glucose 88 mg/dL 74-106 normal Not Available [address] [place], [address] 10/08/2023 10:15:19 10/08/19 24 10/08/2023 COMPR EHENS JOANA METAB OLIC PANEL BUN 6 mg/dL 7-18 low Not Available [address] [place], [address] 10/08/2023 10:15:19 10/08/19 24 10/08/2023 COMPR EHENS JOANA METAB OLIC PANEL creatinine 0.9 mg/dL 0.55-1 .02 normal Not Available [address] [place], [address] 10/08/2023 10:15:19 10/08/19 24 10/08/2023 COMPR EHENS JOANA METAB OLIC PANEL estimated GFR 80.84 mL/min /1.73m 2 Not Available [address] [place], [address] 10/08/2023 10:15:19 10/08/19 24 10/08/2023 COMPR EHENS JOANA METAB OLIC PANEL total protein 6.2 g/dL 6.4-8. 2 low Not Available [address] [place], [address] 10/08/2023 10:15:19 10/08/19 24 10/08/2023 COMPR EHENS JOANA METAB OLIC PANEL albumin 3.2 g/dL 3.4-5. 0 low Not Available [address] [place], [address] 10/08/2023 10:15:19 10/08/19 24 10/08/2023 COMPR EHENS JOANA METAB OLIC PANEL bilirubin, total 0.45 mg/dL 0.2-1. 0 normal Not Available [address] [place], [address] 10/08/2023 10:15:19 10/08/19 24 10/08/2023 COMPR EHENS JOANA METAB OLIC PANEL alk phos 87 U/L 46-116 normal Not Available [address] [place], [address] 10/08/2023 10:15:19 10/08/19 24 10/08/2023 COMPR EHENS JOANA METAB OLIC PANEL sodium 144 mmol/ L 136-14 5 normal Not Available [address] [place], [address] 10/08/2023 10:15:19 10/08/19 24 10/08/2023 COMPR EHENS JOANA METAB OLIC PANEL potassium 3.1 mmol/ L 3.5-5. 1 low Not Available [address] [place], [address] 10/08/2023 10:15:19 10/08/19 24 10/08/2023 COMPR EHENS JOANA METAB OLIC PANEL chloride 108 mmol/ L 98-107 high Not Available [address] [place], [address] 10/08/2023 10:15:19 10/08/19 24 10/08/2023 COMPR EHENS JOANA METAB OLIC PANEL CO2 26.4 mmol/ L 21.0-3 2.0 normal Not Available [address] [place], [address] 10/08/2023 10:15:19 10/08/19 24 10/08/2023 COMPR EHENS JOANA METAB OLIC PANEL anion gap 9.6 mmol/ L 3-11 normal Not Available [address] [place], [address] 10/08/2023 10:15:19 10/08/19 24 10/08/2023 COMPR EHENS JOANA METAB OLIC PANEL AST 17 U/L 15-37 normal Not Available [address] [place], [address] 10/08/2023 10:15:19 10/08/19 24 10/08/2023 COMPR EHENS JOANA METAB OLIC PANEL ALT 33 U/L 14-59 normal Not Available [address] [place], [address] 10/08/2023 10:15:19 10/08/19 24 10/08/2023 ETHYL ALCOH OL ethyl alcohol < 3.0 mg/dL <10 Not Available [address] [place], [address] 10/08/2023 10:15:19 10/10/19 24 10/10/2023 VENOU S BLOOD GAS pH (venous) 7.46 7.31-7 .41 high Not Available [address] [place], [address] 10/10/2023 17:24:51 10/10/19 24 10/10/2023 VENOU S BLOOD GAS pCO2 (venous) 37 mmHg 41-51 low Not Available [address] [place], [address] 10/10/2023 17:24:51 10/10/19 24 10/10/2023 VENOU S BLOOD GAS pO2 (venous) 57 mmHg Not Available [address] [place], [address] 10/10/2023 17:24:51 10/10/19 24 10/10/2023 VENOU S BLOOD GAS TCO2 (venous) 27 mmol/ L 24-29 normal Not Available [address] [place], [address] 10/10/2023 17:24:51 10/10/19 24 10/10/2023 VENOU S BLOOD GAS HCO3 (venous) 26 mmol/ L 23-28 normal Not Available [address] [place], [address] 10/10/2023 17:24:51 10/10/19 24 10/10/2023 VENOU S BLOOD GAS BE (venous) 2 mmol/ L -2-3 normal Not Available [address] [place], [address] 10/10/2023 17:24:51 10/10/19 24 10/10/2023 VENOU S BLOOD GAS O2 sat (venous) 91 % Not Available [address] [place], [address] 10/10/2023 17:24:51 10/10/19 24 10/10/2023 COMPL ETE BLOOD COUNT W/DIF F WBC 15.85 10_3/ uL 4.4-10 .8 high Not Available [address] [place], [address] 10/10/2023 17:26:52 10/10/19 24 10/10/2023 COMPL ETE BLOOD COUNT W/DIF F RBC 5.55 10_6/ uL 3.93-5 .22 high Not Available [address] [place], [address] 10/10/2023 17:26:52 10/10/19 24 10/10/2023 COMPL ETE BLOOD COUNT W/DIF F HGB 16.9 g/dL 11.2-1 5.7 high Not Available [address] [place], [address] 10/10/2023 17:26:52 10/10/19 24 10/10/2023 COMPL ETE BLOOD COUNT W/DIF F HCT 46.7 % 36.0-4 6.0 high Not Available [address] [place], [address] 10/10/2023 17:26:52 10/10/19 24 10/10/2023 COMPL ETE BLOOD COUNT W/DIF F MCV 84 fL 80-95 Not Available [address] [place], [address] 10/10/2023 17:26:52 10/10/19 24 10/10/2023 COMPL ETE BLOOD COUNT W/DIF F MCH 30.5 pg 27.0-3 3.0 normal Not Available [address] [place], [address] 10/10/2023 17:26:52 10/10/19 24 10/10/2023 COMPL ETE BLOOD COUNT W/DIF F MCHC 36.2 % 32.0-3 6.0 high Not Available [address] [place], [address] 10/10/2023 17:26:52 10/10/19 24 10/10/2023 COMPL ETE BLOOD COUNT W/DIF F RDW 12.3 % 11.7-1 4.6 normal Not Available [address] [place], [address] 10/10/2023 17:26:52 10/10/19 24 10/10/2023 COMPL ETE BLOOD COUNT W/DIF F platelet count 403 10_3/ uL 130-40 0 high Not Available [address] [place], [address] 10/10/2023 17:26:52 10/10/19 24 10/10/2023 COMPL ETE BLOOD COUNT W/DIF F MPV 9.9 fL 8.0-11 .0 normal Not Available [address] [place], [address] 10/10/2023 17:26:52 10/10/19 24 10/10/2023 COMPL ETE BLOOD COUNT W/DIF F neutrophils % 70.7 % Not Available [address] [place], [address] 10/10/2023 17:26:52 10/10/19 24 10/10/2023 COMPL ETE BLOOD COUNT W/DIF F lymphocytes % 19.1 % Not Available [address] [place], [address] 10/10/2023 17:26:52 10/10/19 24 10/10/2023 COMPL ETE BLOOD COUNT W/DIF F monocytes % 8.7 % Not Available [address] [place], [address] 10/10/2023 17:26:52 10/10/19 24 10/10/2023 COMPL ETE BLOOD COUNT W/DIF F eosinophils % 0.7 % Not Available [address] [place], [address] 10/10/2023 17:26:52 10/10/19 24 10/10/2023 COMPL ETE BLOOD COUNT W/DIF F basophils % 0.4 % Not Available [address] [place], [address] 10/10/2023 17:26:52 10/10/19 24 10/10/2023 COMPL ETE BLOOD COUNT W/DIF F immature grans % 0.4 % Not Available [address] [place], [address] 10/10/2023 17:26:52 10/10/19 24 10/10/2023 COMPL ETE BLOOD COUNT W/DIF F nucleated RBC 0.0 % 0.0-0. 3 normal Not Available [address] [place], [address] 10/10/2023 17:26:52 10/10/19 24 10/10/2023 COMPL ETE BLOOD COUNT W/DIF F absolute neutrophil count 11.21 10_3/ uL 1.2-6. 7 high Not Available [address] [place], [address] 10/10/2023 17:26:52 10/10/19 24 10/10/2023 COMPL ETE BLOOD COUNT W/DIF F absolute lymphocyte count 3.03 10_3/ uL 1.2-3. 4 normal Not Available [address] [place], [address] 10/10/2023 17:26:52 10/10/19 24 10/10/2023 COMPL ETE BLOOD COUNT W/DIF F absolute monocyte count 1.38 10_3/ uL 0.1-0. 8 high Not Available [address] [place], [address] 10/10/2023 17:26:52 10/10/19 24 10/10/2023 COMPL ETE BLOOD COUNT W/DIF F absolute eosinophil count 0.11 10_3/ uL 0.0-0. 7 normal Not Available [address] [place], [address] 10/10/2023 17:26:52 10/10/19 24 10/10/2023 COMPL ETE BLOOD COUNT W/DIF F absolute basophil count 0.06 10_3/ uL 0.0-0. 2 normal Not Available [address] [place], [address] 10/10/2023 17:26:52 10/10/19 24 10/10/2023 PROTH ROMBI N TIME prothrombin time 10.8 sec 9.1-11 .1 normal Not Available [address] [place], [address] 10/10/2023 17:30:52 10/10/19 24 10/10/2023 PROTH ROMBI N TIME INR 1.1 0.9-1. 1 normal Not Available [address] [place], [address] 10/10/2023 17:30:52 10/10/19 24 10/10/2023 PTT ACTIV ATED PTT activated 25.6 sec 23.6-3 2.8 normal Not Available [address] [place], [address] 10/10/2023 17:30:53 10/10/19 24 10/10/2023 COMPR EHENS JOANA METAB OLIC PANEL calcium 9.6 mg/dL 8.5-10 .1 normal Not Available [address] [place], [address] 10/10/2023 17:50:00 10/10/19 24 10/10/2023 COMPR EHENS JOANA METAB OLIC PANEL glucose 112 mg/dL 74-106 high Not Available [address] [place], [address] 10/10/2023 17:50:00 10/10/19 24 10/10/2023 COMPR EHENS JOANA METAB OLIC PANEL BUN 3 mg/dL 7-18 low Not Available [address] [place], [address] 10/10/2023 17:50:00 10/10/19 24 10/10/2023 COMPR EHENS JOANA METAB OLIC PANEL creatinine 1.0 mg/dL 0.55-1 .02 normal Not Available [address] [place], [address] 10/10/2023 17:50:00 10/10/19 24 10/10/2023 COMPR EHENS JOANA METAB OLIC PANEL estimated GFR 71.24 mL/min /1.73m 2 Not Available [address] [place], [address] 10/10/2023 17:50:00 10/10/19 24 10/10/2023 COMPR EHENS JOANA METAB OLIC PANEL total protein 8.2 g/dL 6.4-8. 2 normal Not Available [address] [place], [address] 10/10/2023 17:50:00 10/10/19 24 10/10/2023 COMPR EHENS JOANA METAB OLIC PANEL albumin 4.2 g/dL 3.4-5. 0 normal Not Available [address] [place], [address] 10/10/2023 17:50:00 10/10/19 24 10/10/2023 COMPR EHENS JOANA METAB OLIC PANEL bilirubin, total 0.58 mg/dL 0.2-1. 0 normal Not Available [address] [place], [address] 10/10/2023 17:50:00 10/10/19 24 10/10/2023 COMPR EHENS JOANA METAB OLIC PANEL alk phos 105 U/L 46-116 normal Not Available [address] [place], [address] 10/10/2023 17:50:00 10/10/19 24 10/10/2023 COMPR EHENS JOANA METAB OLIC PANEL sodium 138 mmol/ L 136-14 5 normal Not Available [address] [place], [address] 10/10/2023 17:50:00 10/10/19 24 10/10/2023 COMPR EHENS JOANA METAB OLIC PANEL potassium 2.4 mmol/ L 3.5-5. 1 critical low Not Available [address] [place], [address] 10/10/2023 17:50:00 10/10/19 24 10/10/2023 COMPR EHENS JOANA METAB OLIC PANEL chloride 99 mmol/ L 98-107 normal Not Available [address] [place], [address] 10/10/2023 17:50:00 10/10/19 24 10/10/2023 COMPR EHENS JOANA METAB OLIC PANEL CO2 28.7 mmol/ L 21.0-3 2.0 normal Not Available [address] [place], [address] 10/10/2023 17:50:00 10/10/19 24 10/10/2023 COMPR EHENS JOANA METAB OLIC PANEL anion gap 10.3 mmol/ L 3-11 normal Not Available [address] [place], [address] 10/10/2023 17:50:00 10/10/19 24 10/10/2023 COMPR EHENS JOANA METAB OLIC PANEL AST 16 U/L 15-37 normal Not Available [address] [place], [address] 10/10/2023 17:50:00 10/10/19 24 10/10/2023 COMPR EHENS JOANA METAB OLIC PANEL ALT 38 U/L 14-59 normal Not Available [address] [place], [address] 10/10/2023 17:50:00 10/10/19 24 10/10/2023 CREAT INE KINAS E creatine kinase 75 U/L 26-192 normal Not Available [address] [place], [address] 10/10/2023 17:50:01 10/10/19 24 10/10/2023 MAGNE SIUM magnesium 2.4 mg/dL 1.8-2. 4 normal Not Available [address] [place], [address] 10/10/2023 17:48:59 10/10/19 24 10/10/2023 TSH (W/RE F FT4) TSH (w/ref FT4) 1.74 uIU/m L 0.36-3 .74 normal Not Available [address] [place], [address] 10/10/2023 17:48:59 10/10/19 24 10/10/2023 LIPAS E lipase 13 U/L 16-77 low Not Available [address] [place], [address] 10/10/2023 17:49:00 10/10/19 24 10/10/2023 ETHYL ALCOH OL ethyl alcohol < 3.0 mg/dL <10 Not Available [address] [place], [address] 10/10/2023 17:50:02 10/10/19 24 10/10/2023 MAGNE SIUM magnesium 2.4 mg/dL 1.8-2. 4 normal Not Available [address] [place], [address] 10/10/2023 17:50:02 10/10/19 24 10/10/2023 TSH (W/RE F FT4) TSH (w/ref FT4) 1.74 uIU/m L 0.36-3 .74 normal Not Available [address] [place], [address] 10/10/2023 17:50:03 10/10/19 24 10/10/2023 LIPAS E lipase 13 U/L 16-77 low Not Available [address] [place], [address] 10/10/2023 17:50:03 10/10/19 24 10/10/2023 URINA LYSIS color Yellow yellow Not Available [address] [place], [address] 10/10/2023 18:49:11 10/10/19 24 10/10/2023 URINA LYSIS clarity Clear clear Not Available [address] [place], [address] 10/10/2023 18:49:11 10/10/19 24 10/10/2023 URINA LYSIS specific gravity 1.010 1.005- 1.025 normal Not Available [address] [place], [address] 10/10/2023 18:49:11 10/10/19 24 10/10/2023 URINA LYSIS pH 6.5 5-8 normal Not Available [address] [place], [address] 10/10/2023 18:49:11 10/10/19 24 10/10/2023 URINA LYSIS leukocyte esterase Negati ve negati ve Not Available [address] [place], [address] 10/10/2023 18:49:11 10/10/19 24 10/10/2023 URINA LYSIS nitrite Negati ve negati ve Not Available [address] [place], [address] 10/10/2023 18:49:11 10/10/19 24 10/10/2023 URINA LYSIS protein Negati ve mg/dL neg-tr yeimy Not Available [address] [place], [address] 10/10/2023 18:49:11 10/10/19 24 10/10/2023 URINA LYSIS glucose Negati ve mg/dL negati ve Not Available [address] [place], [address] 10/10/2023 18:49:11 10/10/19 24 10/10/2023 URINA LYSIS ketones Negati ve mg/dL negati ve Not Available [address] [place], [address] 10/10/2023 18:49:11 10/10/19 24 10/10/2023 URINA LYSIS urobilinogen 0.2 mg/dL up to 0.2 Not Available [address] [place], [address] 10/10/2023 18:49:11 10/10/19 24 10/10/2023 URINA LYSIS bilirubin Negati ve negati ve Not Available [address] [place], [address] 10/10/2023 18:49:11 10/10/19 24 10/10/2023 URINA LYSIS blood Negati ve negati ve Not Available [address] [place], [address] 10/10/2023 18:49:11 10/10/19 24 10/10/2023 URINE DRUG SCREE N ([facility] ) methadone Negati ve negati ve Not Available [address] [place], [address] 10/10/2023 18:59:15 10/10/19 24 10/10/2023 URINE DRUG SCREE N ([facility] ) benzodiazepi domo Positi ve negati ve abnormal Not Available [address] [place], [address] 10/10/2023 18:59:15 10/10/19 24 10/10/2023 URINE DRUG SCREE N ([facility] ) cocaine Negati ve negati ve Not Available [address] [place], [address] 10/10/2023 18:59:15 10/10/19 24 10/10/2023 URINE DRUG SCREE N ([facility] ) amphetamines Negati ve negati ve Not Available [address] [place], [address] 10/10/2023 18:59:15 10/10/19 24 10/10/2023 URINE DRUG SCREE N ([facility] ) tetrahydroca nnabinol Positi ve negati ve abnormal Not Available [address] [place], [address] 10/10/2023 18:59:15 10/10/19 24 10/10/2023 URINE DRUG SCREE N ([facility] ) opiates Negati ve negati ve Not Available [address] [place], [address] 10/10/2023 18:59:15 10/10/19 24 10/10/2023 URINE DRUG SCREE N ([facility] ) barbiturates Negati ve negati ve Not Available [address] [place], [address] 10/10/2023 18:59:15 10/10/19 24 10/10/2023 URINE DRUG SCREE N ([facility] ) tricyclic antidepressa nts Negati ve negati ve Not Available [address] [place], [address] 10/10/2023 18:59:15 10/11/19 24 10/11/2023 COMPL ETE BLOOD COUNT NO DIFF WBC 11.79 10_3/ uL 4.4-10 .8 high Not Available [address] [place], [address] 10/11/2023 07:26:51 10/11/19 24 10/11/2023 COMPL ETE BLOOD COUNT NO DIFF RBC 4.55 10_6/ uL 3.93-5 .22 normal Not Available [address] [place], [address] 10/11/2023 07:26:51 10/11/19 24 10/11/2023 COMPL ETE BLOOD COUNT NO DIFF HGB 13.9 g/dL 11.2-1 5.7 Not Available [address] [place], [address] 10/11/2023 07:26:51 10/11/19 24 10/11/2023 COMPL ETE BLOOD COUNT NO DIFF HCT 38.8 % 36.0-4 6.0 normal Not Available [address] [place], [address] 10/11/2023 07:26:51 10/11/19 24 10/11/2023 COMPL ETE BLOOD COUNT NO DIFF MCV 85 fL 80-95 normal Not Available [address] [place], [address] 10/11/2023 07:26:51 10/11/19 24 10/11/2023 COMPL ETE BLOOD COUNT NO DIFF MCH 30.5 pg 27.0-3 3.0 normal Not Available [address] [place], [address] 10/11/2023 07:26:51 10/11/19 24 10/11/2023 COMPL ETE BLOOD COUNT NO DIFF MCHC 35.8 % 32.0-3 6.0 normal Not Available [address] [place], [address] 10/11/2023 07:26:51 10/11/19 24 10/11/2023 COMPL ETE BLOOD COUNT NO DIFF RDW 12.8 % 11.7-1 4.6 normal Not Available [address] [place], [address] 10/11/2023 07:26:51 10/11/19 24 10/11/2023 COMPL ETE BLOOD COUNT NO DIFF platelet count 340 10_3/ uL 130-40 0 normal Not Available [address] [place], [address] 10/11/2023 07:26:51 10/11/19 24 10/11/2023 COMPL ETE BLOOD COUNT NO DIFF MPV 10.0 fL 8.0-11 .0 normal Not Available [address] [place], [address] 10/11/2023 07:26:51 10/11/19 24 10/11/2023 COMPR EHENS JOANA METAB OLIC PANEL calcium 8.6 mg/dL 8.5-10 .1 normal Not Available [address] [place], [address] 10/11/2023 07:49:57 10/11/19 24 10/11/2023 COMPR EHENS JOAAN METAB OLIC PANEL glucose 96 mg/dL 74-106 normal Not Available [address] [place], [address] 10/11/2023 07:49:57 10/11/19 24 10/11/2023 COMPR EHENS JOANA METAB OLIC PANEL BUN 0 mg/dL 7-18 low Not Available [address] [place], [address] 10/11/2023 07:49:57 10/11/19 24 10/11/2023 COMPR EHENS JOANA METAB OLIC PANEL creatinine 0.9 mg/dL 0.55-1 .02 normal Not Available [address] [place], [address] 10/11/2023 07:49:57 10/11/19 24 10/11/2023 COMPR EHENS JOANA METAB OLIC PANEL estimated GFR 80.84 mL/min /1.73m 2 Not Available [address] [place], [address] 10/11/2023 07:49:57 10/11/19 24 10/11/2023 COMPR EHENS JOANA METAB OLIC PANEL total protein 6.3 g/dL 6.4-8. 2 low Not Available [address] [place], [address] 10/11/2023 07:49:57 10/11/19 24 10/11/2023 COMPR EHENS JOANA METAB OLIC PANEL albumin 3.1 g/dL 3.4-5. 0 low Not Available [address] [place], [address] 10/11/2023 07:49:57 10/11/19 24 10/11/2023 COMPR EHENS JOANA METAB OLIC PANEL bilirubin, total 0.44 mg/dL 0.2-1. 0 normal Not Available [address] [place], [address] 10/11/2023 07:49:57 10/11/19 24 10/11/2023 COMPR EHENS JOANA METAB OLIC PANEL alk phos 85 U/L 46-116 normal Not Available [address] [place], [address] 10/11/2023 07:49:57 10/11/19 24 10/11/2023 COMPR EHENS JOANA METAB OLIC PANEL sodium 144 mmol/ L 136-14 5 normal Not Available [address] [place], [address] 10/11/2023 07:49:57 10/11/19 24 10/11/2023 COMPR EHENS JOANA METAB OLIC PANEL potassium 2.8 mmol/ L 3.5-5. 1 critical low Not Available [address] [place], [address] 10/11/2023 07:49:57 10/11/19 24 10/11/2023 COMPR EHENS JOANA METAB OLIC PANEL chloride 107 mmol/ L 98-107 normal Not Available [address] [place], [address] 10/11/2023 07:49:57 10/11/19 24 10/11/2023 COMPR EHENS JOANA METAB OLIC PANEL CO2 30.2 mmol/ L 21.0-3 2.0 normal Not Available [address] [place], [address] 10/11/2023 07:49:57 10/11/19 24 10/11/2023 COMPR EHENS JOANA METAB OLIC PANEL anion gap 6.8 mmol/ L 3-11 normal Not Available [address] [place], [address] 10/11/2023 07:49:57 10/11/19 24 10/11/2023 COMPR EHENS JOANA METAB OLIC PANEL AST 13 U/L 15-37 low Not Available [address] [place], [address] 10/11/2023 07:49:57 10/11/19 24 10/11/2023 COMPR EHENS JOANA METAB OLIC PANEL ALT 28 U/L 14-59 normal Not Available [address] [place], [address] 10/11/2023 07:49:57 10/11/19 24 10/11/2023 MAGNE SIUM magnesium 2.2 mg/dL 1.8-2. 4 normal Not Available [address] [place], [address] 10/11/2023 07:49:58 10/11/19 24 10/11/2023 POTAS SIUM potassium 3.7 mmol/ L 3.5-5. 1 normal Not Available [address] [place], [address] 10/11/2023 21:02:18 07/04/19 24 07/04/2023 XR, chest , 2 view Patien t Name: Tatyana Grant sa Unit #: [id number] Loc[facility] er: Nicole Sharif Accoun t #: [id number] Status : REG CLI Primar y Care Provid er: Zaina Parrish Date of Exam: Sex: F Admiss ion Date: : 1980 Age: 42 Exam(s ) XR CHEST 2V PA LATERA L EXAM: XR CHEST 2V PA LATERA L CLINIC AL HISTOR Y: DYSPNE A,R06. 00,[facility] TECHNI QUE: 2D digita l imagin g was perfor med. Two views. COMPAR EMERY: CR XR CHEST 2V PA LATERA L from 2022 FINDIN GS: HEART: Normal size. Aorta: Not dilate d. PULMON BHAVANA VASCUL ATURE: Normal . LUNGS: Clear. PLEURA L SPACE: No pleura l effusi on or pneumo thorax . BONE:U nremar kable for age. Soft tissue s: Unrema rkable . IMPRES KELI: No acute abnorm ality. DATA REPOSI TORY: RADIAT ION DOSE DELIVE RED: Ordere d By: Nicole Sharif CC: ------ ------ ------ ------ ------ ------ ------ ------ ------ ------ ------ ------ - Dictat ed By: Gordy Villarreal [id number] [id number] Transc ribed By: Moraima Monroe 1018 This is privil eged, confid ential inform ation intend ed only for the provid er named. Any use or distri bution by any person other than this provid er is strict ly prohib ited. If you receiv e this report in error, please notify us immedi mckennaly at [phone] and return the origin al report to us at the addres s above. Thank- you. [facility] [address], [place], [address] 07/14/2023 09:54:47 10/08/19 24 10/08/2023 vrad antonio amaya Name: Tatyana Grant sa Unit #: [id number] Loc: ER Orderi ng Provid er: Accoun t #: [id number] Status : REG ER Primar y Care Provid er: Nicole Sharif Date of Exam: 09/25 06/18 Sex: F : 1980 Age: 42 Exam(s ) PROCED URE INFORM ATION: Exam: CT Abdome n And Pelvis With Contra st Exam date and time: 024 10:22 AM Age: 42 years old Clinic al indica tion: Abdomi nal pain; Other: Abdome n pain TECHNI QUE: Imagin g protoc ol: Comput ed tomogr aphy of the abdome n and pelvis with contra st. Contra st materi al: OMNIPA QUE; Contra st volume : 100 ml; Contra st route: INTRAV ENOUS (IV); COMPAR EMERY: CT ABDOME N PELVIS WO 10/03/19 24 2:39 PM FINDIN GS: The visual ized portio ns of the lung bases are clear. Liver: Focal fatty infilt ration of the liver near the falcif orm ligame nt. No mass. Gallbl adder and biliar y ducts: Disten ded gallbl adder. No calcif ied stones . No ductal dilati on. Pancre as: Normal . No ductal dilati on. Spleen : Normal . No spleno megaly . Adrena l glands : Normal . No mass. Kidney s and ureter s: Normal . No hydron ephros is. Stomac h and bowel: Unrema rkable . No obstru ction. No mucosa l thicke bradly. Append ix: A normal append ix is identi fied. Intrap eriton eal space: There is trace free fluid in the pelvis . Vascul ature: Unrema rkable . No abdomi nal aortic aneury sm. Lymph nodes: Unrema rkable . No enlarg ed lymph nodes. Urinar y bladde r: Unrema rkable as visual ized. Reprod uctive : Unrema rkable as visual ized. Bones/ joints : Unrema rkable . No acute fractu re. Soft tissue s: There is a small fat-co ntaini ng umbili sameera hernia . IMPRES KELI: No acute abnorm ality. Additi onal findin gs as descri bed. Dictat ed and Authen ticate d by: Jeannie carl MD. Jovani ng:P.N BRITNEY Sumner MD Access ion#=[id number] Ordere d By: CC: ------ ------ ------ ------ ------ ------ ------ ------ ------ ------ ------ ------ ---- Dictat ed By: Report s vrad 1022 1040 Transc ribed By: Dinorah Mackey 1022 This is privil eged, confid ential inform ation intend ed only for the provid er named. Any use or distri bution by any person other than this provid er is strict ly prohib ited. If you receiv e this report in error, please notify us immedi ately at and return the origin al report to us at the addres s above. Thank- you. [facility] [address], [place], [address] 10/10/2023 05:33:35 10/08/19 24 10/08/2023 CT imagi ng repor t Patipasha t Name: Tatyana Grant sa Unit #: [id number] Loc: ER Orderi ng Provid er: Burak Weathers M.D. t #: [id number] Status : REG ER Primar y Care Provid er: Nicole Sharif Date of Exam: 09/25 06/18 Sex: F : 1980 Age: 42 Exam(s ) a CT:CT abdome n pelvis w Exam(s ) CT ABDOME N PELVIS W EXAM: CT ABDOME N PELVIS W CLINIC AL HISTOR Y: Abdomi nal pain. TECHNI QUE: Imagin g Protoc ol: Axial comput ed tomogr aphy images with pierre l and sagitt al reform atted images were create d and review ed CONTRA ST MATERI AL: Intrav enous: Omnipa que [address] volume :100 ml Oral: no COMPAR EMERY: CT CT ABDOME N PELVIS WO from 2023 FINDIN GS: ABDOME N and PELVIS : Lung Bases: No acute findin gs. Liver: Normal densit y. No suspic ious mass. Gallbl adder and biliar y tract: No radiod ense calcul us. No biliar y dilati on. Pancre as: Normal densit y. No abnorm al calcif icatio ns or inflam matory proces s. No eviden ce of mass. Spleen : Normal . Kidney s: Normal size, contou r and axis. No radiod ense stones . No obstru ctive uropat hy. No suspic ious masses seen. Adrena l glands : No masses seen. Vascul ature: Abdomi nal aorta non-di lated. Soft tissue s: Unrema rkable . Bladde r: No gross wall thicke bradly. No calcul i.No focal mass. Bowel: No obstru ction. No bowel wall thicke bradly. Append ix normal . Perito alexa cavity : Trace fluid, physio logic. No focal collec tion. No mesent aleta inflam matory respon se. Bones: Unrema rkable for age. Reprod uctive organs : Unrema rkable . Lymph nodes: No pathol ogical ly enlarg ed lymph nodes. IMPRES KELI:: No acute abnorm ality in the abdome n or pelvis . RADIAT ION DOSE DELIVE RED: Total DLP DATA REPOSI TORY: All CT scans at this facili ty are submit stefan to the [facility] al Radiol ogy Data Regist ry (NRDR) Dose Index Regist ry (DIR) with the [place] of Radiol ogy (ACR). RADIAT ION OPTIMI ZATION : All CT scans at this facili ty use at least one of these dose optimi zation techni ques: automa stefan exposu re contro l; mA and/or kV adjust ment per patien t size (inclu robyn target ed exams where dose is matche d to clinic al indica tion); or iterat joana recons tructi on. 010: Total DLP = 0.00 mGy-cm Ordere d By: Burak Weathers M.D. CC: ------ ------ ------ ------ ------ ------ ------ ------ ------ ------ ------ ------ ---- Dictat ed By: Gordy Villarreal [id number] Transc ribed By: Moraima Monroe 1223 This is privil eged, confid ential inform ation intend ed only for the provid er named. Any use or distri bution by any person other than this provid er is strict ly prohib ited. If you receiv e this report in error, please notify us immedi ately at and return the origin al report to us at the addres s above. Thank- you. [email or web address] [facility] [address] [place], [address] 10/10/2023 05:33:35 10/10/19 24 10/10/2023 CT imagi ng repor t Patien t Name: Tatyana Grant sa Unit #: [id number] Loc: ER Orderi ng Provid er: Miguelina Looney M.D. Accoun t #: [id number] Status : REG ER Primar y Care Provid er: Nicole Sharif Date of Exam: 09/25 08/18 Sex: F : 1980 Age: 42 Exam(s ) a CT:CT abdome n pelvis w Exam(s ) CT ABDOME N PELVIS W EXAM: CT ABDOME N PELVIS W CLINIC AL HISTOR Y: abd pain nausea vomiti ng, recent endo/c olonos copy. TECHNI QUE: Imagin g Protoc ol: Axial comput ed tomogr aphy images with pierre l and sagitt al reform atted images were create d and review ed CONTRA ST MATERI AL: Intrav enous: Omnipa que [address] volume :100 ml Oral: / no COMPAR EMERY: CT CT ABDOME N PELVIS W from 2023 FINDIN GS: ABDOME N and PELVIS : Lung Bases: No acute findin gs. Liver: Normal densit y. No suspic ious mass. Gallbl adder and biliar y tract: No radiod ense calcul us. No biliar y dilati on. Pancre as: Normal densit y. No abnorm al calcif icatio ns or inflam matory proces s. No eviden ce of mass. Spleen : Normal . Kidney s: Normal size, contou r and axis. No radiod ense stones . No obstru ctive uropat hy. No suspic ious masses seen. Adrena l glands : No masses seen. Vascul ature: Abdomi nal aorta non-di lated. Soft tissue s: Unrema rkable . Bladde r: No gross wall thicke bradly. No calcul i.No focal mass. Bowel: No obstru ction. No bowel wall thicke bradly. Append ix normal . Perito alexa cavity : No ascite s. No focal collec tion. No mesent aleta inflam matory respon se. Bones: Unrema rkable for age. Reprod uctive organs : Unrema rkable . Lymph nodes: No pathol ogical ly enlarg ed lymph nodes. IMPRES KELI:: No acute abnorm ality in the abdome n or pelvis . RADIAT ION DOSE DELIVE RED: Total DLP DATA REPOSI TORY: All CT scans at this facili ty are submit stefan to the [place] al Radiol ogy Data Regist ry (NRDR) Dose Index Regist ry (DIR) with the [place] of Radiol ogy (ACR). RADIAT ION OPTIMI ZATION : All CT scans at this facili ty use at least one of these dose optimi zation techni ques: automa stefan exposu re contro l; mA and/or kV adjust ment per patien t size (inclu robyn target ed exams where dose is matche d to clinic al indica tion); or iterat joana recons tructi on. 031: Total DLP = 0.00 mGy-cm Ordere d By: Miguelina Looney M.D. CC: ------ ------ ------ ------ ------ ------ ------ ------ ------ ------ ------ ------ ---- Dictat ed By: Gordy Villarreal 1818 Transc ribed By: Moraima Monroe 1818 This is privil eged, confid ential inform ation intend ed only for the provid er named. Any use or distri bution by any person other than this provid er is strict ly prohib ited. If you receiv e this report in error, please notify us immmarvin slater at [phone] and return the origin al report to us at the addres s above. Thank- you. [email or web address] [facility] [address] [place], [address] 10/11/2023 13:16:40 10/10/1910/10/2023 x-ray imagi ng antonio amaya Name: Tatyana Grant sa Unit #: [id number] Loc: ER Orderi ng Provid er: Miguelina Looney M.D. Accoun t #: [id number] Status : REG ER Primar y Care Provid er: Nicole Sharif Date of Exam: 09/25 08/18 Sex: F Admiss ion Date: : 1980 Age: 42 Exam(s ) XR CHEST 2V PA LATERA L EXAM: XR CHEST 2V PA LATERA L CLINIC AL HISTOR Y: abd pain tachyc ardoia TECHNI QUE: 2D digita l imagin g was perfor med. Two views. COMPAR EMREY: CR XR CHEST 2V PA LATERA L from 2023 FINDIN GS: HEART: Normal size. Aorta: Not dilate d. PULMON BHAVANA VASCUL ATURE: Normal . MEDIAS TINUM: Unrema rkable . LUNGS: Clear. PLEURA L SPACE: No pleura l effusi on or pneumo thorax . BONE:U nremar kable for age. SOFT TISSUE S: Unrema rkable . IMPRES KELI: No acute abnorm ality. DATA REPOSI TORY: RADIAT ION DOSE DELIVE RED: Ordere d By: Miguelina Looney M.D. CC: ------ ------ ------ ------ ------ ------ ------ ------ ------ ------ ------ ------ - Dictat ed By: Gordy Villarreal 1818 Transc ribed By: Moraima Monroe 1818 This is privil eged, confid ential inform ation intend ed only for the provid er named. Any use or distri bution by any person other than this provid er is strict ly prohib ited. If you receiv e this report in error, please notify us immmarvin slater at [phone] and return the origin al report to us at the addres s above. Thank- you. [email or web address] [facility] [address] [place], [address] 10/11/2023 13:16:41 Result Notes None recorded. 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 She has been on this medication in the past and it worked for her well for her for some time, before she switched to escitalopram more recently. - Rx citalopram 20 mg 1 p.o. daily #90 sent to [facility] for her to start today. -She will continue with twice weekly therapy, next appointment tomorrow. - I will ask Diane Jacinto LPN to check in with Domitila via phone on Friday 09/01. Problem Code: F32.9; Problem Code Type: ICD-10; Not Available [facility] 3 05:20:00 High enzyme level in serum Active 2018 Problem Code: R74.8; Problem Code Type: ICD-10; Not Available [facility] 3 05:20:00 Joint pain Active 2018 Problem Code: M25.50; Problem Code Type: ICD-10; Not Available [facility] 3 05:20:00 Gastro-esopha geal reflux disease with esophagitis Active 201907/09/2019 - Comments only - Glen Parrish [employer] - 04/2019 EGD Problem Code: K21.0; Problem Code Type: ICD-10; Not Available [facility] 3 05:20:00 Disorder of stomach Active 201907/09/2019 - Comments only - Glen Parrish [employer] - 05/08/2019 biopsies of stomach showed mild reactive chemical gastropathy no H. pylori. Duodenal biopsies had no significant diagnostic abnormality and the same thing with the colon. Take a PPI Protonix 40 mg half hour before evening meal indefinitely. Follow-up PRN. Not Available [facility] 3 05:20:01 Irritable bowel syndrome Active 201909/17/2020 - Comments only - Glen Parrish [employer] - sx managed well on colestipol Problem Code: K58.9; Problem Code Type: ICD-10; Not Available [facility] 3 05:20:01 Cough Completed 201901/15/2020 01/01/2020 - Comments only - Zainab Holliday [employer] - with body aches and other URI sx. History and presentation consistent with viral URI. COVID-19 testing performed using [employer] swab, advised quarantine while awaiting results. Discussed symptomatic mgmt (sinus care, avoidance of multiple OTC meds). Reviewed concerning sx indicating secondary bacterial infection requiring further f/u (worsening cough, ear pain, sore throat) and red flags requiring emergency care. Problem Code: R05; Problem Code Type: ICD-10; Not Available [facility] 3 05:20:01 Abnormal weight gain Active 202009/17/2020 - Comments only - Glen Parrish [employer] - trialing topomax, has lost 8 pounds Problem Code: R63.5; Problem Code Type: ICD-10; Not Available [facility] 3 05:20:01 History and physical examination, administrativ e Active 2020 Problem Code: Z02.89; Problem Code Type: ICD-10; Not Available [facility] 3 05:20:01 Pain of right shoulder joint Active 202012/29/2021 - Comments only - Glen Parrish [employer] - [facility];Ri ght biceps tendinitis of the shoulder, SL AP tear right shoulder, right rotator cuff tearPlanning to get MRI. Problem Code: M25.511; Problem Code Type: ICD-10; Not Available [facility] 3 05:20:01 Suicidal thoughts Active 202108/30/2022 - Comments only - Kyleigh [facility]- - - Domitila does continue to have frequent suicidal thoughts, as well as plan and means, but clearly states that she has no intention of following through on these, and states that she would proceed to [facility] emergency department should she feel unsafe or at risk of self-harm or suicide. 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 2022 Problem Code: B83.9; Problem Code Type: ICD-10; Not Available [facility] 3 05:20:02 Nausea Completed 201907/22/2020 Problem Code: R11.0; Problem Code Type: ICD-10; Not Available [facility] 3 05:20:02 Dysuria Completed 201606/27/2019 Problem Code: R30.0; Problem Code Type: ICD-10; Not Available [facility] 3 05:20:02 Chest pain Completed 201806/27/2019 Problem Code: R07.9; Problem Code Type: ICD-10; Not Available [facility] 3 05:20:02 Incontinence of feces Completed 201806/27/2019 Problem Code: R15.9; Problem Code Type: ICD-10; Not Available [facility] 3 05:20:02 Fatigue Completed 201809/17/2020 Problem Code: R53.83; Problem Code Type: ICD-10; Not Available [facility] 3 05:20:02 Visual disturbance Completed 201907/22/2020 Problem Code: H53.9; Problem Code Type: ICD-10; Not Available [facility] 3 05:20:02 Pain of left wrist Completed 201409/17/2020 Problem Code: M25.532; Problem Code Type: ICD-10; Not Available [facility] 3 05:20:03 Dizziness and giddiness Completed 201407/22/2020 Problem Code: R42; Problem Code Type: ICD-10; Not Available [facility] 3 05:20:03 Diarrhea Completed 201807/22/2020 Problem Code: R19.7; Problem Code Type: ICD-10; Not Available [facility] 3 05:20:03 Cyst of vulva Completed 202007/22/2020 Problem Code: N90.7; Problem Code Type: ICD-10; Not Available [facility] 3 05:20:03 General examination of patient Completed 201406/27/2019 Problem Code: Z00.8; Problem Code Type: ICD-10; Not Available [facility] 3 05:20:03 Acute pharyngitis Completed 201907/22/2020 Problem Code: J02.9; Problem Code Type: ICD-10; Not Available [facility] 3 05:20:03 Acute pharyngitis Completed 201506/27/2019 Problem Code: J02.9; Problem Code Type: ICD-10; Not Available [facility] 3 05:20:03 Disorder of soft tissue Active 2022 Problem Code: M79.89; Problem Code Type: ICD-10; Not Available [facility] 4 05:38:07 Dyspnea Active 2023 NANDA OVALLES [address], [place], [address] , [facility] 4 12:24:04 Hyperglycemia Active 2023 NANDA OVALLES [address], [place], [address] , [facility] 4 12:38:11 Raynaud's phenomenon Active 2023 NANDA OVALLES [address], [place], [address] , [facility] 4 12:50:56 Internal hemorrhoids grade II Active 2023 Surgically banded during colonoscopy 10/05/2023 NANDA OVALLES [address], [place], [address] , [facility] 4 12:52:46 Cannabis dependence Active 2023 And possibly cannabis hyperemesis syndrome per ED report 10/10/2023. [address], [place], [address] , [facility] 08:55:37 Problem Notes None recorded. Procedures Surgical History None recorded. Imaging Results Imaging Date Name Status LastModified by Organiz atpending sale to [facility] Details LastModified Time 07/04/2023 XR, chest, 2 view completed [email or web address] [address] [place], [address] 07/14/2023 09:54:47 10/08/2023 vrad report completed [id number] [place], [address] 10/10/2023 05:33:35 10/08/2023 CT imaging report completed [email or web address] [place], [address] 10/10/2023 05:33:35 10/10/2023 CT imaging report completed [id number] [place], [address] 10/11/2023 13:16:40 10/10/2023 x-ray imaging report completed [email or web address] [address] [place], [address] 10/11/2023 13:16:41 Procedure Notes None recorded. Medical Equipment None Reported. Allergies Allergen ID Allergen Name Allergen Category Reaction Reaction Severity Criticality Documentation Date Start Date Code Code System Note Provider Name and Address Organization Details Recorded Time 94490 Ambien medicatio n other severe Not available 02/04/20232020 66240 5 RxNorm sleep walki ng Aller gyRea ction : 'slee p walki ng'; Not Available [facility] 3 16:22:12 51988 Wellbutri n medicatio n other severe Not available 02/04/20232020 94646 RxNorm Hypom miley Aller gyRea ction : 'Hypo khushbu '; Not Available [facility] 3 16:22:12 Medications Name Sig Start Date Stop Date Status Note LastModified by Organization Details LastModified Time fluoxetin e 40 mg capsule TAKE ONE CAPSULE BY MOUTH EVERY DAY 05/23 completed Not Available Not Available Not Available cyclobenz aprine 10 mg tablet Take 1 tab by mouth three times daily as needed. Avoid driving. 04/27 completed Not Available Not Available Not Available metformin 500 mg tablet TAKE ONE TABLET BY MOUTH EVERY DAY WITH A MEAL 05/23 completed Not Available Not Available Not Available Augmentin 875 mg-125 mg tablet Take 1 tab by mouth twice daily. 01/10 completed Not Available Not Available Not Available clonidine HCl 0.1 mg tablet TAKE ONE TABLET BY MOUTH THREE TIMES A DAY FOR ANXIETY active Not Available Not Available No t Available trazodone 50 mg tablet 1 to 2 tabs by mouth at HS 06/26 completed Not Available Not Available Not Available Topamax 25 mg tablet take 1 tablet QAM X 7 days then increase to 2 tablets 09/15 completed Not Available Not Available Not Available Risperdal 1 mg tablet Take tablet by mouth twice a day active Per pt Breanne camejo d 1mg bid on 10/14/21 Not Available Not Available Not Available cefpodoxi me 100 mg tablet one bid 10/20 completed per d/c summary Not Available Not Available Not Available citalopra m 10 mg tablet 1TAB daily 2013 active Not Available Not Available Not Avai lable meloxicam 15 mg tablet TAKE ONE TABLET BY MOUTH EVERY DAY DO NOT TAKE IBUPROFE N OR OTHER NSAIDS WHILE ON THIS MEDICATI ON TAKE WITH FOOD 06/29 completed Not Available Not Available Not Available Nicoderm CQ 21 mg/24 hr daily transderm al patch Apply 1 patch external ly daily to hairless area. Rotate skin sites 12/13 completed Not Available Not Available Not Available famotidin e 40 mg tablet Take 1 tablet every day by oral route. 2023 active per [facility] Not Available Not Available Not Available gabapenti n 400 mg capsule take 1 cap by mouth daily 06/26 completed Breanne ny [facility] Not Available Not Available Not Available Pyridium 100 mg tablet 1 tabs tid prn 05/04 completed Not Available Not Available Not Available thiamine HCl (vitamin B1) 100 mg tablet Take 1 tab by mouth daily 06/26 completed [facility] Not Available Not Available Not Available Nicotrol 10 mg inhalatio n cartridge INHALE 1 CARTRIDG E BY MOUTH UP TO 16 TIMES A DAY NEEDED FOR SMOKING CESSATIO N 05/23 completed Not Available Not Available Not Available triamcino lone acetonide 0.1 % topical cream APPLY A THIN LAYER TO AFFECTED AREA(S) TWO TIMES A DAY active Not Available Not Available No t Available Macrobid 100 mg capsule Take 1 cap by mouth twice daily 05/04 completed Not Available Not Available Not Available citalopra m 20 mg tablet Take 1 tablet by mouth once a day HOLD hydroxyz ine while taking this medicati on 12/27 completed Not Available Not Available Not Available Lamictal 25 mg tablet Take 2 tablet by mouth once a day ( finish 08/29) 12/27 completed Not Available Not Available Not Available cephalexi n 500 mg capsule 1 capsule by mouth four times a day 01/07 completed Not Available Not Available Not Available pantopraz ole 40 mg tablet,de layed release Take 1 tab by mouth 30 min before meal once a day. 07/21 completed Not Available Not Available Not Available albendazo le 200 mg tablet take 2 tablets PO QD X 2 days then repeat dosing in 2 weeks. 08/26 completed Not Available Not Available Not Available fluoxetin e 10 mg capsule TAKE ONE CAPSULE BY MOUTH EVERY DAY 05/23 completed Not Available Not Available Not Available Elimite 5 % topical cream APPLY FROM HEAD TO TOE AND WASH OFF AFTER 8-14HRS 12/31 completed Not Available Not Available Not Available gabapenti n 300 mg capsule TAKE ONE CAPSULE BY MOUTH AT BEDTIME NEEDED FOR NERVE PAIN. MAY INCREASE TO THREE TIMES A DAY NEEDED FOR NERVE PAIN active Not Available Not Available No t Available Risperdal 0.5 mg tablet Take tablet by mouth once a day 12/27 completed Per pt Breanne Chirinos ki increase d 1mg bid-plan to taper off Not Available Not Available Not Available hydroxyzi ne HCl 25 mg tablet TAKE TWO TABLETS BY MOUTH TWICE A DAY FOR ANXIETY as needed active Not Available Not Available No t Available alprazola m 2 mg tablet TAKE ONE TABLET BY MOUTH TWICE A DAY active Not Available Not Available No t Available gabapenti n 100 mg capsule TAKE ONE CAPSULE BY MOUTH THREE TIMES A DAY active Not Available Not Available No t Available lorazepam 1 mg tablet one tab po prn anxiety 05/04 completed Dana Rain [facility] Not Available Not Available Not Available zolpidem 10 mg tablet 1.5 tabs po qHS prn sleep 12/31 completed Not Available Not Available Not Available fluoxetin e 20 mg capsule TAKE ONE CAPSULE BY MOUTH EVERY DAY +STOP 40MG+ 05/23 completed Not Available Not Available Not Available fluticaso ne propionat e 50 mcg/actua tion nasal spray,roddy pension 2 sprays each nostril daily 03/06 completed Not Available Not Available Not Available colestipo l 1 gram tablet 1 tablet BID before meals 2019 active GI Not Available Not Available Not Avai lable dicyclomi ne 10 mg capsule Take 1 tablet by mouth twice daily. 06/09 completed [facility] Not Available Not Available Not Available lamotrigi ne 100 mg tablet TAKE ONE TABLET BY MOUTH EVERY DAY (INCREAS E IN DOSE START AUGUST 01, 2022--ST OP IF RASH OCCURS) 05/23 completed Not Available Not Available Not Available folic acid 800 mcg tablet Take 1 tab by mouth daily 2020 active Not Available Not Available Not Avai lable magnesium 200 mg tablet Take 1 tablet every day by oral route. active Not Available Not Available No t Available escitalop talha 10 mg tablet Take 1 tablet by mouth once a day 07/29 completed per d/c summary 10/08/21 Not Available Not Available Not Available escitalop talha 20 mg tablet Take 0.5 tab by mouth daily 2013 active Breanne Silva i [facility] dose increase d Not Available Not Available Not Available Vitamin D3 25 mcg (1,000 unit) capsule 1 qd 2020 active Not Available Not Available Not Avai lable Abilify 5 mg tablet IN ADDITION TO 2 MG QD 12/27 completed Breanne Silva si [employer] Not Available Not Available Not Available topiramat e 50 mg tablet by mouth twice a day take 1 tabs morning and 1 tab in pm 07/29 completed Breanne ny Not Available Not Available Not Available eszopiclo ne 3 mg tablet TAKE ONE TABLET BY MOUTH IMMEDIAT AYO BEFORE BEDTIME active Not Available Not Available No t Available Lunesta 1 mg tablet Take 1 tab by mouth at bedtime as needed. 2020 active [facility] Not Available Not Available Not Avai lable Lunesta 2 mg tablet Take 1 tablet by mouth every night as needed 10/13 completed Not Available Not Available Not Available vitamin B complex active Not Available Not Available Not Available folic acid 800mcg one daily active Not Available Not Available No t Available Vitamin D3 1000 IU take 2 daily active Not Available Not Available No t Available Abilify 2 mg tablet IN ADDITION TO 5 MG QD 12/27 completed BREANNE CHIRINOS KI [employer] Not Available Not Available Not Available acetylcys teine 600 mg capsule TAKE ONE CAPSULE BY MOUTH TWICE A DAY DIRECTED 05/23 completed Not Available Not Available Not Available Vyvanse 30 mg capsule TAKE TWO CAPSULES BY MOUTH EVERY DAY active Not Available Not Available No t Available lisdexamf etamine 20 mg capsule TAKE ONE CAPSULE BY MOUTH EVERY DAY AT 1PM. 05/23 completed Not Available Not Available Not Available lisdexamf etamine 40 mg capsule TAKE ONE CAPSULE BY MOUTH EVERY DAY IN THE MORNING 05/23 completed Not Available Not Available Not Available desvenlaf axine succinate ER 100 mg tablet,ex tended release 24 hr TAKE ONE TABLET BY MOUTH EVERY DAY 05/23 completed Not Available Not Available Not Available Latuda 20 mg tablet Take 1 by mouth daily 07/21 completed [facility] Not Available Not Available Not Available Metrogel 1 % topical gel with pump Apply to perioral area twice daily 05/04 completed Not Available Not Available Not Available Rexulti 1 mg tablet 05/23 completed Not Available Not Available Not Available Rexulti 0.5 mg tablet TAKE ONE TABLET BY MOUTH EVERY DAY FOR 7 DAYS; THEN INCREASE TO 1MG DAILY 05/23 completed Not Available Not Available Not Available Rexulti 2 mg tablet TAKE ONE TABLET BY MOUTH EVERY DAY FOR PERSISTE NT RESISTAN T DEPRESSI ON active Not Available Not Available No t Available Caplyta 42 mg capsule TAKE ONE CAPSULE BY MOUTH EVERY DAY TAKE FOR 3 MORE WEEKS AND THEN STOP 05/23 completed Not Available Not Available Not Available Vitals Date Recorded Body height Body mass index (BMI) Body weight Respiratory rate Body temperature Heart rate Oxygen saturation Oxygen saturation in Arterial blood by Pulse oximetry Systolic blood pressure Diastolic blood pressure Provider Name and Address Organization Details Last Updated DateTime 4 154.101 8 cm 29.8 kg/m2 23085.4 1 g 20 /min 98.5 [degF] 95 /min 99 % 99 % 97 mm[Hg] 71 mm[Hg] Warner Sanz MA MS - [facility]. 4 11:59:32 Date Recorded Body height Body mass index (BMI) Body weight Heart rate Systolic blood pressure Diastolic blood pressure Provider Name and Address Organization Details Last Updated DateTime 4 152.4 cm 31.3 kg/m2 80370.8 8 g 92 /min 92 mm[Hg] 62 mm[Hg] DIANE DICKINSON LPN [facility] 4 13:46:56 Date Recorded Body height Body mass index (BMI) Body weight Body temperature Respiratory rate Heart rate Systolic blood pressure Diastolic blood pressure Provider Name and Address Organization Details Last Updated DateTime 4 152.4 cm 31.4 kg/m2 91645.3 7 g 98.1 [degF] 16 /min 112 /min 108 mm[Hg] 70 mm[Hg] OZZY MATT RN [facility] 4 10:46:17 Date Recorded Body height Body mass index (BMI) Body weight Body temperature Oxygen saturation Oxygen saturation in Arterial blood by Pulse oximetry Heart rate Systolic blood pressure Diastolic blood pressure Provider Name and Address Organization Details Last Updated DateTime 4 152.4 cm 29.5 kg/m2 86037.8 1 g 97.7 [degF] 98 % 98 % 80 /min 118 mm[Hg] 64 mm[Hg] BECKA ELLSWORTH MA [facility] 4 11:07:58 Social History Question Answer Notes LastModified by Organizat ion Details LastModified Time Tobacco Smoking Status Current Every Day Smoker Warner Sanz MA [facility], [facility] 05/16/2023 12:00:36 What Was The Date Of Your Most Recent Tobacco Screening? 05/23/2023 Information not available 05/23/2023 What Is Your Current Pack Years? [id number] rs Information not available 05/23/2023 At What Age Did You Start Smoking Tobacco? 33 Information not available 05/23/2023 How Much Tobacco Do You Smoke? 0.5 PPD Information not available 05/23/2023 Has Tobacco Cessation Counseling Been Provided? Yes Information not available 05/23/2023 On What Date Was Tobacco Cessation Counseling Provided? 06/21/2023 [email or web address] Information not available 06/21/2023 Sex: Female Functional Status None recorded. Mental Status None recorded. Family History Relationship Description Onset Age of this Age Resolved Age Notes Mother Family history of acute medical disorder drug abuse Mother Family history of alcoholism drug abuse Mother No family history of respiratory disease drug abuse Father No family history of respiratory disease COPD Unspecified Relation Family history of malignant neoplasm of lung Relative: 'Aunt'; Notes:*Problem: Mother: Brit stone 55yo good health- ETOH/smoker/drug abuse/mental health Father: Alive 55yo poor health- ETOH/smoker/drug abuse/mental health Sisters: 2 sisters good healthBrothers: half brother depression/ETOH Children: 3 children 16yo, 10yo, 2yo Family History of: Hypertension: No Hyperlipidemia: No Coronary heart disease: Yes PGF Diabetes mellitus: No Breast cancer: No Colorectal cancer: No Prostate cancer: No Alcoholism: Yes both parents, PGF, Mental illness: Yes depression/ETOH Other: No Medical History No medical history recorded. Gynecological HistoryNo gynecological history recorded. Obstetrics History GPAL:G 0 P 0 0 0 0 Immunizations Vaccine Type Date Status Provider Name and Address Organization Details Recorded Time Tdap 10/24/2013 completed Not Available [facility] 06:04:56 Influenza, split virus, quadrivalent, PF 03/06/2019 completed Not Available [facility] 02/04/2023 06:04:56 COVID-19, mRNA, LNP-S, PF, 100 mcg/0.5mL dose or 50 mcg/0.25mL dose 08/05/2020 completed Not Available [facility] 02/04/2023 06:04:56 COVID-19, mRNA, LNP-S, PF, 100 mcg/0.5mL dose or 50 mcg/0.25mL dose 09/02/2020 completed Not Available [facility] 02/04/2023 06:04:57 SARS-COV-2 (COVID-19) vaccine, UNSPECIFIED 03/04/2021 completed Not Available [facility] 02/04/2023 06:04:57 pneumococcal polysaccharide PPV23 05/04/2018 completed Not Available [facility] 2022 06:04:57 influenza, unspecified formulation 02/13/2014 completed Not Available [facility] 02/04/2023 06:04:57 Past Encounters Encounter ID Performer Location Encounter Start Date Encounter Closed Date Diagnosis/Indication Diagnosis SNOMED-CT Code [id number] WARNER JUDSON, [facility] [address] [facility] [place] [address] 05/16/2023 10:57:16 05/16/2023 12:45:16 Pain in right hand [id number] GLEN PARRISH, [facility] [address] [place] [address] 05/23/2023 13:38:24 05/23/2023 15:02:34 Radial styloid tenosynovitis 65046727 [id number] HERNESTO BARRY PA-C [facility] [address] [place] [address] 06/21/2023 10:34:53 06/21/2023 11:04:46 Chilblains [id number] NANDA OVALLES [facility] [address] [place] [address] 06/30/2023 10:56:39 06/30/2023 12:57:25 Screening for malignant neoplasm of colon 048529327 Dyspnea 328997178 Hyperglycemia 79488432 Hyperlipid emia screening 879404424 Endocrine/ metabolic screening 237467342 Raynaud's phenomenon 266 187825 [id number] Subha Leiva RN [facility] [address] [place] [address] 07/04/2023 11:24:15 07/04/2023 11:32:35 Dyspnea 112077303 Hyperlipidemia 95463971 Endocrine/ metabolic screening 379273388 Health Concerns Section Related Observation LastModified by Organization Detai ls LastModified Time None Recorded Concern Status LastModified by Organization Details LastModified Time None Recorded Advance Directives Directive None Recorded Payers Encounter Date Sequence Insurance Name Policy Number Policy Wilburn Covered Member ID Wilburn Member ID Guarantor Name 05/16/2023 1 [facility] [id number] Domitila Jacinto Kristie newman [id number] Domitila Castaneda Giancarlo 05/23/2023 1 [facility] [id number] Domitila Jacinto Kristie newman [id number] Domitila Castaneda Giancarlo 06/21/2023 1 [facility] [id number] Domitila Flowers que [id number] Domitila Mondragon 06/30/2023 1 [facility] [id number] Domitila Flowers que [id number] 2 Domitila Mondragon 07/04/2023 1 [facility] [id number] Domitila Flowers que [id number] Domitila Mondragon Notes Date Note Type Note Provider Name and Address Organization Details Recorded Time 05/16/2023 text/html HPI Notes: Patie nt with R thumb and index finger symptoms that she first noted approximately 1 week ago, with pain with to MCP joint of thumb and metacarpal region of index finger with flexion/gripping. For the last week, has been avoiding repetitive activities (crocheting), but even after stopping, in the last 4 days, she feels symptoms are worse, especially with gripping/flexion. Reports some burning/itching to tip of index finger, and slight decrease in sensation. Has been taking OTC ibuprofen 600- 800 mg a few times per day, and Tylenol 1000, alternating. Has been using heating pad locally, and soaking in warm water. Has been wearing some soft compression gloves and wrist wraps with minimal change in symptoms. JANESSA CONROY [address], [place], [address], [facility]. 05/17/2023 08:47:32 05/23/2023 text/html HPI Notes: 42 yr old here for f/u UC visit. HX:UC visit 05/16/23: Patient with R thumb and index finger symptoms that she first noted approximately 1 week ago, with pain with to MCP joint of thumb and metacarpal region of index finger with flexion/gripping. For the last week, has been avoiding repetitive activities (crocheting), but even after stopping, in the last 4 days, she feels symptoms are worse, especially with gripping/flexion. Reports some burning/itching to tip of index finger, and slight decrease in sensation. Has been taking OTC ibuprofen 600- 800 mg a few times per day, and Tylenol 1000, alternating. Has been using heating pad locally, and soaking in warm water. Has been wearing some soft compression gloves and wrist wraps with minimal change in symptoms. She was prescribed meloxicam 15 mg QD, along with gabapentin 300 mg which she titrated up to T I D. She has a greater than 80% improvement in her symptoms, she has also modified her activity decreased time crocheting. She was given a splint but it worsened her symptoms so she stopped using the splint. She is concerned about the tip of her finger feeling cool to touch. denies GI symptoms. JANESSA PATEL [address], [place], [address], [facility] 05/23/2023 14:38:26 06/21/2023 text/html HPI Notes: Tende r color change with blistering of her right second fingertip. Occurring within the last several days. She is a smoker and has had some exposure to cold. Under lots of stress with family social issues. HERNESTO BARRY PA-C [address], [place], [address], [facility]. 06/21/2023 12:23:18 06/30/2023 text/html HPI Notes: Pt. h ere to establish care. She has recently been having a right hand index finger issue she has been seen multiple times for. what is now thought of Raynaud's type changes in her finger. It has been improving, Pt. reports she has been feeling somewhat short of breath. Mammogram/Pap: Pt. follows [facility] and is uptodate on Pap and Mammo per 2022 note from there. Chest tightness: Describes a very low level heaviness or tightness in her chest. She describes it as a very gradual change that she has become accustomed to. She has smoking history as listed below. It does not change with exertion or activity, she just feels it is there. Pt. with some variation in weight over last few years, but recently has not gained any significant weight. Smoking History: Pt. started smoking at age 7, lived in house with smokers. She estimates about 15 years she hasn't smoked due to prenancies and stopping at various. She has a 20 pack year history. Mental Health/ADHD/Depress ion/Anxiety: Lalito Paul is her perscriber and is a nurse practicionor. She also sees a counselor twice per week. Pt. reports a lot of stress in regard to one son going off in the [place] and another is currently hospitalized due to psych concerns. NANDA OVALLES [address], [place], [address], [facility]. 06/30/2023 15:51:43 OBGyn Episode No OBEpisode recorded.
--- OUTSIDE RECORDS SUMMARY | 2023-10-17 23:15 | XMS_ITS | Encounter Summary ---
Author Organization [facility] Address [address] [place] [address] Care Team Providers Care Alto Singer Name Role Phone Unknown, Provider Primary Care Provider [phone] Encounter Details Date Type Department Care Team (Late st Contact Info) Description 09/23/2005 Results Only [facility] - Maple conversion [address] [place] [address] Luisa Gutierrez, [facility] [address] [place] [phone] Social History Tobacco Use Types Packs/Day [...] ? DOMITILA BOURNE ? Accession #: ? [id number] : ? 1980 (Age: 24) ??F ?Collect Date: ? 09/23/2005 Location: ? [facility] ? Receive Date: ? 09/24/2005 Provider: ?LUISA GUTIERREZ REHABILITATION CENTER MANAGER Copy to: ? Specimen/Source: ?ThinPrep Pap Test, Cervix/Endocervix, processed on [employer] ThinPrep Imaging System, with manual evaluation Last [...] cells, undetermined significance. EDUCATIONAL NOTES/RECOMMENDATI ONS ? [facility] recommends following the 2001 Consensus Guidelines for the Management of Women with Cervical Cytological Abnormalities (NANDO,2002;287:212 0-9). Management algorithms have been distributed by [facility] and are available online at www.ASCCP.org. ? Document reviewed and electronically signed by: ? MARSHA COOLEY MD ? Report Date: ??10/05/2005 14:11 End of Report [facility] 09/23/2005 09/24/2005 Luisa Gutierrez REHABILITATION CENTER MANAGER PATHOLOGY ORDERABLES [facility] [address] [place] [address] documented in this encounter Visit Diagnoses Not on filedocumented in this encounter Care Teams Alto Singer Relationship Specialty Start Date End Date Unknown, Provider, PCP - General 01/29/09 documented as of this encounter
--- OUTSIDE RECORDS SUMMARY | 2023-10-17 23:15 | XMS_ITS | Clinical Summary ---
Author Organization [facility] Address [address] [place] [address] Care Team Providers Care Merchandise Handler Name Role Phone Unknown, Provider Primary Care Provider [phone] Encounters Date Type Department Care Team Description 09/28/2023 Lab Requisition [facility] Pathology & Laboratory Medicine - [facility] [address] [place] [address] Luis Alberto Weber MD Encounter for other [...] explore management options, if applicable. 10/02/2023 16:14 [facility] Final Diagnosis A. DUODENUM, [...] POLYP, BIOPSY: - Tubular adenoma. 10/02/2023 16:14 [facility] Attestation By the signature below, the attending physician certifies that they have 1) personally conducted a gross and/or microscopic examination of the described specimen(s), and/or personally interpreted the results of laboratory testing of the described specimen(s), and 2) personally rendered or confirmed the above diagnosis. 10/02/2023 16:14 [facility] at 1614 Clinical History Screening colonoscopy, diverticulosis; diagnostic EGD, bile refluxs (post op), gastropathy; 10/02/2023 16:14 [facility] Gross Description A. Received [...] H1. Itzel Lino 09/30/2023 7:52 10/02/2023 16:14 [facility] Performing Lab [facility] 10/02/2023 16:14 [facility] Scanned Images 10/02/2023 16:14 [facility] Tissue SPECIMEN FROM RECTUM [...] EDT Luis Alberto Weber MD PATHOLOGY ORDERABLES [facility] [address] [place] [address] from Last 3 Months Care Teams Merchandise Handler Relationship Specialty Start Date End Date Unknown, ProviderMD PCP - General 01/29/09
--- OUTSIDE RECORDS SUMMARY | 2023-10-17 23:15 | XMS_ITS | Encounter Summary ---
Author Organization [facility] Address [address] [place] [address] Care Team Providers Care Maple Syrup Maker Name Role Phone Unknown, Provider Primary Care Provider [phone] Encounter Details Date Type Department Care Team (Late st Contact Info) Description 01/04/2005 Results Only [facility] - Maple conversion [address] [place] [address] Luisa Gutierrez, [facility] [address] [place] [phone] Social History Tobacco Use Types Packs/Day [...] ? DOMITILA BOURNE ? Accession #: ? [id number] : ? 1980 (Age: 24) ??F ?Collect Date: ? 01/04/2005 Location: ? [facility] ? Receive Date: ? 01/06/2005 Provider: ?LUISA GUTIERREZ FORM TAMPING MACHINE OPERATOR Copy to: ? Specimen/Source: ?ThinPrep Pap Test, Cervix/Endocervix, processed on [employer] ThinPrep Imaging System, with manual evaluation Last [...] intraepithelial lesion (LSIL). EDUCATIONAL NOTES/RECOMMENDATI ONS ? [facility] recommends following the 2001 Consensus Guidelines for the Management of Women with Cervical Cytological Abnormalities (NANDO,2002;287:212 0-9). Management algorithms have been distributed by [facility] and are available online at www.ASCCP.org. ? Document reviewed and electronically signed by: ? LANIE MAGALLANES MD [facility] ? Report Date: ??01/14/2005 12:38 End of Report [facility] 01/04/2005 01/06/2005 Luisa Gutierrez FORM TAMPING MACHINE OPERATOR PATHOLOGY ORDERABLES [facility] [address] [place] [address] documented in this encounter Visit Diagnoses Not on filedocumented in this encounter Care Teams Maple Syrup Maker Relationship Specialty Start Date End Date Unknown, Provider, PCP - General 01/29/09 documented as of this encounter
--- OUTSIDE RECORDS SUMMARY | 2023-10-17 23:15 | XMS_ITS | Encounter Summary ---
Author Organization [facility] Address [address] [place] [address] Care Team Providers Care Charting Clerk Name Role Phone Unknown, Provider Primary Care Provider [phone] Encounter Details Date Type Department Care Team (Late st Contact Info) Description 12/16/2011 Results Only [facility] Laboratory Services - [facility] [address] [place], [place] [address] Nancy Moore CN[address] [id number] Social History Tobacco Use Types Packs/Day Years [...] ? DOMITILA GARCIA ? Accession #: ? [id number] : ? 1980 (Age: 31) ??F ?Collect [...] no dysplasia, 2002 pap negative, 07/03 F/up [place], 09/05 pap negative ? SPECIMEN ADEQUACY ? Satisfactory for Evaluation - transformation zone component present GENERAL CATEGORIZATION ? Negative for Intraepithelial Lesion or Malignancy ? Document reviewed and electronically signed by: ? ADAIR Parrish(ASCP) ? Report Date: ??12/30/2011 14:35 End of Report [facility] 12/16/2011 12/20/2011 Nancy MCKEONM PATHOLOGY ORDERABLES [facility] [address] [place] [address] documented in this encounter Visit Diagnoses Not on filedocumented in this encounter Care Teams Charting Clerk Relationship Specialty Start Date End Date Unknown, Provider, PCP - General 01/29/09 documented as of this encounter
--- OUTSIDE RECORDS SUMMARY | 2023-10-17 23:15 | XMS_ITS | Encounter Summary ---
Author Organization [facility] Address [address] [place] [address] Care Team Providers Care Siding Coreboard Inspector Name Role Phone Unknown, Provider Primary Care Provider [phone] Encounter Details Date Type Department Care Team (Late st Contact Info) Description 09/28/2023 Lab Requisition [facility] Pathology & Laboratory Medicine - [facility] [address] [place] [address] Luis Alberto Weber MD [address] [place] [phone] Encounter for other general examination Social History [...] explore management options, if applicable. 10/02/2023 16:14 [facility] Final Diagnosis A. DUODENUM, [...] POLYP, BIOPSY: - Tubular adenoma. 10/02/2023 16:14 [facility] Attestation By the signature below, the attending physician certifies that they have 1) personally conducted a gross and/or microscopic examination of the described specimen(s), and/or personally interpreted the results of laboratory testing of the described specimen(s), and 2) personally rendered or confirmed the above diagnosis. 10/02/2023 16:14 [facility] at 1614 Clinical History Screening colonoscopy, diverticulosis; diagnostic EGD, bile refluxs (post op), gastropathy; 10/02/2023 16:14 [facility] Gross Description A. Received in [...] H1. Itzel Lino 09/30/2023 7:52 10/02/2023 16:14 [facility] Performing Lab [facility] 10/02/2023 16:14 [facility] Scanned Images 10/02/2023 16:14 [facility] Tissue SPECIMEN FROM RECTUM / [...] Alberto Weber MD PATHOLOGY ORDERABLES [facility] [address] [place] [address] documented in this encounter Visit Diagnoses Diagnosis Encounter for other general examination documented in this encounter Care Teams Siding Coreboard Inspector Relationship Specialty Start Date End Date Unknown, Provider, PCP - General 01/29/09 documented as of this encounter
--- OUTSIDE RECORDS SUMMARY | 2023-10-17 23:15 | XMS_ITS | Encounter Summary ---
Author Organization [facility] Address [address] [place] [address] Care Team Providers Care Reeling Machine Operator Name Role Phone Unknown, Provider Primary Care Provider [phone] Encounter Details Date Type Department Care Team (Late st Contact Info) Description 08/23/2002 Results Only [facility] - Maple conversion [address] [place] [address] Nancy Moore CNM [facility] [place], [place] [phone] Social History Tobacco Use Types Packs/Day Years [...] ? DOMITILA BOURNE ? Accession #: ? [id number] : ? 1980 (Age: 21) ??F ?Collect [...] Moore CNM PATHOLOGY ORDERABLES Performing Organization Address City/State/[facility] Co de Phone Number [facility] [address] [place] [address] documented in this encounter Visit Diagnoses Not on filedocumented in this encounter Care Teams Reeling Machine Operator Relationship Specialty Start Date End Date Unknown, Provider, PCP - General 01/29/09 documented as of this encounter
--- OUTSIDE RECORDS SUMMARY | 2023-10-17 23:15 | XMS_ITS | Encounter Summary ---
Author Organization [facility] Address [address] [place] [address] Care Team Providers Care Plumber'S Helper Name Role Phone Unavailable Primary Care Provider Unavailmalachi e Encounter Details Date Type Department Care Team (Latest Contact Info) Description 12/09/2003 15:41 EDT Hospital Encounter [facility] - Other [address] [place] [address] Luisa Gutierrez, [facility] [address] [address] Discharge Disposition: Auto Discharge Social [...]
--- OUTSIDE RECORDS SUMMARY | 2023-10-17 23:15 | XMS_ITS | Encounter Summary ---
Author Organization [facility] Address [address] [place] [address] Care Team Providers Care Qa Automation Architect Name Role Phone Unknown, Provider Primary Care Provider [phone] Encounter Details Date Type Department Care Team (Late st Contact Info) Description 02/25/2014 Results Only [facility] [phone] Erica Paige MD [address] [place] [address] Social History Tobacco Use Types Packs/Day Years [...] ? DOMITILA GARCIA ? Accession #: ? [id number] ? : ? 1980 (Age: 33) ??F [...] types 16,18,31,33,35, 39,45,51,52,56,58, 59,66, and 68 by web analytics developer mediated amplification. Comments Document reviewed and electronically signed by: ? System Interface ? Report date: 03/01/2014 By the signature above, the attending physician certifies that he/she has personally conducted a gross and/or microscopic examination of the described specimens and rendered or confirmed the above diagnosis. End of Report [facility] 02/25/2014 02/26/2014 Erica Paige MD PATHOLOGY ORDERABLES [facility] [address] [place] [address] documented in this encounter Visit Diagnoses Not on filedocumented in this encounter Care Teams Qa Automation Architect Relationship Specialty Start Date End Date Unknown, Provider, PCP - General 01/29/09 documented as of this encounter
--- OUTSIDE RECORDS SUMMARY | 2023-10-17 23:15 | XMS_ITS | Encounter Summary ---
Author Organization [facility] Address [address] [place] [address] Care Team Providers Care Contract Design Agent Name Role Phone Unknown, Provider Primary Care Provider [phone] Encounter Details Date Type Department Care Team (Late st Contact Info) Description 02/08/2007 Results Only [facility] - Maple conversion [address] [place] [address] Isa Bullock MD [address] [place] [address] [place] [address] Social History Tobacco Use Types Packs/Day Years [...] ? DOMITILA BOURNE ? Accession #: ? [id number] ? : ? 1980 (Age: 26) ??F [...] presence of high-grade squamous intraepithelial lesion. (Dr. Delcid)/[facility] Document reviewed and electronically signed by: Adenike Shirley MD Report ??Date: 02/13/2007 19:07 By the signature above, the attending physician certifies that he/she has personally conducted a gross and/or microscopic examination of the described specimens and rendered or confirmed the above diagnosis. Specimen(s) Received: ? Cx bx 2:00 Clinical History: ? LSIL [id number] Gross Description: ? Received in formalin labelled Giancarlo and cx 2:00 is a 0.6 x 0.3 x 0.2 cm portion of white-soria glistening mucosa. ??Submitted intact in one cassette. (Apolonia Pena/lgk End of Report [facility] 02/08/2007 02/09/2007 9:4 6 EST Isa Bullock MD PATHOLOGY ORDERABLES [facility] [address] [place] [address] documented in this encounter Visit Diagnoses Not on filedocumented in this encounter Care Teams Contract Design Agent Relationship Specialty Start Date End Date Unknown, Provider, PCP - General 01/29/09 documented as of this encounter
--- OUTSIDE RECORDS SUMMARY | 2023-10-17 23:15 | XMS_ITS | Encounter Summary ---
Author Organization [facility] Address [address] [place] [address] Care Team Providers Care Environmental Compliance Technician Name Role Phone Unknown, Provider Primary Care Provider [phone] Encounter Details Date Type Department Care Team (Late st Contact Info) Description 01/28/2004 Results Only [facility] - Maple conversion [address] [place] [address] Isa Bullock MD [address] [place] [address] [place] [address] Social History Tobacco Use Types Packs/Day Years [...] ? DOMITILA BOURNE ? Accession #: ? [id number] ? : ? 1980 (Age: 23) ??F [...] was reviewed at intradepartmental consultation conference. ??(Dr. Mohr)/[facility] Document reviewed and electronically signed by: Flako [...] in its entirety in one cassette. ??(Apolonia Sigala)/[facility] End of Report [facility] 01/28/2004 01/30/2004 9:1 6 EST Isa Bullock MD PATHOLOGY ORDERABLES [facility] [address] [place] [address] documented in this encounter Visit Diagnoses Not on filedocumented in this encounter Care Teams Environmental Compliance Technician Relationship Specialty Start Date End Date Unknown, Provider, PCP - General 01/29/09 documented as of this encounter
--- OUTSIDE RECORDS SUMMARY | 2023-10-17 23:15 | XMS_ITS | Encounter Summary ---
Author Organization [facility] Address [address] [place] [address] Care Team Providers Care Shoe Salesperson Name Role Phone Unknown, Provider Primary Care Provider [phone] Encounter Details Date Type Department Care Team (Late st Contact Info) Description 04/28/[address] Results [address] [facility] - Maple conversion [address] [place] [address] Luisa Gutierrez, [facility] [address] [place] [phone] Social History Tobacco Use Types Packs/Day [...] cancers. [facility] Report Status Final [id number] [facility] 04/28/2006 14:5 0 EST 05/09/2006 14:18 EST Luisa Gutierrez SCISSORS GRINDER MICROBIOLOGY - GENER AL ORDERABLES [facility] [address] [place] [address] * CYTOPATHOLOGY (04/28/2006 0:00 EST) Pathology Report: CYTOPATHOLOGY REPORT Reports generated via electronic interface contain original data; however they are lacking the format of the original report. Caution should be taken when reading/interpreti ng unformatted reports. Name: ? DOMITILA BOURNE ? Accession #: ? [id number] : ? 1980 (Age: 25) ??F ?Collect Date: ? 04/28/2006 Location: ? [facility] ? Receive Date: ? 05/02/2006 Provider: ?LUISA GUTIERREZ SCISSORS GRINDER Copy to: ? Specimen/Source: ?ThinPrep Pap Test, Cervix/Endocervix, processed on [employer] ThinPrep Imaging System, with manual evaluation Last [...] undetermined significance (ASC-US). EDUCATIONAL NOTES/RECOMMENDATI ONS ? [facility] recommends following the 2001 Consensus Guidelines for the Management of Women with Cervical Cytological Abnormalities (NANDO,2002;287:212 0-9). Management algorithms have been distributed by [facility] and are available online at www.ASCCP.org. ? Document reviewed and electronically signed by: ? LANIE MAGALLANES MD [facility] ? Report Date: ??05/06/2006 18:02 End of Report [facility] 04/28/2006 05/02/2006 Luisa Gutierrez SCISSORS GRINDER PATHOLOGY ORDERABLES Performing Organization Address City/State/[facility] Co de Phone Number [facility] [address] [place] [address] documented in this encounter Visit Diagnoses Not on filedocumented in this encounter Care Teams Shoe Salesperson Relationship Specialty Start Date End Date Unknown, Provider, PCP - General 01/29/09 documented as of this encounter
--- OUTSIDE RECORDS SUMMARY | 2023-10-17 23:15 | XMS_ITS | Encounter Summary ---
Author Organization [facility] Address [address] [place] [address] Care Team Providers Care Metallic Yarn Slitting Machine Operator Name Role Phone Unavailable Primary Care Provider Unavailabl e Encounter Details Date Type Department Care Team (Latest Contact Info) Description 09/23/2005 13:44 EDT Hospital Encounter [facility] - Other [address] [place] [address] Luisa Gutierrez, [facility] [address] [place] [phone] Discharge Disposition: Auto Discharge Social [...] ? STEFFEN, DOMITILA ? Accession #: ? [id number] ? : ? 1980 (Age: 28) ??F [...] MD PATHOLOGY ORDERABLES [facility] [address] [place] [address] * HUMAN PAPILLOMA VIRUS DNA TEST (09/23/2005 8:30 EDT) Specimen Description Cervix, ThinPrep vial [facility] Result Positive for one or more of HPV types 16,18,31,33,35 ,39,45,51,52,5 6,58,59, or 68. These high/intermedi ate risk HPV types are associated with dysplasia and some cervical cancers. [facility] Report Status Final [id number] [facility] 09/23/2005 8:30 EDT 10/06/2005 8:30 EDT Luisa Gutierrez HOME PERFORMANCE LABORER MICROBIOLOGY - GENER AL ORDERABLES [facility] [address] [place] [address] documented in this encounter Visit Diagnoses Not on filedocumented in this encounter
--- OUTSIDE RECORDS SUMMARY | 2023-10-17 23:15 | XMS_ITS | Encounter Summary ---
Author Organization [facility] Address [address] [place] [address] Care Team Providers Care Embossing Press Operator [employer] Goods Name Role Phone Unknown, Provider Primary Care Provider [phone] Encounter Details Date Type Department Care Team (Latest Contact Info) Description 05/07/2019 Lab Requisition [facility] Pathology & Laboratory Medicine - [facility] [address] [place] [address] Roberto Escobar MD [address] [id number] Full incontinence of feces; Other [...] no significant diagnostic abnormality. 05/08/2019 14:50 [facility] at 1450 Clinical History Patient with reflux esophagitis Diffuse gastritis vs. Gastropathy Duodenum atrophy change Biopsies of duodenum and stomach taken 05/08/2019 14:50 [facility] Attestation By the signature below, the attending physician certifies that they have 1) personally conducted a gross and/or microscopic examination of the described specimen(s), and/or personally interpreted the results of laboratory testing of the described specimen(s), and 2) personally rendered or confirmed the above diagnosis. 05/08/2019 14:50 [facility] at 1450 Gross Description [...] M) and duodenum bx are 5 light sorai biopsies ranging in size from 0.2 x [...] C1-C3. Velvet Louis 05/08/2019 07:59 05/08/2019 14:50 [facility] Scanned Images 05/08/2019 14:50 [facility] Tissue ENTIRE COLON / Unknown 05/07/2019 8:00 EST 05/07/2019 22:11 EST Tissue specimen (specimen) STRUCTURE OF SMALL INTESTINE / Unknown 05/07/2019 8:00 EST 05/07/2019 22:11 EST Tissue specimen (specimen) COLON STRUCTURE / Unknown 05/07/2019 8:00 EST 05/07/2019 22:11 EST Roberto Escobar MD PATHOLOGY ORDERABLES [facility] [address] [phone] documented in this encounter Visit Diagnoses Diagnosis Full incontinence of feces Other fecal abnormalities Alcohol abuse, uncomplicated documented in this encounter Care Teams Embossing Press Operator M[employer] Goods Relationship Specialty Start Date End Date Unknown, Provider, PCP - General 01/29/09 documented as of this encounter
--- NOTE | 2023-10-18 00:25 | ED.GENADUL_ITS ---
Discharge Plan Disposition Patient Disposition: Home Condition: Good Discharge Details Clinical Impression: Pain in gutierrez Primary Care Provider: Stevie Sharif ED Provider: Norma Dooley Home Meds and New Rx's Prescriptions: Continued clonidine HCl 0.1 mg tablet 0.1 mg PO TID lisdexamfetamine 40 mg capsule 40 mg PO QAM Rx Instructions: Pt takes a total of 70mg daily. 40mg in am and 30mg at noon. folic acid 800 mcg tablet 0.8 mg PO DAILY vitamin B complex Tablet 1 tab PO DAILY cholecalciferol (vitamin D3) 25 mcg (1,000 unit) tablet 50 mcg PO DAILY lisdexamfetamine [Vyvanse] 30 mg capsule 30 mg PO DAILY Patient Comments: Pt takes 30 mg at noon. hydroxyzine HCl 25 mg tablet 25 mg PO BID Patient Comments: TAKE TWO TABLETS BY MOUTH TWICE A DAY FOR ANXIETY alprazolam 2 mg tablet 2 mg PO BID PRN Patient Comments: TAKE ONE TABLET BY MOUTH TWICE A DAY eszopiclone 3 mg tablet 3 mg PO HS Patient Comments: TAKE ONE TABLET BY MOUTH IMMEDIATELY BEFORE BEDTIME famotidine 40 mg tablet 40 mg PO DAILY Qty: 30 0RF metoclopramide HCl [Reglan] 5 mg tablet 5 mg PO QAC PRNQty: 6 0RF Rx Instructions: administer 30 minutes before meals prochlorperazine maleate [Compazine] 5 mg tablet 5 mg PO TID PRNQty: 10 0RF Discharge Instructions Instructions: Leg Pain (ED) Additional Instructions: Call your primary care doctor today to schedule an appointment for within the next 3 days to followup on your visit here. Discuss your potassium levels at that visit. Return to the emergency department for new or worsening symptoms including leg swelling, chest pain, shortness of breath, pain when you breathe in, or if you have any other concerns. Referrals: Stevie Sharif [Primary Care Provider] - [facility] General Mode of arrival: EMS . Date/Time Provider Initiated Documentation: 10/17/23 23:10 . Limitations to Documentation: no limitations . Information obtained by: patient and old records reviewed . HPI Narrative: 42yo F with hx of ADHD, PTSD, anxiety, GERD, IBS, cannabonoid hyperemesis, presenting via EMS with right gutierrez pain. Pain started about 2 hours prior to arrival, cramping, and radiates up into her right knee. No numbness, tingling, or weakness. No leg swelling. No calf pain. Reports that she was supposed to have a potassium test today but she was unable to go to the lab b ecause she and her just yesterday. Otherwise in her usual state of health with no fevers, chills, rash, nausea, vomiting, abdominal pain, chest pain, shortness of breath, or other concerns. Recent ED visit notes reviewed: 10/03/23 for syncopal episode several days after colonoscopy, workup significant for K of 2.2, reassuring Hg, pt left AMA. 10/07/13 for periumbilical pain, workup with K of 3.1, reassuring CBC, reassuring CT/abd pelvis. Related Data Home Medications ?Medication ?Instructions ?Recorded ?Confirmed cholecalciferol (vitamin D3) 25 50 mcg PO DAILY 08/12/23 10/17/23 mcg (1,000 unit) tablet folic acid 800 mcg tablet 0.8 mg PO DAILY 08/12/23 10/17/23 vitamin B complex 1 tab PO DAILY 08/12/23 10/17/23 clonidine HCl 0.1 mg tablet 0.1 mg PO TID 09/15/23 10/17/23 lisdexamfetamine 30 mg capsule 30 mg PO DAILY 09/15/23 10/17/23 (Vyvanse) lisdexamfetamine 40 mg capsule 40 mg PO QAM 09/15/23 10/17/23 hydroxyzine HCl 25 mg tablet 25 mg PO BID 10/03/23 10/17/23 alprazolam 2 mg tablet 2 mg PO BID PRN 10/06/23 10/17/23 eszopiclone 3 mg tablet 3 mg PO HS 10/06/23 10/17/23 famotidine 40 mg tablet 40 mg PO DAILY #30 tabs 10/08/23 10/17/23 metoclopramide HCl 5 mg tablet 5 mg PO QAC PRN #6 tabs 10/12/23 10/17/23 (Reglan) prochlorperazine maleate 5 mg 5 mg PO TID PRN #10 tabs 10/12/23 10/17/23 tablet (Compazine) Previous Rx's ?Medication ?Instructions ?Recorded famotidine 40 mg tablet 40 mg PO DAILY #30 tabs 10/08/23 metoclopramide HCl 5 mg tablet 5 mg PO QAC PRN #6 tabs 10/12/23 (Reglan) prochlorperazine maleate 5 mg 5 mg PO TID PRN #10 tabs 10/12/23 tablet (Compazine) Allergies Allergy/AdvReac Type Severity Reaction Status Date / Time bupropion hcl Allergy Unknown manic Uncoded 10/17/23 23:20 zolpidem tartrate Allergy Unknown Unknown Uncoded 10/17/23 23:20 General Stated Complaint: GenMedical DEDE: 3 Review of Systems Narrative: see HPI Exam Narrative Exam Narrative: General: Alert, well appearing, well nourished, in no acute distress. Head: Normocephalic, atraumatic Neck: Trachea midline, ?Neck supple. ENT: ?MMM.? No oropharygeal lesions or exudate. Cardiac: ?RRR, no murmurs appreciated Resp: No respiratory distress. CTAB. Abd: ?Soft, non-distended, nontender : ?No suprapubic tenderness. No CVA tenderness. Extremities: ?No deformities.? No peripheral edema. BLE symmetric. RLE: TTP of anterior gutierrez. No calf tenderness. Pain in anterior gutierrez with passive dorsiflexion at ankle. Neurologic: GCS 15. ? Moves all extremities freely against gravity Course Vital Signs Vital signs: Vital Signs Temperature 36.4 C 10/17/23 23:13 Pulse 120 H 10/17/23 23:13 Respiratory Rate 14 10/17/23 23:13 Blood Pressure 92/70 L 10/17/23 23:13 Pulse Oximetry 97 10/17/23 23:13 Temperature 36.4 C 10/17/23 23:13 Temperature Source Temporal Artery Scan 10/17/23 23:13 Pulse 120 H 10/17/23 23:13 Respiratory Rate 14 10/17/23 23:13 Blood Pressure 92/70 L 10/17/23 23:13 Blood Pressure Position Sitting 10/17/23 23:13 Pulse Oximetry 97 10/17/23 23:13 Oxygen Delivery Method Room Air 10/17/23 23:13 Oxygen Flow Rate 0 10/17/23 23:13 Pain Level 5 10/17/23 23:13 Medical Decision Making 42yo F with hx of ADHD, PTSD, anxiety, GERD, IBS, cannabonoid hyperemesis, presenting via EMS with 2 hours of right gutierrez pain. No swelling or calf pain. Patient also reports that she was supposed to have a potassium test today but she was unable to go to the lab. Recent ED visit notes reviewed: 10/03/23 for syncopal episode several days after colonoscopy, workup significant for K of 2.2, reassuring Hg, pt left AMA. Also 10/07/13 for periumbilical pain, workup with K of 3.1, reassuring CBC, reassuring CT/abd pelvis. Patient denies any further syncope or abdominal pain. -Tachycardiac on arrival to 110's-120, vital signs otherwise reassuring. -Reassuring physical exam, no indication of DVT on exam and symptoms inconsistent with DVT. She does have reproducible anterior gutierrez tenderness and pain in gutierrez worse with ankle dorsiflexion consistent with gutierrez splint. -Given tylenol, toradol, and flexeril for pain. -With her tachycardia I would like to give IVF and evaluate further with EKG, dimer, CBC; pt refuses this. Tachycardia and prior syncopal episode (though no repeat since then) does raise possibility of pulmonary embolism however she has no shortness of breath, pleurtiic pain or hypoxia which is reassuring and her exam is not suggestive of LE DVT.. HR improved to mid 90's on re-check without intervention. Pt attributes her HR to anxiety in setting of marital stress which does seem quite possible. -Does agree to blood draw to check her potassium and states she will take oral potassium if necessary but not IV. BMP sent, K of 3.4 with no other abnormalities. Oral potassium given. -On reassessment she reports pain has improved though remains present. Recalls that she has been doing a lot of yoga recently which may be provoking factor. Requests discharge home which is reasonable. Discharged home to close followup with PCP; discharge instructions and return precautions were reviewed with patient who verbalized understanding. All questions were answered and she is in full agreement with the plan. Lab Data Lab results reviewed: Yes I reviewed the patient's lab results. Labs: Laboratory Tests Range/Units 10/18/23 00:40 Sodium (136-145) mmol/L 140 Potassium (3.5-5.1) mmol/L 3.4 L Chloride (98-107) mmol/L 102 Carbon Dioxide (21.0-32.0) mmol/L 27.8 Anion Gap (3-11) mmol/L 10.2 BUN (7-18) mg/dL 7 Creatinine (0.55-1.02) mg/dL 0.9 Est GFR (CKD-EPI 2020) (mL/min/1.73m2) 80.84 Glucose (74-106) mg/dL 83 Calcium (8.5-10.1) mg/dL 9.1 Quality:SDOH Health Related Social Needs: No Data to Display PFSH All Active Problems (Updated 10/18/23 @ 02:03 by Norma Dooley MD) Pain in gutierrez (Acute) Cannabis hyperemesis syndrome concurrent with and due to cannabis abuse (Acute) Acute periumbilical pain (Acute) Dehydration (Acute) Intestinal obstruction (Acute) Episode of syncope (Chronic) History of esophagogastroduodenoscopy (EGD) (Chronic ~09/2023) Superior labrum [id number] (SLAP) tear of right shoulder (Acute) Biceps tendinitis of right shoulder (Acute) IBS (irritable bowel syndrome) (Chronic) Medical History Attention deficit disorder with hyperactivity PTSD (post-traumatic stress disorder) Generalized anxiety disorder Hyperglycemia GERD (gastroesophageal reflux disease) Raynauds disease Major depression, single episode Helminth infection Elevated liver enzymes History of HPV infection Esophagitis Suicidal thoughts History of head injury 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) Tx with LEEP Surgical History History of colonoscopy (~09/2023) H/O LEEP Social History Smoking/Tobacco Use Status: Former Tobacco Use Quit Date: 07/27/23 Smoking risk assessment performed?: Yes Alcohol Intake: never Drug use: Daily Substance use type: inhalants Household members: spouse and children Housing: apartment Number of Children: 3 Sexually active: Yes Do you think of yourself as: straight/heterosexual Current gender identity: female Do you feel safe at home: No Do you feel safe in your relationship?: Yes Female Reproductive History Menstrual control method: other (partner with vasectomy) History History 6 Para 3 Hx # Term Pregnancies Multiple births Hx # Pregnancies Ectopic pregnancies AB induced Hx Number of Living Children AB spontaneous
[2023-10-18] MEDS: Ketorolac 15 MG/ML VIAL IVP (00:35)
[2023-10-18] MEDS: Acetaminophen 325 MG TAB 650 MG PO (00:35)
[2023-10-18] MEDS: Cyclobenzaprine 10 MG TAB 5 MG PO (00:35)
[2023-10-18 00:36] VITALS: BP 94/63; PULSE 110; RESP 16; O2SAT 98
[2023-10-18 00:53] LABS: Anion Gap 10.2 mmol/L (3-11); BUN 7 mg/dL (7-18); CO2 27.8 mmol/L (21.0-32.0); CREATININE 0.9 mg/dL (0.55-1.02); Calcium 9.1 mg/dL (8.5-10.1); Chloride 102 mmol/L (98-107); Estimated GFR 80.84 (mL/min/1.73m2); Glucose 83 mg/dL (74-106); Potassium 3.4 mmol/L (3.5-5.1); Sodium 140 mmol/L (136-145)
[2023-10-18] MEDS: Potassium Chloride Liquid 20 MEQ PKT PO (01:20)
[2023-10-18 01:21] VITALS: RESP 14
[2023-10-18 01:37] VITALS: BP 93/70; PULSE 98; RESP 14; O2SAT 99
[2023-10-18 02:08] VITALS: BP 92/68; PULSE 98; RESP 14; O2SAT 99
[2023-10-18] MEDS: Cyclobenzaprine 10 MG TAB, 3 TABS/BTL PO (02:11)
== END 2023-10-18 02:11 | disposition home or self-care (01) ==
PROVIDERS: Emergency Provider Student in an Organized Health Care Education/Training Program; PCP Student in an Organized Health Care Education/Training Program
DX: M79.661 Pain in right lower leg (principal)
CPT/HCPCS: 36415; 80048; 96374; 99284; 99283; J1885

== ENCOUNTER 2023-11-03 01:50 | Outpatient (CLI) | payer OTHER, SELFPAY ==
--- OUTSIDE RECORDS SUMMARY | 2023-11-03 01:52 | XMS_ITS | Data Portability ---
Author Organization 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 Plan of Treatment Reminders Order Date Submit Date Provider Last Modified By Organization Details Last Modified Time Details Appointments Follow Up 2023 09:30A M Guy Sharif Not available Not available Not available Follow Up 2024 11:30A M Guy Sharif Not available Not available Not available Lab TSH, serum or plasma - Right AC 1 tiger 1 lav 2023 024 [email or web address] (Registration ), [address] [place] [address] [place], [address], 07/12/2023 11:27:47 lipid panel, serum - Right AC 1 tiger 1 lav 2023 024 [email or web address] [facility] (Registration ), [address] [place] [address] [place], [address], 07/12/2023 11:27:46 CBC w/ auto diff - Right AC 1 tiger 1 lav 2023 024 [facility] (Registration ), [address] [place] [address] [place], [address], 07/05/2023 08:42:32 CMP, serum or plasma - Right AC 1 tiger 1 lav 2023 024 [email or web address] [facility] (Registration ), [address] [place] [address] [place], [address], 07/05/2023 08:42:32 HbA1c (hemoglob in A1c), blood - Right AC 1 tiger 1 lav 2023 024 [email or web address] [facility] (Registration ), [address] [place] [address] [place], [address], 07/12/2023 11:27:46 Referral None recorded. Procedures colonosco [...] patient, pencil thin stools, melana. 2023 024 [facility] General Surgery, [address] [place] [address] [facility] [place], [address], 10/05/2023 10:20:21 Surgeries None recorded. Imaging XR, chest, 2 view - Pt.-F-hx of 20-pack year smoking suresh 35 year period and recently quit again, w/perceiv ed heaviness of chest and dyspnea. No recent trauma or event that seemingly could've provoked injury to lung or recent infection to suggest pulmonary effects. 2023 024 [facility] (Radiology), [address] [place] [address] [place], [address], 07/14/2023 09:54:47 Medication Orders meloxicam 15 mg tablet 2023 024 [email or web address], [address] [place], [address], 06/30/2023 11:09:04 gabapenti n 300 mg capsule 2023 [facility] [address] [place] [address], [address], 11/02/2023 11:38:42 triamcino lone acetonide 0.1 % topical cream 2023 024 [facility], [address] [place] [address], [address], 06/21/2023 11:02:43 Patient TargetsNo targets recorded. Patient Instructions Encounter Date Encounter Id Patient Instructions Last Modified By Organization Details Last Modified Time 05/23/2023 [id number] Dequervain's tendonitis education Not available 05/23/2023 14:20:21 Domitila: continu e with meloxicam and gabapentin for your hand for the next 4-6 weeks- then taper off gabapentin (decrease to gabapentin twice a day for 3 days then decrease to one tablet a day for 3 days then stop) if your pain does not resolve or if it gets worse- call [facility] and I will order an ortho referral Not available 05/23/2023 14:23:06 06/30/2023 [id number] For inflammation type response, ibuprofen is okay [...] a different stimulant medicaiton for your ADD. [email or web address] Not available 06/30/2023 12:41:36 Reason for Referral None Reported. Results Created Date Observation Date Name Description Value Unit Range Abnormal Flag LastModifiedBy Organization Detail LastModifiedTime 07/04/19 24 07/04/2023 COMPL ETE BLOOD COUNT W/DIF F WBC 11.70 10_3/ uL 4.4-10 .8 high Not Available [facility] [address] [place], [address] 07/04/2023 19:50:47 07/04/19 24 07/04/2023 COMPL ETE BLOOD COUNT W/DIF F RBC 4.67 10_6/ uL 3.93-5 .22 normal Not Available [address] [place], [address] 07/04/2023 19:50:47 07/04/19 24 07/04/2023 COMPL ETE BLOOD COUNT W/DIF F HGB 14.6 g/dL 11.2-1 5.7 normal Not Available [address] [place], [address] 07/04/2023 19:50:47 07/04/19 24 07/04/2023 COMPL ETE BLOOD COUNT W/DIF F HCT 42.7 % 36.0-4 6.0 normal Not Available [address] [place], [address] 07/04/2023 19:50:47 07/04/19 24 07/04/2023 COMPL ETE BLOOD COUNT W/DIF F MCV 91 fL 80-95 normal Not Available [address] [place], [address] 07/04/2023 19:50:47 07/04/19 24 07/04/2023 COMPL ETE BLOOD COUNT W/DIF F MCH 31.3 pg 27.0-3 3.0 normal Not Available [address] [place], [address] 07/04/2023 19:50:47 07/04/19 24 07/04/2023 COMPL ETE BLOOD COUNT W/DIF F MCHC 34.2 % 32.0-3 6.0 normal Not Available [address] [place], [address] 07/04/2023 19:50:47 07/04/19 24 07/04/2023 COMPL ETE BLOOD COUNT W/DIF F RDW 12.8 % 11.7-1 4.6 normal Not Available [address] [place], [address] 07/04/2023 19:50:47 07/04/19 24 07/04/2023 COMPL ETE BLOOD COUNT W/DIF F platelet count 312 10_3/ uL 130-40 0 normal Not Available [address] [place], [address] 07/04/2023 19:50:47 07/04/19 24 07/04/2023 COMPL ETE BLOOD COUNT W/DIF F MPV 10.9 fL 8.0-11 .0 normal Not Available [address] [place], [address] 07/04/2023 19:50:47 07/04/19 24 07/04/2023 COMPL ETE BLOOD COUNT W/DIF F neutrophils % 73.2 Not Available [address] [place], [address] 07/04/2023 19:50:47 07/04/19 24 07/04/2023 COMPL ETE BLOOD COUNT W/DIF F lymphocytes % 20.3 Not Available [address] [place], [address] 07/04/2023 19:50:47 07/04/19 24 07/04/2023 COMPL ETE BLOOD COUNT W/DIF F monocytes % 5.0 Not Available [address] [place], [address] 07/04/2023 19:50:47 07/04/19 24 07/04/2023 COMPL ETE BLOOD COUNT W/DIF F eosinophils % 0.5 Not Available [address] [place], [address] 07/04/2023 19:50:47 07/04/19 24 07/04/2023 COMPL ETE BLOOD COUNT W/DIF F basophils % 0.6 Not Available [address] [place], [address] 07/04/2023 19:50:47 07/04/19 24 07/04/2023 COMPL ETE BLOOD COUNT W/DIF F immature grans % 0.4 Not Available [address] [place], [address] 07/04/2023 19:50:47 07/04/19 24 07/04/2023 COMPL ETE BLOOD COUNT W/DIF F nucleated RBC 0.0 % 0.0-0. 3 normal Not Available [address] [place], [address] 07/04/2023 19:50:47 07/04/19 24 07/04/2023 COMPL ETE BLOOD COUNT W/DIF F absolute neutrophil count 8.56 10_3/ uL 1.2-6. 7 high Not Available [address] [place], [address] 07/04/2023 19:50:47 07/04/19 24 07/04/2023 COMPL ETE BLOOD COUNT W/DIF F absolute lymphocyte count 2.38 10_3/ uL 1.2-3. 4 normal Not Available [address] [place], [address] 07/04/2023 19:50:47 07/04/19 24 07/04/2023 COMPL ETE BLOOD COUNT W/DIF F absolute monocyte count 0.59 10_3/ uL 0.1-0. 8 normal Not Available [address] [place], [address] 07/04/2023 19:50:47 07/04/19 24 07/04/2023 COMPL ETE BLOOD COUNT W/DIF F absolute eosinophil count 0.06 10_3/ uL 0.0-0. 7 normal Not Available [address] [place], [address] 07/04/2023 19:50:47 07/04/19 24 07/04/2023 COMPL ETE BLOOD COUNT W/DIF F absolute basophil count 0.07 10_3/ uL 0.0-0. 2 normal Not Available [address] [place], [address] 07/04/2023 19:50:47 07/04/19 24 07/04/2023 COMPR EHENS JOANA METAB OLIC PANEL calcium 8.9 mg/dL 8.5-10 .1 normal Not Available [address] [place], [address] 07/04/2023 20:12:53 07/04/19 24 07/04/2023 COMPR EHENS JOANA METAB OLIC PANEL glucose 80 mg/dL 74-106 normal Not Available Levi frye [address] [place], [address] 07/04/2023 20:12:53 07/04/19 24 07/04/2023 COMPR EHENS JOANA METAB OLIC PANEL BUN 10 mg/dL 7-18 normal Not Available [address] [place], [address] 07/04/2023 20:12:53 07/04/19 24 07/04/2023 COMPR EHENS JOANA METAB OLIC PANEL creatinine 0.8 mg/dL 0.55-1 .02 normal Not Available [address] [place], [address] 07/04/2023 20:12:53 07/04/19 24 07/04/2023 COMPR EHENS JOANA METAB OLIC PANEL estimated GFR 93.12 mL/min /1.73m 2 Not Available [address] [place], [address] 07/04/2023 20:12:53 07/04/19 24 07/04/2023 COMPR EHENS JOANA METAB OLIC PANEL total protein 7.0 g/dL 6.4-8. 2 normal Not Available [address] [place], [address] 07/04/2023 20:12:53 07/04/19 24 07/04/2023 COMPR EHENS JOANA METAB OLIC PANEL albumin 4.0 g/dL 3.4-5. 0 normal Not Available [address] [place], [address] 07/04/2023 20:12:53 07/04/19 24 07/04/2023 COMPR EHENS JOANA METAB OLIC PANEL bilirubin, total 0.3 mg/dL 0.2-1. 0 normal Not Available [address] [place], [address] 07/04/2023 20:12:53 07/04/19 24 07/04/2023 COMPR EHENS JOANA METAB OLIC PANEL alk phos 81 U/L 46-116 normal Not Available [address] [place], [address] 07/04/2023 20:12:53 07/04/19 24 07/04/2023 COMPR EHENS JOANA METAB OLIC PANEL sodium 143 mmol/ L 136-14 5 normal Not Available [address] [place], [address] 07/04/2023 20:12:53 07/04/19 24 07/04/2023 COMPR EHENS JOANA METAB OLIC PANEL potassium 3.9 mmol/ L 3.5-5. 1 normal Not Available [address] [place], [address] 07/04/2023 20:12:53 07/04/19 24 07/04/2023 COMPR EHENS JOANA METAB OLIC PANEL chloride 103 mmol/ L 98-107 normal Not Available [address] [place], [address] 07/04/2023 20:12:53 07/04/19 24 07/04/2023 COMPR EHENS JOANA METAB OLIC PANEL CO2 28.9 mmol/ L 21.0-3 2.0 normal Not Available [address] [place], [address] 07/04/2023 20:12:53 07/04/19 24 07/04/2023 COMPR EHENS JOANA METAB OLIC PANEL anion gap 11.1 mmol/ L 3-11 high Not Available [address] [place], [address] 07/04/2023 20:12:53 07/04/19 24 07/04/2023 COMPR EHENS JOANA METAB OLIC PANEL AST 19 U/L 15-37 normal Not Available [address] [place], [address] 07/04/2023 20:12:53 07/04/19 24 07/04/2023 COMPR EHENS JOANA METAB OLIC PANEL ALT 35 U/L 14-59 normal Not Available [address] [place], [address] 07/04/2023 20:12:53 07/04/19 24 07/04/2023 LIPID 2 cholesterol 214 mg/dL <200 high Not Available [address] [place], [address] 07/04/2023 20:12:53 07/04/19 24 07/04/2023 LIPID 2 triglyceride 50 mg/dL <150 Not Available Casimiro bruce [address] [place], [address] 07/04/2023 20:12:53 07/04/19 24 07/04/2023 LIPID 2 HDL cholesterol 60 mg/dL 40-60 Not Available Miriam espinoza [address] [place], [address] 07/04/2023 20:12:53 07/04/19 24 07/04/2023 LIPID 2 calculated LDL 144 mg/dL <100 high Not Available [address] [place], [address] 07/04/2023 20:12:53 07/04/19 24 07/04/2023 TSH TSH 0.72 uIU/m L 0.36-3 .74 normal Not Available [address] [place], [address] 07/04/2023 20:12:54 07/04/19 24 07/04/2023 HEMOG LOBIN A1C hemoglobin A1C 5.4 % <5.7 Not Available [address] [place], [address] 07/04/2023 20:19:51 10/08/19 24 10/08/2023 COMPL ETE BLOOD COUNT W/DIF F WBC 9.97 10_3/ uL 4.4-10 .8 normal Not Available [address] [place], [address] 10/08/2023 09:58:17 10/08/19 24 10/08/2023 COMPL ETE BLOOD COUNT W/DIF F RBC 4.36 10_6/ uL 3.93-5 .22 normal Not Available [address] [place], [address] 10/08/2023 09:58:17 10/08/19 24 10/08/2023 COMPL ETE BLOOD COUNT W/DIF F HGB 13.3 g/dL 11.2-1 5.7 normal Not Available [address] [place], [address] 10/08/2023 09:58:17 10/08/19 24 10/08/2023 COMPL ETE BLOOD COUNT W/DIF F HCT 38.5 % 36.0-4 6.0 normal Not Available [address] [place], [address] 10/08/2023 09:58:17 10/08/19 24 10/08/2023 COMPL ETE BLOOD COUNT W/DIF F MCV 88 fL 80-95 normal Not Available [address] [place], [address] 10/08/2023 09:58:17 10/08/19 24 10/08/2023 COMPL ETE BLOOD COUNT W/DIF F MCH 30.5 pg 27.0-3 3.0 normal Not Available [address] [place], [address] 10/08/2023 09:58:17 10/08/19 24 10/08/2023 COMPL ETE BLOOD COUNT W/DIF F MCHC 34.5 % 32.0-3 6.0 normal Not Available [address] [place], [address] 10/08/2023 09:58:17 10/08/19 24 10/08/2023 COMPL ETE BLOOD COUNT W/DIF F RDW 12.6 % 11.7-1 4.6 normal Not Available [address] [place], [address] 10/08/2023 09:58:17 10/08/19 24 10/08/2023 COMPL ETE BLOOD COUNT W/DIF F platelet count 264 10_3/ uL 130-40 0 normal Not Available [address] [place], [address] 10/08/2023 09:58:17 10/08/19 24 10/08/2023 COMPL ETE BLOOD COUNT W/DIF F MPV 9.8 fL 8.0-11 .0 normal Not Available [address] [place], [address] 10/08/2023 09:58:17 10/08/19 24 10/08/2023 COMPL ETE BLOOD COUNT W/DIF F neutrophils % 74.1 % Not Available [address] [place], [address] 10/08/2023 09:58:17 10/08/19 24 10/08/2023 COMPL ETE BLOOD COUNT W/DIF F lymphocytes % 17.3 % Not Available [address] [place], [address] 10/08/2023 09:58:17 10/08/19 24 10/08/2023 COMPL ETE BLOOD COUNT W/DIF F monocytes % 6.0 % Not Available [address] [place], [address] 10/08/2023 09:58:17 10/08/19 24 10/08/2023 COMPL ETE BLOOD COUNT W/DIF F eosinophils % 1.8 % Not Available [address] [place], [address] 10/08/2023 09:58:17 10/08/19 24 10/08/2023 COMPL ETE BLOOD COUNT W/DIF F basophils % 0.4 % Not Available [address] [place], [address] 10/08/2023 09:58:17 10/08/19 24 10/08/2023 COMPL ETE BLOOD COUNT W/DIF F immature grans % 0.4 % Not Available [address] [place], [address] 10/08/2023 09:58:17 10/08/19 24 10/08/2023 COMPL ETE BLOOD COUNT W/DIF F nucleated RBC 0.0 % 0.0-0. 3 normal Not Available [address] [place], [address] 10/08/2023 09:58:17 10/08/19 24 10/08/2023 COMPL ETE BLOOD COUNT W/DIF F absolute neutrophil count 7.39 10_3/ uL 1.2-6. 7 high Not Available [address] [place], [address] 10/08/2023 09:58:17 10/08/19 24 10/08/2023 COMPL ETE BLOOD COUNT W/DIF F absolute lymphocyte count 1.72 10_3/ uL 1.2-3. 4 normal Not Available [address] [place], [address] 10/08/2023 09:58:17 10/08/19 24 10/08/2023 COMPL ETE BLOOD COUNT W/DIF F absolute monocyte count 0.60 10_3/ uL 0.1-0. 8 normal Not Available [address] [place], [address] 10/08/2023 09:58:17 10/08/19 24 10/08/2023 COMPL ETE BLOOD COUNT W/DIF F absolute eosinophil count 0.18 10_3/ uL 0.0-0. 7 normal Not Available [address] [place], [address] 10/08/2023 09:58:17 10/08/19 24 10/08/2023 COMPL ETE BLOOD COUNT W/DIF F absolute basophil count 0.04 10_3/ uL 0.0-0. 2 normal Not Available [address] [place], [address] 10/08/2023 09:58:17 10/08/19 24 10/08/2023 HCG QUAL (SERU M) HCG qual (serum) Negati ve Not Available [address] [place], [address] 10/08/2023 10:15:17 10/08/19 24 10/08/2023 COMPR EHENS JOANA METAB OLIC PANEL calcium 8.3 mg/dL 8.5-10 .1 low Not Available [address] [place], [address] 10/08/2023 10:15:19 10/08/19 24 10/08/2023 COMPR EHENS JOANA METAB OLIC PANEL glucose 88 mg/dL 74-106 normal Not Available Levi frye [address] [place], [address] 10/08/2023 10:15:19 10/08/19 24 10/08/2023 COMPR EHENS JOANA METAB OLIC PANEL BUN 6 mg/dL 7-18 low Not Available Levi frye [address] [place], [address] 10/08/2023 10:15:19 10/08/19 24 10/08/2023 COMPR EHENS JOANA METAB OLIC PANEL creatinine 0.9 mg/dL 0.55-1 .02 normal Not Available [address] [place], [address] 10/08/2023 10:15:19 10/08/19 24 10/08/2023 COMPR EHENS JOANA METAB OLIC PANEL estimated GFR 80.84 mL/min /1.73m 2 Not Available [address] [place], [address] 10/08/2023 10:15:19 10/08/19 24 10/08/2023 COMPR EHENS JOANA METAB OLIC PANEL total protein 6.2 g/dL 6.4-8. 2 low Not Available [address] [place], [address] 10/08/2023 10:15:19 10/08/19 24 10/08/2023 COMPR EHENS JOANA METAB OLIC PANEL albumin 3.2 g/dL 3.4-5. 0 low Not Available [address] [place], [address] 10/08/2023 10:15:19 10/08/19 24 10/08/2023 COMPR EHENS JOANA METAB OLIC PANEL bilirubin, total 0.45 mg/dL 0.2-1. 0 normal Not Available [address] [place], [address] 10/08/2023 10:15:19 10/08/19 24 10/08/2023 COMPR EHENS JOANA METAB OLIC PANEL alk phos 87 U/L 46-116 normal Not Available Levi [address] [place], [address] 10/08/2023 10:15:19 10/08/19 24 10/08/2023 COMPR EHENS JOANA METAB OLIC PANEL sodium 144 mmol/ L 136-14 5 normal Not Available [address] [place], [address] 10/08/2023 10:15:19 10/08/19 24 10/08/2023 COMPR EHENS JOANA METAB OLIC PANEL potassium 3.1 mmol/ L 3.5-5. 1 low Not Available [address] [place], [address] 10/08/2023 10:15:19 10/08/19 24 10/08/2023 COMPR EHENS JOANA METAB OLIC PANEL chloride 108 mmol/ L 98-107 high Not Available [address] [place], [address] 10/08/2023 10:15:19 10/08/19 24 10/08/2023 COMPR EHENS JOANA METAB OLIC PANEL CO2 26.4 mmol/ L 21.0-3 2.0 normal Not Available [address] [place], [address] 10/08/2023 10:15:19 10/08/19 24 10/08/2023 COMPR EHENS JOANA METAB OLIC PANEL anion gap 9.6 mmol/ L 3-11 normal Not Available [address] [place], [address] 10/08/2023 10:15:19 10/08/19 24 10/08/2023 COMPR EHENS JOANA METAB OLIC PANEL AST 17 U/L 15-37 normal Not Available [address] [place], [address] 10/08/2023 10:15:19 10/08/19 24 10/08/2023 COMPR EHENS JOANA METAB OLIC PANEL ALT 33 U/L 14-59 normal Not Available [address] [place], [address] 10/08/2023 10:15:19 10/08/19 24 10/08/2023 ETHYL ALCOH OL ethyl alcohol < 3.0 mg/dL <10 Not Available [address] [place], [address] 10/08/2023 10:15:19 10/10/19 24 10/10/2023 VENOU S BLOOD GAS pH (venous) 7.46 7.31-7 .41 high Not Available [address] [place], [address] 10/10/2023 17:24:51 10/10/19 24 10/10/2023 VENOU S BLOOD GAS pCO2 (venous) 37 mmHg 41-51 low Not Available [address] [place], [address] 10/10/2023 17:24:51 10/10/19 24 10/10/2023 VENOU S BLOOD GAS pO2 (venous) 57 mmHg Not Available Nor [address] [place], [address] 10/10/2023 17:24:51 10/10/19 24 10/10/2023 VENOU S BLOOD GAS TCO2 (venous) 27 mmol/ L 24-29 normal Not Available [address] [place], [address] 10/10/2023 17:24:51 10/10/19 24 10/10/2023 VENOU S BLOOD GAS HCO3 (venous) 26 mmol/ L 23-28 normal Not Available [address] [place], [address] 10/10/2023 17:24:51 10/10/19 24 10/10/2023 VENOU S BLOOD GAS BE (venous) 2 mmol/ L -2-3 normal Not Available [address] [place], [address] 10/10/2023 17:24:51 10/10/19 24 10/10/2023 VENOU S BLOOD GAS O2 sat (venous) 91 % Not Available [address] [place], [address] 10/10/2023 17:24:51 10/10/19 24 10/10/2023 COMPL ETE BLOOD COUNT W/DIF F WBC 15.85 10_3/ uL 4.4-10 .8 high Not Available [address] [place], [address] 10/10/2023 17:26:52 10/10/19 24 10/10/2023 COMPL ETE BLOOD COUNT W/DIF F RBC 5.55 10_6/ uL 3.93-5 .22 high Not Available [address] [place], [address] 10/10/2023 17:26:52 10/10/19 24 10/10/2023 COMPL ETE BLOOD COUNT W/DIF F HGB 16.9 g/dL 11.2-1 5.7 high Not Available [address] [place], [address] 10/10/2023 17:26:52 10/10/19 24 10/10/2023 COMPL ETE BLOOD COUNT W/DIF F HCT 46.7 % 36.0-4 6.0 high Not Available [address] [place], [address] 10/10/2023 17:26:52 10/10/19 24 10/10/2023 COMPL ETE BLOOD COUNT W/DIF F MCV 84 fL 80-95 Not Available [address] [place], [address] 10/10/2023 17:26:52 10/10/19 24 10/10/2023 COMPL ETE BLOOD COUNT W/DIF F MCH 30.5 pg 27.0-3 3.0 normal Not Available [address] [place], [address] 10/10/2023 17:26:52 10/10/19 24 10/10/2023 COMPL ETE BLOOD COUNT W/DIF F MCHC 36.2 % 32.0-3 6.0 high Not Available [address] [place], [address] 10/10/2023 17:26:52 10/10/19 24 10/10/2023 COMPL ETE BLOOD COUNT W/DIF F RDW 12.3 % 11.7-1 4.6 normal Not Available [address] [place], [address] 10/10/2023 17:26:52 10/10/19 24 10/10/2023 COMPL ETE BLOOD COUNT W/DIF F platelet count 403 10_3/ uL 130-40 0 high Not Available [address] [place], [address] 10/10/2023 17:26:52 10/10/19 24 10/10/2023 COMPL ETE BLOOD COUNT W/DIF F MPV 9.9 fL 8.0-11 .0 normal Not Available [address] [place], [address] 10/10/2023 17:26:52 10/10/19 24 10/10/2023 COMPL ETE BLOOD COUNT W/DIF F neutrophils % 70.7 % Not Available [address] [place], [address] 10/10/2023 17:26:52 10/10/19 24 10/10/2023 COMPL ETE BLOOD COUNT W/DIF F lymphocytes % 19.1 % Not Available [address] [place], [address] 10/10/2023 17:26:52 10/10/19 24 10/10/2023 COMPL ETE BLOOD COUNT W/DIF F monocytes % 8.7 % Not Available [address] [facility] [place], [address] 10/10/2023 17:26:52 10/10/19 24 10/10/2023 COMPL ETE BLOOD COUNT W/DIF F eosinophils % 0.7 % Not Available [address] [place], [address] 10/10/2023 17:26:52 10/10/19 24 10/10/2023 COMPL ETE BLOOD COUNT W/DIF F basophils % 0.4 % Not Available [address] [place], [address] 10/10/2023 17:26:52 10/10/19 24 10/10/2023 COMPL ETE BLOOD COUNT W/DIF F immature grans % 0.4 % Not Available [address] [place], [address] 10/10/2023 17:26:52 10/10/19 24 10/10/2023 COMPL ETE BLOOD COUNT W/DIF F nucleated RBC 0.0 % 0.0-0. 3 normal Not Available [address] [place], [address] 10/10/2023 17:26:52 10/10/19 24 10/10/2023 COMPL ETE BLOOD COUNT W/DIF F absolute neutrophil count 11.21 10_3/ uL 1.2-6. 7 high Not Available [address] [place], [address] 10/10/2023 17:26:52 10/10/19 24 10/10/2023 COMPL ETE BLOOD COUNT W/DIF F absolute lymphocyte count 3.03 10_3/ uL 1.2-3. 4 normal Not Available [address] [place], [address] 10/10/2023 17:26:52 10/10/19 24 10/10/2023 COMPL ETE BLOOD COUNT W/DIF F absolute monocyte count 1.38 10_3/ uL 0.1-0. 8 high Not Available [address] [place], [address] 10/10/2023 17:26:52 10/10/19 24 10/10/2023 COMPL ETE BLOOD COUNT W/DIF F absolute eosinophil count 0.11 10_3/ uL 0.0-0. 7 normal Not Available [address] [place], [address] 10/10/2023 17:26:52 10/10/19 24 10/10/2023 COMPL ETE BLOOD COUNT W/DIF F absolute basophil count 0.06 10_3/ uL 0.0-0. 2 normal Not Available [address] [place], [address] 10/10/2023 17:26:52 10/10/19 24 10/10/2023 PROTH ROMBI N TIME prothrombin time 10.8 sec 9.1-11 .1 normal Not Available [address] [place], [address] 10/10/2023 17:30:52 10/10/19 24 10/10/2023 PROTH ROMBI N TIME INR 1.1 0.9-1. 1 normal Not Available [address] [place], [address] 10/10/2023 17:30:52 10/10/19 24 10/10/2023 PTT ACTIV ATED PTT activated 25.6 sec 23.6-3 2.8 normal Not Available [address] [place], [address] 10/10/2023 17:30:53 10/10/19 24 10/10/2023 COMPR EHENS JOANA METAB OLIC PANEL calcium 9.6 mg/dL 8.5-10 .1 normal Not Available [address] [place], [id number] 10/10/2023 17:50:00 10/10/19 24 10/10/2023 COMPR EHENS JOANA METAB OLIC PANEL glucose 112 mg/dL 74-106 high Not Available [address] [place], [address] 10/10/2023 17:50:00 10/10/19 24 10/10/2023 COMPR EHENS JOANA METAB OLIC PANEL BUN 3 mg/dL 7-18 low Not Available [address] [place] [place], [address] 10/10/2023 17:50:00 10/10/19 24 10/10/2023 COMPR EHENS JOANA METAB OLIC PANEL creatinine 1.0 mg/dL 0.55-1 .02 normal Not Available [address] [place], [address] 10/10/2023 17:50:00 10/10/19 24 10/10/2023 COMPR EHENS JOANA METAB OLIC PANEL estimated GFR 71.24 mL/min /1.73m 2 Not Available [address] [place], [address] 10/10/2023 17:50:00 10/10/19 24 10/10/2023 COMPR EHENS JOANA METAB OLIC PANEL total protein 8.2 g/dL 6.4-8. 2 normal Not Available [address] [place], [address] 10/10/2023 17:50:00 10/10/19 24 10/10/2023 COMPR EHENS JOANA METAB OLIC PANEL albumin 4.2 g/dL 3.4-5. 0 normal Not Available [address] [place], [address] 10/10/2023 17:50:00 10/10/19 24 10/10/2023 COMPR EHENS JOANA METAB OLIC PANEL bilirubin, total 0.58 mg/dL 0.2-1. 0 normal Not Available [address] [place], [address] 10/10/2023 17:50:00 10/10/19 24 10/10/2023 COMPR EHENS JOANA METAB OLIC PANEL alk phos 105 U/L 46-116 normal Not Available [address] [place], [address] 10/10/2023 17:50:00 10/10/19 24 10/10/2023 COMPR EHENS JOANA METAB OLIC PANEL sodium 138 mmol/ L 136-14 5 normal Not Available [address] [place], [address] 10/10/2023 17:50:00 10/10/19 24 10/10/2023 COMPR EHENS JOANA METAB OLIC PANEL potassium 2.4 mmol/ L 3.5-5. 1 critical low Not Available [address] [place], [address] 10/10/2023 17:50:00 10/10/19 24 10/10/2023 COMPR EHENS JOANA METAB OLIC PANEL chloride 99 mmol/ L 98-107 normal Not Available [address] [place], [address] 10/10/2023 17:50:00 10/10/19 24 10/10/2023 COMPR EHENS JOANA METAB OLIC PANEL CO2 28.7 mmol/ L 21.0-3 2.0 normal Not Available [address] [place], [address] 10/10/2023 17:50:00 10/10/19 24 10/10/2023 COMPR EHENS JOANA METAB OLIC PANEL anion gap 10.3 mmol/ L 3-11 normal Not Available [address] [place], [address] 10/10/2023 17:50:00 10/10/19 24 10/10/2023 COMPR EHENS JOANA METAB OLIC PANEL AST 16 U/L 15-37 normal Not Available [address] [place], [address] 10/10/2023 17:50:00 10/10/19 24 10/10/2023 COMPR EHENS JOANA METAB OLIC PANEL ALT 38 U/L 14-59 normal Not Available [address] [place] [place], [address] 10/10/2023 17:50:00 10/10/19 24 10/10/2023 CREAT INE KINAS E creatine kinase 75 U/L 26-192 normal Not Available [address] [place], [address] 10/10/2023 17:50:01 10/10/19 24 10/10/2023 MAGNE SIUM magnesium 2.4 mg/dL 1.8-2. 4 normal Not Available [address] [place], [address] 10/10/2023 17:48:59 10/10/19 24 10/10/2023 TSH (W/RE F FT4) TSH (w/ref FT4) 1.74 uIU/m L 0.36-3 .74 normal Not Available [address] [place], [address] 10/10/2023 17:48:59 10/10/19 24 10/10/2023 LIPAS E lipase 13 U/L 16-77 low Not Available [address] [place], [address] 10/10/2023 17:49:00 10/10/19 24 10/10/2023 ETHYL ALCOH OL ethyl alcohol < 3.0 mg/dL <10 Not Available [address] [place], [address] 10/10/2023 17:50:02 10/10/19 24 10/10/2023 MAGNE SIUM magnesium 2.4 mg/dL 1.8-2. 4 normal Not Available [address] [place], [address] 10/10/2023 17:50:02 10/10/19 24 10/10/2023 TSH (W/RE F FT4) TSH (w/ref FT4) 1.74 uIU/m L 0.36-3 .74 normal Not Available [address] [place], [address] 10/10/2023 17:50:03 10/10/19 24 10/10/2023 LIPAS E lipase 13 U/L 16-77 low Not Available [address] [place], [address] 10/10/2023 17:50:03 10/10/19 24 10/10/2023 URINA LYSIS color Yellow yellow Not Available [address] [place], [address] 10/10/2023 18:49:11 10/10/19 24 10/10/2023 URINA LYSIS clarity Clear clear Not Available [address] [place], [address] 10/10/2023 18:49:11 10/10/19 24 10/10/2023 URINA LYSIS specific gravity 1.010 1.005- 1.025 normal Not Available [address] [place], [address] 10/10/2023 18:49:11 10/10/19 24 10/10/2023 URINA LYSIS pH 6.5 5-8 normal Not Available [address] [place], [address] 10/10/2023 18:49:11 10/10/19 24 10/10/2023 URINA LYSIS leukocyte esterase Negati ve negati ve Not Available [address] [place], [address] 10/10/2023 18:49:11 10/10/19 24 10/10/2023 URINA LYSIS nitrite Negati ve negati ve Not Available [address] [place], [address] 10/10/2023 18:49:11 10/10/19 24 10/10/2023 URINA LYSIS protein Negati ve mg/dL neg-tr yeimy Not Available [address] [place], [address] 10/10/2023 18:49:11 10/10/19 24 10/10/2023 URINA LYSIS glucose Negati ve mg/dL negati ve Not Available [address] [place], [address] 10/10/2023 18:49:11 10/10/19 24 10/10/2023 URINA LYSIS ketones Negati ve mg/dL negati ve Not Available [address] [place], [address] 10/10/2023 18:49:11 10/10/19 24 10/10/2023 URINA LYSIS urobilinogen 0.2 mg/dL up to 0.2 Not Available [address] [place], [address] 10/10/2023 18:49:11 10/10/19 24 10/10/2023 URINA LYSIS bilirubin Negati ve negati ve Not Available [address] [place], [address] 10/10/2023 18:49:11 10/10/19 24 10/10/2023 URINA LYSIS blood Negati ve negati ve Not Available [address] [place], [address] 10/10/2023 18:49:11 10/10/19 24 10/10/2023 URINE DRUG SCREE N ([facility] ) methadone Negati ve negati ve Not Available [address] [place], [address] 10/10/2023 18:59:15 10/10/19 24 10/10/2023 URINE DRUG SCREE N ([facility] ) benzodiazepi domo Positi ve negati ve abnormal Not Available [address] [place], [address] 10/10/2023 18:59:15 10/10/19 24 10/10/2023 URINE DRUG SCREE N ([facility] ) cocaine Negati ve negati ve Not Available [address] [place], [address] 10/10/2023 18:59:15 10/10/19 24 10/10/2023 URINE DRUG SCREE N ([facility] ) amphetamines Negati ve negati ve Not Available [address] [place], [address] 10/10/2023 18:59:15 10/10/19 24 10/10/2023 URINE DRUG SCREE N ([facility] ) tetrahydroca nnabinol Positi ve negati ve abnormal Not Available [address] [place], [address] 10/10/2023 18:59:15 10/10/19 24 10/10/2023 URINE DRUG SCREE N ([facility] ) opiates Negati ve negati ve Not Available [address] [place], [address] 10/10/2023 18:59:15 10/10/19 24 10/10/2023 URINE DRUG SCREE N ([facility] ) barbiturates Negati ve negati ve Not Available [address] [place], [address] 10/10/2023 18:59:15 10/10/19 24 10/10/2023 URINE DRUG SCREE N ([facility] ) tricyclic antidepressa nts Negati ve negati ve Not Available [address] [place], [address] 10/10/2023 18:59:15 10/11/19 24 10/11/2023 COMPL ETE BLOOD COUNT NO DIFF WBC 11.79 10_3/ uL 4.4-10 .8 high Not Available [address] [place], [address] 10/11/2023 07:26:51 10/11/19 24 10/11/2023 COMPL ETE BLOOD COUNT NO DIFF RBC 4.55 10_6/ uL 3.93-5 .22 normal Not Available [address] [place], [address] 10/11/2023 07:26:51 10/11/19 24 10/11/2023 COMPL ETE BLOOD COUNT NO DIFF HGB 13.9 g/dL 11.2-1 5.7 Not Available [address] [place], [address] 10/11/2023 07:26:51 10/11/19 24 10/11/2023 COMPL ETE BLOOD COUNT NO DIFF HCT 38.8 % 36.0-4 6.0 normal Not Available [address] [place], [address] 10/11/2023 07:26:51 10/11/19 24 10/11/2023 COMPL ETE BLOOD COUNT NO DIFF MCV 85 fL 80-95 normal Not Available Levi frye [address] [place], [address] 10/11/2023 07:26:51 10/11/19 24 10/11/2023 COMPL ETE BLOOD COUNT NO DIFF MCH 30.5 pg 27.0-3 3.0 normal Not Available [address] [place], [address] 10/11/2023 07:26:51 10/11/19 24 10/11/2023 COMPL ETE BLOOD COUNT NO DIFF MCHC 35.8 % 32.0-3 6.0 normal Not Available [address] [place], [address] 10/11/2023 07:26:51 10/11/19 24 10/11/2023 COMPL ETE BLOOD COUNT NO DIFF RDW 12.8 % 11.7-1 4.6 normal Not Available [address] [place], [address] 10/11/2023 07:26:51 10/11/19 24 10/11/2023 COMPL ETE BLOOD COUNT NO DIFF platelet count 340 10_3/ uL 130-40 0 normal Not Available [address] [place], [address] 10/11/2023 07:26:51 10/11/19 24 10/11/2023 COMPL ETE BLOOD COUNT NO DIFF MPV 10.0 fL 8.0-11 .0 normal Not Available [address] [place], [address] 10/11/2023 07:26:51 10/11/19 24 10/11/2023 COMPR EHENS JOANA METAB OLIC PANEL calcium 8.6 mg/dL 8.5-10 .1 normal Not Available [address] [place], [address] 10/11/2023 07:49:57 10/11/19 24 10/11/2023 COMPR EHENS JOANA METAB OLIC PANEL glucose 96 mg/dL 74-106 normal Not Available [address] [place], [address] 10/11/2023 07:49:57 10/11/19 24 10/11/2023 COMPR EHENS JOANA METAB OLIC PANEL BUN 0 mg/dL 7-18 low Not Available [address] [place], [address] 10/11/2023 07:49:57 10/11/19 24 10/11/2023 COMPR EHENS JOANA METAB OLIC PANEL creatinine 0.9 mg/dL 0.55-1 .02 normal Not Available [address] [place], [address] 10/11/2023 07:49:57 10/11/19 24 10/11/2023 COMPR EHENS JOANA METAB OLIC PANEL estimated GFR 80.84 mL/min /1.73m 2 Not Available [address] [place], [address] 10/11/2023 07:49:57 10/11/19 24 10/11/2023 COMPR EHENS JOANA METAB OLIC PANEL total protein 6.3 g/dL 6.4-8. 2 low Not Available [address] [place], [address] 10/11/2023 07:49:57 10/11/19 24 10/11/2023 COMPR EHENS JOANA METAB OLIC PANEL albumin 3.1 g/dL 3.4-5. 0 low Not Available [address] [place], [address] 10/11/2023 07:49:57 10/11/19 24 10/11/2023 COMPR EHENS JOANA METAB OLIC PANEL bilirubin, total 0.44 mg/dL 0.2-1. 0 normal Not Available [address] [place], [address] 10/11/2023 07:49:57 10/11/19 24 10/11/2023 COMPR EHENS JOANA METAB OLIC PANEL alk phos 85 U/L 46-116 normal Not Available [address] [place], [address] 10/11/2023 07:49:57 10/11/1910/11/2023 COMPR EHENS JOANA METAB OLIC PANEL sodium 144 mmol/ L 136-14 5 normal Not Available [address] [place], [address] 10/11/2023 07:49:57 10/11/19 24 10/11/2023 COMPR EHENS JOANA METAB OLIC PANEL potassium 2.8 mmol/ L 3.5-5. 1 critical low Not Available [address] [place], [address] 10/11/2023 07:49:57 10/11/19 24 10/11/2023 COMPR EHENS JOANA METAB OLIC PANEL chloride 107 mmol/ L 98-107 normal Not Available [address] [place], [address] 10/11/2023 07:49:57 10/11/19 24 10/11/2023 COMPR EHENS JOANA METAB OLIC PANEL CO2 30.2 mmol/ L 21.0-3 2.0 normal Not Available [address] [place], [address] 10/11/2023 07:49:57 10/11/19 24 10/11/2023 COMPR EHENS JOANA METAB OLIC PANEL anion gap 6.8 mmol/ L 3-11 normal Not Available [address] [place], [address] 10/11/2023 07:49:57 10/11/19 24 10/11/2023 COMPR EHENS JOANA METAB OLIC PANEL AST 13 U/L 15-37 low Not Available [address] [place], [address] 10/11/2023 07:49:57 10/11/19 24 10/11/2023 COMPR EHENS JOANA METAB OLIC PANEL ALT 28 U/L 14-59 normal Not Available [address] [place], [address] 10/11/2023 07:49:57 10/11/1910/11/2023 MAGNE SIUM magnesium 2.2 mg/dL 1.8-2. 4 normal Not Available [address] [place], [address] 10/11/2023 07:49:58 10/11/1910/11/2023 POTAS SIUM potassium 3.7 mmol/ L 3.5-5. 1 normal Not Available [address] [place], [address] 10/11/2023 21:02:18 10/18/1910/18/2023 BASIC METAB OLIC PANEL calcium 9.1 mg/dL 8.5-10 .1 normal Not Available [address] [place], [address] 10/18/2023 00:57:01 10/18/19 24 10/18/2023 BASIC METAB OLIC PANEL glucose 83 mg/dL 74-106 normal Not Available [address] [place], [address] 10/18/2023 00:57:01 10/18/19 24 10/18/2023 BASIC METAB OLIC PANEL BUN 7 mg/dL 7-18 normal Not Available [facility] [address] [place], [address] 10/18/2023 00:57:01 10/18/19 24 10/18/2023 BASIC METAB OLIC PANEL creatinine 0.9 mg/dL 0.55-1 .02 normal Not Available [address] [place], [address] 10/18/2023 00:57:01 10/18/19 24 10/18/2023 BASIC METAB OLIC PANEL estimated GFR 80.84 mL/min /1.73m 2 Not Available [address] [place], [address] 10/18/2023 00:57:01 10/18/19 24 10/18/2023 BASIC METAB OLIC PANEL sodium 140 mmol/ L 136-14 5 normal Not Available [address] [place], [address] 10/18/2023 00:57:01 10/18/19 24 10/18/2023 BASIC METAB OLIC PANEL potassium 3.4 mmol/ L 3.5-5. 1 low Not Available [address] [place], [address] 10/18/2023 00:57:01 10/18/19 24 10/18/2023 BASIC METAB OLIC PANEL chloride 102 mmol/ L 98-107 normal Not Available [address] [place], [address] 10/18/2023 00:57:01 10/18/19 24 10/18/2023 BASIC METAB OLIC PANEL CO2 27.8 mmol/ L 21.0-3 2.0 normal Not Available [address] [place], [address] 10/18/2023 00:57:01 10/18/19 24 10/18/2023 BASIC METAB OLIC PANEL anion gap 10.2 mmol/ L 3-11 normal Not Available [address] [place], [address] 10/18/2023 00:57:01 11/02/19 24 11/02/2023 drug scree n, urine Amphetamines : positi ve Not Available [facility] [address], [place], [address], 11/02/2023 11:50:25 11/02/19 24 11/02/2023 drug scree n, urine Barbiturates : negati ve Not Available [facility] [address] [place], [address], 11/02/2023 11:50:25 11/02/19 24 11/02/2023 drug scree n, urine BUP: negati ve Not Available [facility] [address] [place], [address], 11/02/2023 11:50:25 11/02/19 24 11/02/2023 drug scree n, urine Benzodiazepi domo: positi ve Not Available [facility] [address] [place], [address], 11/02/2023 11:50:25 11/02/19 24 11/02/2023 drug scree n, urine Cocaine: negati ve Not Available [facility] [address], [place], [address], 11/02/2023 11:50:25 11/02/19 24 11/02/2023 drug scree n, urine EDDP (Methadone Metabolite) negati ve Not Available [facility] [address], [place], [address], 11/02/2023 11:50:25 11/02/19 24 11/02/2023 drug scree n, urine (MET) Methamphetam ine: negati ve Not Available [facility] [address], [place], [address], 11/02/2023 11:50:25 11/02/19 24 11/02/2023 drug scree n, urine MDMA: negati ve Not Available [facility] [address], [place], [address], 11/02/2023 11:50:25 11/02/19 24 11/02/2023 drug scree n, urine MTD (Methadone): negati ve Not Available [facility] [address], [place], [address], 11/02/2023 11:50:25 11/02/19 24 11/02/2023 drug scree n, urine Ily210 (Opiate): negati ve Not Available [facility] [address], [place], [address], 11/02/2023 11:50:25 11/02/19 24 11/02/2023 drug scree n, urine OXY (Oxycodone): negati ve Not Available [facility] [address], [place], [address], 11/02/2023 11:50:25 11/02/19 24 11/02/2023 drug scree n, urine TCA: negati ve Not Available [facility] [address], [place], [address], 11/02/2023 11:50:25 11/02/19 24 11/02/2023 drug scree n, urine THC: positi ve Not Available [facility] [address], [place], [address], 11/02/2023 11:50:25 11/02/19 24 11/02/2023 drug scree n, urine Temperature: 94 Not Available [facility] [address], [place], [address], 11/02/2023 11:50:25 07/04/19 24 07/04/2023 XR, chest , 2 view Buck t Name: Tatyana Grant sa Ophelia Unit #: [id number] Loc: DI Orderi ng Provid er: Nicole Sharif Accoun t #: [id number] Status : REG CLI Primar y [...] error, please notify us immedi ately at [phone] and return the origin al report to us at the addres s above. Thank- you. [facility] [address], [place], [address] 07/14/2023 09:54:47 10/08/19 24 10/08/2023 dalton amaya Name: LeonelNataliya rosinapaty Tatyana sa Unit #: [id number] Loc: ER Orderi ng Provid er: Accoun t #: [id number] Status : REG ER Primar y [...] Authen ticate d by: Jeannie carl MD. Orderi ng:PDilcia Sumner MD Access ion#=[id number] Ordere d By: CC: ------ ------ ------ ------ ------ ------ ------ ------ ------ ------ ------ ------ ---- Dictat ed By: Report s vrad [id number] Transc ribed By: Di Merge 1022 This is privil eged, confid ential [...] at the addres s above. Thank- you. [email or web address] [facility] [address], [place], [address] 10/10/2023 05:33:35 10/08/19 24 10/08/2023 CT imagi ng repor t Patien t Name: Tatyana Grant sa Unit #: [id number] Loc: ER Orderi ng Provid er: Burak Weathers M.D. Accoun t #: [id number] Status : REG ER Primar [...] REPOSI TORY: [facility] ty are submit stefan to the [facility] al Radiol ogy Data Regist ry (NRDR) Dose Index Regist ry (DIR) with the [place] [facility] [facility] of Radiol ogy (ACR). RADIAT ION OPTIMI ZATION : All CT [facility] use at least one of these dose [...] ------ ---- Dictat ed By: Gordy Villarreal 122 122 Transc ribed By: Moraima Monroe 122 This is privil eged, confid ential inform ation intend ed only for the provid er named. Any use or distri bution by any person other than this provid er is strict ly prohib ited. If you receiv e this report in error, please notify us immedi ately at [phone] and return the origin al report to us at the addres s above. Thank- you. [email or web address] [facility] [address] [place], [address] 10/10/2023 05:33:35 10/10/19 24 10/10/2023 CT imagi ng repor t Patien t Name: Tatyana Grant sa Unit #: [id number] Loc: ER Orderi ng Provid er: Miguelina Looney M.D. Accoun t #: [id number] Status : REG ER Primar y [...] facili ty are submit stefan to the [facility] al Radiol ogy Data Regist ry (NRDR) [...] error, please notify us immmarvin slater at and return the origin al report to us at the addres s above. Thank- you. [facility] [address], [place], [address] 10/11/2023 13:16:40 10/10/1910/10/2023 x-ray imagi pranay amaya Name: Tatyana Grant sa Unit #: [id number] Loc: ER Olga Lidia Ricks er: Miguelina Looney M.D. Accoun t #: [id number] Status : REG ER Primar y [...] report in error, please notify us immedi nohemy at and return the origin al report to us at the addres s above. Thank- you. [email or web address] [place] [id number], [place], [address] 10/11/2023 13:16:41 Result Notes None recorded. 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 2015 Problem Code: N87.1; Problem Code Type: ICD-10; Not Available [facility] 3 05:20:00 History of deliberate self harm Active 2015 Not Available [facility] 3 05:20:00 Major depression, single episode Active 201508/30/2022 - Comments only - Kyleigh Owens [facility] - - Given Domitila's increased depression and [...] F32.9; Problem Code Type: ICD-10; Not Available [facility] 3 05:20:00 High enzyme level in serum Active 2018 Problem Code: R74.8; Problem Code Type: ICD-10; Not Available [facility] 3 05:20:00 Joint pain Active 2018 Problem Code: M25.50; Problem Code Type: ICD-10; Not Available [facility] 3 05:20:00 Gastro-esopha geal reflux disease with esophagitis Active 201907/09/2019 - Comments only - Glen Parrish [employer] - 04/2019 EGD Problem Code: K21.0; Problem Code Type: ICD-10; Not Available [facility] 3 05:20:00 Disorder of stomach Active 201907/09/2019 - Comments only - Glen Parrish [employer] - 05/08/2019 biopsies of stomach showed mild reactive chemical gastropathy no H. pylori. Duodenal biopsies had no significant diagnostic abnormality and the same thing with the colon. Take a PPI Protonix 40 mg half hour before evening meal indefinitely. Follow-up PRN. Not Available [facility] 3 05:20:01 Irritable bowel syndrome Active 201909/17/2020 - Comments only - Glen Parrish [employer] - sx managed well on colestipol Problem Code: K58.9; Problem Code Type: ICD-10; Not Available [facility] 3 05:20:01 Cough Completed 201901/15/2020 01/01/2020 - Comments only - Zainab Holliday [employer] - with body aches and other URI sx. History and presentation consistent with viral URI. COVID-19 testing performed using [employer] swab, advised quarantine while awaiting results. Discussed symptomatic mgmt (sinus care, avoidance of multiple OTC meds). Reviewed concerning sx indicating secondary bacterial infection requiring further f/u (worsening cough, ear pain, sore throat) and red flags requiring emergency care. Problem Code: R05; Problem Code Type: ICD-10; Not Available [facility] 3 05:20:01 Abnormal weight gain Active 202009/17/2020 - Comments only - Glen Parrish [employer] - trialing topomax, has lost 8 pounds Problem Code: R63.5; Problem Code Type: ICD-10; Not Available [facility] 3 05:20:01 History and physical examination, administrativ e Active 2020 Problem Code: Z02.89; Problem Code Type: ICD-10; Not Available [facility] 3 05:20:01 Pain of right shoulder joint Active 202012/29/2021 - Comments only - Glen Parrish [employer] - [facility];Ri ght biceps tendinitis of the shoulder, SL AP tear right shoulder, right rotator cuff tearPlanning to get MRI. Problem Code: M25.511; Problem Code Type: ICD-10; Not Available [facility] 3 05:20:01 Suicidal thoughts Active 202108/30/2022 - Comments only - Kyleigh [facility]- - - Domitila does continue to have frequent suicidal thoughts, as well as plan and means, but clearly states that she has no intention of following through on these, and states that she would proceed to [facility] emergency department should she feel unsafe or at risk of self-harm or suicide. 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 2022 Problem Code: B83.9; Problem Code Type: ICD-10; Not Available [facility] 3 05:20:02 Nausea Completed 201907/22/2020 Problem Code: R11.0; Problem Code Type: ICD-10; Not Available [facility] 3 05:20:02 Dysuria Completed 201606/27/2019 Problem Code: R30.0; Problem Code Type: ICD-10; Not Available [facility] 3 05:20:02 Chest pain Completed 201806/27/2019 Problem Code: R07.9; Problem Code Type: ICD-10; Not Available [facility] 3 05:20:02 Incontinence of feces Completed 201806/27/2019 Problem Code: R15.9; Problem Code Type: ICD-10; Not Available [facility] 3 05:20:02 Fatigue Completed 201809/17/2020 Problem Code: R53.83; Problem Code Type: ICD-10; Not Available [facility] 3 05:20:02 Visual disturbance Completed 201907/22/2020 Problem Code: H53.9; Problem Code Type: ICD-10; Not Available [facility] 3 05:20:02 Pain of left wrist Completed 201409/17/2020 Problem Code: M25.532; Problem Code Type: ICD-10; Not Available [facility] 3 05:20:03 Dizziness and giddiness Completed 201407/22/2020 Problem Code: R42; Problem Code Type: ICD-10; Not Available [facility] 3 05:20:03 Diarrhea Completed 201807/22/2020 Problem Code: R19.7; Problem Code Type: ICD-10; Not Available [facility] 3 05:20:03 Cyst of vulva Completed 202007/22/2020 Problem Code: N90.7; Problem Code Type: ICD-10; Not Available [facility] 3 05:20:03 General examination of patient Completed 201406/27/2019 Problem Code: Z00.8; Problem Code Type: ICD-10; Not Available [facility] 3 05:20:03 Acute pharyngitis Completed 201907/22/2020 Problem Code: J02.9; Problem Code Type: ICD-10; Not Available [facility] 3 05:20:03 Acute pharyngitis Completed 201506/27/2019 Problem Code: J02.9; Problem Code Type: ICD-10; Not Available [facility] 3 05:20:03 Disorder of soft tissue Active 2022 Problem Code: M79.89; Problem Code Type: ICD-10; Not Available [facility] 4 05:38:07 Dyspnea Active 2023 NANDA OVALLES [address], [place], [address] , [facility] 4 12:24:04 Hyperglycemia Active [address], [facility] [address] , [facility] 4 12:38:11 Raynaud's phenomenon Active [address], [facility] [address] , [facility] 4 12:50:56 Internal hemorrhoids grade II Active 2023 Surgically banded during colonoscopy 10/05/[address], [facility] [address] , [facility] 4 12:52:46 Cannabis dependence Active 2023 And possibly cannabis hyperemesis syndrome per ED report 10/10/2023. [address]DA [address], [place], [address] , [facility] 4 08:55:37 Adjustment disorder Active [address], [facility] [address] , [facility] 4 12:47:35 Attention deficit hyperactivity disorder Active [address], [facility] [address] , [facility] 4 12:53:53 Gastroesophag eal reflux disease without esophagitis Active [address], [facility] [address] , [facility] 12:55:17 Nausea and vomiting Active [address], [place], [address] , [facility] 13:05:41 Problem Notes None recorded. Procedures Surgical History None recorded. Imaging Results Imaging Date Name Status LastModified by Organalvaro [email or web address] Details LastModified Time 07/04/2023 XR, chest, 2 view [address] [place], [address] 07/14/2023 09:54:47 10/08/2023 vrad report completed [address] [place], [address] 10/10/2023 05:33:35 10/08/2023 CT imaging report completed [address] [place], [address] 10/10/2023 05:33:35 10/10/2023 CT imaging report completed [address] [place], [address] 10/11/2023 13:16:40 10/10/2023 x-ray imaging report completed [address] [place], [address] 10/11/2023 13:16:41 Procedure Notes None recorded. Medical Equipment None Reported. Allergies Allergen ID Allergen Name Allergen Category Reaction Reaction Severity Criticality Documentation Date Start Date Code Code System Note Provider Name and Address Organization Details Recorded Time 43706 Ambien medicatio n other severe Not available 02/04/20232020 31348 5 RxNorm sleep walki ng Aller gyRea ction : 'slee p walki ng'; Not Available [facility] 3 16:22:12 05316 Wellbutri n medicatio n other severe Not available 02/04/20232020 69779 RxNorm Hypom miley Aller gyRea ction : 'Hypo khushbu '; Not Available [facility] 3 16:22:12 Medications Name Sig [...] TABLET BY MOUTH THREE TIMES A DAY active Not Available Not Available No t Available paroxetin e 10 mg tablet TAKE ONE TABLET BY MOUTH EVERY MORNING 11/01 completed Not Available Not Available Not Available trazodone 50 mg tablet 1 to 2 tabs by mouth at HS 06/26 completed Not Available Not Available Not Available Topamax 25 mg tablet take 1 tablet QAM X 7 days then increase to 2 tablets 09/15 completed Not Available Not Available Not Available Risperdal 1 mg tablet Take tablet by mouth twice a day active Per pt Shantal ny increase d 1mg bid on 10/14/21 Not Available Not Available Not Available cefpodoxi me 100 mg tablet one bid 10/20 completed per d/c summary Not Available Not Available Not Available citalopra m 10 mg tablet 1TAB daily 2013 active Not Available Not Available Not Avai lable prochlorp erazine maleate 5 mg tablet TAKE ONE TABLET BY MOUTH THREE TIMES A DAY NEEDED active Not Available Not Available No t Available meloxicam 15 mg tablet TAKE ONE TABLET [...] Not Available famotidin e 40 mg tablet TAKE ONE TABLET BY MOUTH EVERY DAY 08/07/ 2024 active Not Available Not Available Not Avai lable gabapenti n 400 mg capsule take 1 cap by mouth daily 06/26 completed Shantal Chirinos NK Not Available Not Available Not Available Pyridium 100 mg tablet 1 tabs tid prn 05/04 completed Not Available Not Available Not Available thiamine HCl (vitamin B1) 100 mg tablet Take 1 tab by mouth daily 06/26 completed [facility] Not Available Not Available Not Available lithium carbonate ER 300 mg tablet,ex tended release TAKE ONE TABLET BY MOUTH EVERY DAY AT BEDTIME active Not Available Not Available No t Available Nicotrol 10 mg inhalatio n cartridge [...] completed Not Available Not Available Not Available metoclopr amide 5 mg tablet TAKE ONE TABLET BY MOUTH THREE TIMES A DAY 30 MIN. BEFORE MEALS 11/01 completed Not Available Not Available Not Available [...] TIMES A DAY NEEDED FOR NERVE PAIN 11/01 completed Not Available Not Available Not Available Risperdal 0.5 mg tablet Take tablet by mouth once a day 12/27 completed Per pt Shantal ny increase d 1mg bid-plan to taper off Not Available Not Available Not Available hydroxyzi ne HCl 25 mg tablet TAKE TWO TABLETS BY MOUTH TWICE A DAY FOR ANXIETY active Not Available Not Available No t Available alprazola m 2 mg tablet TAKE ONE TABLET BY MOUTH TWICE A DAY active Not Available Not Available No t Available gabapenti n 100 mg capsule TAKE ONE CAPSULE BY MOUTH THREE TIMES A DAY 11/01 completed Not Available Not Available Not Available lorazepam 1 mg tablet one tab po prn anxiety 05/04 completed Dana Rain [facility] Not Available Not Available Not Available zolpidem [...] 0.5 tab by mouth daily 2013 active Shantal Silva i [facility] dose increase d Not Available Not Available Not Available Vitamin D3 25 mcg (1,000 unit) capsule 1 qd 2020 active Not Available Not Available Not Avai lable Abilify 5 mg tablet IN ADDITION TO 2 MG QD 12/27 completed 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 Silva 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 Not Available Not Available Not Available topiramat e 50 mg tablet by mouth twice a day take 1 tabs morning and 1 tab in pm 07/29 completed Shantal ny Not Available Not Available Not Available [...] ADDITION TO 5 MG QD 12/27 completed SHANTAL CHIRINOS KI STITCHER OPERATOR Not Available Not Available Not Available acetylcys teine 600 mg capsule TAKE ONE CAPSULE BY MOUTH TWICE A DAY DIRECTED 05/23 completed Not Available Not Available Not Available lisdexamf etamine 30 mg capsule TAKE 1 CAPSULE BY MOUTH IN THE AFTERNOO N active Not Available Not Available No t Available lisdexamf etamine 20 mg capsule TAKE ONE CAPSULE BY MOUTH EVERY DAY AT 1PM. 05/23 completed Not Available Not Available Not Available lisdexamf etamine 40 mg capsule TAKE ONE CAPSULE BY MOUTH EVERY MORNING active Not Available Not Available No t Available desvenlaf axine succinate ER 100 mg tablet,ex tended release 24 hr TAKE ONE TABLET BY MOUTH EVERY DAY 05/23 completed Not Available Not Available Not Available guanfacin e ER 2 mg tablet,ex tended release 24 hr TAKE ONE TABLET BY MOUTH AT BEDTIME +STOP CLONIDIN E+ 11/01 completed Not Available Not Available Not Available Latuda 20 mg tablet Take 1 by mouth daily 07/21 completed [facility] Not Available Not Available Not Available Metrogel [...] FOR PERSISTE NT RESISTAN T DEPRESSI ON 11/01 completed Not Available Not Available Not Available Caplyta 42 mg capsule TAKE ONE CAPSULE BY MOUTH EVERY DAY TAKE FOR 3 MORE WEEKS AND THEN STOP 05/23 completed Not Available Not Available Not Available Vitals Date Recorded Body height Body mass index (BMI) Body weight Heart rate Systolic blood pressure Diastolic blood pressure Provider Name and Address Organization Details Last Updated DateTime 4 152.4 cm 31.3 kg/m2 37087.8 8 g 92 /min 92 mm[Hg] 62 mm[Hg] DIANE DICKINSON LPN [facility] 4 13:46:56 Date Recorded Body height Body mass index (BMI) Body weight Body temperature Respiratory rate Heart rate Systolic blood pressure Diastolic blood pressure Provider Name and Address Organization Details Last Updated DateTime 4 152.4 cm 31.4 kg/m2 89878.3 7 g 98.1 [degF] 16 /min 112 /min 108 mm[Hg] 70 mm[Hg] OZZY MATT RN [facility] 4 10:46:17 Date Recorded Body height Body mass index (BMI) Body weight Body temperature Oxygen saturation Oxygen saturation in Arterial blood by Pulse oximetry Heart rate Systolic blood pressure Diastolic blood pressure Provider Name and Address Organization Details Last Updated DateTime 4 152.4 cm 29.5 kg/m2 47738.8 1 g 97.7 [degF] 98 % 98 % 80 /min 118 mm[Hg] 64 mm[Hg] BECKA ELLSWORTH MA [facility], [facility] 4 11:07:58 Date Recorded Body height Body mass index (BMI) Body weight Body temperature Oxygen saturation Oxygen saturation in Arterial blood by Pulse oximetry Heart rate Systolic blood pressure Diastolic blood pressure Provider Name and Address Organization Details Last Updated DateTime 4 152.4 cm 24.8 kg/m2 68371.5 1 g 99 [degF] 97 % 97 % 82 /min 122 mm[Hg] 78 mm[Hg] BECKA ELLSWORTH MA [facility] 4 11:41:42 Social History Question Answer Notes LastModified by Organizat ion Details LastModified Time Tobacco Smoking Status Current Every Day Smoker Gisella Sanz MA [facility], [facility], [facility] 05/16/2023 12:00:36 What Was The Date Of [...] of lung Relative: 'Aunt'; Notes:*Problem: Mother: Brit e 55yo good health- ETOH/smoker/drug abuse/mental health Father: [...] Name and Address Organization Details Recorded Time COVID-19, mRNA, LNP-S, PF, ginger-sucrose, 30 mcg/0.3 mL 11/02/2023 completed [place] [facility] 11/02/2023 13:19:53 Tdap 10/24/2013 completed Not Available [facility] 06:04:56 Influenza, split virus, quadrivalent, PF 03/06/2019 completed Not Available [facility] 02/04/2023 06:04:56 COVID-19, mRNA, LNP-S, PF, 100 mcg/0.5mL dose or 50 mcg/0.25mL dose 08/05/2020 completed Not Available [facility] 02/04/2023 06:04:56 COVID-19, mRNA, LNP-S, PF, 100 mcg/0.5mL dose or 50 mcg/0.25mL dose 09/02/2020 completed Not Available [facility] 02/04/2023 06:04:57 SARS-COV-2 (COVID-19) vaccine, UNSPECIFIED 03/04/2021 completed Not Available [facility] 02/04/2023 06:04:57 pneumococcal polysaccharide PPV23 05/04/2018 completed Not Available [facility] 2022 06:04:57 influenza, unspecified formulation 02/13/2014 completed Not Available [facility] 02/04/2023 06:04:57 Past Encounters Encounter ID Performer Location Encounter Start Date Encounter Closed Date Diagnosis/Indication Diagnosis SNOMED-CT Code [id number] JANESSA CONROY [address] [place] [address] 05/16/2023 10:57:16 05/16/2023 12:45:16 Pain in right hand [id number] JANESSA PATEL [facility] [address] [place] [address] 05/23/2023 13:38:24 05/23/2023 15:02:34 Radial styloid tenosynovitis 79394462 [id number] HERNESTO BARRY PA-C [address] [place] [address] 06/21/2023 10:34:53 06/21/2023 11:04:46 Chilblains [id number] NANDA OVALLES [facility] [address] [place] [address] 06/30/2023 10:56:39 06/30/2023 12:57:25 Screening for malignant neoplasm of colon 587299940 Dyspnea 452204549 Hyperglycemia 99773241 Hyperlipid emia screening 584216327 Endocrine/ metabolic screening 101427305 Raynaud's phenomenon 266 150699 [id number] Subha Leiva RN [facility] [address] [place] [address] 07/04/2023 11:24:15 07/04/2023 11:32:35 Dyspnea 352541027 Hyperlipidemia 19164319 Endocrine/ metabolic screening 110389391 [id number] Yvonne Diggs [address] [place] [address] 11/02/2023 11:27:05 11/02/2023 13:08:22 Adjustment disorder 54217590 Active or passive immunization 408140840 Attention deficit hyperactivity disorder 245390793 Gastroesop hageal reflux disease without esophagitis 394240006 Nausea and vomiting 1693 1999 Health Concerns Section Related Observation LastModified by Organization Detai ls LastModified Time None Recorded Concern Status LastModified by Organization Details LastModified Time None Recorded Advance Directives Directive None Recorded Payers Encounter Date Sequence Insurance Name Policy Number Policy Wilburn Covered Member ID Wilburn Member ID Guarantor Name 05/23/2023 1 [facility] [id number] Domitila Flowers que [id number] 2 Domitila Mondragon 06/21/2023 1 [facility] [id number] Domitila Flowers que [id number] 2 Domitila Mondragon 06/30/2023 1 [facility] [id number] Domitila Folwers que [id number] 2 Domitila Mondragon 07/04/2023 1 [facility] [id number] Domitila Flowers que [id number] Domitila Mondragon Notes Date Note Type Note Provider Name and Address Organization Details Recorded Time 05/23/2023 text/html HPI Notes: 42 yr old [...] feeling cool to touch. denies GI symptoms. GLEN PARRISH, JANESSA [address], [place], [address], [facility]. 05/23/2023 14:38:26 06/21/2023 text/html HPI Notes: Tende r color change with blistering of her right second fingertip. Occurring within the last several days. She is a smoker and has had some exposure to cold. Under lots of stress with family social issues. [address], [place], [address], [facility]. 06/21/2023 12:23:18 06/30/2023 text/html HPI Notes: [...] pack year history. Mental Health/ADHD/Depress ion/Anxiety: Lalito Humberto is her perscriber and is a nurse practicionor. She also sees a counselor twice per week. Pt. reports a lot of stress in regard to one son going off in the [place] and another is currently hospitalized due to psych concerns. NANDA [address], [place], [address], [facility], [facility]. 06/30/2023 15:51:43 OBGyn Episode No OBEpisode recorded.
--- OUTSIDE RECORDS SUMMARY | 2023-11-03 01:52 | XMS_ITS | Clinical Summary ---
Author Organization [facility] Address [address] [place] [address] Care Team Providers Care Asic Design Engineer Name Role Phone Unknown, Provider Primary Care Provider Encounters Date Type Department Care Team Description 09/28/2023 Lab Requisition [facility] Pathology & Laboratory Medicine - [facility] [address] [place] [address] Luis Albetro Weber MD Encounter for other general examination [...] explore management options, if applicable. 10/02/2023 16:14 [facility] Final Diagnosis A. DUODENUM, [...] 16:14 [facility] Performing Lab [facility] 10/02/2023 16:14 [facility] [...] EDT Luis Alberto Weber MD PATHOLOGY ORDERABLES [facility] [address] [place] [address] from Last 3 Months Care Teams Asic Design Engineer Relationship Specialty Start Date End Date Unknown, ProviderMD PCP - General 01/29/09
--- OUTSIDE RECORDS SUMMARY | 2023-11-03 01:53 | XMS_ITS | Encounter Summary ---
Author Organization [facility] Address [address] [place] [address] Care Team Providers Care Tour Bus Driver/Guide Name Role Phone Unknown, Provider Primary Care Provider [phone] Encounter Details Date Type Department Care Team (Late st Contact Info) Description 12/09/2003 Results Only [facility] - [facility] [address] [place] [address] Chiqui Ro, MARK ANTHONY Social History Tobacco [...] cancers. [facility] Report Status Final [id number] [facility] 12/09/2003 9:23 EDT 12/24/2003 9:23 EDT Chiqui Ro NP MICROBIOLOGY - GENER AL ORDERABLES [facility] [address] [place] [address] * CYTOPATHOLOGY (12/09/2003 0:00 EDT) Pathology Report: CYTOPATHOLOGY REPORT Reports generated via electronic interface contain original data; however they are lacking the format of the original report. Caution should be taken when reading/interpreti ng unformatted reports. Name: ? DOMITILA BOURNE ? Accession #: ? [id number] : ? 1980 (Age: 23) ??F ?Collect Date: ? 12/09/2003 Location: ? [facility] ? Receive Date: ? 12/11/2003 Provider: ?CHIQUI RO NEWS PRODUCTION SUPERVISOR Copy to: ? Specimen/Source: ?ThinPrep Pap Test, [...] cells, undetermined significance. EDUCATIONAL NOTES/RECOMMENDATI ONS ? [facility] recommends following the 2001 Consensus Guidelines for the Management of Women with Cervical Cytological Abnormalities (NANDO,2002;287:212 0-9). Management algorithms have been distributed by [facility] and are available online at www.ASCCP.org. ? Document reviewed and electronically signed by: ? LANIE MAGALLANES MD [facility] ? Report Date: ??12/19/2003 12:55 End of Report [facility] 12/09/2003 12/11/2003 Chiqui Ro NP PATHOLOGY ORDERABLES [facility] [address] [place] [address] documented in this encounter Visit Diagnoses Not on filedocumented in this encounter Care Teams Tour Bus Driver/Guide Relationship Specialty Start Date End Date Unknown, Provider, PCP - General 01/29/09 documented as of this encounter
--- OUTSIDE RECORDS SUMMARY | 2023-11-03 01:53 | XMS_ITS | Encounter Summary ---
Author Organization [facility] Address [address] [place] [address] Care Team Providers Care Control Room Technician Name Role Phone Unknown, Provider Primary Care Provider [phone] Encounter Details Date Type Department Care Team (Late st Contact Info) Description 01/04/2005 Results Only [facility] - Maple conversion [address] [place] [address] Luisa Gutierrez, [facility] [address] [place] [address] Social History Tobacco Use Types Packs/Day [...] ? DOMITILA BOURNE ? Accession #: ? [id number] : ? 1980 (Age: 24) ??F ?Collect Date: ? 01/04/2005 Location: ? [facility] ? Receive Date: ? 01/06/2005 Provider: ?LUISA GUTIERREZ INSURANCE COUNSELOR Copy to: ? Specimen/Source: ?ThinPrep Pap Test, Cervix/Endocervix, processed on [employer] ThinPrep Imaging System, with manual evaluation Last [...] lesion (LSIL). EDUCATIONAL NOTES/RECOMMENDATI ONS ? [facility] recommends following the 2001 Consensus Guidelines for the Management of Women with Cervical Cytological Abnormalities (NANDO,2002;287:212 0-9). Management algorithms have been distributed by [facility] and are available online at www.ASCCP.org. ? Document reviewed and electronically signed by: ? LANIE MAGALLANES MD [facility] ? Report Date: ??01/14/2005 12:38 End of Report [facility] 01/04/2005 01/06/2005 Luisa Gutierrez INSURANCE COUNSELOR PATHOLOGY ORDERABLES [facility] [address] [place] [address] documented in this encounter Visit Diagnoses Not on filedocumented in this encounter Care Teams Control Room Technician Relationship Specialty Start Date End Date Unknown, Provider, PCP - General 01/29/09 documented as of this encounter
--- OUTSIDE RECORDS SUMMARY | 2023-11-03 01:53 | XMS_ITS | Encounter Summary ---
Author Organization [facility] Address [address] [place] [address] Care Team Providers Care Scalper Operator Name Role Phone Unknown, Provider Primary Care Provider [phone] Encounter Details Date Type Department Care Team (Late st Contact Info) Description 09/28/2023 Lab Requisition [facility] Pathology & Laboratory Medicine - [facility] [address] [place] [address] Luis Alberto Weber MD [address] [place] [phone] Encounter for other general examination Social History [...] explore management options, if applicable. 10/02/2023 16:14 [facility] Final Diagnosis A. DUODENUM, [...] POLYP, BIOPSY: - Tubular adenoma. 10/02/2023 16:14 [facility] Attestation By the signature below, the attending physician certifies that they have 1) personally conducted a gross and/or microscopic examination of the described specimen(s), and/or personally interpreted the results of laboratory testing of the described specimen(s), and 2) personally rendered or confirmed the above diagnosis. 10/02/2023 16:14 [facility] at 1614 Clinical History Screening colonoscopy, diverticulosis; diagnostic EGD, bile refluxs (post op), gastropathy; 10/02/2023 16:14 [facility] Gross Description A. Received in [...] H1. Itzel Lino 09/30/2023 7:52 10/02/2023 16:14 [facility] Performing Lab [facility] 10/02/2023 16:14 [facility] Scanned Images 10/02/2023 16:14 [facility] Tissue SPECIMEN FROM RECTUM / [...] EDT Luis Alberto Weber MD PATHOLOGY ORDERABLES [facility] [address] [place] [address] documented in this encounter Visit Diagnoses Diagnosis Encounter for other general examination documented in this encounter Care Teams Scalper Operator Relationship Specialty Start Date End Date Unknown, Provider, PCP - General 01/29/09 documented as of this encounter
--- OUTSIDE RECORDS SUMMARY | 2023-11-03 01:53 | XMS_ITS | Encounter Summary ---
Author Organization [facility] Address [address] [place] [address] Care Team Providers Care Turret Punch Operator Name Role Phone Unknown, Provider Primary Care Provider [phone] Encounter Details Date Type Department Care Team (Late st Contact Info) Description 12/08/2006 Results Only [facility] - Maple conversion [address] [place] [address] Luisa Gutierrez, [facility] [address] [place] [phone] Social History Tobacco Use Types Packs/Day [...] ? DOMITILA BOURNE ? Accession #: ? [id number] : ? 1980 (Age: 26) ??F ?Collect Date: ? 12/08/2006 Location: ? [facility] ? Receive Date: ? 12/09/2006 Provider: ?LUISA GUTIERREZ MEDICAL HEALTH RESEARCHER Copy to: ? Specimen/Source: ?ThinPrep Pap Test, Cervix/Endocervix, processed on [email or web address] ThinPrep Imaging System, with manual evaluation Last [...] intraepithelial lesion (LSIL). EDUCATIONAL NOTES/RECOMMENDATI ONS ? [facility] recommends following the 2001 Consensus Guidelines for the Management of Women with Cervical Cytological Abnormalities (NANDO,2002;287:212 0-9). Management algorithms have been distributed by [facility] and are available online at www.ASCCP.org. ? Document reviewed and electronically signed by: ? Tracey Santillan MD ? Report Date: ??12/19/2006 08:49 End of Report [facility] 12/08/2006 12/09/2006 Luisa Gutierrez MEDICAL HEALTH RESEARCHER PATHOLOGY ORDERABLES [facility] [address] [place] [address] documented in this encounter Visit Diagnoses Not on filedocumented in this encounter Care Teams Turret Punch Operator Relationship Specialty Start Date End Date Unknown, Provider, PCP - General 01/29/09 documented as of this encounter
--- OUTSIDE RECORDS SUMMARY | 2023-11-03 01:53 | XMS_ITS | Encounter Summary ---
Author Organization [facility] Address [address] [place] [address] Care Team Providers Care Screener And Blender Operator Name Role Phone Unknown, Provider Primary Care Provider [phone] Encounter Details Date Type Department Care Team (Late st Contact Info) Description 02/08/2007 Results Only [facility] - Maple conversion [address] [place] [address] Isa Bullock MD [address] [place] [address] [place] [address] Social History Tobacco Use Types Packs/Day Years [...] ? DOMITILA BOURNE ? Accession #: ? [id number] ? : ? 1980 (Age: 26) ??F [...] presence of high-grade squamous intraepithelial lesion. (Dr. Delcid)/[facility] Document reviewed and electronically signed by: Adenike Shirley MD Report ??Date: 02/13/2007 19:07 By the signature above, the attending physician certifies that he/she has personally conducted a gross and/or microscopic examination of the described specimens and rendered or confirmed the above diagnosis. Specimen(s) Received: ? Cx bx 2:00 Clinical History: ? LSIL [id number] Gross Description: ? Received in formalin labelled Giancarlo and cx 2:00 is a 0.6 x 0.3 x 0.2 cm portion of white-soria glistening mucosa. ??Submitted intact in one cassette. (Apolonia Pena/lgk End of Report [facility] 02/08/2007 02/09/2007 9:4 6 EST Isa Bullock MD PATHOLOGY ORDERABLES [facility] [address] [place] [address] documented in this encounter Visit Diagnoses Not on filedocumented in this encounter Care Teams Screener And Blender Operator Relationship Specialty Start Date End Date Unknown, Provider, PCP - General 01/29/09 documented as of this encounter
--- OUTSIDE RECORDS SUMMARY | 2023-11-03 01:53 | XMS_ITS | Encounter Summary ---
Author Organization [facility] Address [address] [place] [address] Care Team Providers Care Grain Thresher Name Role Phone Unknown, Provider Primary Care Provider [phone] Encounter Details Date Type Department Care Team (Late st Contact Info) Description 04/28/2006 Results Only [facility] - Maple conversion [address] [place] [address] Luisa Gutierrez, [facility] [address] [address] Social History Tobacco Use Types Packs/Day [...] EST) Specimen Description Cervix, ThinPrep vial [facility] Result Positive for one or more of HPV types 16,18,31,33,35 ,39,45,51,52,5 6,58,59, or 68. These high/intermedi ate risk HPV types are associated with dysplasia and some cervical cancers. [facility] Report Status Final [id number] [facility] 04/28/2006 14:5 0 EST 05/09/2006 14:18 EST Luisa Gutierrez CAT SCANNER OPERATOR MICROBIOLOGY - GENER AL ORDERABLES [facility] [address] [place] [address] * CYTOPATHOLOGY (04/28/2006 0:00 EST) Pathology Report: CYTOPATHOLOGY REPORT Reports generated via electronic interface contain original data; however they are lacking the format of the original report. Caution should be taken when reading/interpreti ng unformatted reports. Name: ? DOMITILA BOURNE ? Accession #: ? [id number] : ? 1980 (Age: 25) ??F ?Collect Date: ? 04/28/2006 Location: ? [facility] ? Receive Date: ? 05/02/2006 Provider: ?LUISA GUTIERREZ CAT SCANNER OPERATOR Copy to: ? Specimen/Source: ?ThinPrep Pap Test, Cervix/Endocervix, processed on Associated [employer] Processing ThinPrep Imaging System, with manual evaluation Last [...] undetermined significance (ASC-US). EDUCATIONAL NOTES/RECOMMENDATI ONS ? [facility] recommends following the 2001 Consensus Guidelines for the Management of Women with Cervical Cytological Abnormalities (NANDO,2002;287:212 0-9). Management algorithms have been distributed by [facility] and are available online at www.ASCCP.org. ? Document reviewed and electronically signed by: ? LANIE MAGALLANES MD [facility] ? Report Date: ??05/06/2006 18:02 End of Report [facility] 04/28/2006 05/02/2006 Luisa Gutierrez CAT SCANNER OPERATOR PATHOLOGY ORDERABLES Performing Organization Address City/State/[facility] Co de Phone Number [facility] [address] [place] [address] documented in this encounter Visit Diagnoses Not on filedocumented in this encounter Care Teams Grain Thresher Relationship Specialty Start Date End Date Unknown, Provider, PCP - General 01/29/09 documented as of this encounter
--- OUTSIDE RECORDS SUMMARY | 2023-11-03 01:53 | XMS_ITS | Encounter Summary ---
Author Organization [facility] Address [address] [place] [address] Care Team Providers Care Barber Stylist Name Role Phone Unknown, Provider Primary Care Provider [phone] Encounter Details Date Type Department Care Team (Late st Contact Info) Description 09/23/2005 Results Only [facility] - Maple conversion [address] [place] [address] Luisa Gutierrez, [facility] [address] [place] [phone] Social History Tobacco Use Types Packs/Day [...] ? DOMITILA BOURNE ? Accession #: ? [id number] : ? 1980 (Age: 24) ??F ?Collect Date: ? 09/23/2005 Location: ? [facility] ? Receive Date: ? 09/24/2005 Provider: ?LUISA GUTIERREZ FRESH FOODS CAKE DECORATOR Copy to: ? Specimen/Source: ?ThinPrep Pap Test, Cervix/Endocervix, processed on OneBuild ThinPrep Imaging System, with manual evaluation Last Menstrual Period: ? 09/11/05 Hormonal/Contracep tive Status: ? Yes: Nuva Ring Previous Gynecologic Pathology: ? LSIL: 11/26, 01/29, 12/30 ASC-US: 11/29 HPV: 11/29 Treatment History: ? Cervical biopsy: 02/25 Epitheilal changes Colposcopy: 01/29 and 03/01 L grade lesion ant. lip of cx. ??Probable FRANCOSI I did not bx. Other: ? HPVDX - HPV testing requested regardless of diagnosis on current ThinPrep Pap test. ? SPECIMEN ADEQUACY ? Satisfactory for Evaluation - transformation zone component present GENERAL CATEGORIZATION ? Epithelial Cell Abnormality INTERPRETATION ? Squamous Cell Abnormality - Atypical squamous cells, undetermined significance. EDUCATIONAL NOTES/RECOMMENDATI ONS ? [facility] recommends following the 2001 Consensus Guidelines for the Management of Women with Cervical Cytological Abnormalities (NANDO,2002;287:212 0-9). Management algorithms have been distributed by [facility] and are available online at www.ASCCP.org. ? Document reviewed and electronically signed by: ? MARSHA COOLEY MD ? Report Date: ??10/05/2005 14:11 End of Report [facility] 09/23/2005 09/24/2005 Luisa Gutierrez FRESH FOODS CAKE DECORATOR PATHOLOGY ORDERABLES [facility] [address] [place] [address] documented in this encounter Visit Diagnoses Not on filedocumented in this encounter Care Teams Barber Stylist Relationship Specialty Start Date End Date Unknown, Provider, PCP - General 01/29/09 documented as of this encounter
--- OUTSIDE RECORDS SUMMARY | 2023-11-03 01:53 | XMS_ITS | Encounter Summary ---
Author Organization [facility] Address [address] [place] [address] Care Team Providers Care Forest Fire Lookout Name Role Phone Unknown, Provider Primary Care Provider [phone] Encounter Details Date Type Department Care Team (Late st Contact Info) Description 09/07/2010 Results Only [facility]- PRISM [phone] Erica Paige MD [address] [place] [address] Social History Tobacco Use Types Packs/Day Years [...] ? STEFFEN, DOMITILA ? Accession #: ? [id number] ? : ? 1980 (Age: 29) ??F [...] MD PATHOLOGY ORDERABLES [facility] [address] [place] [address] documented in this encounter Visit Diagnoses Not on filedocumented in this encounter Care Teams Forest Fire Lookout Relationship Specialty Start Date End Date Unknown, Provider, PCP - General 01/29/09 documented as of this encounter
--- OUTSIDE RECORDS SUMMARY | 2023-11-03 01:53 | XMS_ITS | Referral Summary ---
Author Organization [facility] Address [address] [place] [address] Care Team Providers Care Credit Product Analyst Name Role Phone Unknown, Provider Primary Care Provider [phone] Encounters Date Type Department Care Team Description 09/28/2023 Lab Requisition [facility] Pathology & Laboratory Medicine - [facility] [address] [place] [address] Luis Alberto Weber MD Encounter for other [...] management options, if applicable. 10/02/2023 16:14 EDT [facility] Final Diagnosis A. DUODENUM, [...] POLYP, BIOPSY: - Tubular adenoma. 10/02/2023 16:14 [facility] Attestation By the signature below, the attending physician certifies that they have 1) personally conducted a gross and/or microscopic examination of the described specimen(s), and/or personally interpreted the results of laboratory testing of the described specimen(s), and 2) personally rendered or confirmed the above diagnosis. 10/02/2023 16:14 [facility] at 1614 Clinical History Screening colonoscopy, diverticulosis; diagnostic EGD, bile refluxs (post op), gastropathy; 10/02/2023 16:14 [facility] Gross Description A. Received [...] Itzel Lino 09/30/2023 7:52 10/02/2023 16:14 T [facility] Performing Lab [facility] 10/02/2023 16:14 T [facility] Scanned Images 10/02/2023 16:14 T [facility] Tissue SPECIMEN FROM RECTUM [...] EDT Luis Alberto Weber MD PATHOLOGY ORDERABLES [facility] [address] [place] [address] from Last 3 Months Care Teams Credit Product Analyst Relationship Specialty Start Date End Date Unknown, Provider, PCP - General 01/29/09
--- OUTSIDE RECORDS SUMMARY | 2023-11-03 01:53 | XMS_ITS | Encounter Summary ---
Author Organization [facility] Address [address] [place] [address] Care Team Providers Care Real Estate Paralegal Name Role Phone Unknown, Provider Primary Care Provider [phone] Encounter Details Date Type Department Care Team (Late st Contact Info) Description 06/18/2020 Lab Requisition [facility] Pathology & Laboratory Medicine - [address] [address] Tash Chávez, WATCH PARTS INSPECTOR [address] [place] [address] Encounter for other general examination [...] Risk types, PCR Negative Negative 06/26/2020 15:22 [facility] Comment:No E6 or E7 mRNA is detected from HPV types 16,18,31,33,35,39,45,51,52,56,58,59,66, and 68 by wet and dry sugar bin operator mediated amplification. Papanicolaou smear specimen (specimen) CERVIX UTERI STRUCTURE / Unknown 06/17/2020 14:30 EDT 06/25/2020 14:43 EDT Tash Chávez APRN MICROBIOLOGY - GE NERAL ORDERABLES [facility] [address] [place] [address] * PAP TEST (06/17/2020 14:30 EDT) Specimens A. Cervix and/or Endocervix , ThinPrep Imaging System with Manual Evaluation 06/26/2020 15:22 [facility] Specimen Adequacy Satisfactory for Evaluation - transformation zone component present 06/26/2020 15:22 [facility] General Categorization Negative for intraepithelial lesion or malignancy 06/26/2020 15:22 [facility] Descriptive Diagnosis Shift in serenity present suggestive of bacterial vaginosis. 06/26/2020 15:22 [facility] Attestation . 06/26/2020 15:22 [facility] at 1522 Clinical History See below 06/27/19 15:22 [facility] HPV The result for the Human Papillomavirus (HPV) Detection-High Risk Types is Negative. No E6 or E7 mRNA is detected from HPV types 16,18,31,33,35,39 ,45,51,52,56,58,5 9,66, and 68 by wet and dry sugar bin operator mediated amplification.Princess ting was performed on specimen [id number] and was resulted on 06/26/2020 1514 EDT by LYUBOV, LAB INSTRUMENT RESULTS IN 06/26/2020 15:22 T [facility] Performing Lab [facility] 06/26/2020 15:22 EDT [facility] Scanned Images 06/26/2020 15:22 EDT [facility] Papanicolaou smear specimen (specimen) CERVIX UTERI STRUCTURE / Unknown 06/17/2020 14:30 EDT 06/18/2020 13:17 EDT Leo A Saira WATCH PARTS INSPECTOR PATHOLOGY ORDERAB LES [facility] [address] [place] [address] documented in this encounter Visit Diagnoses Diagnosis Encounter for other general examination documented in this encounter Care Teams Real Estate Paralegal Relationship Specialty Start Date End Date Unknown, Provider, PCP - General 01/29/09 documented as of this encounter
--- OUTSIDE RECORDS SUMMARY | 2023-11-03 01:53 | XMS_ITS | Encounter Summary ---
Author Organization [facility] Address [address] [place] [address] Care Team Providers Care Spare Fixer Name Role Phone Unknown, Provider Primary Care Provider [phone] Encounter Details Date Type Department Care Team (Latest Contact Info) Description 05/07/2019 Lab Requisition [facility] Pathology & Laboratory Medicine - [facility] [address] [place] [address] Roberto Escobar MD [address] [address] Full incontinence of feces; Other [...] no significant diagnostic abnormality. 05/08/2019 14:50 EST [facility] at 1450 Clinical History Patient with reflux esophagitis Diffuse gastritis vs. Gastropathy Duodenum atrophy change Biopsies of duodenum and stomach taken 05/08/2019 14:50 [facility] Attestation By the signature below, the attending physician certifies that they have 1) personally conducted a gross and/or microscopic examination of the described specimen(s), and/or personally interpreted the results of laboratory testing of the described specimen(s), and 2) personally rendered or confirmed the above diagnosis. 05/08/2019 14:50 [facility] at 1450 Gross Description [...] C1-C3. Velvet Louis 05/08/2019 07:59 05/08/2019 14:50 [facility] Scanned Images 05/08/2019 14:50 [facility] Tissue ENTIRE COLON / Unknown 05/07/2019 8:00 EST 05/07/2019 22:11 EST Tissue specimen (specimen) STRUCTURE OF SMALL INTESTINE / Unknown 05/07/2019 8:00 EST 05/07/2019 22:11 EST Tissue specimen (specimen) COLON STRUCTURE / Unknown 05/07/2019 8:00 EST 05/07/2019 22:11 EST Roberto Escobar MD PATHOLOGY ORDERABLES [facility] [address] [place] [phone] documented in this encounter Visit Diagnoses Diagnosis Full incontinence of feces Other fecal abnormalities Alcohol abuse, uncomplicated documented in this encounter Care Teams Spare Fixer Relationship Specialty Start Date End Date Unknown, Provider, PCP - General 01/29/09 documented as of this encounter
--- OUTSIDE RECORDS SUMMARY | 2023-11-03 01:53 | XMS_ITS | Encounter Summary ---
Author Organization [facility] Address [address] [place] [address] Care Team Providers Care Pot Operator Name Role Phone Unknown, Provider Primary Care Provider [phone] Encounter Details Date Type Department Care Team (Late st Contact Info) Description 01/28/2004 Results Only [facility] - Maple conversion [address] [place] [address] Isa Bullock MD [address] [place] [address] [place] [address] Social History Tobacco Use Types Packs/Day Years [...] ? DOMITILA BOURNE ? Accession #: ? [id number] ? : ? 1980 (Age: 23) ??F [...] was reviewed at intradepartmental consultation conference. ??(Dr. Mohr)/[facility] Document reviewed and electronically signed [...] in its entirety in one cassette. ??(Apolonia Sigala)/[facility] End of Report [facility] 01/28/2004 01/30/2004 9:1 6 EST Isa Bullock MD PATHOLOGY ORDERABLES [facility] [address] [place] [address] documented in this encounter Visit Diagnoses Not on filedocumented in this encounter Care Teams Pot Operator Relationship Specialty Start Date End Date Unknown, Provider, PCP - General 01/29/09 documented as of this encounter
--- OUTSIDE RECORDS SUMMARY | 2023-11-03 01:53 | XMS_ITS | Encounter Summary ---
Author Organization [facility] Address [address] [place] [address] Care Team Providers Care Senior Clinical Consultant Name Role Phone Unknown, Provider Primary Care Provider [phone] Encounter Details Date Type Department Care Team (Late st Contact Info) Description 08/23/2002 Results Only [facility] - Maple conversion [address] [place] [address] Nancy Moore CNM [facility] [place], [place] [phone] Social History Tobacco Use Types Packs/Day Years [...] ? DOMITILA BOURNE ? Accession #: ? [id number] : ? 1980 (Age: 21) ??F ?Collect [...] reviewed and electronically signed by: ? Joann Blakc, SCT(ASCP) ? Report Date: ??08/28/2002 14:14 End of Report [facility] 08/23/2002 08/27/2002 Nancy Moore CNM PATHOLOGY ORDERABLES Performing Organization Address City/State/[facility] Co de Phone Number [facility] [address] [place] [address] documented in this encounter Visit Diagnoses Not on filedocumented in this encounter Care Teams Senior Clinical Consultant Relationship Specialty Start Date End Date Unknown, Provider, PCP - General 01/29/09 documented as of this encounter
--- OUTSIDE RECORDS SUMMARY | 2023-11-03 01:53 | XMS_ITS | Encounter Summary ---
Author Organization [facility] Address [address] [place] [address] Care Team Providers Care Dobby Looms Pegger Name Role Phone Unavailable Primary Care Provider Unavailmalachi e Encounter Details Date Type Department Care Team (Latest Contact Info) Description 12/09/2003 15:41 EDT Hospital Encounter [facility] - Other [address] [place] [address] Luisa Gutierrez, [facility] [address] [place] [address] Discharge Disposition: Auto Discharge Social [...]
--- OUTSIDE RECORDS SUMMARY | 2023-11-03 01:53 | XMS_ITS | Encounter Summary ---
Author Organization [facility] Address [address] [place] [address] Care Team Providers Care Sustainability Manager Name Role Phone Unavailable Primary Care Provider Unavailabl e Encounter Details Date Type Department Care Team (Latest Contact Info) Description 09/23/2005 13:44 EDT Hospital Encounter [facility] - Other [address] [place] [address] Luisa Gutierrez, [facility] [address] [place] [address] Discharge Disposition: Auto Discharge Social [...] ? STEFFEN, DOMITILA ? Accession #: ? [id number] ? : ? 1980 (Age: 28) ??F [...] MD PATHOLOGY ORDERABLES [facility] [address] [place] [address] * HUMAN PAPILLOMA VIRUS DNA TEST (09/23/2005 8:30 EDT) Specimen Description Cervix, ThinPrep vial [facility] Result Positive for one or more of HPV types 16,18,31,33,35 ,39,45,51,52,5 6,58,59, or 68. These high/intermedi ate risk HPV types are associated with dysplasia and some cervical cancers. [facility] Report Status Final [id number] [facility] 09/23/2005 8:30 EDT 10/06/2005 8:30 EDT Luisa Gutierrez STAGE SET UP WORKER MICROBIOLOGY - GENER AL ORDERABLES [facility] [address] [place] [address] documented in this encounter Visit Diagnoses Not on filedocumented in this encounter
--- OUTSIDE RECORDS SUMMARY | 2023-11-03 01:53 | XMS_ITS | Encounter Summary ---
Author Organization [facility] Address [address] [place] [address] Care Team Providers Care Plumbing Inspector Name Role Phone Unknown, Provider Primary Care Provider [phone] Encounter Details Date Type Department Care Team (Late st Contact Info) Description 12/16/2011 Results Only [facility] Laboratory Services - [facility] ([facility] [address] [place], [place] [address] Nancy Moore CN[address] [phone] Social History Tobacco Use Types Packs/Day Years [...] ? DOMITILA GARCIA ? Accession #: ? [id number] : ? 1980 (Age: 31) ??F ?Collect [...] no dysplasia, 2002 pap negative, 07/03 F/up [facility], 09/05 pap negative ? SPECIMEN ADEQUACY ? Satisfactory for Evaluation - transformation zone component present GENERAL CATEGORIZATION ? Negative for Intraepithelial Lesion or Malignancy ? Document reviewed and electronically signed by: ? ADAIR Parrish(ASCP) ? Report Date: ??12/30/2011 14:35 End of Report [facility] 12/16/2011 12/20/2011 Nancy MCKEONM PATHOLOGY ORDERABLES [facility] [address] [place] [address] documented in this encounter Visit Diagnoses Not on filedocumented in this encounter Care Teams Plumbing Inspector Relationship Specialty Start Date End Date Unknown, Provider, PCP - General 01/29/09 documented as of this encounter
--- OUTSIDE RECORDS SUMMARY | 2023-11-03 01:53 | XMS_ITS | Encounter Summary ---
Author Organization [facility] Address [address] [place] [address] Care Team Providers Care Stockholder Name Role Phone Unknown, Provider Primary Care Provider [phone] Encounter Details Date Type Department Care Team (Late st Contact Info) Description 02/25/2014 Results Only [facility] [phone] Erica Paige MD [address] [place] [address] Social History Tobacco Use Types Packs/Day Years [...] ? DOMITILA GARCIA ? Accession #: ? [id number] ? : ? 1980 (Age: 33) ??F [...] types 16,18,31,33,35, 39,45,51,52,56,58, 59,66, and 68 by spout worker mediated amplification. Comments Document reviewed and electronically signed by: ? System Interface ? Report date: 03/01/2014 By the signature above, the attending physician certifies that he/she has personally conducted a gross and/or microscopic examination of the described specimens and rendered or confirmed the above diagnosis. End of Report [facility] 02/25/2014 02/26/2014 Erica Paige MD PATHOLOGY ORDERABLES [facility] [address] [place] [address] documented in this encounter Visit Diagnoses Not on filedocumented in this encounter Care Teams Stockholder Relationship Specialty Start Date End Date Unknown, Provider, PCP - General 01/29/09 documented as of this encounter
[2023-11-03 10:22] LABS: ALT 25 U/L (14-59); AST 19 U/L (15-37); Albumin 3.5 g/dL (3.4-5.0); Alkaline Phosphatase 92 U/L (46-116); Anion Gap 11.6 mmol/L (3-11); BUN 4 mg/dL (7-18); Bilirubin, Total 0.62 mg/dL (0.2-1.0); CO2 24.4 mmol/L (21.0-32.0); CREATININE 0.8 mg/dL (0.55-1.02); Calcium 8.9 mg/dL (8.5-10.1); Chloride 103 mmol/L (98-107); Estimated GFR 93.12 (mL/min/1.73m2); Glucose 100 mg/dL (74-106); Potassium 3.1 mmol/L (3.5-5.1); Sodium 139 mmol/L (136-145); TSH (W/Ref FT4) 1.44 uIU/mL (0.36-3.74); Total Protein 7.3 g/dL (6.4-8.2)
[2023-11-03 10:50] LABS: Lithium 0.3 mmol/L (0.6-1.2)
== END 2023-11-03 01:51 | disposition home or self-care (01) ==
PROVIDERS: PCP Student in an Organized Health Care Education/Training Program; Visit Provider Nurse Practitioner Family
DX: F33.1 Major depressive disorder, recurrent, moderate (principal)
CPT/HCPCS: 36415; 80053; 80178; 84443